=== PATIENT | female | born 1975 | race African-American/Black ===

== ENCOUNTER 2016-09-11 09:48 | Emergency (ER) | payer MEDICAID ==
[2016-09-11] MEDS ORDERED: ONDANSETRON 4 MG TAB.RAPDIS PO ONE (10:07)
--- NOTE | 2016-09-11 10:07 | ER Document Report ---
ED Medical Screen (RME) - General Stated Complaint: COLD SYMPTOMS Notes: 40 yo female c/o cold symptoms 6 days. coughing, shortness of breath, chest soreness, fever, vomiting. + hx/o HTN, DM, Anemia. Pt is blind, Dialysis patient. Went to Dialysis today, unable to finish. Has right AV fistula. TRAVEL OUTSIDE OF THE [place] IN LAST 30 DAYS: No - Related Data Allergies/Adverse Reactions: hydromorphone [Hydromorphone] Allergy (Intermediate, Verified 09/10/13 17:27) ABDOMINAL CRAMPS azithromycin [Azithromycin] Allergy (Unknown, Verified 09/10/13 17:27) Darbepoetin [place] in [place] * [From Aranesp] Allergy (Unknown, Verified 09/10 17:27) ITCHING Sulfa (Sulfonamide Antibiotics) Allergy (Verified 09/10/13 17:27) Unsure BBQ SAUCE Allergy (Mild, Uncoded 09/10/13 17:27) Hives Past Medical History - Past Medical History Cardiac Medical History: Reports: Hx Congestive Heart Failure, Hx Coronary Artery Disease, Hx Hypercholesterolemia, Hx Hypertension Denies: Hx Heart Attack Pulmonary Medical History: Denies: Hx Asthma, Hx Bronchitis, Hx COPD, Hx Pneumonia, Hx Tuberculosis Neurological Medical History: Reports: Hx Seizures. Denies: Hx Cerebrovascular Accident Endocrine Medical History: Reports: Hx Diabetes Mellitus Type 1, Hx Diabetes Mellitus Type 2 Renal/ Medical History: Reports: Hx End Stage Renal Disease, Hx Hemodialysis. Denies: Hx Kidney Stones GI Medical History: Reports: Hx Gastroesophageal Reflux Disease. Denies: Hx Cirrhosis, Hx Ulcer Musculoskeltal Medical History: Reports Hx Arthritis, Denies Hx Multiple Sclerosis Skin Medical History: Reports Hx Cellulitis Psychiatric Medical History: Reports: Hx Depression Denies: Hx Bipolar Disorder, Hx Schizophrenia Traumatic Medical History: Reports: Hx Fractures - Rt. Hip Infectious Medical History: Past Surgical History: Reports: Hx Abdominal Surgery - abd hernia repair, Hx Cholecystectomy, Hx Herniorrhaphy, Hx Orthopedic Surgery - rt hip, Hx Vascular Surgery - Right arm AV fistula. Denies: Hx Pacemaker - Immunizations Immunizations up to date: Yes Hx Diphtheria, Pertussis, Tetanus Vaccination: Yes
[2016-09-11] MEDS ORDERED: ACETAMINOPHEN 325 MG TABLET PO ONE ×2 (10:08→14:38)
[2016-09-11] MEDS ORDERED: NORMAL SALINE 1000 ML 250 ML IV ONE (10:35)
[2016-09-11 10:55] LABS: ABSOLUTE BASOPHILS # (AUTO) 0.1 10^3/uL (0.0-0.2); ABSOLUTE LYMPHOCYTES (AUTO) 0.5 10^3/uL (0.5-4.7); ABSOLUTE MONOCYTES (AUTO) 1.4 10^3/uL (0.1-1.4); ABSOLUTE NEUT (AUTO) 6.7 10^3/uL (1.7-8.2); BASOPHILS % (AUTO) 0.9 % (0-2); HEMATOCRIT 28.7 % (36.0-47.0); HEMOGLOBIN 9.5 g/dL (12.0-15.5); HGB HCT DIFFERENCE -0.2; LYMPHOCYTES % (AUTO) 5.9 % (13-45); MEAN CORPUSCULAR HEMOGLOBIN 32.2 pg (27.0-33.4); MEAN CORPUSCULAR HGB CONC 32.9 g/dL (32.0-36.0); MEAN CORPUSCULAR VOLUME 98 fl (80-97); MONOCYTES % (AUTO) 15.9 % (3-13); RED BLOOD COUNT 2.94 10^6/uL (3.72-5.28); RED CELL DISTRIBUTION WIDTH 14.6 % (11.5-14.0); SEGMENTED NEUTROPHILS % (AUTO) 77.3 % (42-78); WHITE BLOOD COUNT 8.7 10^3/uL (4.0-10.5)
[2016-09-11 10:57] LABS: VENOUS BLOOD HCO3 29.4 mmol/L (20-32); VENOUS BLOOD PCO2 53.4 mmHg (35-63); VENOUS BLOOD PH 7.36 (7.30-7.42)
[2016-09-11 11:15] LABS: ALANINE AMINOTRANSFERASE 33 U/L (9-52); ALBUMIN 4.5 g/dL (3.5-5.0); ALKALINE PHOSPHATASE 118 U/L (38-126); ANION GAP 19 (5-19); ASPARTATE AMINO TRANSFERASE 33 U/L (14-36); BILIRUBIN,TOTAL 0.7 mg/dL (0.2-1.3); BLOOD UREA NITROGEN 25 mg/dL (7-20); CARBON DIOXIDE 27 mmol/L (22-30); CHLORIDE 93 mmol/L (98-107); CREATININE RESULT 4.99 mg/dL (0.52-1.25); GLUCOSE 148 mg/dL (75-110); LIPASE 285.1 U/L (23-300); MAGNESIUM 1.5 mg/dL (1.6-2.3); POTASSIUM 4.9 mmol/L (3.6-5.0); SODIUM 138.7 mmol/L (137-145); TOTAL PROTEIN 9.3 g/dL (6.3-8.2)
[2016-09-11] MEDS ORDERED: PIPERACILLIN/TAZOBACTAM 3.375 GM VIAL IV ONE (11:42)
[2016-09-11] MEDS ORDERED: OSELTAMIVIR PHOSPHATE 6 MG/1 ML SUSP 60 ML PO ONE (13:49)
--- NOTE | 2016-09-11 14:12 | ER Document Report ---
ED General - General Chief Complaint: Nausea/Vomiting Stated Complaint: COLD SYMPTOMS TRAVEL OUTSIDE OF THE [place] IN LAST 30 DAYS: No - HPI Patient complains to provider of: nausea vomiting fever Notes: Patient's coming in from dialysis for fever. Temperature 103. Patient denies nausea vomiting prior to. Patient received approximately 75% for dialysis treatment prior to arrival. Patient states was exposed to family members to have a viral type illness. States she felt chills suggested to fevers day prior to arrival. Patient did not receive a flu shot this year. Patient also complains of shortness of breath nonproductive cough. - Related Data Allergies/Adverse Reactions: hydromorphone [Hydromorphone] Allergy (Intermediate, Verified 09/11/16 10:04) ABDOMINAL CRAMPS azithromycin [Azithromycin] Allergy (Unknown, Verified 09/11/16 10:04) Darbepoetin [place] in [place] * [From Aranesp] Allergy (Unknown, Verified 09/11 10:04) ITCHING Sulfa (Sulfonamide Antibiotics) Allergy (Verified 09/11/16 10:04) Unsure BBQ SAUCE Allergy (Mild, Uncoded 09/11/16 10:04) Hives Past Medical History - Social History Smoking Status: Never Smoker Chew tobacco use (# tins/day): No Frequency of alcohol use: None Drug Abuse: None Family History: Reviewed & Not Pertinent Patient has suicidal ideation: No Patient has homicidal ideation: No - Past Medical History Cardiac Medical History: Reports: Hx Congestive Heart Failure, Hx Coronary Artery Disease, Hx Hypercholesterolemia, Hx Hypertension Denies: Hx Heart Attack Pulmonary Medical History: Denies: Hx Asthma, Hx Bronchitis, Hx COPD, Hx Pneumonia, Hx Tuberculosis Neurological Medical History: Reports: Hx Seizures. Denies: Hx Cerebrovascular Accident Endocrine Medical History: Reports: Hx Diabetes Mellitus Type 1, Hx Diabetes Mellitus Type 2 Renal/ Medical History: Reports: Hx End Stage Renal Disease, Hx Hemodialysis. Denies: Hx Kidney Stones, Hx Peritoneal Dialysis GI Medical History: Reports: Hx Gastroesophageal Reflux Disease. Denies: Hx Cirrhosis, Hx Ulcer Musculoskeltal Medical History: Reports Hx Arthritis, Denies Hx Multiple Sclerosis Skin Medical History: Reports Hx Cellulitis Psychiatric Medical History: Reports: Hx Depression Denies: Hx Bipolar Disorder, Hx Schizophrenia Traumatic Medical History: Reports: Hx Fractures - Rt. Hip Infectious Medical History: Past Surgical History: Reports: Hx Abdominal Surgery - abd hernia repair, Hx Cholecystectomy, Hx Herniorrhaphy, Hx Orthopedic Surgery - rt hip, Hx Vascular Surgery - Right arm AV fistula. Denies: Hx Pacemaker - Immunizations Immunizations up to date: Yes Hx Diphtheria, Pertussis, Tetanus Vaccination: Yes Hx Pneumococcal Vaccination: 08/25/12 Review of Systems - Review of Systems Constitutional: Fever EENT: No symptoms reported Cardiovascular: No symptoms reported Respiratory: Cough, Short of breath Gastrointestinal: No symptoms reported Genitourinary: No symptoms reported Female Genitourinary: No symptoms reported Musculoskeletal: No symptoms reported Skin: No symptoms reported Hematologic/Lymphatic: No symptoms reported Neurological/Psychological: No symptoms reported -: Yes All other systems reviewed and negative Physical Exam - Vital signs Vitals: Temp Pulse Resp BP Pulse Ox 102.8 F H 115 H 28 H 149/78 H 97 09/11/16 09:59 09/11/16 09:59 09/11/16 09:59 09/11/16 09:59 09/11/16 09:59 Interpretation: Febrile - General General appearance: Appears well, Alert - HEENT Head: Normocephalic, Atraumatic Eyes: Normal Pupils: PERRL - Respiratory Respiratory status: No respiratory distress Chest status: Nontender Breath sounds: Normal Chest palpation: Normal - Cardiovascular Rhythm: Regular Heart sounds: Normal auscultation Murmur: No - Abdominal Inspection: Normal Distension: No distension Bowel sounds: Normal Tenderness: Nontender Organomegaly: No organomegaly - Back Back: Normal, Nontender - Extremities General upper extremity: Normal inspection - Patient with AV fistula right upper extremity with a palpable thrill., Nontender, Normal color, Normal ROM, Normal temperature General lower extremity: Normal inspection, Nontender, Normal color, Normal ROM , Normal temperature, Normal weight bearing. No: Jayy's sign - Neurological Neuro grossly intact: Yes Cognition: Normal Orientation: AAOx4 Rudolph Coma Scale Eye Opening: Spontaneous Rudolph Coma Scale Verbal: Oriented Rudolph Coma Scale Motor: Obeys Commands Rudolph Coma Scale Total: 15 Speech: Normal Motor strength normal: LUE, RUE, LLE, RLE Sensory: Normal - Psychological Associated symptoms: Normal affect, Normal mood - Skin Skin Temperature: Warm Skin Moisture: Dry Skin Color: Normal Course - Re-evaluation Re-evalutation: 09/11/16 15:11 Patient's lab work shows no leukocytosis noted bandemia. Patient's fever did reduce with Tylenol. Patient's chest x-ray negative blood culture was drawn patient did return positive for flu type VIII. More likely this possible etiology for patient's symptoms. Will start patient on Tamiflu. 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 Agrees with the current assessment and plan will have the patient take Tamiflu after her dialysis on each dialysis today. Patient agrees to plan will be discharged home. - Vital Signs Vital signs: Temp Pulse Resp BP Pulse Ox 97.9 F 62 16 147/81 H 94 09/11/16 13:04 09/11/16 13:04 09/11/16 13:04 09/11/16 13:04 09/11/16 13:04 - Laboratory Result Diagrams: 09/11/16 10:28 09/11/16 10:28 Laboratory results interpreted by me: 09/11/16 09/11/16 09/11/16 10:28 10:28 10:28 RBC 2.94 L Hgb 9.5 L Hct 28.7 L MCV 98 H RDW 14.6 H Lymphocytes % 5.9 L Monocytes % 15.9 H Chloride 93 L BUN 25 H Creatinine 4.99 H Est GFR ( Amer) 12 L Est GFR (Non-Af Amer) 10 L Glucose 148 H Lactic Acid 2.9 H Magnesium 1.5 L Total Protein 9.3 H Discharge - Discharge Clinical Impression: Influenza A Fever Qualifiers: Fever type: unspecified Qualified Code(s): R50.9 - Fever, unspecified Nausea & vomiting Qualifiers: Vomiting type: unspecified Vomiting Intractability: unspecified Qualified Code( s): R11.2 - Nausea with vomiting, unspecified Condition: Good Disposition: HOME, SELF-CARE Instructions: Influenza (COUNT INCLUDES THE [facility]) [phone], Fever (COUNT INCLUDES THE [facility]) Additional Instructions: Follow-up with your primary care physician. Please take medications as as directed Return to the ER symptoms worsen. Please take Tylenol for fever Prescriptions: Oseltamivir Phosphate [Tamiflu 6 mg/1 ml Susp 60 ml] 30 mg PO ASDIR PRN #1 bottle PRN Reason: Referrals: TRESA OH MD [Primary Care Provider] - Follow up as needed
[2016-09-11 15:23] VITALS: BP 145/98
== END 2016-09-11 15:45 | disposition home or self-care (01) ==
LOC: ER 09:48
DX: J11.1 Influenza due to unidentified influenza virus with other respiratory manifestations (principal); E11.22 Type 2 diabetes mellitus with diabetic chronic kidney disease; I12.0 Hypertensive chronic kidney disease with stage 5 chronic kidney disease or end stage renal disease; N18.6 End stage renal disease; Z99.2 Dependence on renal dialysis; I25.10 Atherosclerotic heart disease of native coronary artery without angina pectoris; R06.02 Shortness of breath; R05 Cough; R11.2 Nausea with vomiting, unspecified; R50.9 Fever, unspecified; Z88.5 Allergy status to narcotic agent; Z88.1 Allergy status to other antibiotic agents; Z88.2 Allergy status to sulfonamides; Z91.018 Allergy to other foods; Z88.8 Allergy status to other drugs, medicaments and biological substances
CPT/HCPCS: 99284; 96361; 96365; 36415; 87040; 83690; 83735; 85025; 80053; 82803; 83605; 87804; 71010; J3490; S0119; J7030; J2543

== ENCOUNTER 2017-02-07 07:45 | Emergency (ER) | payer MEDICAID ==
[2017-02-07] MEDS ORDERED: OXYCODONE-ACETAMINOPHEN 5-325 MG TABLET PO ONE (09:45)
[2017-02-07] MEDS ORDERED: ONDANSETRON 4 MG TAB.RAPDIS PO ONE (09:45)
--- NOTE | 2017-02-07 10:16 | ER Document Report ---
ED Headache - General Mode of Arrival: Ambulatory Information source: Patient TRAVEL OUTSIDE OF THE [place] IN LAST 30 DAYS: No - HPI Patient complains to provider of: Headache <ANTONIO TUCKER - Last Filed: 02/07/17 10:05> <LUCAS URENA - Last Filed: 02/07/17 11:42> - General Chief Complaint: Headache Stated Complaint: HEADACHE Time Seen by Provider: 02/07/17 09:35 Notes: Patient is a 41-year-old female presenting to the emergency department with chief complaint of headache which radiates from her left shoulder up behind her eyes into the top of her head. Patient states that it feels like when her blood vessels burst in the past. She describes it as a burning sensation. Patient came here from dialysis this morning, only finished 1 hour of dialysis and is supposed to return tomorrow. Patient has a history of blindness secondary to glaucoma. (ANTONIO TUCKER) - Related Data Allergies/Adverse Reactions: hydromorphone [Hydromorphone] Allergy (Intermediate, Verified 02/07/17 08:02) ABDOMINAL CRAMPS azithromycin [Azithromycin] Allergy (Unknown, Verified 02/07/17 08:02) Darbepoetin [place] * [From Aranesp] Allergy (Unknown, Verified 02/07 08:02) ITCHING Sulfa (Sulfonamide Antibiotics) Allergy (Verified 02/07/17 08:02) Unsure BBQ SAUCE Allergy (Mild, Uncoded 02/07/17 08:02) Hives Past Medical History - Social History Smoking Status: Current Some Day Smoker Chew tobacco use (# tins/day): No Frequency of alcohol use: None Drug Abuse: None Family History: Reviewed & Not Pertinent Patient has suicidal ideation: No Patient has homicidal ideation: No - Past Medical History Cardiac Medical History: Reports: Hx Congestive Heart Failure, Hx Coronary Artery Disease, Hx Hypercholesterolemia, Hx Hypertension Neurological Medical History: Reports: Hx Seizures Endocrine Medical History: Reports: Hx Diabetes Mellitus Type 1, Hx Diabetes Mellitus Type 2 Renal/ Medical History: Reports: Hx End Stage Renal Disease, Hx Hemodialysis GI Medical History: Reports: Hx Gastroesophageal Reflux Disease Musculoskeltal Medical History: Reports Hx Arthritis Skin Medical History: Reports Hx Cellulitis Psychiatric Medical History: Reports: Hx Depression Traumatic Medical History: Reports: Hx Fractures - Rt. Hip Infectious Medical History: Past Surgical History: Reports: Hx Abdominal Surgery - abd hernia repair, Hx Cholecystectomy, Hx Herniorrhaphy, Hx Orthopedic Surgery - rt hip, Hx Vascular Surgery - Right arm AV fistula - Immunizations Immunizations up to date: Yes Hx Diphtheria, Pertussis, Tetanus Vaccination: Yes Hx Pneumococcal Vaccination: 08/25/12 <ANTONIO TUCKER - Last Filed: 02/07/17 10:05> EENT Medical History: Reports: Eyes - Glaucoma, blind Endocrine Medical History: Reports: Hx Diabetes Mellitus Type 2. Denies: Hx Diabetes Mellitus Type 1 Renal/ Medical History: Reports: Hx End Stage Renal Disease, Hx Hemodialysis GI Medical History: Reports: Hx Gastroesophageal Reflux Disease Musculoskeltal Medical History: Reports Hx Arthritis <LUCAS URENA - Last Filed: 02/07/17 11:42> Review of Systems - Review of Systems Constitutional: No symptoms reported EENT: See HPI, Eye pain - Behind eyes, Other - Headache radiation from left shoulder up to top of head. Cardiovascular: No symptoms reported Respiratory: No symptoms reported Gastrointestinal: No symptoms reported Genitourinary: No symptoms reported Female Genitourinary: No symptoms reported Musculoskeletal: No symptoms reported Skin: No symptoms reported Hematologic/Lymphatic: No symptoms reported Neurological/Psychological: No symptoms reported -: Yes All other systems reviewed and negative <ANTONIO TUCKER - Last Filed: 02/07/17 10:05> Physical Exam - General General appearance: Alert - Blind - HEENT Head: Normocephalic, Atraumatic Eyes: Other - Bilateral blindness, no tenderness to the eyeball. Pupils: PERRL Neck: Supple - Left trapezius very tender to palpation - Respiratory Respiratory status: No respiratory distress Chest status: Nontender Breath sounds: Normal Chest palpation: Normal - Cardiovascular Rhythm: Regular Heart sounds: Normal auscultation Murmur: No - Abdominal Inspection: Obese Tenderness: Nontender - Back Back: Normal, Nontender - Extremities General lower extremity: Normal inspection, Nontender Forearm: Other - Fistula right forearm - Neurological Neuro grossly intact: Yes Cognition: Normal Orientation: AAOx4 Rudolph Coma Scale Eye Opening: Spontaneous [place] Coma Scale Verbal: Oriented Rudolph Coma Scale Motor: Obeys Commands [place] Coma Scale Total: 15 Speech: Normal - Psychological Associated symptoms: Normal affect, Normal mood - Skin Skin Temperature: Warm Skin Moisture: Dry Skin Color: Normal <RORY TUCKERICA - Last Filed: 02/07/17 10:05> Course <CAITLINANTONIO - Last Filed: 02/07/17 10:05> - EKG Interpretation by Me EKG shows normal: Sinus rhythm, [place], ST-T Waves. abnormal: Intervals - On prolonged QT interval, QRS Complexes - Borderline R-wave progression in the anterior leads Rate: Normal - 86 Rhythm: NSR Voltage: Decreased voltage When compared to previous EKG there are: No significant change <LUCAS URENA - Last Filed: 02/07/17 11:42> - Re-evaluation Re-evalutation: 02/07/17 11:38 Patient reports that her headache is somewhat better and palpation of the tender trapezius muscle is improved. There no tenderness to palpate the eyeball globes. (LUCAS URENA) - Vital Signs Vital signs: Temp Pulse Resp BP Pulse Ox 98.7 F 87 15 151/80 H 97 02/07/17 08:02 02/07/17 08:02 02/07/17 09:00 02/07/17 08:02 02/07/17 09:00 Discharge <CAITLINANTONIO - Last Filed: 02/07/17 10:05> <LUACS URENA - Last Filed: 02/07/17 11:42> - Discharge Clinical Impression: Chronic renal failure, stage 5 Trapezius muscle strain Qualifiers: Encounter type: initial encounter Laterality: left Qualified Code(s): S46.812A - Strain of other muscles, fascia and tendons at shoulder and upper arm level, left arm, initial encounter Headache Qualifiers: Headache type: unspecified Headache chronicity pattern: acute headache Intractability: not intractable Qualified Code(s): R51 - Headache Condition: Stable Disposition: HOME, SELF-CARE Additional Instructions: Headache: The physician does not feel that the headache you are experiencing has a serious underlying cause. Most headaches are due to emotional stress, with resultant muscle tension (tension headache). Occasionally, headaches are secondary to changes in the blood vessels of the scalp (vascular headache and migraine headache). Sometimes, a headache is the first symptom of another developing illness, such as a viral infection. You have no evidence of stroke, bleeding, meningitis, or other serious cause of your headache. The treatment of headaches varies with the severity and cause of the pain. Not all headaches need pain shots. In fact, there is evidence that using narcotics for headaches may make them worse in the long run. The physician will determine the therapy that's in your best interest. If you develop a fever, if the headache is different from any you've previously experienced, or if the headache progressively worsens, then call your physician at once or go to the emergency room. Take the medication as prescribed for headache if needed. Call dialysis to schedule a time for tomorrow. Follow-up with your doctor if not improving. RETURN TO THE EMERGENCY ROOM IF ANY NEW OR WORSENING SYMPTOMS. Prescriptions: Oxycodone HCl/Acetaminophen [Percocet 5-325 mg Tablet] 1 - 2 tab PO ASDIR PRN # 15 tablet PRN Reason: Referrals: TRESA OH MD [Primary Care Provider] - Follow up as needed Scribe Attestation: 02/07/17 11:41 I personally performed the services described in the documentation, reviewed and edited the documentation which was dictated to the scribe in my presence, and it accurately records my words and actions. (LUCAS URENA) Scribe Documentation - Scribe Written by Everett:: Everett Arnold, 02/07/2017 [id number] acting as scribe for :: Chilo <ANTONIO TUCKER - Last Filed: 02/07/17 10:05>
[2017-02-07 11:55] VITALS: BP 138/77
--- NOTE | 2017-02-07 17:54 | EKG REPORT ---
SEVERITY:- ABNORMAL ECG - SINUS RHYTHM LOW VOLTAGE THROUGHOUT BORDERLINE R WAVE PROGRESSION, ANTERIOR LEADS BORDERLINE PROLONGED QT INTERVAL : Confirmed by: Janell Mo 07-Feb-2017 17:53:13
== END 2017-02-07 11:55 | disposition home or self-care (01) ==
LOC: ER 07:45
DX: R51 Headache (principal); S46.812A Strain of other muscles, fascia and tendons at shoulder and upper arm level, left arm, initial encounter; X58.XXXA Exposure to other specified factors, initial encounter; I50.9 Heart failure, unspecified; E11.9 Type 2 diabetes mellitus without complications; I11.0 Hypertensive heart disease with heart failure; E11.22 Type 2 diabetes mellitus with diabetic chronic kidney disease; I13.2 Hypertensive heart and chronic kidney disease with heart failure and with stage 5 chronic kidney disease, or end stage renal disease; N18.6 End stage renal disease; I25.10 Atherosclerotic heart disease of native coronary artery without angina pectoris; Z88.2 Allergy status to sulfonamides; F17.200 Nicotine dependence, unspecified, uncomplicated; E78.00 Pure hypercholesterolemia, unspecified; Z88.6 Allergy status to analgesic agent; Z99.2 Dependence on renal dialysis; H40.9 Unspecified glaucoma; Z90.49 Acquired absence of other specified parts of digestive tract
CPT/HCPCS: 93005; 99284; 93010; S0119

== ENCOUNTER 2017-09-04 11:36 | Emergency (ER) | payer MEDICAID ==
[2017-09-04 11:43] VITALS: BP 144/62
--- NOTE | 2017-09-04 12:07 | ER Document Report ---
ED Medical Screen (RME) - General Chief Complaint: Abdominal Pain Stated Complaint: FALL/KNEE INJURY Time Seen by Provider: 09/04/17 12:00 Notes: This 41-year-old female dialysis patient brought to emergency room for diffuse global headache, right knee pain since falling on her knee 3 days ago, and did not go to dialysis yesterday because she did not feel well. No history of striking head. I have greeted and performed a rapid initial assessment of this patient. A comprehensive ED assessment and evaluation of the patient, analysis of test results and completion of the medical decision making process will be conducted by additional ED providers. TRAVEL OUTSIDE OF THE [place] IN LAST 30 DAYS: No - Related Data Allergies/Adverse Reactions: hydromorphone [Hydromorphone] Allergy (Intermediate, Verified 09/04/17 11:37) ABDOMINAL CRAMPS azithromycin [Azithromycin] Allergy (Unknown, Verified 09/04/17 11:37) Darbepoetin [place] * [From Aranesp] Allergy (Unknown, Verified 09/04 11:37) ITCHING Sulfa (Sulfonamide Antibiotics) Allergy (Verified 09/04/17 11:37) Unsure BBQ SAUCE Allergy (Mild, Uncoded 09/04/17 11:37) Hives Past Medical History - Social History Frequency of alcohol use: Social Drug Abuse: None - Past Medical History Cardiac Medical History: Reports: Hx Congestive Heart Failure, Hx Coronary Artery Disease, Hx Hypercholesterolemia, Hx Hypertension Denies: Hx Heart Attack Pulmonary Medical History: Denies: Hx Asthma, Hx Bronchitis, Hx COPD, Hx Pneumonia, Hx Tuberculosis Neurological Medical History: Reports: Hx Seizures. Denies: Hx Cerebrovascular Accident Endocrine Medical History: Reports: Hx Diabetes Mellitus Type 2. Denies: Hx Diabetes Mellitus Type 1 Renal/ Medical History: Reports: Hx End Stage Renal Disease, Hx Hemodialysis. Denies: Hx Kidney Stones, Hx Peritoneal Dialysis GI Medical History: Reports: Hx Gastroesophageal Reflux Disease. Denies: Hx Cirrhosis, Hx Ulcer Musculoskeltal Medical History: Reports Hx Arthritis, Denies Hx Multiple Sclerosis Skin Medical History: Reports Hx Cellulitis Psychiatric Medical History: Reports: Hx Depression Denies: Hx Bipolar Disorder, Hx Schizophrenia Traumatic Medical History: Reports: Hx Fractures - Rt. Hip Infectious Medical History: Past Surgical History: Reports: Hx Abdominal Surgery - abd hernia repair, Hx Cholecystectomy, Hx Herniorrhaphy, Hx Orthopedic Surgery - rt hip, Hx Vascular Surgery - Right arm AV fistula. Denies: Hx Pacemaker - Immunizations Immunizations up to date: Yes Hx Diphtheria, Pertussis, Tetanus Vaccination: Yes Physical Exam - Vital signs Vitals: Temp Pulse Resp BP Pulse Ox 99.0 F 87 22 H 144/62 H 94 09/04/17 11:41 09/04/17 11:41 09/04/17 11:41 09/04/17 11:41 09/04/17 11:41 Course - Vital Signs Vital signs: Temp Pulse Resp BP Pulse Ox 99.0 F 87 22 H 144/62 H 94 09/04/17 11:41 09/04/17 11:41 09/04/17 11:41 09/04/17 11:41 09/04/17 11:41
--- NOTE | 2017-09-04 12:57 | RADIOLOGY REPORT (SQ) ---
EXAM DESCRIPTION: CT HEAD WITHOUT COMPLETED DATE/TIME: 09/04/2017 12:38 pm REASON FOR STUDY: diffuse headache COMPARISON: 12/22/2010, 01/11/2008 TECHNIQUE: Axial images acquired through the brain without intravenous contrast. Images reviewed wi th bone, brain and subdural windows. Images stored on PACS. All CT scanners at this facility use dose modulation, iterative reconstruction, and/or weight based d osing when appropriate to reduce radiation dose to as low as reasonably achievable (ALARA). [facility]: Dose Right [facility]: CareDose [facility]: Dose Right [facility]: Teradose 4D [facility]: Smart [employer] RADIATION DOSE: CT Rad equipment meets quality standard of care and radiation dose reduction techniq ues were employed. CTDIvol: 64.6 mGy. DLP: 1163 mGy-cm. mGy. LIMITATIONS: None. FINDINGS: VENTRICLES: Normal size and contour. CEREBRUM: No masses. No hemorrhage. No midline shift. No evidence for acute infarction. Normal gra y/white matter differentiation. No areas of low density in the white matter. CEREBELLUM: No masses. No hemorrhage. No alteration of density. No evidence for acute infarction. EXTRAAXIAL SPACES: No fluid collections. No masses. ORBITS AND GLOBE: Globes are small and heavily calcified. CALVARIUM: No fracture. PARANASAL SINUSES: No fluid or mucosal thickening. SOFT TISSUES: No mass or hematoma. OTHER: No other significant finding. IMPRESSION: NORMAL BRAIN CT WITHOUT CONTRAST. EVIDENCE OF ACUTE STROKE: NO. COMMENT: Quality ID # [id number]: Final reports with documentation of one or more dose reduction techniques (e.g., Automated exposure control, adjustment of the mA and/or kV according to patient size, use of iterative reconstruction technique) TECHNICAL DOCUMENTATION: JOB ID: [id number] [employer]- All Rights Reserved
--- NOTE | 2017-09-04 13:31 | RADIOLOGY REPORT (SQ) ---
EXAM DESCRIPTION: KNEE RIGHT 3 VIEWS COMPLETED DATE/TIME: 09/04/2017 12:58 pm REASON FOR STUDY: fall, knee pain COMPARISON: None. NUMBER OF VIEWS: Four views. TECHNIQUE: AP, lateral, and both oblique radiographic images acquired of the right knee. LIMITATIONS: None. FINDINGS: MINERALIZATION: Normal. BONES: No acute fracture or dislocation. No worrisome bone lesions. JOINT: No effusion. SOFT TISSUES: No soft tissue swelling. No radio-opaque foreign body. OTHER: Vascular calcifications are identified. IMPRESSION: NO RADIOGRAPHIC EVIDENCE OF ACUTE INJURY. TECHNICAL DOCUMENTATION: JOB ID: [id number] [employer]- All Rights Reserved
[2017-09-04 13:38] LABS: ABSOLUTE BASOPHILS # (AUTO) 0.1 10^3/uL (0.0-0.2); ABSOLUTE LYMPHOCYTES (AUTO) 0.9 10^3/uL (0.5-4.7); ABSOLUTE MONOCYTES (AUTO) 0.7 10^3/uL (0.1-1.4); ABSOLUTE NEUT (AUTO) 7.6 10^3/uL (1.7-8.2); BASOPHILS % (AUTO) 1.1 % (0-2); HEMATOCRIT 31.2 % (36.0-47.0); HEMOGLOBIN 10.3 g/dL (12.0-15.5); LYMPHOCYTES % (AUTO) 9.3 % (13-45); MEAN CORPUSCULAR HEMOGLOBIN 31.9 pg (27.0-33.4); MEAN CORPUSCULAR HGB CONC 32.9 g/dL (32.0-36.0); MEAN CORPUSCULAR VOLUME 97 fl (80-97); MONOCYTES % (AUTO) 7.8 % (3-13); PLATELET COUNT 286 10^3/uL (150-450); RED BLOOD COUNT 3.22 10^6/uL (3.72-5.28); RED CELL DISTRIBUTION WIDTH 14.9 % (11.5-14.0); SEGMENTED NEUTROPHILS % (AUTO) 81.8 % (42-78); TOTAL CELLS COUNTED % (AUTO) 100 %; WHITE BLOOD COUNT 9.3 10^3/uL (4.0-10.5)
[2017-09-04 13:43] LABS: ALANINE AMINOTRANSFERASE 21 U/L (9-52); ALBUMIN 4.1 g/dL (3.5-5.0); ALKALINE PHOSPHATASE 90 U/L (38-126); ASPARTATE AMINO TRANSFERASE 14 U/L (14-36); BILIRUBIN,DIRECT 0.5 mg/dL (0.0-0.4); BILIRUBIN,TOTAL 0.5 mg/dL (0.2-1.3); BLOOD UREA NITROGEN 81 mg/dL (7-20); CALCIUM 9.8 mg/dL (8.4-10.2); CHLORIDE 92 mmol/L (98-107); CREATINE KINASE 77 U/L (30-135); GLUCOSE 81 mg/dL (75-110); POTASSIUM 5.6 mmol/L (3.6-5.0); TOTAL PROTEIN 8.4 g/dL (6.3-8.2)
[2017-09-04 13:51] LABS: CARBON DIOXIDE 27 mmol/L (22-30); SODIUM 139.1 mmol/L (137-145)
[2017-09-04 13:54] LABS: CREATINE KINASE MB 1.56 ng/mL (<4.55)
[2017-09-04 13:56] LABS: ANION GAP 20 (5-19)
[2017-09-04 13:58] LABS: TROPONIN I 0.156 ng/mL
--- NOTE | 2017-09-04 15:00 | ER Document Report ---
ED General - General Chief Complaint: Abdominal Pain Stated Complaint: FALL/KNEE INJURY Time Seen by Provider: 09/04/17 12:00 TRAVEL OUTSIDE OF THE [place]. IN LAST 30 DAYS: No - Related Data Allergies/Adverse Reactions: hydromorphone [Hydromorphone] Allergy (Intermediate, Verified 09/04/17 11:37) ABDOMINAL CRAMPS azithromycin [Azithromycin] Allergy (Unknown, Verified 09/04/17 11:37) Darbepoetin [place] in [place] * [From Aranesp] Allergy (Unknown, Verified 09/04 11:37) ITCHING Sulfa (Sulfonamide Antibiotics) Allergy (Verified 09/04/17 11:37) Unsure BBQ SAUCE Allergy (Mild, Uncoded 09/04/17 11:37) Hives Past Medical History - Social History Smoking Status: Current Every Day Smoker Frequency of alcohol use: Social Drug Abuse: None Family History: Reviewed & Not Pertinent Patient has suicidal ideation: No Patient has homicidal ideation: No - Past Medical History Cardiac Medical History: Reports: Hx Congestive Heart Failure, Hx Coronary Artery Disease, Hx Hypercholesterolemia, Hx Hypertension Denies: Hx Heart Attack Pulmonary Medical History: Denies: Hx Asthma, Hx Bronchitis, Hx COPD, Hx Pneumonia, Hx Tuberculosis Neurological Medical History: Reports: Hx Seizures. Denies: Hx Cerebrovascular Accident Endocrine Medical History: Reports: Hx Diabetes Mellitus Type 2. Denies: Hx Diabetes Mellitus Type 1 Renal/ Medical History: Reports: Hx End Stage Renal Disease, Hx Hemodialysis. Denies: Hx Kidney Stones, Hx Peritoneal Dialysis GI Medical History: Reports: Hx Gastroesophageal Reflux Disease. Denies: Hx Cirrhosis, Hx Ulcer Musculoskeltal Medical History: Reports Hx Arthritis, Denies Hx Multiple Sclerosis Skin Medical History: Reports Hx Cellulitis Psychiatric Medical History: Reports: Hx Depression Denies: Hx Bipolar Disorder, Hx Schizophrenia Traumatic Medical History: Reports: Hx Fractures - Rt. Hip Infectious Medical History: Past Surgical History: Reports: Hx Abdominal Surgery - abd hernia repair, Hx Cholecystectomy, Hx Herniorrhaphy, Hx Orthopedic Surgery - rt hip, Hx Vascular Surgery - Right arm AV fistula. Denies: Hx Pacemaker - Immunizations Immunizations up to date: Yes Hx Diphtheria, Pertussis, Tetanus Vaccination: Yes Hx Pneumococcal Vaccination: 08/25/12 Physical Exam - Vital signs Vitals: Temp Pulse Resp BP Pulse Ox 99.0 F 87 22 H 144/62 H 94 09/04/17 11:41 09/04/17 11:41 09/04/17 11:41 09/04/17 11:41 09/04/17 11:41 Course - Re-evaluation Re-evalutation: 09/04/17 14:59 MEDICAL DECISION MAKING: Concern for Will Patient understands and agrees to the plan of care EKG my interpretation rate nl rhythm reg No appreciable ST elevation or depression Normal MN QRS QT No sig change from prior EKG from February 07, 2017 - Vital Signs Vital signs: Temp Pulse Resp BP Pulse Ox 99.0 F 87 21 H 144/62 H 94 09/04/17 11:41 09/04/17 11:41 09/04/17 17:00 09/04/17 11:41 09/04/17 11:41 - Laboratory Result Diagrams: 09/04/17 13:12 09/04/17 13:12 Laboratory results interpreted by me: 09/04/17 09/04/17 09/04/17 13:12 13:12 15:30 RBC 3.22 L Hgb 10.3 L Hct 31.2 L RDW 14.9 H Seg Neutrophils % 81.8 H Lymphocytes % 9.3 L Potassium 5.6 H Chloride 92 L Anion Gap 20 H BUN 81 H Creatinine 11.94 H Est GFR ( Amer) 4 L Est GFR (Non-Af Amer) 4 L Direct Bilirubin 0.5 H Ammonia < 8.7 L Total Protein 8.4 H Discharge - Discharge Clinical Impression: Malaise and fatigue Condition: Good Disposition: HOME, SELF-CARE Additional Instructions: No flu test was negative. 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 Duff.
[2017-09-04 17:28] LABS: A TYPE INFLUENZA AG NEGATIVE (NEGATIVE); B INFLUENZA AG NEGATIVE (NEGATIVE)
[2017-09-04] MEDS ORDERED: SODIUM POLYSTYRENE SULFONATE 15 GM/60 ML PO ONE (17:50)
--- NOTE | 2017-09-04 18:49 | EKG REPORT ---
SEVERITY:- BORDERLINE ECG - SINUS RHYTHM LOW VOLTAGE IN FRONTAL LEADS BORDERLINE R WAVE PROGRESSION, ANTERIOR LEADS BORDERLINE PROLONGED QT INTERVAL : Confirmed by: Ananth Davis MD 04-Sep-2017 18:48:30
== END 2017-09-04 19:13 | disposition home or self-care (01) ==
LOC: ER 11:36
DX: R53.81 Other malaise (principal); R53.83 Other fatigue; F17.200 Nicotine dependence, unspecified, uncomplicated; I50.9 Heart failure, unspecified; I25.10 Atherosclerotic heart disease of native coronary artery without angina pectoris; E78.00 Pure hypercholesterolemia, unspecified; E11.22 Type 2 diabetes mellitus with diabetic chronic kidney disease; I13.2 Hypertensive heart and chronic kidney disease with heart failure and with stage 5 chronic kidney disease, or end stage renal disease; N18.6 End stage renal disease; Z99.2 Dependence on renal dialysis; Z90.49 Acquired absence of other specified parts of digestive tract; Z88.2 Allergy status to sulfonamides; Z88.6 Allergy status to analgesic agent
CPT/HCPCS: 93005; 99285; 36415; 87040; 82553; 82140; 82550; 83735; 85025; 80053; 84484; 87804; 73562; 70450; 93010; J3490

== ENCOUNTER 2017-09-06 18:37 | Emergency (ER) | payer MEDICAID ==
--- NOTE | 2017-09-06 20:06 | ER Document Report ---
ED Medical Screen (RME) - General Chief Complaint: Nausea Stated Complaint: HEAD PRESSURE Time Seen by Provider: 09/06/17 20:02 Mode of Arrival: Wheelchair Information source: Patient TRAVEL OUTSIDE OF THE [place] IN LAST 30 DAYS: No - HPI Patient complains to provider of: Head pressure, nausea, diarrhea Onset: Other - pt. is ESRD on HD with c/o head pressure, Nausea and diarrhea for the past 2 days - Related Data Allergies/Adverse Reactions: hydromorphone [Hydromorphone] Allergy (Intermediate, Verified 09/04/17 11:37) ABDOMINAL CRAMPS azithromycin [Azithromycin] Allergy (Unknown, Verified 09/04/17 11:37) Darbepoetin [place] in [place] * [From Aranesp] Allergy (Unknown, Verified 09/04 11:37) ITCHING Sulfa (Sulfonamide Antibiotics) Allergy (Verified 09/04/17 11:37) Unsure BBQ SAUCE Allergy (Mild, Uncoded 09/04/17 11:37) Hives Past Medical History - Social History Chew tobacco use (# tins/day): No Frequency of alcohol use: Occasional Drug Abuse: None - Past Medical History Cardiac Medical History: Reports: Hx Congestive Heart Failure, Hx Coronary Artery Disease, Hx Hypercholesterolemia, Hx Hypertension Denies: Hx Heart Attack Pulmonary Medical History: Denies: Hx Asthma, Hx Bronchitis, Hx COPD, Hx Pneumonia, Hx Tuberculosis Neurological Medical History: Reports: Hx Seizures. Denies: Hx Cerebrovascular Accident Endocrine Medical History: Reports: Hx Diabetes Mellitus Type 2. Denies: Hx Diabetes Mellitus Type 1 Renal/ Medical History: Reports: Hx End Stage Renal Disease, Hx Hemodialysis. Denies: Hx Kidney Stones, Hx Peritoneal Dialysis GI Medical History: Reports: Hx Gastroesophageal Reflux Disease. Denies: Hx Cirrhosis, Hx Ulcer Musculoskeltal Medical History: Reports Hx Arthritis, Denies Hx Multiple Sclerosis Skin Medical History: Reports Hx Cellulitis Psychiatric Medical History: Reports: Hx Depression Denies: Hx Bipolar Disorder, Hx Schizophrenia Traumatic Medical History: Reports: Hx Fractures - Rt. Hip Infectious Medical History: Past Surgical History: Reports: Hx Abdominal Surgery - abd hernia repair, Hx Cholecystectomy, Hx Herniorrhaphy, Hx Orthopedic Surgery - rt hip, Hx Vascular Surgery - Right arm AV fistula. Denies: Hx Pacemaker - Immunizations Immunizations up to date: Yes Hx Diphtheria, Pertussis, Tetanus Vaccination: Yes Physical Exam - Vital signs Vitals: Temp Pulse Resp BP Pulse Ox 98.1 F 81 18 131/58 H 94 09/06/17 19:22 09/06/17 19:22 09/06/17 19:22 09/06/17 19:22 09/06/17 19:22 Course - Vital Signs Vital signs: Temp Pulse Resp BP Pulse Ox 98.1 F 81 18 131/58 H 94 09/06/17 19:22 09/06/17 19:22 09/06/17 19:22 09/06/17 19:22 09/06/17 19:22
[2017-09-06 20:30] LABS: ABSOLUTE LYMPHOCYTES (AUTO) 0.8 10^3/uL (0.5-4.7); ABSOLUTE MONOCYTES (AUTO) 0.9 10^3/uL (0.1-1.4); ABSOLUTE NEUT (AUTO) 6.1 10^3/uL (1.7-8.2); BASOPHILS % (AUTO) 0.6 % (0-2); HEMATOCRIT 32.7 % (36.0-47.0); LYMPHOCYTES % (AUTO) 10.7 % (13-45); MEAN CORPUSCULAR HEMOGLOBIN 32.4 pg (27.0-33.4); MEAN CORPUSCULAR HGB CONC 33.6 g/dL (32.0-36.0); MEAN CORPUSCULAR VOLUME 97 fl (80-97); MONOCYTES % (AUTO) 11.2 % (3-13); PLATELET COUNT 253 10^3/uL (150-450); RED BLOOD COUNT 3.39 10^6/uL (3.72-5.28); RED CELL DISTRIBUTION WIDTH 15.1 % (11.5-14.0); SEGMENTED NEUTROPHILS % (AUTO) 77.5 % (42-78); TOTAL CELLS COUNTED % (AUTO) 100 %; WHITE BLOOD COUNT 7.8 10^3/uL (4.0-10.5)
[2017-09-06 20:59] LABS: ALANINE AMINOTRANSFERASE 24 U/L (9-52); ALBUMIN 4.2 g/dL (3.5-5.0); ALKALINE PHOSPHATASE 92 U/L (38-126); ANION GAP 19 (5-19); ASPARTATE AMINO TRANSFERASE 21 U/L (14-36); BILIRUBIN,DIRECT 0.5 mg/dL (0.0-0.4); BILIRUBIN,TOTAL 0.5 mg/dL (0.2-1.3); BLOOD UREA NITROGEN 43 mg/dL (7-20); CALCIUM 9.9 mg/dL (8.4-10.2); CARBON DIOXIDE 27 mmol/L (22-30); CHLORIDE 93 mmol/L (98-107); GLUCOSE 150 mg/dL (75-110); POTASSIUM 4.3 mmol/L (3.6-5.0); SODIUM 138.8 mmol/L (137-145); TOTAL PROTEIN 8.8 g/dL (6.3-8.2)
[2017-09-06] MEDS ORDERED: ONDANSETRON 4 MG TAB.RAPDIS PO ONE (21:50)
[2017-09-06] MEDS ORDERED: IBUPROFEN 600 MG TABLET PO ONE (21:50)
--- NOTE | 2017-09-06 22:08 | ER Document Report ---
ED General - General Chief Complaint: Nausea Stated Complaint: HEAD PRESSURE Time Seen by Provider: 09/06/17 20:02 Mode of Arrival: Wheelchair Notes: 41-year-old female presents with right-sided body pain after a fall onto her left side a few days back, fatigue, nausea and diarrhea. She denies headache or chest pain. She has intermittent abdominal pain but is not currently going on. She is a dialysis patient and get seen for dialysis Friday. She missed Friday but was seen in dialyzed Friday. Denies fevers and chills. Her constant symptoms are moderate. TRAVEL OUTSIDE OF THE [place] IN LAST 30 DAYS: No - Related Data Allergies/Adverse Reactions: hydromorphone [Hydromorphone] Allergy (Intermediate, Verified 09/04/17 11:37) ABDOMINAL CRAMPS azithromycin [Azithromycin] Allergy (Unknown, Verified 09/04/17 11:37) Darbepoetin [place] in [place] * [From Aranesp] Allergy (Unknown, Verified 09/04 11:37) ITCHING Sulfa (Sulfonamide Antibiotics) Allergy (Verified 09/04/17 11:37) Unsure BBQ SAUCE Allergy (Mild, Uncoded 09/04/17 11:37) Hives Past Medical History - General Information source: Patient - Social History Smoking Status: Current Every Day Smoker Chew tobacco use (# tins/day): No Frequency of alcohol use: Occasional Drug Abuse: None Family History: Reviewed & Not Pertinent Patient has suicidal ideation: No Patient has homicidal ideation: No - Past Medical History Cardiac Medical History: Reports: Hx Congestive Heart Failure, Hx Coronary Artery Disease, Hx Hypercholesterolemia, Hx Hypertension Denies: Hx Heart Attack Pulmonary Medical History: Denies: Hx Asthma, Hx Bronchitis, Hx COPD, Hx Pneumonia, Hx Tuberculosis Neurological Medical History: Reports: Hx Seizures. Denies: Hx Cerebrovascular Accident Endocrine Medical History: Reports: Hx Diabetes Mellitus Type 2. Denies: Hx Diabetes Mellitus Type 1 Renal/ Medical History: Reports: Hx End Stage Renal Disease, Hx Hemodialysis. Denies: Hx Kidney Stones, Hx Peritoneal Dialysis GI Medical History: Reports: Hx Gastroesophageal Reflux Disease. Denies: Hx Cirrhosis, Hx Ulcer Musculoskeltal Medical History: Reports Hx Arthritis, Denies Hx Multiple Sclerosis Skin Medical History: Reports Hx Cellulitis Psychiatric Medical History: Reports: Hx Depression Denies: Hx Bipolar Disorder, Hx Schizophrenia Traumatic Medical History: Reports: Hx Fractures - Rt. Hip Infectious Medical History: Past Surgical History: Reports: Hx Abdominal Surgery - abd hernia repair, Hx Cholecystectomy, Hx Herniorrhaphy, Hx Orthopedic Surgery - rt hip, Hx Vascular Surgery - Right arm AV fistula. Denies: Hx Pacemaker - Immunizations Immunizations up to date: Yes Hx Diphtheria, Pertussis, Tetanus Vaccination: Yes Hx Pneumococcal Vaccination: 08/25/12 Review of Systems - Review of Systems Notes: REVIEW OF SYSTEMS GEN: Weakness ENT: Denies sore throat, nasal discharge, ear pain EYES: Denies blurry vision, eye pain, discharge CV: Denies chest pain, palpitations, edema RESP: Denies cough, shortness of breath, wheezing GI: Diarrhea nausea MSK: Denies joint pain/swelling, edema, SKIN: Denies rash, skin lesions LYMPH: Denies swollen glands/lymph nodes NEURO: Denies headache, focal weakness or numbness, dizziness PSYCH: Denies depression, suicidal or homicidal ideation PHYSICAL EXAMINATION General: No acute distress, well-nourished Head: Atraumatic, normocephalic ENT: Mouth normal, oropharynx moist, no exudates or tonsillar enlargement Eyes: C baseline blindness sunglasses on. Neck: No JVD, supple, no guarding CVS: Normal rate, regular rhythm, no murmurs Resp: No resp distress, equal and normal breath sounds bilaterally GI: Nondistended, soft, no tenderness to palpation, no rebound or guarding Ext: No deformities, chronic leg edema bilaterally symmetric, normal range of motion in upper and lower ext Back: No CVA or midline TTP Skin: No rash, warm Lymphatic: No lymphadeopathy noted Neuro: Awake, alert. Face symmetric. GCS 15. Physical Exam - Vital signs Vitals: Temp Pulse Resp BP Pulse Ox 98.1 F 81 18 131/58 H 94 09/06/17 19:22 09/06/17 19:22 09/06/17 19:22 09/06/17 19:22 09/06/17 19:22 Course - Re-evaluation Re-evalutation: 09/06/17 22:07 41-year-old female on dialysis presents with generalized weakness nausea and diarrhea. Her vitals are normal. Her abdominal exam is benign. She has no focal neurologic signs on exam. She has a patent fistula on exam. Lab workup was ordered before my evaluation, aside from an elevated creatinine, she is welldialyzed and her labs are normal. I will treat her with Motrin and Zofran and reassess but I do not think she has UT or NT intra-abdominal emergency based on her exam. - Vital Signs Vital signs: Temp Pulse Resp BP Pulse Ox 98.1 F 81 18 131/58 H 94 09/06/17 19:22 09/06/17 19:22 09/06/17 19:22 09/06/17 19:22 09/06/17 19:22 - Laboratory Result Diagrams: 09/06/17 20:20 09/06/17 20:20 Laboratory results interpreted by me: 09/06/17 09/06/17 20:20 20:20 RBC 3.39 L Hgb 11.0 L Hct 32.7 L RDW 15.1 H Lymphocytes % 10.7 L Chloride 93 L BUN 43 H Creatinine 8.36 H Est GFR ( Amer) 6 L Est GFR (Non-Af Amer) 5 L Glucose 150 H Direct Bilirubin 0.5 H Total Protein 8.8 H Discharge - Discharge Clinical Impression: Nausea Condition: Good Disposition: HOME, SELF-CARE Instructions: Diarrhea, Nonspecific ([facility]) Additional Instructions: He did not find any significant injuries sustained after fall the other day. Your laboratory testing does not show the need for urgent dialysis or other emergencies. Please take [id number] diarrhea medication and I will prescribe use of nausea medicine as needed. Referrals: TRESA OH MD [Primary Care Provider] - Follow up as needed
[2017-09-06 23:17] VITALS: BP 141/64
--- NOTE | 2017-09-07 08:39 | EKG REPORT ---
SEVERITY:- BORDERLINE ECG - SINUS RHYTHM LOW VOLTAGE IN FRONTAL LEADS BORDERLINE R WAVE PROGRESSION, ANTERIOR LEADS BORDERLINE PROLONGED QT INTERVAL : Confirmed by: Ananth Davis MD 07-Sep-2017 08:38:40
== END 2017-09-06 23:17 | disposition home or self-care (01) ==
LOC: ER 18:37
DX: R11.0 Nausea (principal); R52 Pain, unspecified; W19.XXXA Unspecified fall, initial encounter; R53.83 Other fatigue; R53.1 Weakness; R19.7 Diarrhea, unspecified; E11.22 Type 2 diabetes mellitus with diabetic chronic kidney disease; I12.0 Hypertensive chronic kidney disease with stage 5 chronic kidney disease or end stage renal disease; N18.6 End stage renal disease; Z99.2 Dependence on renal dialysis; I25.10 Atherosclerotic heart disease of native coronary artery without angina pectoris; F17.200 Nicotine dependence, unspecified, uncomplicated; Z88.5 Allergy status to narcotic agent; Z88.1 Allergy status to other antibiotic agents; Z88.2 Allergy status to sulfonamides; Z91.018 Allergy to other foods; Z88.8 Allergy status to other drugs, medicaments and biological substances; Z90.49 Acquired absence of other specified parts of digestive tract
CPT/HCPCS: 93005; 99283; 36415; 85025; 80053; 93010; S0119; J3490

== ENCOUNTER → 2018-01-22 | Outpatient (CLI) | payer MEDICAID ==
--- NOTE | 2018-01-22 16:47 | WOMENS IMAGING REPORT ---
EXAM DESCRIPTION: 3D SCREENING MAMMO BILAT COMPLETED DATE/TIME: 01/22/2018 1:31 pm REASON FOR STUDY: ROUTINE SCREENING;Z12.31 Z12.31 ENCNTR SCREEN MAMMOGRAM FOR MALIGNANT NEOPLASM OF KIRSTEN COMPARISON: 2011 to 2015 TECHNIQUE: Standard craniocaudal and mediolateral oblique views of each breast recorded using digita l acquisition and breast tomosynthesis. LIMITATIONS: None. FINDINGS: No masses, calcifications or architectural distortion. No areas of suspicion. Read with the assistance of CAD. .[facility] - R2 Cenova Version 1.3 .[facility] - R2 Cenova Version 1.3 .[facility] - R2 Cenova Version 2.4 .[place] - R2 Cenova Version 2.4 .[facility] - R2 [employer] Version 9.2 IMPRESSION: NORMAL MAMMOGRAM. BIRADS 1. BREAST DENSITY: b. There are scattered areas of fibroglandular density. BIRAD: 1 NEGATIVE RECOMMENDATION: ROUTINE SCREENING COMMENT: The patient has been notified of the results by letter per SA requirements. Additional no tification policies are in place for contacting patient with suspicious or incomplete findings. Quality ID #[id number]: The [employer] recommends an annual screening mammogram for women aged 40 years or over. This facility utilizes a reminder system to ensure that all patients receive reminder letters, and/or direct phone calls for appointments. This includes reminders for routine scr eening mammograms, diagnostic mammograms, or other Breast Imaging Interventions when appropriate. Th is patient will be placed in the appropriate reminder system. The [employer] (ACR) has developed recommendations for screening MRI of the breast s in certain patient populations, to be used in conjunction with mammography. Breast MRI surveillanc e may be appropriate for women with more than 20% lifetime risk of developing breast cancer as deter mined by genetic testing, significant family history of the disease, or history of mantle radiation f or Hodgkins Disease. ACR Practice Guidelines 2008. DBT Technology DBT is a type of tomographic mammography. With conventional mammography, overlapping breast tissue ma y make lesions difficult to detect, even with good compression. DBT uses an x-ray tube that rotates a round the breast, taking images at different angles. These images are then combined to create thin sl ices of the breast that the radiologist can view as a 3D reconstruction. The Droidhen unit can perform full-field digital mammograms (2D imaging); or DBT (3D imaging); or both, in a combination mode that quickly performs both the mammogram and the tomosynthesis scan while the breast is still compressed. PQRS 6045F: Fluoroscopic imaging is not utilized for breast tomosynthesis. TECHNICAL DOCUMENTATION: FINDING NUMBER: (1) ASSESSMENT: (1) JOB ID: [id number] [employer]- All Rights Reserved Reading location - IP/workstation name: [email or web address]
== END ==
LOC: WI 13:04
PROVIDERS: ATTEND Obstetrics & Gynecology
DX: Z12.31 Encounter for screening mammogram for malignant neoplasm of breast (principal)
CPT/HCPCS: 77063; 77067

== ENCOUNTER → 2018-04-14 | Outpatient (CLI) | payer MEDICAID ==
--- NOTE | 2018-04-14 11:05 | RADIOLOGY REPORT (SQ) ---
EXAM DESCRIPTION: U/S ABDOMEN COMPLETE W/O DOP COMPLETED DATE/TIME: 04/14/2018 10:27 am REASON FOR STUDY: RIGHT SIDED ABD PAIN (R10.9) R10.9 UNSPECIFIED ABDOMINAL PAIN COMPARISON: CT abdomen pelvis 03/20/2010 Abdominal films 09/06/2010, 09/14/2015 TECHNIQUE: Dynamic and static grayscale images acquired of the abdomen and recorded on PACS. Additio nal selected color Doppler and spectral images recorded. LIMITATIONS: Body habitus, midline bowel gas FINDINGS: PANCREAS: Not visualized LIVER: No masses. Echotexture normal. LIVER VASCULATURE: Normal directional flow of the main portal vein and hepatic veins. GALLBLADDER: Surgically absent ULTRASOUND-DETECTED BRADY'S SIGN: Not applicable INTRAHEPATIC DUCTS AND COMMON DUCT: CBD and intrahepatic ducts normal caliber. No filling defects. D istal common duct not well seen due to midline bowel gas. INFERIOR VENA CAVA: Not well seen AORTA: Not well seen RIGHT KIDNEY: 10 cm in length with diffuse cortical thinning and increased echogenicity. 3 cm cyst right mid-pole kidney. No solid or suspicious masses. No hydronephrosis. No calcifications. LEFT KIDNEY: 9 cm in length with diffuse cortical thinning and increased echogenicity. No solid or suspicious masses. No hydronephrosis. No calcifications. SPLEEN: 10 cm in length. No gross masses PERITONEAL AND PLEURAL SPACES: No ascites or effusions. OTHER: No other significant finding. IMPRESSION: Post cholecystectomy Small kidneys with cortical thinning and increased echogenicity. No hydronephrosis. TECHNICAL DOCUMENTATION: JOB ID: [id number] [employer]- All Rights Reserved Reading location - IP/workstation name: [facility]
== END ==
LOC: RAD 08:41
PROVIDERS: ATTEND Family Medicine
DX: R10.9 Unspecified abdominal pain (principal)
CPT/HCPCS: 76700

== ENCOUNTER 2018-07-29 11:36 | Emergency (ER) | payer MEDICAID ==
[2018-07-29] MEDS ORDERED: HYDROCODONE/ACETAMINOPHEN 5-325 MG TABLET PO ONE (12:18)
--- NOTE | 2018-07-29 12:20 | ER Document Report ---
ED Fall - General Chief Complaint: Fall Injury Stated Complaint: FALL/LEG AND HEAD PAIN Time Seen by Provider: 07/29/18 12:16 Mode of Arrival: Ambulatory Information source: Patient Notes: Chief complaint: Fall History of complain:( obtained from----patient) 42 years old female coming out of dialysis slipped and fell on her back and hit her back of her head since then having pain over the back of her head therefore present to the ED. No loss of consciousness no focal weaknesses. Onset: Just prior to arrival sudden Duration: Just prior to arrival Severity: Mild to moderate Quality: Sharp Context: As above Exacerbating factor and relieving factors: REVIEW OF SYSTEMS: CONSTITUTIONAL : Denies fever, chills, or sweats. Denies recent illness. EENT: Denies eye, ear, throat, or mouth pain or symptoms. Denies nasal or sinus congestion or discharge. Denies throat, tongue, or mouth swelling or difficulty swallowing. CARDIOVASCULAR: Denies chest pain. Denies palpitations or racing or irregular heart beat. Denies ankle edema. RESPIRATORY: Denies cough, cold, or chest congestion. Denies shortness of breath, difficulty breathing, or wheezing. GASTROINTESTINAL: Denies distention. Denies nausea, vomiting, or diarrhea. Denies blood in vomitus, stools, or per rectum. Denies black, tarry stools. Denies constipation. GENITOURINARY: Denies difficulty urinating, painful urination, burning, frequency, blood in urine, or discharge. FEMALE GENITOURINARY: Denies vaginal bleeding, heavy or abnormal periods, irregular periods. Denies vaginal discharge or odor. MUSCULOSKELETAL: Denies back or neck pain or stiffness. Denies joint pain or swelling. SKIN: Denies rash, lesions or sores. HEMATOLOGIC : Denies easy bruising or bleeding. LYMPHATIC: Denies swollen, enlarged glands. NEUROLOGICAL: Denies confusion or altered mental status. Denies passing out or loss of consciousness. Denies dizziness or lightheadedness. Denies headache. Denies weakness or paralysis or loss of use of either side. Denies problems with gait or speech. Denies sensory loss, numbness, or tingling. Denies seizures. PSYCHIATRIC: Denies anxiety or stress. Denies depression, suicidal ideation, or homicidal ideation. ALL OTHER SYSTEMS REVIEWED AND NEGATIVE. PHYSICAL EXAMINATION: GENERAL: Well-appearing, well-nourished and in no acute distress. Obesity HEAD: Atraumatic, normocephalic. EYES: Pupils equal round and reactive to light, extraocular movements intact, conjunctiva are normal. ENT: Nares patent, oropharynx clear without exudates. Moist mucous membranes. NECK: Normal range of motion, supple without lymphadenopathy LUNGS: Breath sounds clear to auscultation bilaterally and equal. No wheezes rales or rhonchi. HEART: Regular rate and rhythm without murmurs ABDOMEN: Soft, nontender, nondistended abdomen. No guarding, no rebound. No masses appreciated. Examination of genitals-deferred Musculoskeletal: Normal range of motion, no pitting or edema. No cyanosis. NEUROLOGICAL: Cranial nerves grossly intact. Normal speech, normal gait. Normal sensory, motor exams PSYCH: Normal mood, normal affect. SKIN: Warm, Dry, normal turgor, no rashes or lesions noted. Dictation was performed using [employer] voice recognition software TRAVEL OUTSIDE OF THE [place] IN LAST 30 DAYS: No - HPI Notes: Dictated - Related data Allergies/Adverse Reactions: hydromorphone [Hydromorphone] Allergy (Intermediate, Verified 07/29/18 12:17) ABDOMINAL CRAMPS azithromycin [Azithromycin] Allergy (Unknown, Verified 07/29/18 12:17) Darbepoetin [place] in [place] * [From Aranesp] Allergy (Unknown, Verified 07/29 12:17) ITCHING epoetin [place]an [From Procrit] Allergy (Verified 07/29/18 12:17) Sulfa (Sulfonamide Antibiotics) Allergy (Verified 07/29/18 12:17) Unsure BBQ SAUCE Allergy (Mild, Uncoded 07/29/18 12:17) Hives Past Medical History - Social History Smoking Status: Current Every Day Smoker Frequency of alcohol use: None Drug Abuse: None Family History: Reviewed & Not Pertinent Patient has suicidal ideation: No Patient has homicidal ideation: No - Past Medical History Cardiac Medical History: Reports: Hx Congestive Heart Failure, Hx Coronary Artery Disease, Hx Hypercholesterolemia, Hx Hypertension Denies: Hx Heart Attack Pulmonary Medical History: Denies: Hx Asthma, Hx Bronchitis, Hx COPD, Hx Pneumonia, Hx Tuberculosis Neurological Medical History: Reports: Hx Seizures. Denies: Hx Cerebrovascular Accident Endocrine Medical History: Reports: Hx Diabetes Mellitus Type 2. Denies: Hx Diabetes Mellitus Type 1 Renal/ Medical History: Reports: Hx End Stage Renal Disease, Hx Hemodialysis. Denies: Hx Kidney Stones, Hx Peritoneal Dialysis GI Medical History: Reports: Hx Gastroesophageal Reflux Disease. Denies: Hx Cirrhosis, Hx Ulcer Musculoskeletal Medical History: Reports Hx Arthritis, Denies Hx Multiple Sclerosis Skin Medical History: Reports Hx Cellulitis Psychiatric Medical History: Reports: Hx Depression Denies: Hx Bipolar Disorder, Hx Schizophrenia Traumatic Medical History: Reports: Hx Fractures - Rt. Hip Infectious Medical History: Past Surgical History: Reports: Hx Abdominal Surgery - abd hernia repair, Hx Cholecystectomy, Hx Herniorrhaphy, Hx Orthopedic Surgery - rt hip, Hx Vascular Surgery - Right arm AV fistula. Denies: Hx Pacemaker - Immunizations Immunizations up to date: Yes Hx Diphtheria, Pertussis, Tetanus Vaccination: Yes Hx Pneumococcal Vaccination: 08/25/12 Review of Systems - Review of Systems Notes: Dictated Physical Exam - Vital signs Vitals: Temp Pulse Resp BP Pulse Ox 100.1 F 93 24 H 153/79 H 95 07/29/18 12:03 07/29/18 12:03 07/29/18 12:03 07/29/18 12:03 07/29/18 12:03 - Notes Notes: Dictated Course - Vital Signs Vital signs: Temp Pulse Resp BP Pulse Ox 100.1 F 93 24 H 153/79 H 95 07/29/18 12:03 07/29/18 12:03 07/29/18 12:03 07/29/18 12:03 07/29/18 12:03 - Diagnostic Test Radiology reviewed: Reports reviewed - CT was reported by radiologist as no acute bleeding chronic changes Discharge - Discharge Clinical Impression: Head injury Qualifiers: Encounter type: initial encounter Qualified Code(s): S09.90XA - Unspecified injury of head, initial encounter Condition: Fair Instructions: Head Injury Precautions ([facility]) Referrals: TRESA OH MD [Primary Care Provider] - Follow up as needed
--- NOTE | 2018-07-29 13:20 | RADIOLOGY REPORT (SQ) ---
EXAM DESCRIPTION: CT HEAD WITHOUT COMPLETED DATE/TIME: 07/29/2018 1:11 pm REASON FOR STUDY: Head injury COMPARISON: 09/04/2017 TECHNIQUE: Axial images acquired through the brain without intravenous contrast. Images reviewed wi th bone, brain and subdural windows. Additional sagittal and coronal reconstructions were generated. Images stored on PACS. All CT scanners at this facility use dose modulation, iterative reconstruction, and/or weight based d osing when appropriate to reduce radiation dose to as low as reasonably achievable (ALARA). [facility]: Dose Right [facility]: CareDose [facility]: Dose Right [facility]: Teradose 4D [facility]: [employer] RADIATION DOSE: CT Rad equipment meets quality standard of care and radiation dose reduction techniq ues were employed. CTDIvol: 53.2 mGy. DLP: 1044 mGy-cm. mGy. LIMITATIONS: None. FINDINGS: VENTRICLES: Normal size and contour. CEREBRUM: No masses. No hemorrhage. No midline shift. No evidence for acute infarction. Mild periv entricular white matter hypodensity and global volume loss advanced for patient age. CEREBELLUM: No masses. No hemorrhage. No alteration of density. No evidence for acute infarction. EXTRAAXIAL SPACES: No fluid collections. No masses. ORBITS AND GLOBE: Atrophy and calcification of the bilateral globes. CALVARIUM: No fracture. PARANASAL SINUSES: No fluid or mucosal thickening. SOFT TISSUES: Extensive vascular calcinosis. OTHER: No other significant finding. IMPRESSION: 1. No acute intracranial pathology. 2. Mild periventricular white matter hypodensity global volume loss advanced for patient age. 3. Atrophy and calcification of the bilateral globes. 4. Extensive vascular calcinosis advanced for patient age and likely related to diabetes. EVIDENCE OF ACUTE STROKE: NO. COMMENT: Quality ID # [id number]: Final reports with documentation of one or more dose reduction techniques (e.g., Automated exposure control, adjustment of the mA and/or kV according to patient size, use of iterative reconstruction technique) TECHNICAL DOCUMENTATION: JOB ID: [id number]- All Rights Reserved Reading location - IP/workstation name: [email or web address]
[2018-07-29 13:49] VITALS: BP 185/87
== END 2018-07-29 13:53 | disposition home or self-care (01) ==
LOC: ER 11:36
DX: S09.90XA Unspecified injury of head, initial encounter (principal); W01.0XXA Fall on same level from slipping, tripping and stumbling without subsequent striking against object, initial encounter; Y93.89 Activity, other specified; E66.9 Obesity, unspecified; I12.0 Hypertensive chronic kidney disease with stage 5 chronic kidney disease or end stage renal disease; E11.22 Type 2 diabetes mellitus with diabetic chronic kidney disease; N18.6 End stage renal disease; F17.200 Nicotine dependence, unspecified, uncomplicated; I25.10 Atherosclerotic heart disease of native coronary artery without angina pectoris; Z88.5 Allergy status to narcotic agent; Z88.1 Allergy status to other antibiotic agents; Z88.2 Allergy status to sulfonamides; Z91.018 Allergy to other foods; Z88.8 Allergy status to other drugs, medicaments and biological substances
CPT/HCPCS: 70450; 99284

== ENCOUNTER 2018-07-31 01:03 | Inpatient (IN) | payer MEDICAID ==
[2018-07-31] MEDS ORDERED: IPRATROPIUM/ALBUTEROL 0.5-2.5 MG/3 ML AMPUL NEB ONE (01:08)
[2018-07-31] MEDS ORDERED: PIPERACILLIN/TAZOBACTAM 2.25 GM VIAL IV ONE (01:09)
[2018-07-31] MEDS ORDERED: LINEZOLID 600 MG/300 ML RTUPB IV ONE ×2 (01:11→03:26)
--- NOTE | 2018-07-31 01:37 | ER Document Report ---
ED General - General Stated Complaint: SHORTNESS OF BREATH Time Seen by Provider: 07/31/18 01:07 Notes: Patient is a 42-year-old female presents with complaint of fever and difficulty breathing. Last few days she has had some congestion but tonight she did have difficulty breathing and fever feels very unwell. She is end-stage renal disease patient. she is followed by Dr. Duff. She gets dialysis Friday. She had dialysis on Friday and said everything went normal. She denies any vomiting. 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 No chest pain. No other complaints at this time. She has a fistula left arm which is no longer usable. She has a fistula in the right arm which has been operating appropriately. TRAVEL OUTSIDE OF THE [place] IN LAST 30 DAYS: No - Related Data Allergies/Adverse Reactions: hydromorphone [Hydromorphone] Allergy (Intermediate, Verified 07/29/18 12:17) ABDOMINAL CRAMPS azithromycin [Azithromycin] Allergy (Unknown, Verified 07/29/18 12:17) Darbepoetin Chandrika in [place] * [From Aranesp] Allergy (Unknown, Verified 07/29 12:17) ITCHING epoetin chandrika [From Procrit] Allergy (Verified 07/29/18 12:17) Sulfa (Sulfonamide Antibiotics) Allergy (Verified 07/29/18 12:17) Unsure BBQ SAUCE Allergy (Mild, Uncoded 07/29/18 12:17) Hives Past Medical History - Social History Smoking Status: Unknown if Ever Smoked Frequency of alcohol use: None Drug Abuse: None Family History: Reviewed & Not Pertinent - Past Medical History Cardiac Medical History: Reports: Hx Congestive Heart Failure, Hx Coronary Artery Disease, Hx Hypercholesterolemia, Hx Hypertension Denies: Hx Heart Attack Pulmonary Medical History: Denies: Hx Asthma, Hx Bronchitis, Hx COPD, Hx Pneumonia, Hx Tuberculosis Neurological Medical History: Reports: Hx Seizures. Denies: Hx Cerebrovascular Accident Endocrine Medical History: Reports: Hx Diabetes Mellitus Type 2. Denies: Hx Diabetes Mellitus Type 1 Renal/ Medical History: Reports: Hx End Stage Renal Disease, Hx Hemodialysis. Denies: Hx Kidney Stones, Hx Peritoneal Dialysis GI Medical History: Reports: Hx Gastroesophageal Reflux Disease. Denies: Hx Cirrhosis, Hx Ulcer Musculoskeletal Medical History: Reports Hx Arthritis, Denies Hx Multiple Sclerosis Skin Medical History: Reports Hx Cellulitis Psychiatric Medical History: Reports: Hx Depression Denies: Hx Bipolar Disorder, Hx Schizophrenia Traumatic Medical History: Reports: Hx Fractures - Rt. Hip Infectious Medical History: Past Surgical History: Reports: Hx Abdominal Surgery - abd hernia repair, Hx Cholecystectomy, Hx Herniorrhaphy, Hx Orthopedic Surgery - rt hip, Hx Vascular Surgery - Right arm AV fistula. Denies: Hx Pacemaker - Immunizations Immunizations up to date: Yes Hx Diphtheria, Pertussis, Tetanus Vaccination: Yes Hx Pneumococcal Vaccination: 08/25/12 Review of Systems - Review of Systems Notes: My Normal Review Basic REVIEW OF SYSTEMS: CONSTITUTIONAL : Fever EENT: Congestion. CARDIOVASCULAR: Denies chest pain. RESPIRATORY: Difficulty breathing GASTROINTESTINAL: Denies abdominal pain. Denies nausea, vomiting, or diarrhea. MUSCULOSKELETAL: Edema in bilateral lower extremities SKIN: Denies rash or skin lesions. NEUROLOGICAL: Denies altered mental status or loss of consciousness. Denies headache. Denies weakness or paralysis or loss of use of either side. Denies problems with gait or speech. Denies sensory or motor loss. ALL OTHER SYSTEMS REVIEWED AND NEGATIVE. Physical Exam - Vital signs Vitals: Resp Pulse Ox 27 H 97 07/31/18 01:08 07/31/18 01:08 - Notes Notes: General Appearance: Well nourished, alert, cooperative, moderate acute distress , no obvious discomfort. Vitals: reviewed, See vital signs table. Head: no swelling or tenderness to the head Eyes: PERRL, EOMI, Conjuctiva clear Mouth: No decreasd moisture Throat: No tonsillar inflammation, No airway obstruction, No lymphadenopathy Neck: Supple, no neck tenderness Lungs: Diminished on the right side. Patient has moderate accessory muscle use. She has moderate distress. Some tachypnea. Some scattered wheezing. Heart: Tachycardia rate, Regular rythm, No murmur, no rub Abdomen: Normal BS, soft, No rigidity, No abdominal tenderness, No guarding, no rebound, no abdominal masses, no organomegaly Extremities: strength 5/5 in all extremities, good pulses in all extremities, no swelling or tenderness in the extremities, plus bilateral lower extremity edema with skin breakdown from chronic edema. Skin: Good breakdown on lower extremities from chronic edema. Neuro: She has somewhat from what appears to be fatigue from history distress however she is able to open her eyes and talk and communicate appropriately. She is able move all 4 extremities on her own. Cranial nerves II through XII are intact. Course - Re-evaluation Re-evalutation: 07/31/18 05:48 Patient was immediately placed on BiPAP when she first arrived. This did help with her breathing quite a bit. Patient looks and feels significantly improved however she still has some difficulty breathing. I was going to try to wean her off the BiPAP but unfortunately she is actually required some increase oxygenation with the BiPAP. She was initially just on 40%. She is now at 55% FiO2. O2 saturations when she was on 40% were started to dip into the upper 80s. Patient's x-ray shows right-sided pneumonia but she also has a small amount of fluid overload associated with that which I suspect will get worse as we get closer to her normally scheduled dialysis for this morning. I did try to attempt to admit the patient and her [facility]. I called the nurse mine supervisor, bang, who says that typically can only handle 3 inpatient dialysis patients on the time because we only have one senior technical trainer and that only allows her 3 shift to dialysis during his scheduled day. She said that sometimes they can arrange for forth but this had to go through the load mixer and it depends on the patient's placement. I called and spoke with Dr. Cisse, load mixer. She says that we would be able to dialyze the patient if the patient was not on BiPAP; however if the patient remains on BiPAP then they cannot dialyze here because any time the patient is on BiPAP they has to be in the ICU get dialysis. If the patient is in ICU getting dialysis she will not be able to be simultaneously dialyzed next to another patient and therefore we do not have enough dialysis techs to be able dialyze an extra patient per Dr. Cisse. I therefore been told that up to transfer the patient. I therefore called and spoke with [facility]. I spoke with Dr. Stanton, hospitalist, who agrees to accept the patient in transfer. She has received albuterol treatments as well as insulin glucose to help with treatment of her hyperkalemia. Have ordered a repeat BMP to see where her potassium is trending. Patient will be maintained on a monitor. Dictation of this chart was performed using voice recognition software; therefore, there may be some unintended grammatical errors. 07/31/18 05:54 - Vital Signs Vital signs: Temp Pulse Resp BP Pulse Ox 99.7 F 21 H 153/92 H 100 07/31/18 05:00 07/31/18 05:01 07/31/18 05:01 07/31/18 05:01 - Laboratory Result Diagrams: 07/31/18 01:30 07/31/18 01:30 Laboratory results interpreted by me: 07/31/18 07/31/18 07/31/18 01:30 01:30 01:30 RBC 3.40 L Hgb 11.2 L Hct 34.0 L MCV 100 H RDW 15.8 H Lymphocytes % 12.3 L VBG pCO2 63.1 H VBG HCO3 32.4 H Potassium 6.4 H* Chloride 91 L Anion Gap 20 H BUN 45 H Creatinine 7.14 H Est GFR ( Amer) 8 L Est GFR (Non-Af Amer) 6 L Glucose 113 H Total Bilirubin 1.5 H Direct Bilirubin 1.5 H Total Protein 9.6 H - EKG Interpretation by Me Additional EKG results interpreted by me: 07/31/18 01:36 EKG is reviewed and interpreted by me. EKG shows sinus tachycardia with a rate of [address] segment elevation or depression. No ischemic T wave inversions. MD interval, QRS duration, QT intervals are within normal range. Old EKG for comparison is from september 06 2017. Critical Care Note - Critical Care Note Total time excluding time spent on procedures (mins): 45 Comments: Critical care time for this patient including time spent in procedures approximately 45 minutes due to management of BiPAP, management for respiratory distress and pneumonia, management of hyperkalemia due to end-stage renal disease. Dictation of this chart was performed using voice recognition software; therefore, there may be some unintended grammatical errors. Discharge - Discharge Clinical Impression: Chronic renal failure, stage 5, IDDM (insulin dependent diabetes mellitus), Hyperkalemia, Hypoxemia Pneumonia Qualifiers: Pneumonia type: due to unspecified organism Laterality: right Lung location: lower lobe of lung Qualified Code(s): J18.1 - Lobar pneumonia, unspecified organism Condition: Stable Disposition: [facility] Referrals: TRESA OH MD [Primary Care Provider] - Follow up as needed
--- NOTE | 2018-07-31 01:55 | RADIOLOGY REPORT (SQ) ---
CLINICAL HISTORY: fever, dyspnea COMPARISON: July 08, 2014. TECHNIQUE: XR CHEST 1 VIEW 07/31/2018 1:07 AM ARTS ADMINISTRATOR FINDINGS: Cardiac silhouette is enlarged. There is a right basilar consolidation. There is no pleural effusion. There is no pneumothorax. There are no acute osseous findings. IMPRESSION: Suspect right basilar pneumonia.
[2018-07-31 02:07] LABS: ABSOLUTE BASOPHILS # (AUTO) 0.1 10^3/uL (0.0-0.2); ABSOLUTE LYMPHOCYTES (AUTO) 1.2 10^3/uL (0.5-4.7); ABSOLUTE MONOCYTES (AUTO) 0.9 10^3/uL (0.1-1.4); ABSOLUTE NEUT (AUTO) 7.4 10^3/uL (1.7-8.2); BASOPHILS % (AUTO) 0.9 % (0-2); HEMOGLOBIN 11.2 g/dL (12.0-15.5); LYMPHOCYTES % (AUTO) 12.3 % (13-45); MEAN CORPUSCULAR HEMOGLOBIN 32.9 pg (27.0-33.4); MEAN CORPUSCULAR HGB CONC 32.9 g/dL (32.0-36.0); MEAN CORPUSCULAR VOLUME 100 fl (80-97); MONOCYTES % (AUTO) 9.3 % (3-13); PLATELET COUNT 222 10^3/uL (150-450); RED CELL DISTRIBUTION WIDTH 15.8 % (11.5-14.0); SEGMENTED NEUTROPHILS % (AUTO) 77.5 % (42-78); TOTAL CELLS COUNTED % (AUTO) 100 %; WHITE BLOOD COUNT 9.6 10^3/uL (4.0-10.5)
[2018-07-31 02:08] LABS: VENOUS BLOOD BASE EXCESS 4.3 mmol/L; VENOUS BLOOD HCO3 32.4 mmol/L (20-32); VENOUS BLOOD PCO2 63.1 mmHg (35-63); VENOUS BLOOD PH 7.33 (7.30-7.42)
[2018-07-31 02:23] LABS: ALANINE AMINOTRANSFERASE 22 U/L (9-52); ALBUMIN 4.3 g/dL (3.5-5.0); ALKALINE PHOSPHATASE 103 U/L (38-126); ASPARTATE AMINO TRANSFERASE 33 U/L (14-36); BILIRUBIN,DIRECT 1.5 mg/dL (0.0-0.4); BILIRUBIN,TOTAL 1.5 mg/dL (0.2-1.3); BLOOD UREA NITROGEN 45 mg/dL (7-20); CALCIUM 9.6 mg/dL (8.4-10.2); CARBON DIOXIDE 28 mmol/L (22-30); CHLORIDE 91 mmol/L (98-107); GLUCOSE 113 mg/dL (75-110); TOTAL PROTEIN 9.6 g/dL (6.3-8.2)
[2018-07-31 02:29] LABS: SODIUM 139.3 mmol/L (137-145)
[2018-07-31 02:33] LABS: ANION GAP 20 (5-19); POTASSIUM 6.4 mmol/L (3.6-5.0)
[2018-07-31] MEDS ORDERED: ALBUTEROL SULFATE 0.083% NEB 2.5 MG/3 ML AMPUL NEB ONE (03:58)
[2018-07-31] MEDS ORDERED: DEXTROSE 50%-WATER 25 GM/50 ML DISP.SYRIN IV ONE (03:59)
[2018-07-31] MEDS ORDERED: INSULIN REG, HUMAN 100 UNIT/ML 3 ML VIAL (PYX) IV ONE ×2 (03:59→06:45)
[2018-07-31 06:33] LABS: BLOOD UREA NITROGEN 46 mg/dL (7-20); CALCIUM 9.6 mg/dL (8.4-10.2); CHLORIDE 89 mmol/L (98-107); GLUCOSE 260 mg/dL (75-110)
[2018-07-31 06:37] LABS: POTASSIUM 6.3 mmol/L (3.6-5.0)
[2018-07-31 06:39] LABS: ANION GAP 22 (5-19); CARBON DIOXIDE 28 mmol/L (22-30)
[2018-07-31 06:47] LABS: A TYPE INFLUENZA AG NEGATIVE (NEGATIVE); B INFLUENZA AG POSITIVE (NEGATIVE)
[2018-07-31] MEDS ORDERED: SODIUM POLYSTYRENE SULFONATE 15 GM/60 ML PO ONE (08:16)
[2018-07-31] MEDS ORDERED: CALCIUM GLUCONATE 1000 MG/10 ML INJ IV ONE (08:27)
--- NOTE | 2018-07-31 08:38 | ER Document Report ---
Doctor's Note Notes: 07/31/18 08:36 Patient has remained stable since shift change 2.5 hours ago. I was recently informed that it would be over 24 hours before she might get a bed at [facility]. I did call Dr. Cisse and she agreed to get the patient dialyzed at this facility, sometime this afternoon. I did call the hospitalist and explained the situation and they are willing to admit the patient here since she will be dialyzed. I ordered calcium gluconate and Kayexalate for the patient due to the elevated potassium.
[2018-07-31] MEDS ORDERED: DEXTROSE 50%-WATER 25 GM/50 ML DISP.SYRIN IV PRN ×2 (09:19)
[2018-07-31] MEDS ORDERED: DEXTROSE 40% GEL 15 GM TUBE PO PRN ×2 (09:19)
[2018-07-31] MEDS ORDERED: GLUCAGON,HUMAN RECOMB 1 MG INJ IM PRN (09:19)
[2018-07-31] MEDS ORDERED: ACETAMINOPHEN 325 MG TABLET PO PRN (09:26)
[2018-07-31] MEDS ORDERED: POLYETHYLENE GLYCOL 3350 POWDER 17 GM/1 PACKET PO PRN (09:31)
[2018-07-31 09:36] LABS: ARTERIAL BLOOD BASE EXCESS 1.3 mmol/L; ARTERIAL BLOOD H2CO3 1.94 mmol/L (1.05-1.35); ARTERIAL BLOOD HCO3 29.3 mmol/L (20-24); ARTERIAL BLOOD PCO2 64.3 mmHg (35-45); ARTERIAL BLOOD PH 7.28 (7.35-7.45); ARTERIAL BLOOD PO2 104.7 mmHg (80-100); ARTERIAL BLOOD TOTAL CO2 31.2 mmol/L (21-25)
[2018-07-31 09:37] LABS: ARTERIAL BLOOD FIO2 60%
--- NOTE | 2018-07-31 09:39 | EKG REPORT ---
SEVERITY:- ABNORMAL ECG - SINUS TACHYCARDIA PROBABLE LEFT ATRIAL ABNORMALITY RIGHT AXIS DEVIATION BORDERLINE R WAVE PROGRESSION, ANTERIOR LEADS : Confirmed by: Janell Mo 31-Jul-2018 09:38:27
[2018-07-31] MEDS ORDERED: CLONIDINE HCL 0.2 MG TABLET PO SCH (10:00)
[2018-07-31] MEDS ORDERED: LOSARTAN POTASSIUM 50 MG TABLET PO SCH (11:00)
[2018-07-31] MEDS ORDERED: FUROSEMIDE INJ/PF 20 MG/2 ML SDV IV ONE (11:00)
[2018-07-31] MEDS ORDERED: FOLIC ACID/VITAMIN B COMP W-C CAPSULE PO SCH (11:00)
[2018-07-31] MEDS ORDERED: GUAIFENESIN 600 MG TABLET.SA PO SCH (11:00)
[2018-07-31] MEDS ORDERED: METOPROLOL SUCCINATE 50 MG TAB.SR.24H PO SCH (11:00)
[2018-07-31] MEDS: OSELTAMIVIR PHOSPHATE 75 MG CAPSULE PO SCH ×2 (11:37→17:11)
[2018-07-31] MEDS: FAMOTIDINE INJ/PF 20 MG/2 ML SDV IV SCH ×2 (12:03→21:44)
[2018-07-31] MEDS: ALBUTEROL SULFATE 0.083% NEB 2.5 MG/3 ML AMPUL NEB SCH ×2 (13:35→21:19)
[2018-07-31] MEDS: CALCIUM ACETATE 667 MG CAPSULE PO SCH ×2 (13:47→17:10)
--- NOTE | 2018-07-31 15:28 | PDOC H&P ---
History of Present Illness Admission Date/PCP: 07/31/18 09:35 TRESA OH MD Patient complains of: Fever, shortness of breath History of Present Illness: DIAN SLAUGHTER is a 42 year old female with a known past medical history of insulin-dependent diabetes mellitus, end-stage renal disease on dialysis Friday, hypertension, chronic pain, obesity, GERD who presented to the emergency department with a complaint of fever and shortness of breath. Evaluation in emergency department revealed a fever of 100.3, tachycardia (HR 111), tachypnea (RR 29), and hypoxia (89%) on room air. Laboratory evaluation revealed her baseline chronic anemia with a hemoglobin of 11.2, hyperkalemia ( 6.4) elevated creatinine and BUN (at baseline for patient with end-stage renal disease on dialysis), and a normal lactic acid. She was found to have influenza B. EKG demonstrated sinus tachycardia and chest x-ray read as right basilar pneumonia. Due to limitations for dialysis at our facility, the patient was originally scheduled to be transferred to [facility]. Unfortunately, high senses has prevented her from a timely transfer. The emergency department physician spoke with nephrology who have arranged for the patient to receive dialysis in house. Therefore, the hospitalist service was consulted for admission and management of acute respiratory failure with hypoxia secondary to influenza B and a right lower lobe pneumonia. Past Medical History Cardiac Medical History: Reports: Congestive Heart Failure, Coronary Artery Disease, Hyperlipidema, Hypertension Denies: Myocardial Infarction Pulmonary Medical History: Denies: Asthma, Bronchitis, Chronic Obstructive Pulmonary Disease (COPD), Pneumonia, Tuberculosis EENT Medical History: Reports: None Neurological Medical History: Reports: Seizures Endocrine Medical History: Reports: Diabetes Mellitus Type 2 Denies: Diabetes Mellitus Type 1 Renal/ Medical History: Reports: End Stage Renal Disease GI Medical History: Reports: Gastroesophageal Reflux Disease Denies: Cirrhosis Musculoskeltal Medical History: Reports: Arthritis Psychiatric Medical History: Reports: Depression Denies: Bipolar Disorder Hematology: Reports: Anemia Denies: Bleeding Tendencies Past Surgical History Past Surgical History: Reports: Cholecystectomy, Herniorrhaphy, Orthopedic Surgery - rt hip, Vascular Surgery - Right arm AV fistula Denies: Pacemaker Social History Information Source: [facility] Records Lives with: Family Smoking Status: Unknown if Ever Smoked Frequency of Alcohol Use: None Hx Recreational Drug Use: No Drugs: None Hx Prescription Drug Abuse: No - Advance Directive Resuscitation Status: Full Code Family History Family History: Not reviewed secondary to patient's altered mental status Parental Family History Reviewed: No Children Family History Reviewed: No Sibling(s) Family History Reviewed.: No Medication/Allergy Home Medications: Clonidine HCl [Catapres 0.2 mg Tablet] 0.2 mg PO Q12 02/05/13 Insulin Aspart [Novolog Insulin (Aspart) 100 unit/mL] 5 unit SUBCUT MEALS PRN Insulin Glargine,Hum.rec.anlog [Lantus Insulin 100 Unit/mL] 50 units SQ QHS PRN 02/05/13 Omeprazole [Prilosec 40 mg Capsule] 40 mg PO [id number] 02/05/13 Phenytoin Sodium Extended [Dilantin 100 mg Capsule.er] 100 mg PO Q8 02/05/13 Calcium Acetate [Phoslo] 2,001 mg PO MEALS 09/11/13 Metoprolol Succinate [Toprol Xl] 200 mg PO DAILY 01/06/15 B Complex W-C No.20/Folic Acid [Virt-Caps Softgel] 1 mg PO DAILY 07/31/18 Losartan Potassium [Cozaar 50 mg Tablet] 50 mg PO DAILY 07/31/18 Oxycodone HCl [Oxy-Ir 5 mg Tablet] 5 mg PO Q8HP PRN 07/31/18 Polyethylene Glycol 3350 [Clearlax] 17 gm PO TIDP PRN 07/31/18 Pregabalin [Lyrica 75 mg Capsule] 75 mg PO MOWEFR@07/31/18 Pregabalin [Lyrica 75 mg Capsule] 75 mg PO SUTUTHSA@10 07/31/18 Simvastatin [Zocor 10 mg Tablet] 5 mg PO QHS 07/31/18 Allergies/Adverse Reactions: hydromorphone [Hydromorphone] Allergy (Intermediate, Verified 07/29/18 12:17) ABDOMINAL CRAMPS azithromycin [Azithromycin] Allergy (Unknown, Verified 07/29/18 12:17) Darbepoetin Chandrika in [place] * [From Aranesp] Allergy (Unknown, Verified 07/29 12:17) ITCHING epoetin chandrika [From Procrit] Allergy (Verified 07/29/18 12:17) Sulfa (Sulfonamide Antibiotics) Allergy (Verified 07/29/18 12:17) Unsure BBQ SAUCE Allergy (Mild, Uncoded 07/29/18 12:17) Hives Review of Systems ROS unobtainable: Due to mental status Physical Exam Vital Signs: Temp Pulse Resp BP Pulse Ox 99.7 F 84 16 148/81 H 100 07/31/18 05:00 07/31/18 13:35 07/31/18 13:35 07/31/18 12:01 07/31/18 13:35 Intake & Output 07/30/18 07/31/18 08/01/18 06:59 06:59 06:59 Weight 118.3 kg General appearance: PRESENT: mild distress, morbidly obese, well-developed, well -nourished Head exam: PRESENT: atraumatic, normocephalic Eye exam: PRESENT: PERRLA, other - Chronic left eye cloudiness; Rt eye pupil sluggish with hyphema. ABSENT: scleral icterus Ear exam: PRESENT: normal external ear exam Mouth exam: PRESENT: moist, tongue midline Neck exam: ABSENT: carotid bruit, JVD, lymphadenopathy, thyromegaly Respiratory exam: PRESENT: decreased breath sounds, prolonged expiratory phas, rhonchi, tachypnea, other - Shallow BiPAP dependent. ABSENT: rales, wheezes Cardiovascular exam: PRESENT: RRR, +S1, +S2. ABSENT: diastolic murmur, rubs, systolic murmur Pulses: PRESENT: normal dorsalis pedis pul Vascular exam: PRESENT: normal capillary refill GI/Abdominal exam: PRESENT: normal bowel sounds, soft. ABSENT: distended, guarding, mass, organolmegaly, rebound, tenderness Rectal exam: PRESENT: deferred Extremities exam: PRESENT: +2 edema, other - Chronic venous stasis changes bilateral lower extremities. ABSENT: calf tenderness, clubbing, pedal edema Neurological exam: PRESENT: other - Responsive to painful stimuli; does not answer questions or follow directions. ABSENT: motor sensory deficit Skin exam: PRESENT: dry, intact, warm. ABSENT: cyanosis, rash Results Impressions: Chest X-Ray 07/31/18 01:07 IMPRESSION: Suspect right basilar pneumonia. Assessment & Plan - Diagnosis (1) Acute respiratory failure with hypoxia and hypercapnia Is this a current diagnosis for this admission?: Yes Plan: Secondary to influenza B and right lower lobe pneumonia. ABG after several hours on BiPAP at 12/6/60 percent revealed respiratory acidosis with pH 7.28, CO2 64.3, O2 104.7, HCO3 29.3. BiPAP settings were adjusted; multiple attempts at repeat ABG have been unsuccessful. VBG is pending. Chest x-ray revealed a right lower lobe consolidation. Blood cultures are pending. Echocardiogram is pending. Patient is provided supplemental oxygen to maintain oxygen saturations greater than 91%. BiPAP nightly and as needed. Scheduled and as needed nebulizer treatments. Mucinex twice daily. Patient appears volume overloaded on clinical exam; family member reports that patient make small amount of urine. She has been provided IV furosemide. Dialysis scheduled for today. (2) Altered mental status Is this a current diagnosis for this admission?: Yes Plan: Decreased mental status; likely secondary to hypercapnia in setting of influenza and right lower lobe pneumonia. Monitoring ABGs and adjusting BiPAP is appropriate. Supplemental oxygen to prevent hypoxia. Blood cultures pending. Holding on antibiotics at this time his pneumonia is secondary to influenza. If no improvement mental status following dialysis and correction of hypercapnia , will obtain head CT. Seizure precautions. Dilantin level pending. (3) Dialysis patient Is this a current diagnosis for this admission?: Yes Plan: End-stage renal disease on dialysis Friday, Friday, Friday; followed by Dr. Duff. Dr. Cisse was consulted by the emergency department provider; arranging for patient to receive dialysis today. (4) IDDM (insulin dependent diabetes mellitus) Is this a current diagnosis for this admission?: Yes Plan: Patient currently n.p.o. secondary to altered mental status. Accu-Cheks every 6 with Humalog for sliding scale coverage and hypoglycemia protocol in place. (5) Influenza B Is this a current diagnosis for this admission?: Yes Plan: Confirmed influenza B. Airborne precautions. Tamiflu 75 mg twice daily. Supplemental oxygen and BiPAP as needed. Scheduled and as needed nebulizer treatments. Mucinex twice daily. Tylenol as needed for fever. (6) Pneumonia Qualifiers: Pneumonia type: due to unspecified organism Laterality: right Lung location: lower lobe of lung Qualified Code(s): J18.1 - Lobar pneumonia, unspecified organism Is this a current diagnosis for this admission?: Yes Plan: Due to influenza B virus. Management as above. (7) Anemia Qualifiers: Anemia type: due to chronic kidney disease Chronic kidney disease stage: on chronic dialysis Qualified Code(s): N18.6 - End stage renal disease; D63.1 - Anemia in chronic kidney disease; D63.1 - Anemia in chronic kidney disease; Z99.2 - Dependence on renal dialysis; Z99.2 - Dependence on renal dialysis; Z99.2 - Dependence on renal dialysis; Z99.2 - Dependence on renal dialysis Is this a current diagnosis for this admission?: Yes Plan: Hemoglobin of 11.2; appears to be above baseline. We will continue to monitor. Registered dietitian has been consulted. Nephrology has been consulted.
[2018-07-31] MEDS: HEPARIN SOD (PORCINE) 5,000 UNIT/ML 1 ML SYRINGE SUBCUT SCH ×2 (15:42→21:44)
[2018-07-31 16:32] LABS: VENOUS BLOOD HCO3 35.2 mmol/L (20-32); VENOUS BLOOD PH 7.26 (7.30-7.42)
[2018-07-31 16:35] LABS: VENOUS BLOOD PCO2 80.5 mmHg (35-63)
[2018-07-31] MEDS ORDERED: PHARMACY COMMUNICATION ORDER MC NR ×2 (16:45→17:00)
[2018-07-31] MEDS ORDERED: VANCOMYCIN HCL 0 MG in DEXTROSE 5%-WATER 250 ML IV NR (17:00)
[2018-07-31] MEDS ORDERED: ACETAMINOPHEN SOLN 325 MG/10.15 ML UDCUP NG PRN (17:14)
[2018-07-31] MEDS ORDERED: POLYETHYLENE GLYCOL 3350 POWDER 17 GM/1 PACKET NG PRN (17:18)
[2018-07-31] MEDS ORDERED: PIPERACILLIN SODIUM/TAZOBACTAM 3.375 GM in NORMAL SALINE 100 ML IV SCH (18:00)
[2018-07-31] MEDS ORDERED: PROPOFOL 1,000 MG/100 ML INFUS..BTL IV PRN (18:00)
[2018-07-31] MEDS ORDERED: DEXTROSE 5%-WATER 250 ML with NOREPINEPHRINE BITARTRATE 4 MG IV PRN ×2 (19:06)
[2018-07-31 19:16] LABS: ABSOLUTE BASOPHILS # (AUTO) 0.1 10^3/uL (0.0-0.2); ABSOLUTE LYMPHOCYTES (AUTO) 0.9 10^3/uL (0.5-4.7); ABSOLUTE MONOCYTES (AUTO) 0.7 10^3/uL (0.1-1.4); ABSOLUTE NEUT (AUTO) 4.8 10^3/uL (1.7-8.2); BASOPHILS % (AUTO) 0.9 % (0-2); HEMATOCRIT 29.9 % (36.0-47.0); HEMOGLOBIN 9.8 g/dL (12.0-15.5); LYMPHOCYTES % (AUTO) 14.5 % (13-45); MEAN CORPUSCULAR HEMOGLOBIN 32.4 pg (27.0-33.4); MEAN CORPUSCULAR HGB CONC 32.8 g/dL (32.0-36.0); MEAN CORPUSCULAR VOLUME 99 fl (80-97); MONOCYTES % (AUTO) 10.3 % (3-13); PLATELET COUNT 181 10^3/uL (150-450); RED BLOOD COUNT 3.03 10^6/uL (3.72-5.28); RED CELL DISTRIBUTION WIDTH 15.9 % (11.5-14.0); SEGMENTED NEUTROPHILS % (AUTO) 74.3 % (42-78); TOTAL CELLS COUNTED % (AUTO) 100 %; WHITE BLOOD COUNT 6.5 10^3/uL (4.0-10.5)
[2018-07-31 19:28] LABS: ALANINE AMINOTRANSFERASE 36 U/L (9-52); ALBUMIN 3.4 g/dL (3.5-5.0); ALKALINE PHOSPHATASE 83 U/L (38-126); ANION GAP 17 (5-19); ASPARTATE AMINO TRANSFERASE 44 U/L (14-36); BILIRUBIN,DIRECT 0.9 mg/dL (0.0-0.4); BILIRUBIN,TOTAL 0.9 mg/dL (0.2-1.3); BLOOD UREA NITROGEN 38 mg/dL (7-20); CALCIUM 8.6 mg/dL (8.4-10.2); CARBON DIOXIDE 28 mmol/L (22-30); CHLORIDE 94 mmol/L (98-107); GLUCOSE 94 mg/dL (75-110); SODIUM 139.2 mmol/L (137-145); TOTAL PROTEIN 7.9 g/dL (6.3-8.2)
[2018-07-31 19:32] LABS: ARTERIAL BLOOD BASE EXCESS 5.4 mmol/L; ARTERIAL BLOOD H2CO3 1.86 mmol/L (1.05-1.35); ARTERIAL BLOOD HCO3 32.6 mmol/L (20-24); ARTERIAL BLOOD O2 SATURATION 96.9 % (94-98); ARTERIAL BLOOD PCO2 61.8 mmHg (35-45); ARTERIAL BLOOD PH 7.34 (7.35-7.45); ARTERIAL BLOOD PO2 97.9 mmHg (80-100); ARTERIAL BLOOD TOTAL CO2 34.5 mmol/L (21-25)
[2018-07-31 19:35] LABS: ARTERIAL BLOOD FIO2 40%
[2018-07-31 19:45] LABS: POTASSIUM 5.1 mmol/L (3.6-5.0)
[2018-07-31] MEDS ORDERED: VANCOMYCIN HCL 2,000 MG in DEXTROSE 5%-WATER 500 ML IV ONE (20:30)
--- NOTE | 2018-07-31 21:26 | PDOC CONSULTATION ---
Consultation Consult Date: 07/31/18 Attending physician:: KT IRELAND Consult reason:: I was asked to see this patient because of hyperkalemia in a patient with history of ESRD coming in with shortness of breath. History of Present Illness Admission Date/PCP: 07/31/18 09:35 TRESA [place] MD History of Present Illness: DIAN SLAUGHTER is a 42 year old female with history of end-stage renal disease on maintenance hemodialysis on Mondays, Wednesdays and Fridays secondary to hypertensive nephrosclerosis, history of hypertension, coronary artery disease, CHF, anemia with allergic reaction to recheck will return, obesity, chronic pain who presented to the emergency room today because of fever and shortness of breath. Currently the patient is pretty much obtunded and unable to give a history so this history is based on records from the emergency room. Apparently the patient presented with fever of 100.3, tachycardia, tachypnea and hypoxia with oxygen saturation of 89% at room air. Her chest x-ray reveals possible right basilar pneumonia. She also came out positive for influenza B. Due to hypoxia patient required BiPAP. She was also started on antibiotics. Patient also presented with hyperkalemia with initial potassium of 6.4. Today is her dialysis today. Due to the limitation of dialysis staffing in our hospital I advised the emergency room physician this morning to transfer the patient to another facility who can provide dialysis and further care of current condition. They try to transfer the patient had [facility] but there was no bed available. At around 11 AM I was called again by the emergency room physician telling me that it would not be any bed available until 24 hours. So despite limitation of staffing I went ahead and arrange the patient to be dialyzed. Due to the patient being on BiPAP patient needs to be dialyzed either in the emergency room or the ICU. Initial plan was for patient to be dialyzed in the emergency room but then due to bed constraints in the emergency room they had to wait for a bed in the ICU before we can actually dialyze the patient. Patient was then started on dialysis after 3 PM today. When I saw the patient she was still on BiPAP she was almost obtunded and did not respond to any verbal commands. She was also relatively hypotensive when she was on dialysis this afternoon. Her blood pressure went as low as 75/41 so we had to decrease ultrafiltration. After about 1 hour or more dialysis treatment the hospitalist service came in very concerned about the patient's hypercapnia and deteriorating mental status. They decided the patient needs immediate intubation. We had to wait the benefits and risk of discontinuation of dialysis for the hyperkalemia versus the risk for cardiac arrest for continuing hypercapnia and hypoxia not responsive to the current BiPAP. We had to terminate hemodialysis after [address] for intubation and mechanical ventilation. Past Medical History Cardiac Medical History: Reports: CHF-Diastolic, Coronary Artery Disease, Hyperlipidemia, Hypertension-primary, Peripheral Vascular Disease Neurological Medical History: Reports: Seizures Endocrine Medical History: Reports: Diabetes Mellitus Type 2 Complications of Diabetes: Reports: Retinopathy Renal/ Medical History: Reports: End Stage Renal Disease, Renal Osteodystropy Denies: Benign Prostatic Hyperplasia GI Medical History: Reports: Gastroesophageal Reflux Disease Musculoskeltal Medical History: Reports: Arthritis Psychiatric Medical History: Reports: Depression Hematology Medical History: Reports Anemia of Chronic Kidney Disease Past Surgical History Past Surgical History: Reports: Cholecystectomy, Dialysis Access Surgery AVF, Herniorrhaphy, Orthopedic Surgery - rt hip Social History Lives with: Family Smoking Status: Unknown if Ever Smoked Frequency of Alcohol Use: None Hx Recreational Drug Use: No Drugs: None Hx Prescription Drug Abuse: No - Advance Directive Resuscitation Status: Full Code Family History Family History: Other - Unobtainable due to patient mental status Parental Family History Reviewed: No Children Family History Reviewed: Unknown Sibling(s) Family History Reviewed.: Unknown Medication/Allergy Home Medications: Clonidine HCl [Catapres 0.2 mg Tablet] 0.2 mg PO Q12 02/05/13 Insulin Aspart [Novolog Insulin (Aspart) 100 unit/mL] 5 unit SUBCUT MEALS PRN Insulin Glargine,Hum.rec.anlog [Lantus Insulin 100 Unit/mL] 50 units SQ QHS PRN 02/05/13 Omeprazole [Prilosec 40 mg Capsule] 40 mg PO ACBRKFST 02/05/13 Phenytoin Sodium Extended [Dilantin 100 mg Capsule.er] 100 mg PO Q8 02/05/13 Calcium Acetate [Phoslo] 2,001 mg PO MEALS 09/11/13 Metoprolol Succinate [Toprol Xl] 200 mg PO DAILY 01/06/15 B Complex W-C No.20/Folic Acid [Virt-Caps Softgel] 1 mg PO DAILY 12/07/18 Losartan Potassium [Cozaar 50 mg Tablet] 50 mg PO DAILY 07/31/18 Oxycodone HCl [Oxy-Ir 5 mg Tablet] 5 mg PO Q8HP PRN 07/31/18 Polyethylene Glycol 3350 [Clearlax] 17 gm PO TIDP PRN 07/31/18 Pregabalin [Lyrica 75 mg Capsule] 75 mg PO MOWEFR@10,22 07/31/18 Pregabalin [Lyrica 75 mg Capsule] 75 mg PO SUTUTHSA@10 07/31/18 Simvastatin [Zocor 10 mg Tablet] 5 mg PO QHS 07/31/18 Allergies/Adverse Reactions: hydromorphone [Hydromorphone] Allergy (Intermediate, Verified 07/29/18 12:17) ABDOMINAL CRAMPS azithromycin [Azithromycin] Allergy (Unknown, Verified 07/29/18 12:17) Darbepoetin Chandrika in [place] * [From Aranesp] Allergy (Unknown, Verified 07/29 12:17) ITCHING epoetin chandrika [From Procrit] Allergy (Verified 07/29/18 12:17) Sulfa (Sulfonamide Antibiotics) Allergy (Verified 07/29/18 12:17) Unsure BBQ SAUCE Allergy (Mild, Uncoded 07/29/18 12:17) Hives Review of Systems ROS unobtainable: Due to mental status Physical Exam Vital Signs: Temp Pulse Resp BP Pulse Ox 99.7 F 84 14 119/57 L 100 07/31/18 05:00 07/31/18 13:35 07/31/18 19:40 07/31/18 19:40 07/31/18 19:40 Pulse Oximeter Continuous Start: 07/31/18 09: 33 Freq: RTQ4 Status: Active Document 07/31/18 16:37 ODILIA (Rec: 07/31/18 16:38 J [email or web address]) Pulse Oximetry Assessment Oxygen Saturation (92-100) 100 Oxygen Delivery Method Bi-pap Fraction of Inspired Oxygen (FIO2) 40 Equipment Usage Equipment Standby Continuous SpO2 Machine # 0 Intake & Output 07/30/18 07/31/18 08/01/18 06:59 06:59 06:59 Weight 118.3 kg Vitals during dialysis at around 4:45 PM: Blood pressure 99/56, pulse rate of 72 , respiratory rate of 13, oxygenation 100% on BiPAP, blood flow rate of 350 more per minute, dialysate flow rate of 600 mL/min. Exam: General appearance: Patient on BiPAP, obtunded, morbidly obese Head exam: PRESENT: atraumatic, normocephalic Eye exam: PRESENT: Eyes closed. ABSENT: conjunctival injection, scleral icterus Mouth exam: PRESENT: moist, neck supple, tongue midline Neck exam: PRESENT: full ROM. ABSENT: carotid bruit, JVD, lymphadenopathy, thyromegaly Respiratory exam: PRESENT: Diminished to auscultation bilaterally. ABSENT: rales, rhonchi, stridor, wheezes Cardiovascular exam: PRESENT: RRR, +S1, +S2. ABSENT: systolic murmur Pulses: PRESENT: normal radial pulses, normal dorsalis pedis pulses GI/Abdominal exam: PRESENT: normal bowel sounds, soft. ABSENT: guarding, mass, tenderness Rectal exam: Deferred Extremities exam: PRESENT: full ROM. ABSENT: calf tenderness, pedal edema Musculoskeletal: PRESENT: full ROM. ABSENT: deformity Neurological exam: PRESENT: alert, Awake, Oriented to person, Oriented to place , Oriented to time, reflexes normal, CN II-XII grossly intact. ABSENT: motor sensory deficit Psychiatric exam: PRESENT: appropriate affect, normal mood. ABSENT: homicidal ideation, suicidal ideation Skin exam: PRESENT: intact, dry, warm. ABSENT: rash Results Laboratory Results: 07/31/18 16:24 07/31/18 16:24 07/31/18 07/31/18 07/31/18 14:34 16:24 16:24 WBC 6.5 RBC 3.03 L Hgb 9.8 L Hct 29.9 L MCV 99 H MCH 32.4 MCHC 32.8 RDW 15.9 H Plt Count 181 Seg Neutrophils % 74.3 Lymphocytes % 14.5 Monocytes % 10.3 Eosinophils % 0.0 Basophils % 0.9 Absolute Neutrophils 4.8 Absolute Lymphocytes 0.9 Absolute Monocytes 0.7 Absolute Eosinophils 0.0 Absolute Basophils 0.1 Carbonic Acid HCO3/H2CO3 Ratio ABG pH ABG pCO2 ABG pO2 ABG HCO3 ABG O2 Saturation ABG Base Excess VBG pH 7.26 L VBG pCO2 80.5 H* VBG HCO3 35.2 H VBG Base Excess 6.0 FiO2 Sodium 139.2 Potassium 5.1 H D Chloride 94 L Carbon Dioxide 28 Anion Gap 17 BUN 38 H Creatinine 5.83 H Est GFR ( Amer) 10 L Est GFR (Non-Af Amer) 8 L Glucose 94 Lactic Acid Calcium 8.6 Total Bilirubin 0.9 AST 44 H ALT 36 Alkaline Phosphatase 83 Total Protein 7.9 Albumin 3.4 L 07/31/18 07/31/18 17:10 19:25 WBC RBC Hgb Hct MCV MCH MCHC RDW Plt Count Seg Neutrophils % Lymphocytes % Monocytes % Eosinophils % Basophils % Absolute Neutrophils Absolute Lymphocytes Absolute Monocytes Absolute Eosinophils Absolute Basophils Carbonic Acid 1.86 H HCO3/H2CO3 Ratio 17:1 ABG pH 7.34 L ABG pCO2 61.8 H ABG pO2 97.9 ABG HCO3 32.6 H ABG O2 Saturation 96.9 ABG Base Excess 5.4 VBG pH VBG pCO2 VBG HCO3 VBG Base Excess FiO2 40% Sodium Potassium Chloride Carbon Dioxide Anion Gap BUN Creatinine Est GFR ( Amer) Est GFR (Non-Af Amer) Glucose Lactic Acid 1.1 Calcium Total Bilirubin AST ALT Alkaline Phosphatase Total Protein Albumin 07/31/18 16:24 Troponin I 0.095 Impressions: Chest X-Ray 07/31/18 01:07 IMPRESSION: Suspect right basilar pneumonia. Assessment & Plan - Diagnosis (1) Acute respiratory failure with hypoxia and hypercapnia Is this a current diagnosis for this admission?: Yes Plan: Due to pneumonia and influenza B. Patient currently on BiPAP and possibly requiring mechanical ventilation. Defer to hospitalist. (2) Hyperkalemia Is this a current diagnosis for this admission?: Yes Plan: Patient was given preliminary anti-hyperkalemic cocktail in the emergency room. Ultimately we plan to dialyze the patient and was able to dialyze her for 1 hour 40 minutes before hospitalist decided the patient required mechanical ventilation and intubation. Typically will need a longer dialysis treatment to improve the potassium but repeat BMP after 1 hour 40 minutes of dialysis showed a potassium of 5.1. If the patient runs problem again with hyperkalemia in the weekend I advised the hospitalist service the patient needs to be transferred to another facility since hemodialysis service is unavailable in the hospital for the weekend. (3) End stage renal disease Is this a current diagnosis for this admission?: Yes Plan: We plan to do do dialysis today for 3 hours but patient only completed 1 hour and 40 minutes, using the patient's right upper arm AV fistula, with 1 potassium bath for 1-1/2 hours and 2 K bath for the rest of the treatment, blood flow rate of 350 mL per minute, dialysate flow rate of 600 mL per minute, ultrafiltration 1 at least 2 L but ended up only obtaining about 300 mL of ultrafiltration, no heparin and no Procrit. If the patient remains to be here in the hospital, next dialysis will be on Friday. Again if patient would require any dialysis treatment over the weekend then she would need to be transferred to another facility. (4) Anemia in chronic kidney disease Is this a current diagnosis for this admission?: Yes Plan: Give Procrit as needed during dialysis treatments. (5) Diabetes mellitus type 2 in obese Is this a current diagnosis for this admission?: Yes (6) Altered mental status Is this a current diagnosis for this admission?: Yes (7) Influenza B Is this a current diagnosis for this admission?: Yes Plan: Defer to hospitalist service. (8) Pneumonia Qualifiers: Pneumonia type: due to unspecified organism Laterality: right Lung location: lower lobe of lung Qualified Code(s): J18.1 - Lobar pneumonia, unspecified organism Is this a current diagnosis for this admission?: Yes Plan: Defer to hospitalist service. Currently on antibiotics. - Notes Notes: Thank you very much for this consultation. We will follow the patient while here in the hospital supervised dialysis. - Time Time Spent: Greater than 70 Minutes
[2018-07-31] MEDS: PIPERACILLIN SODIUM/TAZOBACTAM 2.25 GM in NORMAL SALINE 50 ML IV SCH (21:42)
[2018-07-31] MEDS: GUAIFENESIN SYRP 200 MG/10 ML UDC NG SCH (21:43)
[2018-07-31] MEDS ORDERED: SIMVASTATIN 10 MG TABLET PO SCH (22:00)
[2018-07-31] MEDS ORDERED: CLONIDINE HCL 0.2 MG TABLET NG SCH (22:00)
[2018-07-31] MEDS ORDERED: OSELTAMIVIR PHOSPHATE 75 MG CAPSULE NG SCH (22:00)
[2018-07-31] MEDS ORDERED: SIMVASTATIN 10 MG TABLET NG SCH (22:00)
--- NOTE | 2018-07-31 22:55 | RADIOLOGY REPORT (SQ) ---
EXAM DESCRIPTION: AP view of the chest CLINICAL HISTORY:42 years Female, s/p central line placement Comparison: July 31, 2018 1:39 AM FINDINGS: The lungs are clear. There are no pleural abnormalities. The cardiac silhouette is mildly enlarged but stable. Right subclavian vein vascular stents are noted. Left IJ central line terminates right of midline with the tip probably in the azygos vein. No pneumothorax. IMPRESSION: Interval placement of left IJ central line. The tip is probably within the azygos vein. No pneumothorax.
--- NOTE | 2018-08-01 01:42 | OPERATIVE REPORT E ---
Operative Report NAME: DIAN SLAUGHTER : 1975 AGE: 42Y DATE OF SURGERY: 07/31/2018 ROOM: 605 PREOPERATIVE DIAGNOSES: 1. POOR VEINS FOR INTRAVENOUS ACCESS. 2. THE PATIENT NEEDED A CENTRAL LINE. POSTOPERATIVE DIAGNOSES: 1. POOR VEINS FOR INTRAVENOUS ACCESS. 2. THE PATIENT NEEDED A CENTRAL LINE. PROCEDURE: Insertion of left internal jugular vein under ultrasound guidance. SURGEON: DIDIER DUBON M.D. ANESTHESIA: Local. INDICATION: This is a 42-year-old female with a history of hemodialysis and noted to have hypertension and respiratory failure. The patient on a CPAP machine and somehow regained sensorium. DESCRIPTION OF PROCEDURE: The patient was placed in a slight Trendelenburg position and the left neck was subsequently prepped and draped in the usual sterile fashion. With the use of the ultrasound the left internal jugular vein was then identified. Local anesthesia infiltrated on the skin towards the internal jugular vein. The needle was then inserted towards the area of the internal jugular vein with ultrasound guidance. The needle aspirated dark blood easily. There is nonpulsatile flow through the needle. A guidewire was then passed through the needle towards the area of the superior vena cava. The insertion site was then dilated and a triple-lumen catheter inserted towards the area of the superior vena cava up to a distance of about 19 cm. All the 3 ports aspirated blood easily and instilled saline easily. The catheter was then anchored to the skin with 3-0 silk. Biopatch placed in the insertion site and a transparent sterile dressing was placed over the Biopatch and catheter. The patient tolerated the procedure well. A chest x-ray will be obtained for placement. DICTATING PHYSICIAN: DIDIER DUBON M.D. [id number] PHY#: [id number] ID: [id number] JOB#: [id number] ACCT: [id number] cc:DIDIER DUBON M.D. >
[2018-08-01] MEDS: ALBUTEROL SULFATE 0.083% NEB 2.5 MG/3 ML AMPUL NEB SCH ×4 (02:05→23:52)
[2018-08-01] MEDS: GUAIFENESIN SYRP 200 MG/10 ML UDC NG SCH ×2 (02:18→04:12)
[2018-08-01] MEDS ORDERED: ACETAMINOPHEN SOLN 325 MG/10.15 ML UDCUP PO PRN (05:00)
[2018-08-01] MEDS: HEPARIN SOD (PORCINE) 5,000 UNIT/ML 1 ML SYRINGE SUBCUT SCH ×3 (05:32→22:32)
[2018-08-01] MEDS: PIPERACILLIN SODIUM/TAZOBACTAM 2.25 GM in NORMAL SALINE 50 ML IV SCH ×3 (05:32→22:31)
[2018-08-01 06:04] LABS: ABSOLUTE BASOPHILS # (AUTO) 0.1 10^3/uL (0.0-0.2); ABSOLUTE MONOCYTES (AUTO) 0.8 10^3/uL (0.1-1.4); ABSOLUTE NEUT (AUTO) 6.5 10^3/uL (1.7-8.2); BASOPHILS % (AUTO) 0.9 % (0-2); HEMATOCRIT 29.3 % (36.0-47.0); HEMOGLOBIN 9.8 g/dL (12.0-15.5); LYMPHOCYTES % (AUTO) 12.4 % (13-45); MEAN CORPUSCULAR HGB CONC 33.3 g/dL (32.0-36.0); MEAN CORPUSCULAR VOLUME 99 fl (80-97); PLATELET COUNT 171 10^3/uL (150-450); RED BLOOD COUNT 2.95 10^6/uL (3.72-5.28); SEGMENTED NEUTROPHILS % (AUTO) 77.7 % (42-78); TOTAL CELLS COUNTED % (AUTO) 100 %; WHITE BLOOD COUNT 8.4 10^3/uL (4.0-10.5)
[2018-08-01 06:17] LABS: ANION GAP 16 (5-19); BLOOD UREA NITROGEN 43 mg/dL (7-20); CALCIUM 8.7 mg/dL (8.4-10.2); CARBON DIOXIDE 30 mmol/L (22-30); CHLORIDE 93 mmol/L (98-107); GLUCOSE 77 mg/dL (75-110); POTASSIUM 5.4 mmol/L (3.6-5.0)
[2018-08-01] MEDS ORDERED: CALCIUM ACETATE 667 MG CAPSULE NG SCH (08:00)
--- NOTE | 2018-08-01 08:30 | RADIOLOGY REPORT (SQ) ---
EXAM DESCRIPTION: CHEST SINGLE VIEW COMPLETED DATE/TIME: 08/01/2018 7:47 am REASON FOR STUDY: dyspnea COMPARISON: 07/31/2018 EXAM PARAMETERS: NUMBER OF VIEWS: One view. TECHNIQUE: Single frontal radiographic view of the chest acquired. RADIATION DOSE: NA LIMITATIONS: None. FINDINGS: LUNGS AND PLEURA: No opacities, masses or pneumothorax. No pleural effusion. MEDIASTINUM AND HILAR STRUCTURES: No masses. Contour normal. HEART AND VASCULAR STRUCTURES: Heart normal in size. Normal vasculature. BONES: No acute findings. HARDWARE: Vascular access catheter unchanged in position. Vascular stent. OTHER: No other significant finding. IMPRESSION: NO ACUTE RADIOGRAPHIC FINDING IN THE CHEST. TECHNICAL DOCUMENTATION: JOB ID: [id number] [employer]- All Rights Reserved Reading location - IP/workstation name: [email or web address]
[2018-08-01] MEDS ORDERED: LOSARTAN POTASSIUM 50 MG TABLET NG SCH (10:00)
[2018-08-01] MEDS ORDERED: SODIUM POLYSTYRENE SULFONATE 15 GM/60 ML PO ONE (10:00)
[2018-08-01] MEDS: GUAIFENESIN SYRP 200 MG/10 ML UDC PO SCH ×4 (10:24→22:31)
[2018-08-01] MEDS: OSELTAMIVIR PHOSPHATE 75 MG CAPSULE PO SCH ×2 (10:24→22:33)
[2018-08-01] MEDS: FAMOTIDINE INJ/PF 20 MG/2 ML SDV IV SCH ×2 (10:24→22:30)
[2018-08-01] MEDS: FOLIC ACID/VITAMIN B COMP W-C CAPSULE PO SCH (10:24)
[2018-08-01] MEDS ORDERED: PREGABALIN 75 MG CAPSULE PO ONE (14:45)
[2018-08-01] MEDS: PHENYTOIN SODIUM EXTENDED 100 MG CAPSULE PO SCH ×2 (14:53→22:31)
--- NOTE | 2018-08-01 15:26 | PDOC PROGRESS REPORT ---
Subjective Progress Note for:: 08/01/18 Subjective:: The patient is a 42-year-old male with a past medical history of insulin- dependent diabetes mellitus, end-stage renal disease on dialysis, CHF, CAD, hypertension, hyperlipidemia, seizure disorder, chronic anemia, GERD, obesity, chronic pain, opiate dependence who was admitted 07/31/2018 for acute respiratory failure with hypoxia and hypercapnia secondary to influenza B and a right lower lobe pneumonia. She was seen on morning rounds. She is found resting in bed comfortably on BiPAP. Today she is A&Ox4; she reports continued fatigue, dyspnea, and a slightly productive cough. She denies fever, chills, body aches, chest pain, palpitations, abdominal pain, and nausea. She tells me she is hungry and is requesting to eat. Overall, she reports feeling much improved. No concerns per nursing. Reason For Visit: INFLUENZA,PNEUMONIA Physical Exam Vital Signs: Temp Pulse Resp BP Pulse Ox 98.3 F 79 18 125/71 99 08/01/18 12:00 08/01/18 14:10 08/01/18 14:10 08/01/18 12:43 08/01/18 14:10 Pulse Oximeter Continuous Start: 07/31/18 09: 33 Freq: RTQ4 Status: Hold Document 07/31/18 21:26 LRU (Rec: 07/31/18 21:29 LRU [id number]) Pulse Oximetry Assessment Oxygen Saturation (92-100) 100 Oxygen Delivery Method Bi-pap Fraction of Inspired Oxygen (FIO2) 35 Equipment Usage Equipment in Use Continuous Pulse Oximeter 24 Hour Charge Charge Now Continuous SpO2 Machine # 0 Intake & Output 07/31/18 08/01/18 08/02/18 06:59 06:59 06:59 Intake Total 50 50 Output Total 400 Balance -350 50 Weight 113 kg General appearance: PRESENT: no acute distress, morbidly obese, well-developed, well-nourished Head exam: PRESENT: atraumatic, normocephalic Eye exam: PRESENT: conjunctiva pink, EOMI, other - 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 ABSENT: PERRLA, scleral icterus Ear exam: PRESENT: normal external ear exam Mouth exam: PRESENT: moist, tongue midline Neck exam: ABSENT: carotid bruit, JVD, lymphadenopathy, thyromegaly Respiratory exam: PRESENT: decreased breath sounds, prolonged expiratory phas, rhonchi, symmetrical, other - BiPAP dependent. ABSENT: rales, wheezes Cardiovascular exam: PRESENT: RRR, +S1, +S2. ABSENT: diastolic murmur, rubs, systolic murmur Pulses: PRESENT: normal dorsalis pedis pul Vascular exam: PRESENT: normal capillary refill GI/Abdominal exam: PRESENT: normal bowel sounds, soft. ABSENT: distended, guarding, mass, organolmegaly, rebound, tenderness Rectal exam: PRESENT: deferred Extremities exam: PRESENT: full ROM, +2 edema - Chronic venous stasis changes daily. ABSENT: calf tenderness, clubbing, pedal edema Neurological exam: PRESENT: alert, awake, oriented to person, oriented to place , oriented to time, oriented to situation, CN II-XII grossly intact. ABSENT: motor sensory deficit Psychiatric exam: PRESENT: appropriate affect, normal mood. ABSENT: homicidal ideation, suicidal ideation Skin exam: PRESENT: dry, intact, warm. ABSENT: cyanosis, rash Results Laboratory Results: 08/01/18 05:50 08/01/18 05:50 07/31/18 07/31/18 07/31/18 14:34 16:24 16:24 WBC 6.5 RBC 3.03 L Hgb 9.8 L Hct 29.9 L MCV 99 H MCH 32.4 MCHC 32.8 RDW 15.9 H Plt Count 181 Seg Neutrophils % 74.3 Lymphocytes % 14.5 Monocytes % 10.3 Eosinophils % 0.0 Basophils % 0.9 Absolute Neutrophils 4.8 Absolute Lymphocytes 0.9 Absolute Monocytes 0.7 Absolute Eosinophils 0.0 Absolute Basophils 0.1 Carbonic Acid HCO3/H2CO3 Ratio ABG pH ABG pCO2 ABG pO2 ABG HCO3 ABG O2 Saturation ABG Base Excess VBG pH 7.26 L VBG pCO2 80.5 H* VBG HCO3 35.2 H VBG Base Excess 6.0 FiO2 Sodium 139.2 Potassium 5.1 H D Chloride 94 L Carbon Dioxide 28 Anion Gap 17 BUN 38 H Creatinine 5.83 H Est GFR ( Amer) 10 L Est GFR (Non-Af Amer) 8 L Glucose 94 Lactic Acid Calcium 8.6 Total Bilirubin 0.9 AST 44 H ALT 36 Alkaline Phosphatase 83 Total Protein 7.9 Albumin 3.4 L 07/31/18 07/31/18 08/01/18 17:10 19:25 05:50 WBC 8.4 RBC 2.95 L Hgb 9.8 L Hct 29.3 L MCV 99 H MCH 33.0 MCHC 33.3 RDW 16.0 H Plt Count 171 Seg Neutrophils % 77.7 Lymphocytes % 12.4 L Monocytes % 9.0 Eosinophils % 0.0 Basophils % 0.9 Absolute Neutrophils 6.5 Absolute Lymphocytes 1.0 Absolute Monocytes 0.8 Absolute Eosinophils 0.0 Absolute Basophils 0.1 Carbonic Acid 1.86 H HCO3/H2CO3 Ratio 17:1 ABG pH 7.34 L ABG pCO2 61.8 H ABG pO2 97.9 ABG HCO3 32.6 H ABG O2 Saturation 96.9 ABG Base Excess 5.4 VBG pH VBG pCO2 VBG HCO3 VBG Base Excess FiO2 40% Sodium Potassium Chloride Carbon Dioxide Anion Gap BUN Creatinine Est GFR ( Amer) Est GFR (Non-Af Amer) Glucose Lactic Acid 1.1 Calcium Total Bilirubin AST ALT Alkaline Phosphatase Total Protein Albumin 08/01/18 05:50 WBC RBC Hgb Hct MCV MCH MCHC RDW Plt Count Seg Neutrophils % Lymphocytes % Monocytes % Eosinophils % Basophils % Absolute Neutrophils Absolute Lymphocytes Absolute Monocytes Absolute Eosinophils Absolute Basophils Carbonic Acid HCO3/H2CO3 Ratio ABG pH ABG pCO2 ABG pO2 ABG HCO3 ABG O2 Saturation ABG Base Excess VBG pH VBG pCO2 VBG HCO3 VBG Base Excess FiO2 Sodium 139.0 Potassium 5.4 H Chloride 93 L Carbon Dioxide 30 Anion Gap 16 BUN 43 H Creatinine 6.81 H Est GFR ( Amer) 8 L Est GFR (Non-Af Amer) 7 L Glucose 77 Lactic Acid Calcium 8.7 Total Bilirubin AST ALT Alkaline Phosphatase Total Protein Albumin 07/31/18 08/01/18 08/01/18 16:24 00:35 05:50 Troponin I 0.095 0.085 0.092 Impressions: Chest X-Ray 08/01/18 06:00 IMPRESSION: NO ACUTE RADIOGRAPHIC FINDING IN THE CHEST. Assessment & Plan - Diagnosis (1) Acute respiratory failure with hypoxia and hypercapnia Is this a current diagnosis for this admission?: Yes Plan: Secondary to influenza B and right lower lobe pneumonia. ABG after several hours on BiPAP at 07/30/60 percent revealed respiratory acidosis with pH 7.28, CO2 64.3, O2 104.7, HCO3 29.3. Repeat ABG yesterday afternoon following BiPAP adjustment slightly improved; pH 7.34, PCO2 61.8, PO2 97.9, HC 03 32.6 Chest x-ray revealed a right lower lobe consolidation. Blood cultures with gram-positive cocci in 1 set Echocardiogram is pending. Had anticipated the patient may require intubation mechanical ventilation yesterday; fortunately, the patient's respiratory and mental status improved following dialysis. She did not require to be intubated and remained on BiPAP overnight. We will continue supplemental oxygen as needed to maintain saturations greater than 91%. BiPAP nightly and as needed. Scheduled and as needed nebulizer treatments. Mucinex twice daily. Pulmonology has been consulted; initiate their assistance. (2) Altered mental status Is this a current diagnosis for this admission?: Yes Plan: Resolved; patient is now returned to her baseline mental status. This morning she is alert and oriented x4. Likely secondary to hypercapnia in setting of influenza and right lower lobe pneumonia. Management of acute respiratory failure as above. Judicious use of sedating medications; will resume her Lyrica today but hold on oxycodone. Have resumed her home dose Dilantin. Seizure precautions. (3) Dialysis patient Is this a current diagnosis for this admission?: Yes Plan: End-stage renal disease on dialysis Friday, Friday, Friday; followed by Dr. Duff. Dr. Cisse was consulted and was able to arrange for the patient to receive partial dialysis treatment yesterday. Unfortunately, dialysis will not be available this weekend. If required, Dr. Cisse recommends arranging for transfer to tertiary center. (4) IDDM (insulin dependent diabetes mellitus) Is this a current diagnosis for this admission?: Yes Plan: The patient is advanced to a dialysis/cardiac diet. Accu-Cheks before meals and at bedtime with Humalog for sliding scale coverage and hypoglycemia protocol in place. (5) Influenza B Is this a current diagnosis for this admission?: Yes Plan: Confirmed influenza B. Airborne precautions. Tamiflu 75 mg twice daily. Supplemental oxygen and BiPAP as needed. Scheduled and as needed nebulizer treatments. Mucinex twice daily. Tylenol as needed for fever. (6) Pneumonia Qualifiers: Pneumonia type: due to unspecified organism Laterality: right Lung location: lower lobe of lung Qualified Code(s): J18.1 - Lobar pneumonia, unspecified organism Is this a current diagnosis for this admission?: Yes Plan: Due to influenza B virus. Lactic acid is negative, WBCs normal, T-max last 48 hours 100.3. Although the pneumonia is likely secondary to influenza; the severity of the patient's respiratory failure is warranted coverage with antibiotic therapy. She was empirically placed on IV Zosyn and vancomycin yesterday afternoon. We will continue as the blood cultures are now growing gram-positive cocci. Will obtain repeat blood cultures tomorrow after a full 24 hours of antibiotic therapy to confirm clearance and adjust antibiotics as cultures and sensitivities result. Otherwise, management as above. (7) Anemia Qualifiers: Anemia type: due to chronic kidney disease Chronic kidney disease stage: on chronic dialysis Qualified Code(s): N18.6 - End stage renal disease; D63.1 - Anemia in chronic kidney disease; D63.1 - Anemia in chronic kidney disease; Z99.2 - Dependence on renal dialysis; Z99.2 - Dependence on renal dialysis; Z99.2 - Dependence on renal dialysis; Z99.2 - Dependence on renal dialysis Is this a current diagnosis for this admission?: Yes Plan: Hemoglobin of 11.2; appears to be above baseline. Trended down slightly to 9.8. No evidence for active bleeding. Registered dietitian has been consulted. Nephrology has been consulted. (8) Bacteremia Is this a current diagnosis for this admission?: Yes Plan: Gram-positive cocci growing in 1 of 4 bottles. Other vitals are negative at 24 hours. Sputum culture is pending. The patient has empirically been placed on IV vancomycin and Zosyn; will adjust as cultures and sensitivities result. (9) Hyperkalemia Is this a current diagnosis for this admission?: Yes Plan: Secondary to ESRD on dialysis with shortened dialysis session yesterday. Kayexalate today x1. Daily chemistry. - Time Time Spent with patient: 35 or more minutes Medications reviewed and adjusted accordingly: Yes
--- NOTE | 2018-08-01 17:14 | XCELERA REPORT ---
[address] [address] Transthoracic Echocardiogram Report Name: DIAN SLAUGHTER Age: 42 yrs Gender: Female : 1975 Patient Status: Inpatient Patient Location: ICU^605^A Study Date: 08/01/2018 12:40 PM Height: 62 in Weight: 260 lb BSA: 2.1 m2 Reason For Study: fluid overload, resp failure Ordering Physician: HUI CUMMINGS Performed By: Romie Corrales Interpretation Summary Poor study quality likely due to patient's body habitus. Lack of contrast enhancement limits interpretation of chambers, wall motion analysis and for ruling out cardiac thrombus. LV not well visualized but appears to be normal at around 55-60%. RV not well visualized but Rv systolic function appears normal. Abnormal LV relaxation noted. Valvular assessment limited by poor acoustic images. RVSP could not be estimated. IVC not well visualized but likely normal sized. Pericardiaum not well visualized but no large pericardial effusion noted in available images. MMode/2D Measurements & Calculations RVDd: 2.4 cm LVIDd: 3.9 cm FS: 20.8 % LA dimension: 3.9 cm IVSd: 0.99 cm LVIDs: 3.1 cm EDV(Teich): 67.0 ml LVPWd: 1.1 cm ESV(Teich): 38.2 ml EF(Teich): 43.0 % Doppler Measurements & Calculations MV E max christian: MV P1/2t max christian: Ao V2 max: LV V1 max P.9 cm/sec 103.2 cm/sec 62.4 cm/sec 5.1 mmHg MV A max christian: MV P1/2t: 78.0 msec Ao max PG: LV V1 max: 118.5 cm/sec MVA(P1/2t): 2.8 cm2 1.6 mmHg 112.5 cm/sec MV E/A: 0.83 MV dec slope: 387.6 cm/sec2 MV dec time: 0.23 sec MR max christian: MV P1/2t-pr_phl: 316.0 cm/sec 78.0 msec MR max P.9 mmHg Left Ventricle The transmitral spectral Doppler flow pattern is abnormal for age. Right Ventricle The right ventricle is not well visualized secondary to technical limitations. The right ventricular systolic function is normal. Mitral Valve The mitral valve is not well visualized. Aortic Valve The aortic valve is not well visualized secondary to technical limitations. Tricuspid Valve The tricuspid valve is not well visualized secondary to technical limitations. Tricuspid regurgitation jet envelope not well defined to measure RV systolic pressure accurately. Pulmonic Valve The pulmonic valve is not well visualized. Great Vessels IVC not well visualized but likely normal sized. Effusions Pericardiaum not well visualized but no large pericardial effusion noted in available images. : HUI CUMMINGS > Riley Holley
[2018-08-01] MEDS ORDERED: OSELTAMIVIR PHOSPHATE 75 MG CAPSULE ONE (22:31)
[2018-08-01] MEDS: LORAZEPAM 1 MG TABLET PO PRN (22:31)
--- NOTE | 2018-08-02 04:32 | PROGRESS NOTE E ---
Progress Note NAME: DIAN SLAUGHTER : 1975 AGE: 42Y DATE: 08/01/2018 ROOM: 328 SUBJECTIVE: The patient is a 42-year-old -[place] female who came in with acute respiratory failure requiring noninvasive mechanical ventilation or BiPAP therapy. The patient apparently improved last night. The patient has been saturating 100% on BiPAP of 15/5, rate of 10, and FiO2 of 35%. Cut down the FiO2 to 30% today and the patient appeared to be tolerating it well. Her saturation has been stable, above 90%. The patient may be able to tolerate the nasal cannula later on, 2-3 L/min, and titrated to keep saturation 90-94%. The patient claimed that she is still coughing, but not as much. No fever overnight. No nausea, vomiting, diarrhea. Central line was placed in the left IJ with no adverse complications. The patient sitting down at bedside this morning and appeared to be doing well. OBJECTIVE: GENERAL: The patient appeared awake, alert, and coherent. Afebrile, not in apparent respiratory distress. VITAL SIGNS: Temperature of 97.9, with a t-max of 98.6, heart rate of 88, blood pressure is 134/66, respiratory rate of 26, and saturation is 97% to 100% on the BiPAP of 15/5, FiO2 of 30%, and a rate of 10. EYES: No jaundice or pallor. EARS, NOSE, AND THROAT: No ear drainage. CHEST AND LUNGS: No wheezing. No rhonchi. No coarse crackles. CARDIOVASCULAR: S1, S2 distinct. Normal rate. Regular rhythm. ABDOMEN: Flabby. Positive bowel sounds. Soft, nondistended. EXTREMITIES: No joint swelling. No cellulitis. LABORATORY: CBC done today showed a white count of 8.4. This has been normal over the last 2-3 days. Hemoglobin is 9.8, hematocrit is 39.3, and the platelet count is 171. ABG done yesterday at 7:25 p.m. showed pH of 7.34, PCO2 of 61.8, PO2 is 97.9, bicarb is 32.6, and ABG oxygen saturation is 96.9 at 40%. Chemistry done today showed the sodium is 139, potassium is 5.4, chloride is 93, CO2 is 30, BUN is 43, creatinine is 6.81, and glucose 77. Calcium is 8.7. Her hemoglobin A1c is 6.2. Blood cultures done yesterday showed gram-positive cocci in 1 blood culture bottle. The sputum culture is pending. ASSESSMENT: 1. ACUTE RESPIRATORY FAILURE REQUIRING NONINVASIVE MECHANICAL VENTILATION OR BIPAP THERAPY. Appeared to be improving. The patient may be downgraded to nasal cannula this morning. 2. PULMONARY EDEMA. 3. PNEUMONIA,-- CANNOT BE COMPLETELY EXCLUDED LEFT LOWER LOBE. 4. MORBID OBESITY. 5. CKD ON HEMODIALYSIS WITH HYPERKALEMIA, followed by Nephrology. PLAN/RECOMMENDATIONS: 1. Decrease the FiO2 to 30%. Continue the BiPAP of 15/5, rate of 10, most especially when patient is sleeping. 2. May need downgrade to nasal cannula today. 3. Continue the nebulizer treatment as needed. 4. May give her vancomycin IV after the cultures come back. We will follow patient. DICTATING PHYSICIAN: THOMAS MUÑOZ MD,TYRESE,MPH [id number] PHY#: [id number] ID: [id number] JOB#: [id number] ACCT: [id number] cc: > MTDD
[2018-08-02] MEDS: GUAIFENESIN SYRP 200 MG/10 ML UDC PO SCH ×6 (06:29→22:25)
[2018-08-02] MEDS: PHENYTOIN SODIUM EXTENDED 100 MG CAPSULE PO SCH ×3 (06:35→22:25)
[2018-08-02] MEDS: PIPERACILLIN SODIUM/TAZOBACTAM 2.25 GM in NORMAL SALINE 50 ML IV SCH ×3 (06:36→22:25)
[2018-08-02] MEDS: HEPARIN SOD (PORCINE) 5,000 UNIT/ML 1 ML SYRINGE SUBCUT SCH ×3 (06:36→22:25)
[2018-08-02] MEDS: LORAZEPAM 1 MG TABLET PO PRN ×2 (06:48→17:51)
[2018-08-02] MEDS: INSULIN LISPRO 100 UNIT/ML 3 ML VIAL SUBCUT PRN (08:10)
[2018-08-02] MEDS: ALBUTEROL SULFATE 0.083% NEB 2.5 MG/3 ML AMPUL NEB SCH ×2 (08:33→16:59)
[2018-08-02] MEDS: FOLIC ACID/VITAMIN B COMP W-C CAPSULE PO SCH (09:12)
[2018-08-02] MEDS: FAMOTIDINE INJ/PF 20 MG/2 ML SDV IV SCH ×2 (09:12→22:25)
[2018-08-02] MEDS: NICOTINE 14 MG/24 HR PATCH.TD24 TD SCH (09:13)
[2018-08-02] MEDS: PREGABALIN 75 MG CAPSULE PO SCH (09:20)
[2018-08-02 09:49] LABS: HEMATOCRIT 30.4 % (36.0-47.0); MEAN CORPUSCULAR HEMOGLOBIN 32.3 pg (27.0-33.4); MEAN CORPUSCULAR HGB CONC 32.9 g/dL (32.0-36.0); MEAN CORPUSCULAR VOLUME 98 fl (80-97); PLATELET COUNT 181 10^3/uL (150-450); RED BLOOD COUNT 3.09 10^6/uL (3.72-5.28); RED CELL DISTRIBUTION WIDTH 15.4 % (11.5-14.0); WHITE BLOOD COUNT 7.2 10^3/uL (4.0-10.5)
[2018-08-02 10:18] LABS: BLOOD UREA NITROGEN 53 mg/dL (7-20); CALCIUM 8.5 mg/dL (8.4-10.2); GLUCOSE 172 mg/dL (75-110); POTASSIUM 4.6 mmol/L (3.6-5.0)
[2018-08-02 10:23] LABS: ANION GAP 18 (5-19); CARBON DIOXIDE 29 mmol/L (22-30); CHLORIDE 95 mmol/L (98-107); SODIUM 141.9 mmol/L (137-145)
[2018-08-02] MEDS: OSELTAMIVIR PHOSPHATE 75 MG CAPSULE PO SCH ×2 (10:40→22:25)
--- NOTE | 2018-08-02 12:29 | PDOC PROGRESS REPORT ---
Subjective Progress Note for:: 08/02/18 Subjective:: The patient is a 42-year-old male with a past medical history of insulin- dependent diabetes mellitus, end-stage renal disease on dialysis, CHF, CAD, hypertension, hyperlipidemia, seizure disorder, chronic anemia, GERD, obesity, chronic pain, opiate dependence who was admitted 07/31/2018 for acute respiratory failure with hypoxia and hypercapnia secondary to influenza B and a right lower lobe pneumonia. She was seen on morning rounds. She is found resting in bed comfortably on BiPAP. Today she is A&Ox4; she reports continued fatigue and a slightly productive cough. Overall, she reports feeling much better today. She denies fever, chills, body aches, chest pain, palpitations, dyspnea, abdominal pain, and nausea. No concerns per nursing. Reason For Visit: INFLUENZA,PNEUMONIA Physical Exam Vital Signs: Temp Pulse Resp BP Pulse Ox 97.9 F 92 25 H 152/64 H 100 08/02/18 11:35 08/02/18 11:35 08/02/18 12:17 08/02/18 11:35 08/02/18 11:35 Pulse Oximeter Continuous Start: 07/31/18 09: 33 Freq: RTQ4 Status: Hold Document 07/31/18 21:26 LRU (Rec: 07/31/18 21:29 LRU [id number]) Pulse Oximetry Assessment Oxygen Saturation (92-100) 100 Oxygen Delivery Method Bi-pap Fraction of Inspired Oxygen (FIO2) 35 Equipment Usage Equipment in Use Continuous Pulse Oximeter 24 Hour Charge Charge Now Continuous SpO2 Machine # 0 Intake & Output 08/01/18 08/02/18 08/03/18 06:59 06:59 06:59 Intake Total 50 150 150 Output Total 400 0 Balance -350 150 150 Weight 113 kg 112.9 kg General appearance: PRESENT: no acute distress, morbidly obese, well-developed, well-nourished Head exam: PRESENT: atraumatic, normocephalic Eye exam: PRESENT: conjunctiva pink, other - blind both eyes. ABSENT: EOMI, PERRLA, scleral icterus Ear exam: PRESENT: normal external ear exam Mouth exam: PRESENT: moist, tongue midline Neck exam: ABSENT: carotid bruit, JVD, lymphadenopathy, thyromegaly Respiratory exam: PRESENT: decreased breath sounds - Bibasilar; secondary to body habitus and poor respiratory effort, rhonchi - Slight, symmetrical, tachypnea, other - BiPAP. ABSENT: rales, wheezes Cardiovascular exam: PRESENT: RRR, +S1, +S2. ABSENT: diastolic murmur, rubs, systolic murmur Pulses: PRESENT: normal dorsalis pedis pul Vascular exam: PRESENT: normal capillary refill GI/Abdominal exam: PRESENT: normal bowel sounds, soft. ABSENT: distended, guarding, mass, organolmegaly, rebound, tenderness Rectal exam: PRESENT: deferred Extremities exam: PRESENT: full ROM, +1 edema. ABSENT: calf tenderness, clubbing, pedal edema Neurological exam: PRESENT: alert, awake, oriented to person, oriented to place , oriented to time, oriented to situation, CN II-XII grossly intact. ABSENT: motor sensory deficit Psychiatric exam: PRESENT: appropriate affect, normal mood. ABSENT: homicidal ideation, suicidal ideation Skin exam: PRESENT: dry, intact, warm. ABSENT: cyanosis, rash Results Laboratory Results: 08/02/18 09:30 08/02/18 09:30 08/02/18 08/02/18 09:30 09:30 WBC 7.2 RBC 3.09 L Hgb 10.0 L Hct 30.4 L MCV 98 H MCH 32.3 MCHC 32.9 RDW 15.4 H Plt Count 181 Sodium 141.9 Potassium 4.6 Chloride 95 L Carbon Dioxide 29 Anion Gap 18 BUN 53 H Creatinine 9.01 H Est GFR ( Amer) 6 L Est GFR (Non-Af Amer) 5 L Glucose 172 H Calcium 8.5 07/31/18 22:15 Sputum Gram Stain - Final 07/31/18 22:15 Sputum Sputum Culture - Final NORMAL LIAM 07/31/18 08/01/18 08/01/18 16:24 00:35 05:50 Troponin I 0.095 0.085 0.092 Impressions: Chest X-Ray 08/01/18 06:00 IMPRESSION: NO ACUTE RADIOGRAPHIC FINDING IN THE CHEST. Assessment & Plan - Diagnosis (1) Acute respiratory failure with hypoxia and hypercapnia Is this a current diagnosis for this admission?: Yes Plan: Improved; now tolerating nasal cannula while awake, continues to use BiPAP nightly. Secondary to influenza B and right lower lobe pneumonia. ABG after several hours on BiPAP at 07/30/60 percent revealed respiratory acidosis with pH 7.28, CO2 64.3, O2 104.7, HCO3 29.3. Repeat ABG slightly improved; pH 7.34, PCO2 61.8, PO2 97.9, HC 03 32.6 Chest x-ray revealed a right lower lobe consolidation. Blood cultures with gram-positive cocci in 1 bottle Sputum culture showed normal liam Echocardiogram limited secondary to body habitus and positioning; overall reassuring.. We will continue supplemental oxygen as needed to maintain saturations greater than 91%. BiPAP nightly and as needed. Scheduled and as needed nebulizer treatments. Mucinex twice daily. Pulmonology has been consulted; appreciate their assistance. (2) Altered mental status Is this a current diagnosis for this admission?: Yes Plan: Resolved; patient is now returned to her baseline mental status. This morning she is alert and oriented x4. Likely secondary to hypercapnia in setting of influenza and right lower lobe pneumonia. Management of acute respiratory failure as above. Judicious use of sedating medications; continue Lyrica today but hold on oxycodone. Have resumed her home dose Dilantin. Seizure precautions. (3) Dialysis patient Is this a current diagnosis for this admission?: Yes Plan: End-stage renal disease on dialysis Friday, Friday, Friday; followed by Dr. Duff. Dr. Cisse was consulted and was able to arrange for the patient to receive partial dialysis treatment Friday. Unfortunately, dialysis will not be available this weekend. If required, Dr. Cisse recommends arranging for transfer to tertiary center. Potassium 4.6, creatinine 9.01, BUN 53; does not appear especially fluid overloaded today. Nephrology has been consulted; dialysis per their expertise. (4) IDDM (insulin dependent diabetes mellitus) Is this a current diagnosis for this admission?: Yes Plan: The patient is advanced to a dialysis/cardiac diet. Accu-Cheks before meals and at bedtime with Humalog for sliding scale coverage and hypoglycemia protocol in place. (5) Influenza B Is this a current diagnosis for this admission?: Yes Plan: Confirmed influenza B. Airborne precautions. Tamiflu 75 mg twice daily. Supplemental oxygen and BiPAP as needed. Scheduled and as needed nebulizer treatments. Mucinex twice daily. Tylenol as needed for fever. (6) Pneumonia Qualifiers: Pneumonia type: due to unspecified organism Laterality: right Lung location: lower lobe of lung Qualified Code(s): J18.1 - Lobar pneumonia, unspecified organism Is this a current diagnosis for this admission?: Yes Plan: Due to influenza B virus. Lactic acid is negative, WBCs normal, T-max last 48 hours 100.3. Although the pneumonia is likely secondary to influenza; the severity of the patient's respiratory failure is warranted coverage with antibiotic therapy. She was empirically placed on IV Zosyn and vancomycin yesterday afternoon. We will continue as the blood cultures are now growing gram-positive cocci in 1 bottle. Otherwise, management as above. (7) Anemia Qualifiers: Anemia type: due to chronic kidney disease Chronic kidney disease stage: on chronic dialysis Qualified Code(s): N18.6 - End stage renal disease; D63.1 - Anemia in chronic kidney disease; D63.1 - Anemia in chronic kidney disease; Z99.2 - Dependence on renal dialysis; Z99.2 - Dependence on renal dialysis; Z99.2 - Dependence on renal dialysis; Z99.2 - Dependence on renal dialysis Is this a current diagnosis for this admission?: Yes Plan: Hemoglobin of 11.2 on admission; appears to be above baseline. Trended down slightly to 10. No evidence for active bleeding. Registered dietitian has been consulted. Nephrology has been consulted. (8) Bacteremia Is this a current diagnosis for this admission?: Yes Plan: Gram-positive cocci growing in 1 of 4 bottles. Sputum culture showed normal respiratory liam. The patient has empirically been placed on IV vancomycin and Zosyn; will adjust as cultures and sensitivities result. (9) Hyperkalemia Is this a current diagnosis for this admission?: Yes Plan: Addendum as the same thing I through sound so Dr. connolly might know because he is through sound to secondary to ESRD on dialysis with shortened dialysis session yesterday. Kayexalate yesterday x1. Potassium improved; 5.4--> 4.6 Daily chemistry. - Time Time Spent with patient: 15-24 minutes Medications reviewed and adjusted accordingly: Yes Anticipated discharge: Home
[2018-08-02 16:55] LABS: ARTERIAL BLOOD H2CO3 1.57 mmol/L (1.05-1.35); ARTERIAL BLOOD HCO3 29.4 mmol/L (20-24); ARTERIAL BLOOD O2 SATURATION 90.7 % (94-98); ARTERIAL BLOOD PCO2 52.2 mmHg (35-45); ARTERIAL BLOOD PH 7.37 (7.35-7.45); ARTERIAL BLOOD PO2 61.9 mmHg (80-100)
[2018-08-02 16:57] LABS: ARTERIAL BLOOD FIO2 2L
[2018-08-03] MEDS: ALBUTEROL SULFATE 0.083% NEB 2.5 MG/3 ML AMPUL NEB SCH ×3 (00:54→20:13)
[2018-08-03] MEDS: GUAIFENESIN SYRP 200 MG/10 ML UDC PO SCH ×6 (02:37→21:35)
[2018-08-03] MEDS ORDERED: NORMAL SALINE 1000 ML 1,000 ML IV PRN (05:00)
[2018-08-03] MEDS: PHENYTOIN SODIUM EXTENDED 100 MG CAPSULE PO SCH ×3 (05:30→21:37)
[2018-08-03] MEDS: PIPERACILLIN SODIUM/TAZOBACTAM 2.25 GM in NORMAL SALINE 50 ML IV SCH (05:30)
[2018-08-03 05:36] LABS: HEMATOCRIT 28.5 % (36.0-47.0); HEMOGLOBIN 9.5 g/dL (12.0-15.5); MEAN CORPUSCULAR HEMOGLOBIN 32.8 pg (27.0-33.4); MEAN CORPUSCULAR HGB CONC 33.5 g/dL (32.0-36.0); MEAN CORPUSCULAR VOLUME 98 fl (80-97); PLATELET COUNT 184 10^3/uL (150-450); RED BLOOD COUNT 2.91 10^6/uL (3.72-5.28); RED CELL DISTRIBUTION WIDTH 15.3 % (11.5-14.0); WHITE BLOOD COUNT 7.4 10^3/uL (4.0-10.5)
[2018-08-03 05:45] LABS: ALANINE AMINOTRANSFERASE 23 U/L (9-52); ALBUMIN 3.5 g/dL (3.5-5.0); ALKALINE PHOSPHATASE 81 U/L (38-126); ASPARTATE AMINO TRANSFERASE 32 U/L (14-36); BILIRUBIN,DIRECT 1.4 mg/dL (0.0-0.4); BILIRUBIN,TOTAL 1.4 mg/dL (0.2-1.3); BLOOD UREA NITROGEN 59 mg/dL (7-20); CALCIUM 8.7 mg/dL (8.4-10.2); GLUCOSE 138 mg/dL (75-110); POTASSIUM 4.7 mmol/L (3.6-5.0); TOTAL PROTEIN 8.1 g/dL (6.3-8.2)
[2018-08-03 05:50] LABS: CARBON DIOXIDE 27 mmol/L (22-30); CHLORIDE 97 mmol/L (98-107)
[2018-08-03 05:51] LABS: ANION GAP 19 (5-19)
[2018-08-03] MEDS: HEPARIN SOD (PORCINE) 5,000 UNIT/ML 1 ML SYRINGE SUBCUT SCH ×3 (06:18→21:36)
[2018-08-03] MEDS ORDERED: ALBUTEROL SULFATE 0.042% NEB (1.25 MG/3 ML) AMPUL NEB ONE (08:00)
--- NOTE | 2018-08-03 08:14 | PROGRESS NOTE E ---
Progress Note NAME: DIAN SLAUGHTER : 1975 AGE: 42Y DATE: 08/02/2018 ROOM: 328 SUBJECTIVE: The patient is a 42-year-old -Samoan female who came in with acute respiratory failure requesting BiPAP therapy. The patient was improved by a liter and admitted in the ICU. Underlying hemodialysis on admission. Patient was transferred to [facility] yesterday. Currently the patient is feeling well. She is doing a BiPAP therapy. Denies any new fever, chills, cough, or sputum production. No vomiting or diarrhea. Scheduled for hemodialysis Friday, Friday, Friday. Patient's completing on her BiPAP therapy. OBJECTIVE: GENERAL: The patient appeared sleepy and resting comfortably. Afebrile, wakes up when aroused. VITAL SIGNS: Temperature of 97.9, with a t-max of 97.9, heart rate of 92, blood pressure is 132/64, respiratory rate 25, and saturation is 97% on the BiPAP, FiO2 of 30%. EYES: No jaundice or pallor. EARS, NOSE, AND THROAT: No ear drainage, no redness, no discharge. No neck tenderness. CHEST AND LUNGS: No wheezing. No rhonchi. No coarse crackles. CARDIOVASCULAR: S1, S2 distinct. Normal rate. Regular rhythm. ABDOMEN: Flabby. Positive bowel sounds. Soft, nondistended, nontender. EXTREMITIES: No joint swelling. No cellulitis. LABORATORY: CBC done today showed a white count of 7.2, hemoglobin is 10, hematocrit is 30.4, and the platelet count is 181. Chemistry done today showed the sodium is 131.9, potassium is 4.6, chloride 95, CO2 is 29, BUN is 53, creatinine is 9, and glucose 132, calcium is 8.5. ASSESSMENT: 1. ACUTE RESPIRATORY FAILURE REQUIRING BIPAP THERAPY. APPEARS RESOLVED. 2. OBSTRUCTIVE SLEEP APNEA. MOST LIKELY SEVERE. MAY REQUIRE BIPAP THERAPY DURING SLEEP. 3. OBESITY HYPOVENTILATION SYNDROME. MOST LIKELY WE WILL DRAW ABG AT ROOM AIR OR ON OXYGEN WHEN PATIENT IS AWAKE AND OFF OF THE BIPAP. 4. CONTINUE ALBUTEROL NEBULIZER TREATMENT NEEDED. 5. CONTINUE IV ZOSYN AND IV VANCOMYCIN FOR NOW. DICTATING PHYSICIAN: THOMAS MUÑOZ MD,TYRESE,MPH [id number] PHY#: [id number] ID: [id number] JOB#: [id number] ACCT: [id number] cc: > JUAN
--- NOTE | 2018-08-03 08:42 | PDOC PROGRESS REPORT ---
Subjective Progress Note for:: 08/03/18 Subjective:: I am seeing the patient on dialysis this morning. She is still on BiPAP but more awake and answering few questions. Her blood pressures are acceptable. He is tolerating dialysis so far. She does not have any new complaints. Reason For Visit: INFLUENZA,PNEUMONIA Physical Exam Vital Signs: Temp Pulse Resp BP Pulse Ox 98.6 F 99 20 157/84 H 96 08/03/18 04:04 08/03/18 04:04 08/03/18 04:24 08/03/18 04:04 08/03/18 04:24 Pulse Oximeter Continuous Start: 07/31/18 09: 33 Freq: RTQ4 Status: Hold Document 07/31/18 21:26 LRU (Rec: 07/31/18 21:29 LRU [id number]) Pulse Oximetry Assessment Oxygen Saturation (92-100) 100 Oxygen Delivery Method Bi-pap Fraction of Inspired Oxygen (FIO2) 35 Equipment Usage Equipment in Use Continuous Pulse Oximeter 24 Hour Charge Charge Now Continuous SpO2 Machine # 0 Intake & Output 08/02/18 08/03/18 08/04/18 06:59 06:59 06:59 Intake Total 150 427 50 Output Total 0 0 Balance 150 427 50 Weight 112.9 kg 113 kg Vitals during dialysis: Blood pressure 134/68, heart rate of 87, blood flow rate of 450 mL/min, dialysate flow rate of 800 mL/min. Exam: General appearance: PRESENT: Patient on BiPAP but more awake and responsive Head exam: PRESENT: atraumatic, normocephalic Eye exam: PRESENT: conjunctiva slightly pale, PERRLA. ABSENT: scleral icterus Neck exam: ABSENT: JVD Respiratory exam: PRESENT: Diminished breath sounds. ABSENT: crackles, rales, rhonchi, unlabored, wheezes Cardiovascular exam: PRESENT: Regular rate rhythm -+S1, +S2. ABSENT: diastolic murmur, systolic murmur GI/Abdominal exam: PRESENT: normal bowel sounds, soft. ABSENT: guarding, mass, tenderness Extremities exam: Trace bilateral lower extremity pitting edema Neurological exam: PRESENT: alert, awake, communicative. Skin exam: PRESENT: dry, warm, Results Laboratory Results: 08/03/18 05:10 08/03/18 05:10 08/02/18 08/02/18 08/02/18 09:30 09:30 16:40 WBC 7.2 RBC 3.09 L Hgb 10.0 L Hct 30.4 L MCV 98 H MCH 32.3 MCHC 32.9 RDW 15.4 H Plt Count 181 Carbonic Acid 1.57 H HCO3/H2CO3 Ratio 18:1 ABG pH 7.37 ABG pCO2 52.2 H ABG pO2 61.9 L ABG HCO3 29.4 H ABG O2 Saturation 90.7 L ABG Base Excess 3.0 FiO2 2L Sodium 141.9 Potassium 4.6 Chloride 95 L Carbon Dioxide 29 Anion Gap 18 BUN 53 H Creatinine 9.01 H Est GFR ( Amer) 6 L Est GFR (Non-Af Amer) 5 L Glucose 172 H Calcium 8.5 Total Bilirubin AST ALT Alkaline Phosphatase Total Protein Albumin 08/03/18 08/03/18 05:10 05:10 WBC 7.4 RBC 2.91 L Hgb 9.5 L Hct 28.5 L MCV 98 H MCH 32.8 MCHC 33.5 RDW 15.3 H Plt Count 184 Carbonic Acid HCO3/H2CO3 Ratio ABG pH ABG pCO2 ABG pO2 ABG HCO3 ABG O2 Saturation ABG Base Excess FiO2 Sodium 143.0 Potassium 4.7 Chloride 97 L Carbon Dioxide 27 Anion Gap 19 BUN 59 H Creatinine 9.81 H Est GFR ( Amer) 5 L Est GFR (Non-Af Amer) 4 L Glucose 138 H Calcium 8.7 Total Bilirubin 1.4 H AST 32 ALT 23 Alkaline Phosphatase 81 Total Protein 8.1 Albumin 3.5 07/31/18 22:15 Sputum Gram Stain - Final 07/31/18 22:15 Sputum Sputum Culture - Final NORMAL GRAHAM 07/31/18 08/01/18 08/01/18 16:24 00:35 05:50 Troponin I 0.095 0.085 0.092 Impressions: Chest X-Ray 08/01/18 06:00 IMPRESSION: NO ACUTE RADIOGRAPHIC FINDING IN THE CHEST. Assessment & Plan - Diagnosis (1) End stage renal disease Is this a current diagnosis for this admission?: Yes Plan: We will do dialysis today for 3 hours, using the patient's AV fistula, with 2 potassium bath, blood flow rate of 450 mL per minute, dialysate flow rate of 800 mL per minute, ultrafiltration 3 L as tolerated, no help and Procrit with 10 ,000 units during dialysis intravenously. Patient will be monitored throughout dialysis treatment and adjust treatment as needed. (2) Acute respiratory failure with hypoxia and hypercapnia Is this a current diagnosis for this admission?: Yes Plan: Still on BiPAP but seems improved. Defer to pulmonary. (3) Hyperkalemia Is this a current diagnosis for this admission?: Yes Plan: Resolved with dialysis. (4) Anemia in chronic kidney disease Is this a current diagnosis for this admission?: Yes Plan: Procrit during dialysis as needed. (5) Diabetes mellitus type 2 in obese Is this a current diagnosis for this admission?: Yes (6) Altered mental status Is this a current diagnosis for this admission?: Yes (7) Influenza B Is this a current diagnosis for this admission?: Yes Plan: Defer to primary and pulmonary. (8) Pneumonia Qualifiers: Pneumonia type: due to unspecified organism Laterality: right Lung location: lower lobe of lung Qualified Code(s): J18.1 - Lobar pneumonia, unspecified organism Is this a current diagnosis for this admission?: Yes (9) Obesity hypoventilation syndrome Is this a current diagnosis for this admission?: Yes - Time Time with patient: 15-25 minutes
--- NOTE | 2018-08-03 10:21 | CONSULTATION REPORT E ---
[facility] Report NAME: DIAN SLAUGHTER : 1975 AGE: 42Y DATE: 07/31/2018 328 A TO: THOMAS MUÑOZ M.D. FROM: LAWRENCE MORROW M.D. Requesting Physician HISTORY OF PRESENT ILLNESS: The patient is a 42-year-old -Turkish female who came in with acute respiratory failure requiring non-invasive mechanical ventilation or BIPAP therapy, and currently appears to have improved. Had fever on admission. Complains of increased cough with purulent sputum production. No hemoptysis noted. No chest pain. Went to the emergency room and was found to be tachycardic with heart rate 111, tachypneic 29, hypoxemic 89% on room air. The patient was positive for influenza virus. The patient was scheduled for dialysis and brought to ICU. PAST MEDICAL HISTORY: The patient has history of: 1. Congestive heart failure. 2. Coronary artery disease. 3. Hyperlipidemia. 4. Hypertension. 5. Denies any asthma or COPD. 6. Has history of seizures. 7. Diabetes mellitus type 2. 8. End-stage renal disease. 9. Gastroesophageal reflux. 10. Initially bipolar disorder. PAST SURGICAL HISTORY: Includes: 1. Cholecystectomy. 2. Herniorrhaphy. 3. Orthopedic surgery. 4. Vascular surgery. 5. Right arm AV fistula. SOCIAL HISTORY: Lives with family. Unknown if patient ever smoked. Denies any alcohol abuse. FAMILY HISTORY: Unremarkable. HOME MEDICATIONS: Include: 1. Clonidine. 2. Insulin. 3. Prilosec. 4. Phenytoin. 5. Calcium. 6. Metoprolol. 7. B complex. 8. Losartan. 9. Oxycodone. 10. . 11. Lyrica. 12. Simvastatin. ALLERGIES: Include: 1. HYDROMORPHONE. 2. ACETAMINOPHEN. 3. ARANESP. 4. PROCRIT. 5. SULFA. 6. . REVIEW OF SYSTEMS: Unobtainable due to altered mental status. PHYSICAL EXAMINATION: GENERAL: The patient appeared to be lethargic, afebrile, not in apparent respiratory distress on BiPAP therapy with saturation of 100% on FiO2 of 40%, BiPAP of 15.5, and a rate of 10. VITAL SIGNS: Temperature is 99.7, T-max 100.7, heart rate 76, blood pressure is 116/63, and saturation 100%. EYES: No jaundice or pallor. EARS, NOSE, AND THROAT: No ear drainage. No nasal discharge. CHEST AND LUNGS: No wheezing. No rhonchi. No coarse crackles. CARDIOVASCULAR: S1, S2 distinct. Normal rate. Regular rhythm. ABDOMEN: Flabby. Positive bowel sounds. Soft, nondistended, nontender. EXTREMITIES: No joint swelling. No cellulitis. LABORATORY: CBC done today showed white count of 6.5, hemoglobin of 9.8, hematocrit is 29.9, platelet count is 181. ABG done at 7:25 p.m. on BiPAP showed pH of 7.34, PCO2 of 51.8, PO2 is 97.9, and bicarb is 32.6, saturation 96.9 on 40% FiO2. Chemistry done at 4 p.m. showed sodium is 139, potassium 5.1, chloride is 94, bicarb is 58, BUN is 38, creatinine is 5.83, glucose 94, lipase is 1.1, calcium is 8.6, direct bilirubin is 0.9. SGOT was elevated and SGPT is 36. Chest x-ray done today pulmonary infiltrate involving the right lower lobe bibasilarly, more on the right than on the left side, most likely pulmonary edema rather than pneumonia. ASSESSMENT: 1. Acute respiratory failure requiring noninvasive mechanical ventilation, appears to be improving on BiPAP therapy. 2. Diurese the patient using Lasix. 3. Recommend hemodialysis. 4. Agree with Zosyn IV and vancomycin IV. PLAN AND RECOMMENDATIONS: 1. Optimize pulmonary edema/ CHF therapy. Optimize the BiPAP therapy. 2. Will continue the same BIPAP therapy, and titrate the patient's FiO2 to keep O2 sat 91-94%. DICTATING PHYSICIAN: THOMAS MUÑOZ MD,TYRESE,MPH [id number] PHY#: [id number] ID: [id number] JOB#: [id number] ACCT: [id number] cc:THOMAS MUÑOZ M.D. > MTDD
[2018-08-03] MEDS: FAMOTIDINE INJ/PF 20 MG/2 ML SDV IV SCH (12:52)
[2018-08-03] MEDS: OSELTAMIVIR PHOSPHATE 75 MG CAPSULE PO SCH (12:52)
[2018-08-03] MEDS: FOLIC ACID/VITAMIN B COMP W-C CAPSULE PO SCH (12:52)
[2018-08-03] MEDS: PREGABALIN 75 MG CAPSULE PO SCH ×2 (12:52→21:36)
[2018-08-03] MEDS: NICOTINE 14 MG/24 HR PATCH.TD24 TD SCH (12:53)
[2018-08-03] MEDS ORDERED: FLUCONAZOLE 100 MG TABLET PO ONE (13:30)
[2018-08-03] MEDS ORDERED: MICONAZOLE NITRATE 2% CREAM 15GM TP PRN (14:00)
--- NOTE | 2018-08-03 14:42 | PDOC PROGRESS REPORT ---
Subjective Progress Note for:: 08/03/18 Subjective:: The patient is a 42-year-old male with a past medical history of insulin- dependent diabetes mellitus, end-stage renal disease on dialysis, CHF, CAD, hypertension, hyperlipidemia, seizure disorder, chronic anemia, GERD, obesity, chronic pain, opiate dependence who was admitted 07/31/2018 for acute respiratory failure with hypoxia and hypercapnia secondary to influenza B and a right lower lobe pneumonia. She was seen on morning rounds while on dialysis. She is found resting in bed comfortably on BiPAP. Today she is A&Ox4; she reports continued fatigue. She states all other symptoms are significantly improved: cough has resolved, denies dypnea at rest. She denies fever, chills, body aches, chest pain, palpitations, dyspnea, abdominal pain, and nausea. No concerns per nursing. Reason For Visit: INFLUENZA,PNEUMONIA Physical Exam Vital Signs: Temp Pulse Resp BP Pulse Ox 98.8 F 97 16 157/72 H 100 08/03/18 12:48 08/03/18 12:48 08/03/18 12:48 08/03/18 12:48 08/03/18 12:48 Pulse Oximeter Continuous Start: 07/31/18 09: 33 Freq: RTQ4 Status: Hold Document 07/31/18 21:26 LRU (Rec: 07/31/18 21:29 LRU [id number]) Pulse Oximetry Assessment Oxygen Saturation (92-100) 100 Oxygen Delivery Method Bi-pap Fraction of Inspired Oxygen (FIO2) 35 Equipment Usage Equipment in Use Continuous Pulse Oximeter 24 Hour Charge Charge Now Continuous SpO2 Machine # 0 Intake & Output 08/02/18 08/03/18 08/04/18 06:59 06:59 06:59 Intake Total 150 427 50 Output Total 0 0 0 Balance 150 427 50 Weight 112.9 kg 113 kg General appearance: PRESENT: no acute distress, morbidly obese, well-developed, well-nourished Head exam: PRESENT: atraumatic, normocephalic Eye exam: PRESENT: conjunctiva pink, other - chronic eye changes; blind bilaterally. ABSENT: scleral icterus Ear exam: PRESENT: normal external ear exam Mouth exam: PRESENT: moist, tongue midline Neck exam: ABSENT: carotid bruit, JVD, lymphadenopathy, thyromegaly Respiratory exam: PRESENT: clear to auscultation alaina, decreased breath sounds - bibasilar, prolonged expiratory phas, symmetrical, unlabored, other - BiPAP. ABSENT: rales, rhonchi, wheezes Cardiovascular exam: PRESENT: RRR. ABSENT: diastolic murmur, rubs, systolic murmur Pulses: PRESENT: normal dorsalis pedis pul Vascular exam: PRESENT: normal capillary refill GI/Abdominal exam: PRESENT: normal bowel sounds, soft. ABSENT: distended, guarding, mass, organolmegaly, rebound, tenderness Rectal exam: PRESENT: deferred Extremities exam: PRESENT: full ROM, +1 edema - chronic venous stasis changes. ABSENT: calf tenderness, clubbing, pedal edema Neurological exam: PRESENT: alert, awake, oriented to person, oriented to place , oriented to time, oriented to situation, CN II-XII grossly intact. ABSENT: motor sensory deficit Psychiatric exam: PRESENT: appropriate affect, normal mood. ABSENT: homicidal ideation, suicidal ideation Skin exam: PRESENT: dry, intact, warm. ABSENT: cyanosis, rash Results Laboratory Results: 08/03/18 05:10 08/03/18 05:10 08/02/18 08/03/18 08/03/18 16:40 05:10 05:10 WBC 7.4 RBC 2.91 L Hgb 9.5 L Hct 28.5 L MCV 98 H MCH 32.8 MCHC 33.5 RDW 15.3 H Plt Count 184 Carbonic Acid 1.57 H HCO3/H2CO3 Ratio 18:1 ABG pH 7.37 ABG pCO2 52.2 H ABG pO2 61.9 L ABG HCO3 29.4 H ABG O2 Saturation 90.7 L ABG Base Excess 3.0 FiO2 2L Sodium 143.0 Potassium 4.7 Chloride 97 L Carbon Dioxide 27 Anion Gap 19 BUN 59 H Creatinine 9.81 H Est GFR ( Amer) 5 L Est GFR (Non-Af Amer) 4 L Glucose 138 H Calcium 8.7 Total Bilirubin 1.4 H AST 32 ALT 23 Alkaline Phosphatase 81 Total Protein 8.1 Albumin 3.5 07/31/18 22:15 Sputum Gram Stain - Final 07/31/18 22:15 Sputum Sputum Culture - Final NORMAL GRAHAM 07/31/18 08/01/18 08/01/18 16:24 00:35 05:50 Troponin I 0.095 0.085 0.092 Impressions: Chest X-Ray 08/01/18 06:00 IMPRESSION: NO ACUTE RADIOGRAPHIC FINDING IN THE CHEST. Assessment & Plan - Diagnosis (1) Acute respiratory failure with hypoxia and hypercapnia Is this a current diagnosis for this admission?: Yes Plan: Improved; now tolerating nasal cannula while awake, continues to use BiPAP nightly. Secondary to influenza B and right lower lobe pneumonia. ABG after several hours on BiPAP at 12/6/60% revealed respiratory acidosis with pH 7.28, CO2 64.3, O2 104.7, HCO3 29.3. Repeat ABG slightly improved; pH 7.34, PCO2 61.8, PO2 97.9, HC 03 32.6 Chest x-ray revealed a right lower lobe consolidation. Repeat chest x-ray is normal Blood cultures: 1 bottle with S. epidermis (contaminant), otherwise no growth at 72 hours Sputum culture showed normal graham Echocardiogram limited secondary to body habitus and positioning; overall reassuring. We will continue supplemental oxygen as needed to maintain saturations greater than 91%. BiPAP nightly and as needed. Nursing is asked to attempt weaning of oxygen to patient tolerance. Scheduled and as needed nebulizer treatments. Mucinex twice daily. Pulmonology has been consulted; appreciate their assistance. (2) Acute metabolic encephalopathy Is this a current diagnosis for this admission?: Yes Plan: Resolved; patient is now returned to her baseline mental status. This morning she is alert and oriented x4. Likely multifactorial secondary to electrolyte derangements (hypercapnia, elevated BUN, elevated creatinine, decreased GFR), and hypercapnia in setting of influenza and right lower lobe pneumonia. Management of acute respiratory failure as above. Nephrology is consulted; dialysis per their expertise. Judicious use of sedating medications; continue Lyrica today but hold on oxycodone. Have resumed her home dose Dilantin. Seizure precautions. (3) Dialysis patient Is this a current diagnosis for this admission?: Yes Plan: End-stage renal disease on dialysis Friday, Friday, Friday; followed by Dr. Duff. Nephrology has been consulted; dialysis per their expertise. (4) IDDM (insulin dependent diabetes mellitus) Is this a current diagnosis for this admission?: Yes Plan: The patient is advanced to a dialysis/cardiac diet. Accu-Cheks before meals and at bedtime with Humalog for sliding scale coverage and hypoglycemia protocol in place. (5) Influenza B Is this a current diagnosis for this admission?: Yes Plan: Confirmed influenza B. Airborne precautions. Tamiflu 75 mg twice daily. Supplemental oxygen and BiPAP as needed. Scheduled and as needed nebulizer treatments. Mucinex twice daily. Tylenol as needed for fever. (6) Pneumonia Qualifiers: Pneumonia type: due to unspecified organism Laterality: right Lung location: lower lobe of lung Qualified Code(s): J18.1 - Lobar pneumonia, unspecified organism Is this a current diagnosis for this admission?: Yes Plan: Due to influenza B virus. Although the pneumonia is likely secondary to influenza; the severity of the patient's respiratory failure warranted coverage with antibiotic therapy. She was empirically placed on IV Zosyn and vancomycin upon upgrade to the ICU. As the patient has a normal WBC, has been afebrile >48 hours, blood culture demonstrated contaminant (otherwise negative at 72 hours), respiratory status rapidly improved following dialysis and repeat chest x-ray is normal; will discontinue antibiotic therapy. Otherwise, management as above. (7) Anemia Qualifiers: Anemia type: due to chronic kidney disease Chronic kidney disease stage: on chronic dialysis Qualified Code(s): N18.6 - End stage renal disease; D63.1 - Anemia in chronic kidney disease; D63.1 - Anemia in chronic kidney disease; Z99.2 - Dependence on renal dialysis; Z99.2 - Dependence on renal dialysis; Z99.2 - Dependence on renal dialysis; Z99.2 - Dependence on renal dialysis Is this a current diagnosis for this admission?: Yes Plan: Hemoglobin of 11.2 on admission; appears to be above baseline. Trended down slightly to 9.5. No evidence for active bleeding. Registered dietitian has been consulted. Nephrology has been consulted. (8) Bacteremia Is this a current diagnosis for this admission?: Yes Plan: 1 of 4 bottles grew S. epidermis; determined to be a contaminant. All other blood cultures are negative at 72 hours. Sputum culture showed normal respiratory graham. The patient was empirically placed on IV vancomycin and Zosyn; subsequently discontinued upon culture identification and sensitivities. (9) Hyperkalemia Is this a current diagnosis for this admission?: Yes Plan: ESRD on dialysis with shortened dialysis session on Friday. Kayexalate yesterday x1. Potassium improved; 5.4--> 4.6 Patient currently in dialysis today; dialysis nurse reports she believes the patient will be able to tolerate a full session. Nephrology is consulted; appreciate their expert assistance. Daily chemistry. (10) Altered mental status Is this a current diagnosis for this admission?: Yes Plan: Secondary to #2; evaluation and plan as above. (11) Debility Is this a current diagnosis for this admission?: Yes Plan: Following acute illness. Will ask PT/OT to evaluate and make recommendations. Discharge planning is consulted; pt may benefit from short-term rehabilitation. - Time Time Spent with patient: 15-24 minutes Medications reviewed and adjusted accordingly: Yes Within: within 48 hours
[2018-08-03] MEDS: LORAZEPAM 1 MG TABLET PO PRN ×2 (15:22→23:35)
[2018-08-03] MEDS ORDERED: VANCOMYCIN HCL 750 MG in DEXTROSE 5%-WATER 250 ML IV SCH (18:00)
[2018-08-03] MEDS: INSULIN LISPRO 100 UNIT/ML 3 ML VIAL SUBCUT PRN ×2 (18:50→21:36)
[2018-08-03] MEDS: CLONIDINE HCL 0.2 MG TABLET PO SCH (21:36)
[2018-08-04] MEDS: GUAIFENESIN SYRP 200 MG/10 ML UDC PO SCH ×7 (00:41→23:01)
[2018-08-04] MEDS: PHENYTOIN SODIUM EXTENDED 100 MG CAPSULE PO SCH ×3 (05:51→21:39)
[2018-08-04] MEDS: HEPARIN SOD (PORCINE) 5,000 UNIT/ML 1 ML SYRINGE SUBCUT SCH ×3 (05:51→21:39)
[2018-08-04 06:16] LABS: ABSOLUTE BASOPHILS # (AUTO) 0.1 10^3/uL (0.0-0.2); ABSOLUTE MONOCYTES (AUTO) 0.6 10^3/uL (0.1-1.4); ABSOLUTE NEUT (AUTO) 4.6 10^3/uL (1.7-8.2); ABSOLUTE RETICS # 0.073 10^6/uL (0.028-0.122); BASOPHILS % (AUTO) 2.2 % (0-2); HEMATOCRIT 28.3 % (36.0-47.0); HEMOGLOBIN 9.3 g/dL (12.0-15.5); LYMPHOCYTES % (AUTO) 15.6 % (13-45); MEAN CORPUSCULAR HEMOGLOBIN 32.3 pg (27.0-33.4); MEAN CORPUSCULAR HGB CONC 32.9 g/dL (32.0-36.0); MEAN CORPUSCULAR VOLUME 98 fl (80-97); MONOCYTES % (AUTO) 9.9 % (3-13); PLATELET COUNT 186 10^3/uL (150-450); RED BLOOD COUNT 2.88 10^6/uL (3.72-5.28); RED CELL DISTRIBUTION WIDTH 15.4 % (11.5-14.0); RETICULOCYTE COUNT (AUTO) 2.54 % (0.66-2.85); SEGMENTED NEUTROPHILS % (AUTO) 72.3 % (42-78); TOTAL CELLS COUNTED % (AUTO) 100 %; WHITE BLOOD COUNT 6.4 10^3/uL (4.0-10.5)
[2018-08-04 06:34] LABS: ANION GAP 16 (5-19); BLOOD UREA NITROGEN 37 mg/dL (7-20); CALCIUM 9.1 mg/dL (8.4-10.2); CARBON DIOXIDE 31 mmol/L (22-30); CHLORIDE 96 mmol/L (98-107); GLUCOSE 143 mg/dL (75-110); IRON(TIBC) 54.7 ug/dL (37-170); POTASSIUM 4.4 mmol/L (3.6-5.0); SODIUM 143.4 mmol/L (137-145)
[2018-08-04 07:42] LABS: FOLATE > 20.00 ng/mL (>2.76)
[2018-08-04] MEDS: ALBUTEROL SULFATE 0.083% NEB 2.5 MG/3 ML AMPUL NEB SCH ×2 (08:39→20:52)
[2018-08-04] MEDS: FOLIC ACID/VITAMIN B COMP W-C CAPSULE PO SCH (10:51)
[2018-08-04] MEDS: OSELTAMIVIR PHOSPHATE 30 MG CAPSULE PO SCH (10:52)
[2018-08-04] MEDS: CLONIDINE HCL 0.2 MG TABLET PO SCH ×2 (10:52→21:39)
[2018-08-04] MEDS: FAMOTIDINE 20 MG TABLET PO SCH (10:52)
[2018-08-04] MEDS: METOPROLOL SUCCINATE 50 MG TAB.SR.24H PO SCH (10:52)
[2018-08-04] MEDS: PREGABALIN 75 MG CAPSULE PO SCH (10:52)
[2018-08-04] MEDS: NICOTINE 14 MG/24 HR PATCH.TD24 TD SCH (11:16)
[2018-08-04] MEDS: LORAZEPAM 1 MG TABLET PO PRN ×2 (11:24→23:00)
[2018-08-04] MEDS: INSULIN LISPRO 100 UNIT/ML 3 ML VIAL SUBCUT PRN ×3 (12:45→22:32)
--- NOTE | 2018-08-04 18:15 | PDOC PROGRESS REPORT ---
Subjective Progress Note for:: 08/04/18 Subjective:: Patient is doing much better tolerating nasal cannula during the day and using only by During sleep. She is just complaining that every time she eats she has diarrhea. She says she still feels tired. Reason For Visit: INFLUENZA,PNEUMONIA Physical Exam Vital Signs: Temp Pulse Resp BP Pulse Ox 98.3 F 84 20 170/75 H 96 08/04/18 11:52 08/04/18 14:00 08/04/18 11:52 08/04/18 11:52 08/04/18 11:52 Pulse Oximeter Continuous Start: 07/31/18 09: 33 Freq: RTQ4 Status: Hold Document 07/31/18 21:26 LRU (Rec: 07/31/18 21:29 LRU [id number]) Pulse Oximetry Assessment Oxygen Saturation (92-100) 100 Oxygen Delivery Method Bi-pap Fraction of Inspired Oxygen (FIO2) 35 Equipment Usage Equipment in Use Continuous Pulse Oximeter 24 Hour Charge Charge Now Continuous SpO2 Machine # 0 Intake & Output 08/03/18 08/04/18 08/05/18 06:59 06:59 06:59 Intake Total 427 100 Output Total 0 3100 Balance 427 -3000 Weight 113 kg 114.1 kg Exam: General appearance: PRESENT: no acute distress, cooperative, well-developed, well-nourished Head exam: PRESENT: atraumatic, normocephalic Eye exam: PRESENT: conjunctiva pink, PERRLA. ABSENT: scleral icterus Neck exam: ABSENT: JVD Respiratory exam: PRESENT: Diminished breath sounds. ABSENT: crackles, rales, rhonchi, unlabored, wheezes Cardiovascular exam: PRESENT: Regular rate rhythm -+S1, +S2. ABSENT: diastolic murmur, systolic murmur GI/Abdominal exam: PRESENT: normal bowel sounds, soft. ABSENT: guarding, mass, tenderness Extremities exam: Trace bilateral lower extremity pitting edema Neurological exam: PRESENT: alert, awake, oriented to person, place and time. Skin exam: PRESENT: dry, warm, Results Laboratory Results: 08/04/18 06:00 08/04/18 06:00 08/04/18 08/04/18 06:00 06:00 WBC 6.4 RBC 2.88 L Hgb 9.3 L Hct 28.3 L MCV 98 H MCH 32.3 MCHC 32.9 RDW 15.4 H Plt Count 186 Seg Neutrophils % 72.3 Lymphocytes % 15.6 Monocytes % 9.9 Eosinophils % 0.0 Basophils % 2.2 H Absolute Neutrophils 4.6 Absolute Lymphocytes 1.0 Absolute Monocytes 0.6 Absolute Eosinophils 0.0 Absolute Basophils 0.1 Retic Count (auto) 2.54 Absolute Retic 0.073 Sodium 143.4 Potassium 4.4 Chloride 96 L Carbon Dioxide 31 H Anion Gap 16 BUN 37 H Creatinine 7.47 H Est GFR ( Amer) 7 L Est GFR (Non-Af Amer) 6 L Glucose 143 H Calcium 9.1 Iron 54.7 TIBC 163 L % Saturation 34 Ferritin 711.00 H Vitamin B12 948.0 H Folate > 20.00 07/31/18 08/01/18 08/01/18 16:24 00:35 05:50 Troponin I 0.095 0.085 0.092 Impressions: Chest X-Ray 08/01/18 06:00 IMPRESSION: NO ACUTE RADIOGRAPHIC FINDING IN THE CHEST. Assessment & Plan - Diagnosis (1) End stage renal disease Is this a current diagnosis for this admission?: Yes Plan: Plan for dialysis tomorrow. (2) Acute respiratory failure with hypoxia and hypercapnia Is this a current diagnosis for this admission?: Yes Plan: Much improved tolerating nasal cannula during the day. Defer to pulmonary. (3) Anemia in chronic kidney disease Is this a current diagnosis for this admission?: Yes Plan: Patient is allergic to erythropoietin. (4) Diabetes mellitus type 2 in obese Is this a current diagnosis for this admission?: Yes (5) Altered mental status Is this a current diagnosis for this admission?: Yes Plan: Now almost at baseline. (6) Influenza B Is this a current diagnosis for this admission?: Yes (7) Pneumonia Qualifiers: Pneumonia type: due to unspecified organism Laterality: right Lung location: lower lobe of lung Qualified Code(s): J18.1 - Lobar pneumonia, unspecified organism Is this a current diagnosis for this admission?: Yes (8) Obesity hypoventilation syndrome Is this a current diagnosis for this admission?: Yes - Time Time with patient: 15-25 minutes
--- NOTE | 2018-08-04 20:05 | PDOC PROGRESS REPORT ---
Subjective Progress Note for:: 08/04/18 Subjective:: The patient is a 42-year-old male with a past medical history of insulin- dependent diabetes mellitus, end-stage renal disease on dialysis, CHF, CAD, hypertension, hyperlipidemia, seizure disorder, chronic anemia, GERD, obesity, chronic pain, opiate dependence who was admitted 07/31/2018 for acute respiratory failure with hypoxia and hypercapnia secondary to influenza B and a right lower lobe pneumonia. She was seen on morning rounds sitting up to the edge of her bed on supplemental oxygen by nasal cannula 2 L/min. She reports a headache this morning, but otherwise states she is feeling well. She denies fever, chills, body aches, chest pain, palpitations, dyspnea, abdominal pain, and nausea. She has no other questions or concerns and is hopeful to be discharged home in the near future. No concerns per nursing. Reason For Visit: INFLUENZA,PNEUMONIA Physical Exam Vital Signs: Temp Pulse Resp BP Pulse Ox 98.8 F 87 25 H 143/71 H 97 08/04/18 17:06 08/04/18 17:06 08/04/18 18:34 08/04/18 17:06 08/04/18 18:34 Pulse Oximeter Continuous Start: 07/31/18 09: 33 Freq: RTQ4 Status: Hold Document 07/31/18 21:26 LRU (Rec: 07/31/18 21:29 LRU [id number]) Pulse Oximetry Assessment Oxygen Saturation (92-100) 100 Oxygen Delivery Method Bi-pap Fraction of Inspired Oxygen (FIO2) 35 Equipment Usage Equipment in Use Continuous Pulse Oximeter 24 Hour Charge Charge Now Continuous SpO2 Machine # 0 Intake & Output 08/03/18 08/04/18 08/05/18 06:59 06:59 06:59 Intake Total 427 100 487 Output Total 0 3100 Balance 427 -3000 487 Weight 113 kg 114.1 kg General appearance: PRESENT: no acute distress, morbidly obese, well-developed, well-nourished Head exam: PRESENT: atraumatic, normocephalic Eye exam: PRESENT: conjunctiva pink, other - Blind both eyes. ABSENT: scleral icterus Ear exam: PRESENT: normal external ear exam Mouth exam: PRESENT: moist, tongue midline Neck exam: ABSENT: carotid bruit, JVD, lymphadenopathy, thyromegaly Respiratory exam: PRESENT: decreased breath sounds - Throughout; secondary to body habitus and poor inspiratory effort, prolonged expiratory phas, symmetrical , unlabored, other - Supplemental oxygen via nasal cannula. ABSENT: rales, rhonchi, wheezes Cardiovascular exam: PRESENT: RRR. ABSENT: diastolic murmur, rubs, systolic murmur Pulses: PRESENT: normal dorsalis pedis pul Vascular exam: PRESENT: normal capillary refill GI/Abdominal exam: PRESENT: normal bowel sounds, soft. ABSENT: distended, guarding, mass, organolmegaly, rebound, tenderness Rectal exam: PRESENT: deferred Extremities exam: PRESENT: full ROM, +1 edema - Chronic venous stasis changes. ABSENT: calf tenderness, clubbing, pedal edema Neurological exam: PRESENT: alert, awake, oriented to person, oriented to place , oriented to time, oriented to situation, CN II-XII grossly intact. ABSENT: motor sensory deficit Psychiatric exam: PRESENT: appropriate affect, normal mood. ABSENT: homicidal ideation, suicidal ideation Skin exam: PRESENT: dry, intact, warm. ABSENT: cyanosis, rash Results Laboratory Results: 08/04/18 06:00 08/04/18 06:00 08/04/18 08/04/18 06:00 06:00 WBC 6.4 RBC 2.88 L Hgb 9.3 L Hct 28.3 L MCV 98 H MCH 32.3 MCHC 32.9 RDW 15.4 H Plt Count 186 Seg Neutrophils % 72.3 Lymphocytes % 15.6 Monocytes % 9.9 Eosinophils % 0.0 Basophils % 2.2 H Absolute Neutrophils 4.6 Absolute Lymphocytes 1.0 Absolute Monocytes 0.6 Absolute Eosinophils 0.0 Absolute Basophils 0.1 Retic Count (auto) 2.54 Absolute Retic 0.073 Sodium 143.4 Potassium 4.4 Chloride 96 L Carbon Dioxide 31 H Anion Gap 16 BUN 37 H Creatinine 7.47 H Est GFR ( Amer) 7 L Est GFR (Non-Af Amer) 6 L Glucose 143 H Calcium 9.1 Iron 54.7 TIBC 163 L % Saturation 34 Ferritin 711.00 H Vitamin B12 948.0 H Folate > 20.00 07/31/18 08/01/18 08/01/18 16:24 00:35 05:50 Troponin I 0.095 0.085 0.092 Impressions: Chest X-Ray 08/01/18 06:00 IMPRESSION: NO ACUTE RADIOGRAPHIC FINDING IN THE CHEST. Assessment & Plan - Diagnosis (1) Acute respiratory failure with hypoxia and hypercapnia Is this a current diagnosis for this admission?: Yes Plan: Improved; now tolerating nasal cannula while awake, continues to use BiPAP nightly. Continues to desat sharply on room air while at rest. Secondary to influenza B and right lower lobe pneumonia. ABG after several hours on BiPAP at 12/6/60% revealed respiratory acidosis with pH 7.28, CO2 64.3, O2 104.7, HCO3 29.3. Repeat ABG slightly improved; pH 7.34, PCO2 61.8, PO2 97.9, HC 03 32.6 Chest x-ray revealed a right lower lobe consolidation. Repeat chest x-ray is normal Blood cultures: 1 bottle with S. epidermis (contaminant), otherwise no growth at 4 days Sputum culture showed normal liam Echocardiogram limited secondary to body habitus and positioning; overall reassuring. We will continue supplemental oxygen as needed to maintain saturations greater than 91%. BiPAP nightly and as needed. Nursing is asked to attempt weaning of oxygen to patient tolerance. Scheduled and as needed nebulizer treatments. Mucinex twice daily. Pulmonology has been consulted; appreciate their assistance. (2) Acute metabolic encephalopathy Is this a current diagnosis for this admission?: Yes Plan: Resolved; patient is now returned to her baseline mental status. This morning she is alert and oriented x4. Likely multifactorial secondary to electrolyte derangements (hypercapnia, elevated BUN, elevated creatinine, decreased GFR), and hypercapnia in setting of influenza and right lower lobe pneumonia. Management of acute respiratory failure as above. Nephrology is consulted; dialysis per their expertise. Judicious use of sedating medications; continue Lyrica today but hold on oxycodone. Have resumed her home dose Dilantin. Seizure precautions. (3) Dialysis patient Is this a current diagnosis for this admission?: Yes Plan: End-stage renal disease on dialysis Friday, Friday, Friday; followed by Dr. Duff as an outpatient. Nephrology has been consulted; dialysis per their expertise. (4) IDDM (insulin dependent diabetes mellitus) Is this a current diagnosis for this admission?: Yes Plan: A1c 6.2%; hyperglycemia likely secondary to steroid use. She is placed on a dialysis/cardiac diet. Accu-Cheks before meals and at bedtime with Humalog for sliding scale coverage and hypoglycemia protocol in place. (5) Influenza B Is this a current diagnosis for this admission?: Yes Plan: Confirmed influenza B. Airborne precautions. Tamiflu 75 mg twice daily. Supplemental oxygen and BiPAP as needed. Scheduled and as needed nebulizer treatments. Mucinex twice daily. Tylenol as needed for fever. (6) Pneumonia Qualifiers: Pneumonia type: due to unspecified organism Laterality: right Lung location: lower lobe of lung Qualified Code(s): J18.1 - Lobar pneumonia, unspecified organism Is this a current diagnosis for this admission?: Yes Plan: Due to influenza B virus. Although the pneumonia is likely secondary to influenza; the severity of the patient's respiratory failure warranted coverage with antibiotic therapy. She was empirically placed on IV Zosyn and vancomycin upon upgrade to the ICU. As the patient has a normal WBC, has been afebrile >48 hours, blood culture demonstrated contaminant (otherwise negative at 4 days), respiratory status rapidly improved following dialysis and repeat chest x-ray is normal; will discontinue antibiotic therapy. Received 1 day of IV Zosyn and vancomycin only. Otherwise, management as above. (7) Anemia Qualifiers: Anemia type: due to chronic kidney disease Chronic kidney disease stage: on chronic dialysis Qualified Code(s): N18.6 - End stage renal disease; D63.1 - Anemia in chronic kidney disease; D63.1 - Anemia in chronic kidney disease; Z99.2 - Dependence on renal dialysis; Z99.2 - Dependence on renal dialysis; Z99.2 - Dependence on renal dialysis; Z99.2 - Dependence on renal dialysis Is this a current diagnosis for this admission?: Yes Plan: Hemoglobin of 11.2 on admission; appears to be above baseline. Trended down slightly to 9.3, but overall stable. No evidence for active bleeding. Registered dietitian has been consulted. Nephrology has been consulted. (8) Bacteremia Is this a current diagnosis for this admission?: Yes Plan: Ruled out. 1 of 4 bottles grew S. epidermis; determined to be a contaminant. All other blood cultures are negative at 4 days. Sputum culture showed normal respiratory liam. The patient was empirically placed on IV vancomycin and Zosyn x1 day; subsequently discontinued upon culture identification and sensitivities. (9) Hyperkalemia Is this a current diagnosis for this admission?: Yes Plan: ESRD on dialysis with shortened dialysis session on Friday. Kayexalate yesterday x1. Potassium improved; 5.4--> 4.4 Nephrology is consulted; appreciate their expert assistance. Daily chemistry. (10) Altered mental status Is this a current diagnosis for this admission?: Yes Plan: Secondary to #2; evaluation and plan as above. (11) Debility Is this a current diagnosis for this admission?: Yes Plan: Following acute illness. PT/OT to evaluate and make recommendations; recommend home health physical therapy upon discharge. Discharge planning is consulted. - Time Time Spent with patient: Less than 15 minutes Anticipated discharge: Home with Homehealth Within: within 48 hours
[2018-08-05] MEDS ORDERED: NORMAL SALINE 1000 ML 1,000 ML IV PRN (05:00)
[2018-08-05] MEDS: GUAIFENESIN SYRP 200 MG/10 ML UDC PO SCH ×5 (05:10→23:01)
[2018-08-05] MEDS: HEPARIN SOD (PORCINE) 5,000 UNIT/ML 1 ML SYRINGE SUBCUT SCH ×3 (05:10→22:53)
[2018-08-05] MEDS: PHENYTOIN SODIUM EXTENDED 100 MG CAPSULE PO SCH ×3 (05:11→22:52)
[2018-08-05 05:30] LABS: ABSOLUTE BASOPHILS # (AUTO) 0.1 10^3/uL (0.0-0.2); ABSOLUTE LYMPHOCYTES (AUTO) 0.8 10^3/uL (0.5-4.7); ABSOLUTE MONOCYTES (AUTO) 0.6 10^3/uL (0.1-1.4); ABSOLUTE NEUT (AUTO) 5.1 10^3/uL (1.7-8.2); BASOPHILS % (AUTO) 0.9 % (0-2); HEMATOCRIT 27.9 % (36.0-47.0); HEMOGLOBIN 9.3 g/dL (12.0-15.5); LYMPHOCYTES % (AUTO) 12.6 % (13-45); MEAN CORPUSCULAR HEMOGLOBIN 32.6 pg (27.0-33.4); MEAN CORPUSCULAR HGB CONC 33.2 g/dL (32.0-36.0); MEAN CORPUSCULAR VOLUME 98 fl (80-97); MONOCYTES % (AUTO) 8.9 % (3-13); PLATELET COUNT 187 10^3/uL (150-450); RED BLOOD COUNT 2.84 10^6/uL (3.72-5.28); RED CELL DISTRIBUTION WIDTH 15.3 % (11.5-14.0); SEGMENTED NEUTROPHILS % (AUTO) 77.6 % (42-78); TOTAL CELLS COUNTED % (AUTO) 100 %; WHITE BLOOD COUNT 6.5 10^3/uL (4.0-10.5)
[2018-08-05 05:49] LABS: ANION GAP 17 (5-19); BLOOD UREA NITROGEN 51 mg/dL (7-20); CARBON DIOXIDE 29 mmol/L (22-30); CHLORIDE 97 mmol/L (98-107); GLUCOSE 212 mg/dL (75-110); POTASSIUM 4.7 mmol/L (3.6-5.0); SODIUM 142.6 mmol/L (137-145)
--- NOTE | 2018-08-05 08:37 | PROGRESS NOTE E ---
Progress Note NAME: DIAN SLAUGHTER : 1975 AGE: 42Y DATE: 08/04/2018 ROOM: 328 SUBJECTIVE: The patient is a 42-year-old female who came in with acute respiratory failure requiring noninvasive mechanical ventilation and BiPAP therapy. The patient improved. The patient underwent hemodialysis on Friday and Friday, improving, affording improvement of the respiratory symptoms. The patient denies any fever, chills. No vomiting, no chest pain. She is tolerating the BiPAP therapy of 15/5 when she is sleeping. Able to sit down at bedside tonight on nasal cannula and appeared to be doing well. PHYSICAL EXAMINATION: GENERAL: The patient is awake, alert, coherent, oriented x3, not in apparent respiratory distress. VITAL SIGNS: Temperature of 98.8 with a T-max of 99.1. Blood pressure is 148/75, pulse rate is 90, respiratory rate is 22, saturation is 94% on 2 L nasal cannula. EYES: No jaundice or pallor. EARS, NOSE, AND THROAT: No ear drainage, redness, or discharge. CHEST AND LUNGS: No wheezing. No rhonchi. No coarse crackles. CARDIOVASCULAR: S1, S2 distinct. Normal rate. Regular rhythm. ABDOMEN: Flabby. Positive bowel sounds. Soft, nondistended. EXTREMITIES: No joint swelling. No cellulitis. LABORATORY: CBC done today shows a white count of 6.4. The patient has no leukocytosis over the last 4 days. Hemoglobin is 9.3, hematocrit is 38.3, platelet count is 186. Chemistry is done today and shows sodium is 143, potassium is 4.4, chloride 96, CO2 is 31, BUN is 37, creatinine is 7.47, glucose 143, and calcium is 9.1. ASSESSMENT: 1. PULMONARY INFILTRATE, RIGHT LUNG BASE, SEEN ON AUGUST 01, 2018, MOST LIKELY DUE TO PULMONARY EDEMA RATHER THAN A PNEUMONIC PROCESS. The patient has no leukocytosis or fever for the last few days. No purulent sputum production. Sputum culture done on July 31 was normal liam. 2. ACUTE RESPIRATORY FAILURE REQUIRING NONINVASIVE MECHANICAL VENTILATION OF BIPAP THERAPY. Currently improving, and the patient may be downgraded to nasal cannula and FIO2 titrated to keep saturations 91% to 94%. 3. MORBID OBESITY. 4. PULMONARY EDEMA. 5. PNEUMONIA CANNOT BE COMPLETELY EXCLUDED. The patient may be able to go home with oxygen therapy. PLAN: 1. Recommend respiratory therapy evaluation for home oxygen therapy for the patient upon discharge. 2. Recommend pulmonary clinic followup in 3 to 4 weeks following hospital discharge. 3. The patient may be scheduled for a sleep study as an outpatient and determine optimal positive airway pressure therapy such as BiPAP, BiPAP ST, or BiPAP AVAPS therapy. DICTATING PHYSICIAN: THOMAS MUÑOZ MD,TYRESE,MPH [id number] PHY#: [id number] ID: [id number] JOB#: [id number] ACCT: [id number] cc: > MTDD
[2018-08-05] MEDS: LORAZEPAM 1 MG TABLET PO PRN ×2 (08:40→22:52)
[2018-08-05] MEDS: ALBUTEROL SULFATE 0.083% NEB 2.5 MG/3 ML AMPUL NEB SCH ×2 (08:52→20:29)
[2018-08-05] MEDS: NICOTINE 14 MG/24 HR PATCH.TD24 TD SCH (10:24)
[2018-08-05] MEDS: FAMOTIDINE 20 MG TABLET PO SCH (10:30)
[2018-08-05] MEDS: CLONIDINE HCL 0.2 MG TABLET PO SCH ×2 (10:30→22:52)
[2018-08-05] MEDS: METOPROLOL SUCCINATE 50 MG TAB.SR.24H PO SCH (10:30)
[2018-08-05] MEDS: FOLIC ACID/VITAMIN B COMP W-C CAPSULE PO SCH (10:30)
[2018-08-05] MEDS: OSELTAMIVIR PHOSPHATE 30 MG CAPSULE PO SCH (10:31)
[2018-08-05] MEDS: PREGABALIN 75 MG CAPSULE PO SCH ×2 (10:32→22:52)
--- NOTE | 2018-08-05 13:45 | PROGRESS NOTE E ---
Progress Note NAME: DIAN SLAUGHTER : 1975 AGE: 42Y DATE: 08/05/2018 ROOM: 328 SUBJECTIVE: The patient is currently sitting on the side of the bed. She states she feels okay today. She just feels run down. The patient denies any nausea, vomiting. No shortness of breath, dizziness, or chest pain. The patient states that she has developed diarrhea overnight. The patient is dialyzed today and the patient does not voice any other concerns at this time. REVIEW OF SYSTEMS: Rest of review of systems negative. MEDICATIONS: Medications have been reviewed. OBJECTIVE: GENERAL: The patient is a 42-year-old -[place] Citizen female who is awake, alert. She is oriented to person, place, time, and situation. She is verbal, conversational, does not appear to be distressed. VITAL SIGNS: Temperature is 98.7, pulse 86, respirations 24, blood pressure is 153/71, oxygen saturation is 91% on 2 L nasal cannula. SKIN: Warm, dry. No rash. Not diaphoretic. HEENT: There is no evidence of JVP. Mucous membranes appear moist. CARDIOVASCULAR SYSTEM: Heart is regular. No rub. CHEST: The patient does have rhonchorous lung sounds in upper lung macias. Quite diminished, symmetrical, unlabored. ABDOMEN: Obese, soft. EXTREMITIES: No clubbing, cyanosis, edema. PSYCHIATRIC: Appropriate affect. Pleasant mood. DIAGNOSTICS: Lab values are as follows: Hematology obtained on 08/05/2018: WBCs are 6.5, hemoglobin is 9.3, hematocrit is 27.9, platelet count is 187,000. Chemistry obtained on 08/05/2018: Sodium is 142, potassium 4.7, chloride is 97, carbon dioxide 29, BUN 51, creatinine is 1.0. Glucose 212, calcium is 9.0. IMPRESSION AND PLAN: 1. INFLUENZA B. Continue current treatment, including Mucinex and supportive measures. Patient is on Tamiflu still. 2. ACUTE ON CHRONIC HYPOXEMIC RESPIRATORY FAILURE WITH HYPERCAPNIA WELL. The patient continues to improve. She is now just on 2 L of O2. Will continue to attempt to wean and follow. 3. ACUTE METABOLIC ENCEPHALOPATHY SECONDARY TO ALL OF THE ABOVE. She is now at baseline. 4. END-STAGE RENAL DISEASE/CHRONIC KIDNEY DISEASE STAGE 6. The patient will dialyze today. 5. INSULIN-DEPENDENT DIABETES MELLITUS TYPE 2. The patient does have excellent glycemic control. 6. ANEMIA OF CHRONIC KIDNEY DISEASE. Hemoglobin is relatively stable. 7. POSITIVE BLOOD CULTURE, WHICH WAS A CONTAMINANT. 8. HYPERKALEMIA. This is resolved. 9. DEBILITY. Continue recommendations for Home Health Physical Therapy. DISPOSITION: The patient is a FULL CODE. Pending patient's symptomatology and diagnostic findings, will re-evaluate in the a.m. Time spent on this followup including assessment, plan, physical examination, patient education, review of records, and family meeting is 25 minutes. DICTATING PHYSICIAN: MARLENE VALDEZ NP [id number] PHY#: [id number] ID: [id number] JOB#: [id number] ACCT: [id number] cc: > MTDD
--- NOTE | 2018-08-05 20:20 | PDOC PROGRESS REPORT ---
Subjective Progress Note for:: 08/05/18 Subjective:: I saw the patient during dialysis this afternoon at around 2:45 PM. Patient is looking better and is now just using nasal cannula. She still uses BiPAP during sleep. She still complains of some diarrhea every time she eats something. She is otherwise tolerating dialysis when I saw her without any problems or complications. Reason For Visit: INFLUENZA,PNEUMONIA Physical Exam Vital Signs: Temp Pulse Resp BP Pulse Ox 98.8 F 87 26 H 147/66 H 94 08/05/18 12:29 08/05/18 14:00 08/05/18 12:29 08/05/18 12:29 08/05/18 12:29 Pulse Oximeter Continuous Start: 07/31/18 09: 33 Freq: RTQ4 Status: Hold Document 07/31/18 21:26 LRU (Rec: 07/31/18 21:29 LRU [id number]) Pulse Oximetry Assessment Oxygen Saturation (92-100) 100 Oxygen Delivery Method Bi-pap Fraction of Inspired Oxygen (FIO2) 35 Equipment Usage Equipment in Use Continuous Pulse Oximeter 24 Hour Charge Charge Now Continuous SpO2 Machine # 0 Intake & Output 08/04/18 08/05/18 08/06/18 06:59 06:59 06:59 Intake Total 100 787 Output Total 3100 3200 Balance -3000 787 -3200 Weight 114.1 kg 116.7 kg Vitals during dialysis this afternoon: Blood pressure 118/61, heart rate of 75, blood flow rate of 500 mL/min, dialysate flow rate of 800 mL/min. Exam: General appearance: PRESENT: no acute distress, cooperative, well-developed, well-nourished Head exam: PRESENT: atraumatic, normocephalic Eye exam: PRESENT: conjunctiva pale, PERRLA. ABSENT: scleral icterus Neck exam: ABSENT: JVD Respiratory exam: PRESENT: Diminished breath sounds. ABSENT: crackles, rales, rhonchi, unlabored, wheezes Cardiovascular exam: PRESENT: Regular rate rhythm -+S1, +S2. ABSENT: diastolic murmur, systolic murmur GI/Abdominal exam: PRESENT: normal bowel sounds, soft. ABSENT: guarding, mass, tenderness Extremities exam: Grade 1 bilateral lower extremity pitting edema Neurological exam: PRESENT: alert, awake, oriented to person, place and time. Skin exam: PRESENT: dry, warm, Results Laboratory Results: 08/05/18 05:15 08/05/18 05:15 08/05/18 08/05/18 05:15 05:15 WBC 6.5 RBC 2.84 L Hgb 9.3 L Hct 27.9 L MCV 98 H MCH 32.6 MCHC 33.2 RDW 15.3 H Plt Count 187 Seg Neutrophils % 77.6 Lymphocytes % 12.6 L Monocytes % 8.9 Eosinophils % 0.0 Basophils % 0.9 Absolute Neutrophils 5.1 Absolute Lymphocytes 0.8 Absolute Monocytes 0.6 Absolute Eosinophils 0.0 Absolute Basophils 0.1 Sodium 142.6 Potassium 4.7 Chloride 97 L Carbon Dioxide 29 Anion Gap 17 BUN 51 H Creatinine 9.48 H Est GFR ( Amer) 6 L Est GFR (Non-Af Amer) 5 L Glucose 212 H Calcium 9.0 07/31/18 08/01/18 08/01/18 16:24 00:35 05:50 Troponin I 0.095 0.085 0.092 Impressions: Chest X-Ray 08/01/18 06:00 IMPRESSION: NO ACUTE RADIOGRAPHIC FINDING IN THE CHEST. Assessment & Plan - Diagnosis (1) End stage renal disease Is this a current diagnosis for this admission?: Yes Plan: We did dialysis today for 3 hours, using the patient's AV fistula, with 2 potassium bath, blood flow rate of 500 mL per minute, dialysate flow rate of 800 mL per minute, ultrafiltration 2-3 L, no heparin and no Procrit. Patient was monitored and she tolerated dialysis without any problems. (2) Acute respiratory failure with hypoxia and hypercapnia Is this a current diagnosis for this admission?: Yes Plan: Improved currently tolerating nasal cannula when awake and using BiPAP during sleep. (3) Anemia in chronic kidney disease Is this a current diagnosis for this admission?: Yes Plan: Patient is allergic to erythropoietin. (4) Diabetes mellitus type 2 in obese Is this a current diagnosis for this admission?: Yes (5) Altered mental status Is this a current diagnosis for this admission?: Yes Plan: Now almost at baseline. This was due to a combination of hypoxia and uremia. (6) Influenza B Is this a current diagnosis for this admission?: Yes Plan: Defer to primary and pulmonary. (7) Pneumonia Qualifiers: Pneumonia type: due to unspecified organism Laterality: right Lung location: lower lobe of lung Qualified Code(s): J18.1 - Lobar pneumonia, unspecified organism Is this a current diagnosis for this admission?: Yes (8) Obesity hypoventilation syndrome Is this a current diagnosis for this admission?: Yes - Time Time with patient: 15-25 minutes
[2018-08-05] MEDS: INSULIN LISPRO 100 UNIT/ML 3 ML VIAL SUBCUT PRN (22:53)
[2018-08-06] MEDS: HEPARIN SOD (PORCINE) 5,000 UNIT/ML 1 ML SYRINGE SUBCUT SCH ×3 (05:12→21:28)
[2018-08-06] MEDS: PHENYTOIN SODIUM EXTENDED 100 MG CAPSULE PO SCH ×3 (05:12→21:29)
[2018-08-06] MEDS: GUAIFENESIN SYRP 200 MG/10 ML UDC PO SCH ×5 (05:12→21:28)
[2018-08-06] MEDS: ALBUTEROL SULFATE 0.083% NEB 2.5 MG/3 ML AMPUL NEB SCH ×2 (08:17→21:07)
[2018-08-06] MEDS: NICOTINE 14 MG/24 HR PATCH.TD24 TD SCH (09:26)
[2018-08-06] MEDS: FOLIC ACID/VITAMIN B COMP W-C CAPSULE PO SCH (09:41)
[2018-08-06] MEDS: METOPROLOL SUCCINATE 50 MG TAB.SR.24H PO SCH (09:41)
[2018-08-06] MEDS: CLONIDINE HCL 0.2 MG TABLET PO SCH ×2 (09:41→21:29)
[2018-08-06] MEDS: FAMOTIDINE 20 MG TABLET PO SCH (09:41)
[2018-08-06] MEDS: OSELTAMIVIR PHOSPHATE 30 MG CAPSULE PO SCH (09:42)
[2018-08-06] MEDS: PREGABALIN 75 MG CAPSULE PO SCH (10:10)
[2018-08-06] MEDS: INSULIN LISPRO 100 UNIT/ML 3 ML VIAL SUBCUT PRN ×2 (12:09→17:02)
[2018-08-06] MEDS: LORAZEPAM 1 MG TABLET PO PRN ×2 (13:13→21:32)
--- NOTE | 2018-08-06 18:02 | PROGRESS NOTE E ---
Progress Note NAME: DIAN SLAUGHTER : 1975 AGE: 42Y DATE: 08/06/2018 ROOM: 328 SUBJECTIVE: The patient is out of bed to the bedside chair. She states she feels a little better in comparison to yesterday, still has been unable to wean from oxygen. The patient denies any nausea, vomiting, diarrhea today, diarrhea yesterday. No shortness of breath, dizziness, chest pain. No fevers, chills. The patient has been afebrile. Her blood pressures have been in the good range. The patient does not voice any other concerns at this time. REVIEW OF SYSTEMS: The rest of her review of systems is negative. MEDICATIONS: Have been reviewed. OBJECTIVE: GENERAL: The patient is a 42-year-old -[place] female who is awake, alert, and oriented to person, time, place, situation. She is verbal, conversational. She does not appear to be distressed. VITAL SIGNS: Temperature is 98.7, pulse 98, respirations 16, blood pressure is 132/66, oxygen saturation is 100% on 2 liters nasal cannula. SKIN: No obvious rash. She is not diaphoretic. HEENT: Mucous membranes appear moist. No evidence of JVP. CARDIOVASCULAR: Heart is regular. No rub. CHEST: Diminished, symmetrical, unlabored. Poor inspiratory effort. ABDOMEN: Obese, no area of focal tenderness. EXTREMITIES: Does have evidence of some chronic lymphedema. DIAGNOSTICS: Lab values are as follows - Hematology obtained on 08/05/2018; WBC is 6.5, hemoglobin is 9.3, hematocrit is 27.9, platelet count is 187,000. Chemistry obtained on 08/05/2018; sodium is 142, potassium 4.7, chloride 97, carbon dioxide 29, BUN 51, creatinine is 9.48, glucose 200, calcium is 9.0. IMPRESSION AND PLAN: 1. INFLUENZA B. Will continue Mucinex as well as supportive measures. The patient is on Tamiflu as well. 2. ACUTE ON CHRONIC HYPOXEMIC RESPIRATORY FAILURE WITH HYPERCAPNIA WELL. The patient continues to improve. She is just now on 2 liters nasal cannula. Will continue to wean and follow. 3. ACUTE METABOLIC ENCEPHALOPATHY SECONDARY TO ALL THE ABOVE. The patient is at baseline. 4. END-STAGE RENAL DISEASE OF CHRONIC KIDNEY DISEASE STAGE 6. The patient will dialyze today. 5. DIABETES MELLITUS TYPE 2 WITH INSULIN DEPENDENCY. The patient has descent glycemic control. Will follow. 6. ANEMIA OF CHRONIC KIDNEY DISEASE. Hemoglobin is overall stable. 7. POSITIVE BLOOD CULTURE WHICH APPEARS TO BE A CONTAMINANT. 8. HYPERKALEMIA. This is resolved. 9. GENERAL DEBILITY. Continue recommendations by home health physical therapy. CODE STATUS: The patient is a full code. DISPOSITION: Depending on the patient's symptomatology and diagnostic findings will reevaluate in the a.m. Hopefully the patient can discharge as soon as we wean her from oxygen. The patient can be downgraded to a medical bed. TIME SPENT: On this follow up, including assessment and plan, physical examination, patient education, review of records, as well as family meeting is 25 minutes. DICTATING PHYSICIAN: MARLENE VALDEZ NP [id number] PHY#: [id number] ID: [id number] JOB#: [id number] ACCT: [id number] cc: >
[2018-08-06 20:52] LABS: A TYPE INFLUENZA AG NEGATIVE (NEGATIVE); B INFLUENZA AG NEGATIVE (NEGATIVE)
[2018-08-07] MEDS: GUAIFENESIN SYRP 200 MG/10 ML UDC PO SCH ×5 (00:25→20:58)
[2018-08-07] MEDS ORDERED: NORMAL SALINE 1000 ML 1,000 ML IV PRN (05:00)
[2018-08-07] MEDS: PHENYTOIN SODIUM EXTENDED 100 MG CAPSULE PO SCH ×3 (05:11→21:39)
[2018-08-07] MEDS: HEPARIN SOD (PORCINE) 5,000 UNIT/ML 1 ML SYRINGE SUBCUT SCH ×3 (05:12→21:42)
[2018-08-07 05:52] LABS: HEMATOCRIT 27.4 % (36.0-47.0); HEMOGLOBIN 9.1 g/dL (12.0-15.5); MEAN CORPUSCULAR HEMOGLOBIN 32.5 pg (27.0-33.4); MEAN CORPUSCULAR HGB CONC 33.2 g/dL (32.0-36.0); MEAN CORPUSCULAR VOLUME 98 fl (80-97); PLATELET COUNT 220 10^3/uL (150-450); RED CELL DISTRIBUTION WIDTH 15.3 % (11.5-14.0); WHITE BLOOD COUNT 6.3 10^3/uL (4.0-10.5)
[2018-08-07 06:10] LABS: ANION GAP 12 (5-19); BLOOD UREA NITROGEN 49 mg/dL (7-20); CALCIUM 9.2 mg/dL (8.4-10.2); CARBON DIOXIDE 33 mmol/L (22-30); CHLORIDE 94 mmol/L (98-107); GLUCOSE 163 mg/dL (75-110); POTASSIUM 4.9 mmol/L (3.6-5.0); SODIUM 138.8 mmol/L (137-145)
[2018-08-07] MEDS: ALBUTEROL SULFATE 0.083% NEB 2.5 MG/3 ML AMPUL NEB SCH ×2 (08:53→20:48)
[2018-08-07] MEDS: NICOTINE 14 MG/24 HR PATCH.TD24 TD SCH (09:24)
[2018-08-07] MEDS: FOLIC ACID/VITAMIN B COMP W-C CAPSULE PO SCH (09:32)
[2018-08-07] MEDS: METOPROLOL SUCCINATE 50 MG TAB.SR.24H PO SCH (09:32)
[2018-08-07] MEDS: CLONIDINE HCL 0.2 MG TABLET PO SCH ×2 (09:33→21:39)
[2018-08-07] MEDS: PREGABALIN 75 MG CAPSULE PO SCH ×2 (09:33→21:44)
[2018-08-07] MEDS: FAMOTIDINE 20 MG TABLET PO SCH (09:33)
[2018-08-07] MEDS: OSELTAMIVIR PHOSPHATE 30 MG CAPSULE PO SCH (09:39)
--- NOTE | 2018-08-07 14:32 | PROGRESS NOTE E ---
Progress Note NAME: DIAN SLAUGHTER : 1975 AGE: 42Y DATE: 08/07/2018 ROOM: 328 SUBJECTIVE: The patient is currently sitting on the side of the bed. She states she feels okay today. The patient wore BiPAP overnight. The patient denies any nausea, vomiting, diarrhea. The patient does not appear to be tachypneic, not overly short of breath. The patient has been afebrile, her blood pressure has been in a good range, and the patient does not voice any other concerns at this time. REVIEW OF SYSTEMS: The rest of the review of systems is negative. MEDICATIONS: Medications have been reviewed. OBJECTIVE: GENERAL: The patient is a 42-year-old -[place] female who is awake, alert, and oriented to person, place, time, and situation. She is verbal, conversational, does not appear to be in any acute distress. VITAL SIGNS: As follows: Temperature is 98.8, pulse 86, respirations 22, blood pressure is 124/54, oxygen saturation is 95% on 40% FIO2. SKIN: Warm and dry. HEENT: No evidence of JVP. CARDIOVASCULAR: Heart is regular. No murmur or rub. CHEST: Diminished, symmetrical, unlabored. ABDOMEN: Obese, soft. EXTREMITIES: No pitting edema. The patient does have some chronic lymphedema. DIAGNOSTICS: Lab values are as follows. Hematology obtained on 08/07/2018: WBCs are 3.3, hemoglobin is 9.1, hematocrit is 27.4, platelet count is 220,000. Chemistry obtained on 08/07/2018: Sodium is 138, potassium 4.9, chloride 94, carbon dioxide 33, BUN 49, creatinine 7.72, glucose 163, calcium is 9.2, magnesium is 2.0. IMPRESSION AND PLAN: 1. INFLUENZA B. The patient has completed her course with Tamiflu and is now negative. 2. ACUTE ON CHRONIC HYPOXEMIC RESPIRATORY FAILURE. The patient continues to improve. She is now on 2 L nasal cannula. Will continue to wean and follow. 3. ACUTE METABOLIC ENCEPHALOPATHY SECONDARY TO ALL THE ABOVE. The patient is at baseline. 4. END-STAGE RENAL DISEASE/CHRONIC KIDNEY DISEASE STAGE 6. The patient will dialyze today. 5. DIABETES MELLITUS TYPE 2 WITH INSULIN DEPENDENCY. The patient has decent glycemic control. 6. ANEMIA OF CHRONIC DISEASE. Hemoglobin is overall stable. 7. POSITIVE BLOOD CULTURE WHICH APPEARS TO BE A CONTAMINANT. 8. HYPERKALEMIA. This has resolved. 9. GENERAL DEBILITY. Will continue recommendations by Home Health Physical Therapy. 10. INFLUENZA-ASSOCIATED PNEUMONIA. Will continue current antibiotic coverage. DISPOSITION: THE PATIENT IS A FULL CODE. Pending the patient's symptomatology and diagnostic findings, will re-evaluate in the a.m. Time spent on this followup, including assessment/plan, physical examination, patient education, review of records, is 25 minutes. DICTATING PHYSICIAN: MARLENE VALDEZ NP [id number] PHY#: [id number] ID: [id number] JOB#: [id number] ACCT: [id number] cc: >
--- NOTE | 2018-08-07 15:25 | PDOC PROGRESS REPORT ---
Subjective Progress Note for:: 08/07/18 Subjective:: I am seeing the patient on dialysis this afternoon. She is looking much better. She is breathing much better. She admits she feels better. She still having a little bit of cough with some mucus. Her breathing is good. Repeat influenza testing are negative. She said her diarrhea is getting better as well. She does not have any new complaints. Reason For Visit: INFLUENZA,PNEUMONIA Physical Exam Vital Signs: Temp Pulse Resp BP Pulse Ox 99.2 F 89 17 149/70 H 93 08/07/18 11:59 08/07/18 14:00 08/07/18 11:59 08/07/18 11:59 08/07/18 11:59 Pulse Oximeter Continuous Start: 07/31/18 09: 33 Freq: RTQ4 Status: Complete Document 07/31/18 21:26 LRU (Rec: 07/31/18 21:29 LRU [id number]) Pulse Oximetry Assessment Oxygen Saturation (92-100) 100 Oxygen Delivery Method Bi-pap Fraction of Inspired Oxygen (FIO2) 35 Equipment Usage Equipment in Use Continuous Pulse Oximeter 24 Hour Charge Charge Now Continuous SpO2 Machine # 0 Intake & Output 08/06/18 08/07/18 08/08/18 06:59 06:59 06:59 Intake Total 500 1009 400 Output Total 3200 0 Balance -2700 1009 400 Weight 112.2 kg 114.6 kg Vitals during initiation of dialysis: Blood pressure 144/68, heart rate of 89, temperature of 98.6, blood flow rate of 500 mL/min, dialysate flow rate of 800 mL/min. Exam: General appearance: PRESENT: no acute distress, cooperative, well-developed, well-nourished, only on nasal cannula Head exam: PRESENT: atraumatic, normocephalic Eye exam: PRESENT: conjunctiva pale, PERRLA. ABSENT: scleral icterus Neck exam: ABSENT: JVD Respiratory exam: PRESENT: Diminished breath sounds. ABSENT: crackles, rales, rhonchi, unlabored, wheezes Cardiovascular exam: PRESENT: Regular rate rhythm -+S1, +S2. ABSENT: diastolic murmur, systolic murmur GI/Abdominal exam: PRESENT: normal bowel sounds, soft. ABSENT: guarding, mass, tenderness Extremities exam: Grade 1 bilateral lower extremity pitting no edema Neurological exam: PRESENT: alert, awake, oriented to person, place and time. Skin exam: PRESENT: dry, warm, Results Laboratory Results: 08/07/18 05:35 08/07/18 05:35 08/07/18 08/07/18 05:35 05:35 WBC 6.3 RBC 2.80 L Hgb 9.1 L Hct 27.4 L MCV 98 H MCH 32.5 MCHC 33.2 RDW 15.3 H Plt Count 220 Sodium 138.8 Potassium 4.9 Chloride 94 L Carbon Dioxide 33 H Anion Gap 12 BUN 49 H Creatinine 7.72 H Est GFR ( Amer) 7 L Est GFR (Non-Af Amer) 6 L Glucose 163 H Calcium 9.2 Magnesium 2.0 07/31/18 08/01/18 08/01/18 16:24 00:35 05:50 Troponin I 0.095 0.085 0.092 Impressions: Chest X-Ray 08/01/18 06:00 IMPRESSION: NO ACUTE RADIOGRAPHIC FINDING IN THE CHEST. Assessment & Plan - Diagnosis (1) End stage renal disease Is this a current diagnosis for this admission?: Yes Plan: We will do dialysis today for 3 hours, using the patient's right arm AV fistula , with 2 potassium bath, blood flow rate of 500 mL per minute, dialysate flow rate of 800 mL per minute, ultrafiltration 2-3 L as tolerated, no heparin and no Procrit as she is allergic to it. Patient will be monitored throughout dialysis treatment. Next dialysis will be on Friday if the patient still here in the hospital at that time. (2) Acute respiratory failure with hypoxia and hypercapnia Is this a current diagnosis for this admission?: Yes Plan: Improved currently tolerating nasal cannula when awake and using BiPAP during sleep. (3) Anemia in chronic kidney disease Is this a current diagnosis for this admission?: Yes Plan: Patient is allergic to erythropoietin. (4) Diabetes mellitus type 2 in obese Is this a current diagnosis for this admission?: Yes (5) Altered mental status Is this a current diagnosis for this admission?: Yes Plan: Resolved. This was due to a combination of hypoxia and uremia. (6) Influenza B Is this a current diagnosis for this admission?: Yes Plan: Repeat influenza rapid test things are negative for both a and B. (7) Pneumonia Qualifiers: Pneumonia type: due to unspecified organism Laterality: right Lung location: lower lobe of lung Qualified Code(s): J18.1 - Lobar pneumonia, unspecified organism Is this a current diagnosis for this admission?: Yes (8) Obesity hypoventilation syndrome Is this a current diagnosis for this admission?: Yes - Notes Notes: From nephrology standpoint I think patient can be discharged home safely. - Time Time with patient: 15-25 minutes
[2018-08-07] MEDS: LORAZEPAM 1 MG TABLET PO PRN (21:39)
[2018-08-07] MEDS: INSULIN LISPRO 100 UNIT/ML 3 ML VIAL SUBCUT PRN (21:40)
[2018-08-08] MEDS: GUAIFENESIN SYRP 200 MG/10 ML UDC PO SCH ×8 (01:23→20:02)
[2018-08-08] MEDS: HEPARIN SOD (PORCINE) 5,000 UNIT/ML 1 ML SYRINGE SUBCUT SCH ×3 (06:33→21:38)
[2018-08-08] MEDS: PHENYTOIN SODIUM EXTENDED 100 MG CAPSULE PO SCH ×3 (06:33→21:37)
[2018-08-08] MEDS: ALBUTEROL SULFATE 0.083% NEB 2.5 MG/3 ML AMPUL NEB SCH ×2 (08:39→20:26)
[2018-08-08] MEDS: CLONIDINE HCL 0.2 MG TABLET PO SCH ×2 (10:10→21:36)
[2018-08-08] MEDS: METOPROLOL SUCCINATE 50 MG TAB.SR.24H PO SCH (10:10)
[2018-08-08] MEDS: FOLIC ACID/VITAMIN B COMP W-C CAPSULE PO SCH (10:10)
[2018-08-08] MEDS: FAMOTIDINE 20 MG TABLET PO SCH (10:11)
[2018-08-08] MEDS: INSULIN LISPRO 100 UNIT/ML 3 ML VIAL SUBCUT PRN ×3 (10:11→21:40)
[2018-08-08] MEDS: OSELTAMIVIR PHOSPHATE 30 MG CAPSULE PO SCH (10:13)
[2018-08-08] MEDS: PREGABALIN 75 MG CAPSULE PO SCH (10:13)
[2018-08-08] MEDS: NICOTINE 14 MG/24 HR PATCH.TD24 TD SCH (10:25)
[2018-08-08] MEDS: LORAZEPAM 1 MG TABLET PO PRN (14:19)
--- NOTE | 2018-08-08 22:12 | PROGRESS NOTE E ---
Progress Note NAME: DIAN SLAUGHTER : 1975 AGE: 42Y DATE: 08/08/2018 ROOM: 328 SUBJECTIVE: The patient is currently sitting on the side of the bed. The patient has just been removed from nasal cannula and is getting a trial of O2 sats without it. The patient is absolutely adamant that she does not want home O2. She has made significant improvement in being weaned. There has been reports of vomiting nor diarrhea. The patient has been atrial fibrillation, blood pressure has been in a good range. The patient did not voice any other concerns at this time. REVIEW OF SYSTEMS: The rest of review of systems negative. MEDICATIONS: Have been reviewed. OBJECTIVE: GENERAL: The patient is a 42-year-old -[place] female who is awake, alert, and oriented to person, time, place, situation. She is verbal, conversational. She does not appear to be distressed. VITAL SIGNS: Temperature is 99.0, pulse 83, respirations 18, blood pressure is 142/58, oxygen saturation is 94% on 2 liters nasal cannula. SKIN: Warm and dry. No rash. She is not diaphoretic. HEENT: The patient has no evidence of JVP. Mucous membranes appear moist. She is blind. CARDIOVASCULAR: Heart is regular, no rub. CHEST: Very diminished, symmetrical, unlabored. ABDOMEN: Nondistended. EXTREMITIES: The patient does have chronic findings of lower extremity. PSYCHIATRIC: Appropriate affect, pleasant mood. DIAGNOSTICS: Lab values are as follows - Hematology obtained on 08/07/2018; WBC is 6.3, hemoglobin is 9.1, hematocrit is 27.4, platelet count is 220,000. Chemistry obtained on 08/07/2018; sodium is 138, potassium is 4.9, chloride is 94, carbon dioxide is 33, BUN 49, creatinine is 2.27, glucose 163, calcium is 9.2, magnesium is 2.0. IMPRESSION AND PLAN: 1. INFLUENZA B. The patient completed her course of Tamiflu. She is now negative. 2. ACUTE ON CHRONIC HYPOXEMIC RESPIRATORY FAILURE, FELT TO BE SECONDARY TO THE ABOVE. The patient is making extremely slow improvement. She has now been able to tolerate a couple of hours without nasal cannula. The patient has not been walked yet on room air. Hopefully the patient can get out of this without having home O2. However, the patient is agreeable if she is not able to ambulate without a drop in oxygen to proceed with home O2 tomorrow. 3. ACUTE METABOLIC ENCEPHALOPATHY SECONDARY TO ALL THE ABOVE. It appears to be improved. 4. END-STAGE RENAL DISEASE, CHRONIC KIDNEY DISEASE STAGE 6. The patient dialyzes on Friday, Friday, Friday. 5. DIABETES MELLITUS TYPE 2 WITH INSULIN DEPENDENCE. Continue current regimen. 6. ANEMIA OF CHRONIC DISEASE. Overall stable. 7. POSITIVE BLOOD CULTURE WHICH APPEARS TO BE A CONTAMINANT. 8. HYPERKALEMIA. This resolved. 9. GENERAL DEBILITY. The patient will need home health physical therapy. 10. INFLUENZA A ASSOCIATED PNEUMONIA. Continue current coverage. CODE STATUS: The patient is a full code. DISPOSITION: Depending on the patient's symptomatology and diagnostic findings will reevaluate in the a.m. for discharge. TIME SPENT: On this follow up, including assessment and plan, physical examination, patient education, review of records is 25 minutes. DICTATING PHYSICIAN: MARLENE VALDEZ NP [id number] PHY#: [id number] ID: [id number] JOB#: [id number] ACCT: [id number] cc: >
[2018-08-09] MEDS: GUAIFENESIN SYRP 200 MG/10 ML UDC PO SCH ×7 (03:24→22:31)
[2018-08-09] MEDS: HEPARIN SOD (PORCINE) 5,000 UNIT/ML 1 ML SYRINGE SUBCUT SCH ×3 (05:51→22:32)
[2018-08-09] MEDS: PHENYTOIN SODIUM EXTENDED 100 MG CAPSULE PO SCH ×3 (05:51→22:31)
[2018-08-09 07:08] LABS: HEMATOCRIT 27.1 % (36.0-47.0); MEAN CORPUSCULAR HEMOGLOBIN 32.6 pg (27.0-33.4); MEAN CORPUSCULAR HGB CONC 33.1 g/dL (32.0-36.0); MEAN CORPUSCULAR VOLUME 98 fl (80-97); PLATELET COUNT 222 10^3/uL (150-450); RED BLOOD COUNT 2.76 10^6/uL (3.72-5.28); RED CELL DISTRIBUTION WIDTH 14.4 % (11.5-14.0); WHITE BLOOD COUNT 7.5 10^3/uL (4.0-10.5)
[2018-08-09 07:10] LABS: ANION GAP 11 (5-19); BLOOD UREA NITROGEN 56 mg/dL (7-20); CALCIUM 9.3 mg/dL (8.4-10.2); CARBON DIOXIDE 31 mmol/L (22-30); CHLORIDE 96 mmol/L (98-107); GLUCOSE 191 mg/dL (75-110); POTASSIUM 4.9 mmol/L (3.6-5.0); SODIUM 138.1 mmol/L (137-145)
[2018-08-09] MEDS: ALBUTEROL SULFATE 0.083% NEB 2.5 MG/3 ML AMPUL NEB SCH ×2 (09:05→20:18)
[2018-08-09] MEDS: METOPROLOL SUCCINATE 50 MG TAB.SR.24H PO SCH (09:23)
[2018-08-09] MEDS: FAMOTIDINE 20 MG TABLET PO SCH (09:24)
[2018-08-09] MEDS: CLONIDINE HCL 0.2 MG TABLET PO SCH ×2 (09:24→22:31)
[2018-08-09] MEDS: NICOTINE 14 MG/24 HR PATCH.TD24 TD SCH (09:24)
[2018-08-09] MEDS: FOLIC ACID/VITAMIN B COMP W-C CAPSULE PO SCH (09:24)
[2018-08-09] MEDS: INSULIN LISPRO 100 UNIT/ML 3 ML VIAL SUBCUT PRN ×4 (09:25→22:41)
[2018-08-09] MEDS: PREGABALIN 75 MG CAPSULE PO SCH (09:25)
--- NOTE | 2018-08-09 17:32 | PDOC PROGRESS REPORT ---
Subjective Progress Note for:: 08/09/18 Subjective:: No adverse events overnight. She still spending a lot of time on oxygen and BiPAP. She is not wanting to go home on oxygen. She did not really want to wake up and talk to me but when I harassed her a little bit she did answer my questions. Reason For Visit: INFLUENZA,PNEUMONIA Physical Exam Vital Signs: Temp Pulse Resp BP Pulse Ox 98.7 F 85 16 120/60 95 08/09/18 16:27 08/09/18 16:27 08/09/18 16:27 08/09/18 16:27 08/09/18 16:27 Pulse Oximeter Continuous Start: 07/31/18 09: 33 Freq: RTQ4 Status: Complete Document 07/31/18 21:26 LRU (Rec: 07/31/18 21:29 LRU [id number]) Pulse Oximetry Assessment Oxygen Saturation (92-100) 100 Oxygen Delivery Method Bi-pap Fraction of Inspired Oxygen (FIO2) 35 Equipment Usage Equipment in Use Continuous Pulse Oximeter 24 Hour Charge Charge Now Continuous SpO2 Machine # 0 Intake & Output 08/08/18 08/09/18 08/10/18 06:59 06:59 06:59 Intake Total 1387 1134 Output Total 3000 Balance -1613 1134 Weight 110 kg 110 kg General appearance: PRESENT: no acute distress, disheveled, morbidly obese. ABSENT: cooperative - It took a little gentle prodding on my part for her to answer my questions Respiratory exam: PRESENT: clear to auscultation alaina, symmetrical, unlabored. ABSENT: accessory muscle use, prolonged expiratory phas, rales, rhonchi, tachypnea, wheezes Cardiovascular exam: PRESENT: RRR, +S1, +S2 Vascular exam: PRESENT: normal capillary refill GI/Abdominal exam: PRESENT: normal bowel sounds, soft. ABSENT: distended, guarding, rebound, tenderness Extremities exam: PRESENT: pedal edema. ABSENT: clubbing Musculoskeletal exam: PRESENT: normal inspection. ABSENT: deformity Neurological exam: PRESENT: awake - Drowsy but arousable, oriented to person, oriented to place, oriented to time, oriented to situation Psychiatric exam: PRESENT: flat affect Skin exam: PRESENT: dry, warm Results Laboratory Results: 08/09/18 06:57 08/09/18 06:00 08/09/18 08/09/18 06:00 06:57 WBC 7.5 RBC 2.76 L Hgb 9.0 L Hct 27.1 L MCV 98 H MCH 32.6 MCHC 33.1 RDW 14.4 H Plt Count 222 Sodium 138.1 Potassium 4.9 Chloride 96 L Carbon Dioxide 31 H Anion Gap 11 BUN 56 H Creatinine 7.87 H Est GFR ( Amer) 7 L Est GFR (Non-Af Amer) 6 L Glucose 191 H Calcium 9.3 Magnesium 2.0 07/31/18 08/01/18 08/01/18 16:24 00:35 05:50 Troponin I 0.095 0.085 0.092 Impressions: Chest X-Ray 08/01/18 06:00 IMPRESSION: NO ACUTE RADIOGRAPHIC FINDING IN THE CHEST. Assessment & Plan - Diagnosis (1) Acute respiratory failure with hypoxia and hypercapnia Is this a current diagnosis for this admission?: Yes Plan: Using supplemental O2 and BiPAP to maintain SPO2 greater than 90%. (2) End stage renal disease Is this a current diagnosis for this admission?: Yes Plan: She is now getting dialysis Friday. Nephrology is following her. (3) Acute metabolic encephalopathy Is this a current diagnosis for this admission?: Yes Plan: Resolved - Time Time Spent with patient: 15-24 minutes
[2018-08-09] MEDS ORDERED: DIPHENHYDRAMINE HCL 25 MG CAPSULE ONE (23:47)
[2018-08-10] MEDS: GUAIFENESIN SYRP 200 MG/10 ML UDC PO SCH ×6 (00:22→21:24)
[2018-08-10] MEDS ORDERED: DIPHENHYDRAMINE HCL 50 MG CAPSULE PO PRN (04:25)
[2018-08-10] MEDS: PHENYTOIN SODIUM EXTENDED 100 MG CAPSULE PO SCH ×3 (05:16→21:27)
[2018-08-10] MEDS: HEPARIN SOD (PORCINE) 5,000 UNIT/ML 1 ML SYRINGE SUBCUT SCH ×4 (05:16→21:33)
[2018-08-10] MEDS: INSULIN LISPRO 100 UNIT/ML 3 ML VIAL SUBCUT PRN ×3 (06:32→23:06)
[2018-08-10] MEDS: ALBUTEROL SULFATE 0.083% NEB 2.5 MG/3 ML AMPUL NEB SCH ×2 (09:08→20:53)
--- NOTE | 2018-08-10 11:36 | PDOC PROGRESS REPORT ---
Subjective Progress Note for:: 08/10/18 Reason For Visit: Patient seen today undergoing dialysis. Patient admitted with shortness of breath from influenza B pneumonia.Had a course of Tamiflu and is done well. She is undergoing dialysis without any issues. She still on a nasal cannula with oxygen but feels that she is getting a whole lot better. She denies any history of coughing spells fever or chills.Dialysis orders were reviewed with the treating dialysis nurse. Plan to remove between 4-5 L of fluid as tolerated. Physical Exam Vital Signs: Temp Pulse Resp BP Pulse Ox 98.6 F 88 16 146/75 H 95 08/10/18 07:35 08/10/18 09:08 08/10/18 09:08 08/10/18 07:35 08/10/18 09:08 Pulse Oximeter Continuous Start: 07/31/18 09: 33 Freq: RTQ4 Status: Complete Document 07/31/18 21:26 LRU (Rec: 07/31/18 21:29 LRU [id number]) Pulse Oximetry Assessment Oxygen Saturation (92-100) 100 Oxygen Delivery Method Bi-pap Fraction of Inspired Oxygen (FIO2) 35 Equipment Usage Equipment in Use Continuous Pulse Oximeter 24 Hour Charge Charge Now Continuous SpO2 Machine # 0 Intake & Output 08/09/18 08/10/18 08/11/18 06:59 06:59 06:59 Intake Total 1134 1800 Balance 1134 1800 Weight 110 kg 110.7 kg General appearance: PRESENT: no acute distress Respiratory exam: PRESENT: clear to auscultation alaina, decreased breath sounds. ABSENT: crackles Cardiovascular exam: PRESENT: +S1, +S2, systolic murmur GI/Abdominal exam: PRESENT: normal bowel sounds, soft. ABSENT: organomegaly, tenderness Extremities exam: PRESENT: pedal edema Neurological exam: PRESENT: alert, awake, oriented to person, oriented to place , oriented to time Psychiatric exam: PRESENT: anxious Skin exam: ABSENT: erythema, rash Results Laboratory Results: 08/09/18 06:57 08/09/18 06:00 07/31/18 08/01/18 08/01/18 16:24 00:35 05:50 Troponin I 0.095 0.085 0.092 Impressions: Chest X-Ray 08/01/18 06:00 IMPRESSION: NO ACUTE RADIOGRAPHIC FINDING IN THE CHEST. Assessment & Plan - Diagnosis (1) Influenza B Is this a current diagnosis for this admission?: Yes Plan: Admitted with respiratory failure stemming from influenza B pneumonia. Got a course of Tamiflu and has done well. Slowly being weaned off oxygen prior to discharging her home. (2) Acute respiratory failure with hypoxia and hypercapnia Is this a current diagnosis for this admission?: Yes Plan: Improving as influenza is being treated properly along with pneumonia from that. (3) End stage renal disease Is this a current diagnosis for this admission?: Yes Plan: Patient undergoing dialysis currently without any issues. Is being supervised to ensure safe and smooth procedure. Vital signs are stable. Plan to remove between 4 and 5 L as tolerated. Dialysis orders were reviewed with the treating dialysis nurse. (4) Diabetes mellitus type 2 in obese Is this a current diagnosis for this admission?: Yes Plan: Advised on tight diabetic control. (5) Pneumonia Qualifiers: Pneumonia type: due to unspecified organism Laterality: right Lung location: lower lobe of lung Qualified Code(s): J18.1 - Lobar pneumonia, unspecified organism Is this a current diagnosis for this admission?: Yes Plan: From influenza B. Improving with the treatment of her influenza. (6) Acute metabolic encephalopathy Is this a current diagnosis for this admission?: Yes Plan: Secondary from the above including respiratory failure which seems to be improving. (7) Anemia in chronic kidney disease Is this a current diagnosis for this admission?: Yes Plan: Adjust erythropoietin accordingly. Monitor.
[2018-08-10] MEDS: FOLIC ACID/VITAMIN B COMP W-C CAPSULE PO SCH (13:48)
[2018-08-10] MEDS: NICOTINE 14 MG/24 HR PATCH.TD24 TD SCH (13:48)
[2018-08-10] MEDS: PREGABALIN 75 MG CAPSULE PO SCH ×2 (13:48→21:24)
[2018-08-10] MEDS: CLONIDINE HCL 0.2 MG TABLET PO SCH ×2 (13:48→21:27)
[2018-08-10] MEDS: METOPROLOL SUCCINATE 50 MG TAB.SR.24H PO SCH (13:49)
[2018-08-10] MEDS: FAMOTIDINE 20 MG TABLET PO SCH (13:49)
[2018-08-10] MEDS: ACETAMINOPHEN SOLN 325 MG/10.15 ML UDCUP PO PRN (15:08)
--- NOTE | 2018-08-10 18:07 | PDOC PROGRESS REPORT ---
Subjective Progress Note for:: 08/10/18 Subjective:: I saw her after dialysis today. She was very tired and was going to take a nap and had the BiPAP on. She said that she had 3 L on the nasal cannula on earlier while she was on dialysis. Apparently they took off 4-5 L today, or at least that was the plan. Reason For Visit: INFLUENZA,PNEUMONIA Physical Exam Vital Signs: Temp Pulse Resp BP Pulse Ox 100.3 F 96 28 H 135/61 H 100 08/10/18 14:23 08/10/18 14:23 08/10/18 14:23 08/10/18 14:23 08/10/18 14:23 Pulse Oximeter Continuous Start: 07/31/18 09: 33 Freq: RTQ4 Status: Complete Document 07/31/18 21:26 LRU (Rec: 07/31/18 21:29 LRU [id number]) Pulse Oximetry Assessment Oxygen Saturation (92-100) 100 Oxygen Delivery Method Bi-pap Fraction of Inspired Oxygen (FIO2) 35 Equipment Usage Equipment in Use Continuous Pulse Oximeter 24 Hour Charge Charge Now Continuous SpO2 Machine # 0 Intake & Output 08/09/18 08/10/18 08/11/18 06:59 06:59 06:59 Intake Total 1134 1800 118 Output Total 4000 Balance 1134 1800 -3882 Weight 110 kg 110.7 kg General appearance: PRESENT: no acute distress, disheveled, morbidly obese. Respiratory exam: PRESENT: clear to auscultation alaina, a bit diminished bilaterally, symmetrical, unlabored. ABSENT: accessory muscle use, prolonged expiratory phas, rales, rhonchi, tachypnea, wheezes Cardiovascular exam: PRESENT: RRR, +S1, +S2 Vascular exam: PRESENT: normal capillary refill GI/Abdominal exam: PRESENT: normal bowel sounds, soft. ABSENT: distended, guarding, rebound, tenderness Extremities exam: PRESENT: pedal edema. ABSENT: clubbing Musculoskeletal exam: PRESENT: normal inspection. ABSENT: deformity Neurological exam: PRESENT: awake - Drowsy but arousable, oriented to person, oriented to place, oriented to time, oriented to situation Psychiatric exam: PRESENT: flat affect Skin exam: PRESENT: dry, warm Results Laboratory Results: 08/09/18 06:57 08/09/18 06:00 07/31/18 08/01/18 08/01/18 16:24 00:35 05:50 Troponin I 0.095 0.085 0.092 Impressions: Chest X-Ray 08/01/18 06:00 IMPRESSION: NO ACUTE RADIOGRAPHIC FINDING IN THE CHEST. Assessment & Plan - Diagnosis (1) Acute respiratory failure with hypoxia and hypercapnia Is this a current diagnosis for this admission?: Yes Plan: Using supplemental O2 and BiPAP to maintain SPO2 greater than 90%. I do not know if this point if she is needing BiPAP or just sort of psychologically dependent upon it, but she is apparently been requiring oxygen during the day. She had a little bit of a elevated temperature earlier today, and if this continues we will have to reculture her and restart antibiotics. (2) End stage renal disease Is this a current diagnosis for this admission?: Yes Plan: She is now getting dialysis Friday. Nephrology is following her. (3) Acute metabolic encephalopathy Is this a current diagnosis for this admission?: Yes Plan: Resolved - Time Time Spent with patient: 15-24 minutes
[2018-08-11] MEDS: GUAIFENESIN SYRP 200 MG/10 ML UDC PO SCH ×5 (00:33→16:25)
[2018-08-11] MEDS: HEPARIN SOD (PORCINE) 5,000 UNIT/ML 1 ML SYRINGE SUBCUT SCH ×2 (05:30→13:13)
[2018-08-11] MEDS: ACETAMINOPHEN SOLN 325 MG/10.15 ML UDCUP PO PRN (05:30)
[2018-08-11] MEDS: PHENYTOIN SODIUM EXTENDED 100 MG CAPSULE PO SCH ×2 (05:30→13:12)
[2018-08-11] MEDS: METOPROLOL SUCCINATE 50 MG TAB.SR.24H PO SCH (09:36)
[2018-08-11] MEDS: PREGABALIN 75 MG CAPSULE PO SCH (09:37)
[2018-08-11] MEDS: FAMOTIDINE 20 MG TABLET PO SCH (09:38)
[2018-08-11] MEDS: CLONIDINE HCL 0.2 MG TABLET PO SCH (09:38)
[2018-08-11] MEDS: NICOTINE 14 MG/24 HR PATCH.TD24 TD SCH (09:38)
[2018-08-11] MEDS: FOLIC ACID/VITAMIN B COMP W-C CAPSULE PO SCH (09:38)
[2018-08-11] MEDS: ALBUTEROL SULFATE 0.083% NEB 2.5 MG/3 ML AMPUL NEB SCH (10:06)
[2018-08-11] MEDS: INSULIN LISPRO 100 UNIT/ML 3 ML VIAL SUBCUT PRN ×2 (13:14→16:25)
[2018-08-11 18:21] VITALS: BP 135/61
--- NOTE | 2018-08-11 18:55 | PDOC DISCHARGE SUMMARY ---
General - Admit/Disc Date/PCP Admission Date/Primary Care Provider: 07/31/18 09:35 TRESA OH MD Discharge Date: 08/11/18 - Discharge Diagnosis (1) Acute respiratory failure with hypoxia and hypercapnia Is this a current diagnosis for this admission?: Yes Summary: She remained persistently hypoxemic after her bout of influenza pneumonia. She was able to spend time off BiPAP during the day but she was more comfortable with it on at night. She persistently required around 3L nasal cannula. We have arranged for her to get this at home. (2) End stage renal disease Is this a current diagnosis for this admission?: Yes Summary: She received her usual dialysis treatments and was getting anywhere from 3-5 L off with dialysis each time. (3) Acute metabolic encephalopathy Is this a current diagnosis for this admission?: Yes Summary: Resolved as her medical condition improved. - Additional Information Resuscitation Status: Full Code Discharge Diet: Other (Comments) - renal diet Discharge Activity: Activity As Tolerated Home Medications: Clonidine HCl [Catapres 0.2 mg Tablet] 0.2 mg PO Q12 02/05/13 Insulin Aspart [Novolog Insulin (Aspart) 100 unit/mL] 5 unit SUBCUT MEALS PRN Insulin Glargine,Hum.rec.anlog [Lantus Insulin 100 Unit/mL] 50 units SQ QHS PRN 02/05/13 Omeprazole [Prilosec 40 mg Capsule] 40 mg PO ACBRKFST 02/05/13 Phenytoin Sodium Extended [Dilantin 100 mg Capsule.er] 100 mg PO Q8 02/05/13 Calcium Acetate [Phoslo] 2,001 mg PO MEALS 09/11/13 Metoprolol Succinate [Toprol Xl] 200 mg PO DAILY 01/06/15 B Complex W-C No.20/Folic Acid [Virt-Caps Softgel] 1 mg PO DAILY 07/31/18 Losartan Potassium [Cozaar 50 mg Tablet] 50 mg PO DAILY 07/31/18 Oxycodone HCl [Oxy-Ir 5 mg Tablet] 5 mg PO Q8HP PRN 07/31/18 Polyethylene Glycol 3350 [Clearlax] 17 gm PO TIDP PRN 07/31/18 Pregabalin [Lyrica 75 mg Capsule] 75 mg PO MOWEFR@07/31/18 Pregabalin [Lyrica 75 mg Capsule] 75 mg PO SUTUTHSA@10 07/31/18 Simvastatin [Zocor 10 mg Tablet] 5 mg PO QHS 07/31/18 History of Present Illness History of Present Illness: DIAN SLAUGHTER is a 42 year old female with a known past medical history of insulin-dependent diabetes mellitus, end-stage renal disease on dialysis Friday, hypertension, chronic pain, obesity, GERD who presented to the emergency department with a complaint of fever and shortness of breath. Evaluation in emergency department revealed a fever of 100.3, tachycardia (HR 111), tachypnea (RR 29), and hypoxia (89%) on room air. Laboratory evaluation revealed her baseline chronic anemia with a hemoglobin of 11.2, hyperkalemia ( 6.4) elevated creatinine and BUN (at baseline for patient with end-stage renal disease on dialysis), and a normal lactic acid. She was found to have influenza B. EKG demonstrated sinus tachycardia and chest x-ray read as right basilar pneumonia. Due to limitations for dialysis at our facility, the patient was originally scheduled to be transferred to [facility]. Unfortunately, high census has prevented her from a timely transfer. The emergency department physician spoke with nephrology who have arranged for the patient to receive dialysis in house. Therefore, the hospitalist service was consulted for admission and management of acute respiratory failure with hypoxia secondary to influenza B and a right lower lobe pneumonia. Patient's case was reviewed with Dr. Torres. Stat echocardiogram and troponins were ordered. Nursing reports multiple attempts at ABG that were unsuccessful. VBG was ordered. VBG resulted while the patient was down in the ICU for dialysis. Demonstrated worsening acidosis and hypercapnia. Danielle Davila, Betito, and Gema conferred. Patient was having difficulty tolerating dialysis due to hypotension; required a shortened dialysis session. Upon completion of dialysis; patient will be intubated. The patient's daughter, Ermelinda Slaughter, was called and updated. She does confirm that her mother is a FULL CODE and is agreeable with moving forward with the above plan. The patient is upgraded to ICU status; she is placed on IV vancomycin and Unasyn for coverage of healthcare associated pneumonia. Repeat lactic acid 1.1. Troponin is mildly elevated to 0.09; potentially related to her chronic kidney disease versus demand ischemia in the setting of acute respiratory failure. No acute changes noted on telemetry. We will ask surgery to assist with central line placement as the patient will require numerous IV medications (multiple antibiotics, sedation, potentially pressor support) as well as arterial line placement for further ABG monitoring. Hospital Course Hospital Course: She was extubated fairly quickly. She did, however, have an oxygen requirement and was on BiPAP for some time. We were able to get her to spend more time on the nasal cannula less time on BiPAP, but she liked being able to sleep on the BiPAP as she felt like it helped her sleep better. She finished a course of Tamiflu for influenza pneumonia. She received her usual dialysis schedule, having 3-5 L pulled off at each session. Of the time she was discharged we could not get her below 3 L per nasal cannula. We did set up home oxygen for her. We also set up with a follow-up visit with pulmonology so that she could be assessed for CPAP or BiPAP therapy at home. Her labs and examination were reassuring and she was discharged in good condition. Physical Exam Vital Signs: Temp Pulse Resp BP Pulse Ox 98.8 F 89 18 101/52 L 94 08/11/18 07:51 08/11/18 14:00 08/11/18 10:06 08/11/18 07:51 08/11/18 10:06 Pulse Oximeter Continuous Start: 07/31/18 09: 33 Freq: RTQ4 Status: Complete Document 07/31/18 21:26 LRU (Rec: 07/31/18 21:29 LRU [id number]) Pulse Oximetry Assessment Oxygen Saturation (92-100) 100 Oxygen Delivery Method Bi-pap Fraction of Inspired Oxygen (FIO2) 35 Equipment Usage Equipment in Use Continuous Pulse Oximeter 24 Hour Charge Charge Now Continuous SpO2 Machine # 0 Intake & Output 08/10/18 08/11/18 08/12/18 06:59 06:59 06:59 Intake Total 1800 533 Output Total 4000 Balance 1800 -6902 Weight 110.7 kg 114.9 kg General appearance: PRESENT: no acute distress, disheveled, morbidly obese. Respiratory exam: PRESENT: clear to auscultation alaina, a bit diminished bilaterally, symmetrical, unlabored. ABSENT: accessory muscle use, prolonged expiratory phas, rales, rhonchi, tachypnea, wheezes Cardiovascular exam: PRESENT: RRR, +S1, +S2 Vascular exam: PRESENT: normal capillary refill GI/Abdominal exam: PRESENT: normal bowel sounds, soft. ABSENT: distended, guarding, rebound, tenderness Extremities exam: PRESENT: pedal edema. ABSENT: clubbing Musculoskeletal exam: PRESENT: normal inspection. ABSENT: deformity Neurological exam: PRESENT: awake - Drowsy but arousable, oriented to person, oriented to place, oriented to time, oriented to situation Psychiatric exam: PRESENT: flat affect Skin exam: PRESENT: dry, warm Results Laboratory Results: 08/09/18 06:57 08/09/18 06:00 07/31/18 08/01/18 08/01/18 16:24 00:35 05:50 Troponin I 0.095 0.085 0.092 Impressions: Chest X-Ray 08/01/18 06:00 IMPRESSION: NO ACUTE RADIOGRAPHIC FINDING IN THE CHEST. Qualifiers - * PATIENT BEING DISCHARGED WITH ANY OF THE FOLLOWING DIAGNOSIS: No
== END 2018-08-11 18:50 | disposition home or self-care (01) | DRG 189 ==
LOC: ER 01:03 → EH 09:35 → 3S 13:15 → ICU 17:00 → 3S 08-01 18:25
PROVIDERS: ADMIT Internal Medicine; ATTEND Internal Medicine
PROC: 5A1D70Z Performance of Urinary Filtration, Intermittent, Less than 6 Hours Per Day (ICD-10-PCS; principal; 2018-07-31)
PROC: 02HV33Z Insertion of Infusion Device into Superior Vena Cava, Percutaneous Approach (ICD-10-PCS; 2018-07-31)
PROC: B548ZZA Ultrasonography of Superior Vena Cava, Guidance (ICD-10-PCS; 2018-07-31)
DX: J96.01 Acute respiratory failure with hypoxia (principal); J10.08 Influenza due to other identified influenza virus with other specified pneumonia; J18.1 Lobar pneumonia, unspecified organism; N18.6 End stage renal disease; G93.41 Metabolic encephalopathy; I13.2 Hypertensive heart and chronic kidney disease with heart failure and with stage 5 chronic kidney disease, or end stage renal disease; E66.2 Morbid (severe) obesity with alveolar hypoventilation; Z68.42 Body mass index [BMI] 45.0-49.9, adult; E87.5 Hyperkalemia; J96.02 Acute respiratory failure with hypercapnia; E11.22 Type 2 diabetes mellitus with diabetic chronic kidney disease; I50.9 Heart failure, unspecified; K21.9 Gastro-esophageal reflux disease without esophagitis; D63.1 Anemia in chronic kidney disease; Z99.2 Dependence on renal dialysis; Z79.4 Long term (current) use of insulin; Z79.899 Other long term (current) drug therapy
CPT/HCPCS: 36415; 71045; 80048; 80053; 80185; 82607; 82728; 82746; 82803; 82962; 83036; 83540; 83550; 83605; 83735; 83880; 84484; 85025; 85027; 85045; 87040; 87070; 87077; 87186; 87205; 87804; 93005; 93010; 93306; 94640; 94660; 94762; 96365; 96367; 96375; 99285; C1751; J1642; J1644; J1815; J1940; J2020; J2543; J3370; J3490; J7060; J7620; S0028

== ENCOUNTER 2018-12-28 12:13 | Inpatient (IN) | payer MEDICAID ==
--- NOTE | 2018-12-28 12:40 | ER Document Report ---
ED Medical Screen (RME) - General Chief Complaint: Altered Mental Status Stated Complaint: ALTERED MENTAL STATUS Time Seen by Provider: 12/28/18 12:35 Primary Care Provider: TRESA OH MD [Primary Care Provider] - Follow up as needed Mode of Arrival: Wheelchair Information source: Relative Notes: 43-year-old female presented to ED for altered mental status since yesterday. Daughter has brought her in today. She states she was working yesterday as well she did not bring her in yesterday. Daughter states that yesterday she was just altered today she is not able to put words together into sentences and does not make sense. She states this started about 3:00 this morning when she was getting ready to go to dialysis. Daughter states she has a history of a stroke in about 2003 she is on dialysis for renal failure she also has a history of high blood pressure cholesterol and diabetes and seizures. She has had a right hip surgery and a gallbladder surgery. Daughter states she normally smokes Black and mild but is not right now and she drinks about once a month. Daughter states she does urinate sometimes. Patient is blind in both eyes. Patient does have little less strength on the right but does not have any drift. Pupils do not react at all as she is blind in both eyes. Patient did not talk to me at all even when I asked questions. I have greeted and performed a rapid initial assessment of this patient. A comprehensive ED assessment and evaluation of the patient, analysis of test results and completion of medical decision making process will be conducted by an additional ED providers. TRAVEL OUTSIDE OF THE [place] IN LAST 30 DAYS: No - Related Data Allergies/Adverse Reactions: hydromorphone [Hydromorphone] Allergy (Intermediate, Verified 12/28/18 12:14) ABDOMINAL CRAMPS azithromycin [Azithromycin] Allergy (Unknown, Verified 12/28/18 12:14) Darbepoetin [place] in [place] * [From Aranesp] Allergy (Unknown, Verified 12/28/18 12:14) ITCHING epoetin milan [From Procrit] Allergy (Verified 12/28/18 12:14) Sulfa (Sulfonamide Antibiotics) Allergy (Verified 12/28/18 12:14) Unsure BBQ SAUCE Allergy (Mild, Uncoded 12/28/18 12:14) Hives Past Medical History - Past Medical History Cardiac Medical History: Reports: Hx Congestive Heart Failure, Hx Coronary Artery Disease, Hx Hypercholesterolemia, Hx Hypertension, Hx Peripheral Vascular Disease Denies: Hx Heart Attack Pulmonary Medical History: Denies: Hx Asthma, Hx Bronchitis, Hx COPD, Hx Pneumonia, Hx Tuberculosis Neurological Medical History: Reports: Hx Seizures. Denies: Hx Cerebrovascular Accident Endocrine Medical History: Reports: Hx Diabetes Mellitus Type 2. Denies: Hx Diabetes Mellitus Type 1 Renal/ Medical History: Reports: Hx End Stage Renal Disease, Hx Hemodialysis. Denies: Hx Kidney Stones, Hx Peritoneal Dialysis GI Medical History: Reports: Hx Gastroesophageal Reflux Disease. Denies: Hx Cirrhosis, Hx Ulcer Musculoskeltal Medical History: Reports Hx Arthritis, Denies Hx Multiple Sclerosis Skin Medical History: Reports Hx Cellulitis Psychiatric Medical History: Reports: Hx Depression Denies: Hx Bipolar Disorder, Hx Schizophrenia Traumatic Medical History: Reports: Hx Fractures - Rt. Hip Infectious Medical History: Past Surgical History: Reports: Hx Abdominal Surgery - abd hernia repair, Hx Cholecystectomy, Hx Herniorrhaphy, Hx Orthopedic Surgery - rt hip, Hx Vascular Surgery - Right arm AV fistula. Denies: Hx Pacemaker - Immunizations Immunizations up to date: Yes Hx Diphtheria, Pertussis, Tetanus Vaccination: Yes Physical Exam - Vital signs Vitals: Temp Pulse Resp BP Pulse Ox 98.5 F 82 16 124/47 L 86 L 12/28/18 12:21 12/28/18 12:21 12/28/18 12:21 12/28/18 12:21 12/28/18 12:21 Course - Vital Signs Vital signs: Temp Pulse Resp BP Pulse Ox 98.5 F 82 16 124/47 L 86 L 12/28/18 12:21 12/28/18 12:21 12/28/18 12:21 12/28/18 12:21 12/28/18 12:21 Doctor's Discharge - Discharge Referrals: TRESA OH MD [Primary Care Provider] - Follow up as needed
--- NOTE | 2018-12-28 13:44 | RADIOLOGY REPORT (SQ) ---
EXAM DESCRIPTION: CT HEAD WITHOUT COMPLETED DATE/TIME: 12/28/2018 1:32 pm REASON FOR STUDY: altered mental status since yesterday COMPARISON: None. TECHNIQUE: Axial images acquired through the brain without intravenous contrast. Images reviewed wi th bone, brain and subdural windows. Additional sagittal and coronal reconstructions were generated. Images stored on PACS. All CT scanners at this facility use dose modulation, iterative reconstruction, and/or weight based d osing when appropriate to reduce radiation dose to as low as reasonably achievable (ALARA). [facility]: Dose Right [facility]: CareDose [facility]: Dose Right [facility]: Teradose 4D [facility]: StoryBlender RADIATION DOSE: CT Rad equipment meets quality standard of care and radiation dose reduction techniq ues were employed. CTDIvol: 53.2 mGy. DLP: 1017 mGy-cm. mGy. LIMITATIONS: None. FINDINGS: VENTRICLES: Prominent. CEREBRUM: No masses. No hemorrhage. No midline shift. Areas of low density in the white matter mos t likely due to chronic micro-vascular ischemic change. No evidence for acute infarction. CEREBELLUM: No masses. No hemorrhage. No alteration of density. No evidence for acute infarction. EXTRAAXIAL SPACES: Mild age-related involutional change. No fluid collections. No masses. ORBITS AND GLOBE: Chronic global atrophy. CALVARIUM: No fracture. PARANASAL SINUSES: No fluid or mucosal thickening. SOFT TISSUES: No mass or hematoma. OTHER: No other significant finding. IMPRESSION: MILD CHRONIC CHANGES OF ATROPHY AND MICROVASCULAR ISCHEMIA. NO ACUTE PROCESS. EVIDENCE OF ACUTE STROKE: NO. TECHNICAL DOCUMENTATION: JOB ID: [id number] Quality ID # [id number]: Final reports with documentation of one or more dose reduction techniques (e.g., Au tomated exposure control, adjustment of the mA and/or kV according to patient size, use of iterative reconstruction technique) 2010 [employer]- All Rights Reserved Reading location - IP/workstation name: [email or web address]
[2018-12-28 14:59] LABS: ABSOLUTE BASOPHILS # (AUTO) 0.1 10^3/uL (0.0-0.2); ABSOLUTE MONOCYTES (AUTO) 0.6 10^3/uL (0.1-1.4); ABSOLUTE NEUT (AUTO) 6.2 10^3/uL (1.7-8.2); BASOPHILS % (AUTO) 1.5 % (0-2); HEMATOCRIT 32.7 % (36.0-47.0); HEMOGLOBIN 10.8 g/dL (12.0-15.5); LYMPHOCYTES % (AUTO) 12.8 % (13-45); MEAN CORPUSCULAR HEMOGLOBIN 31.7 pg (27.0-33.4); MEAN CORPUSCULAR HGB CONC 33.2 g/dL (32.0-36.0); MEAN CORPUSCULAR VOLUME 96 fl (80-97); MONOCYTES % (AUTO) 7.3 % (3-13); PLATELET COUNT 257 10^3/uL (150-450); RED BLOOD COUNT 3.42 10^6/uL (3.72-5.28); RED CELL DISTRIBUTION WIDTH 15.5 % (11.5-14.0); SEGMENTED NEUTROPHILS % (AUTO) 78.4 % (42-78); TOTAL CELLS COUNTED % (AUTO) 100 %
[2018-12-28 15:01] LABS: VENOUS BLOOD BASE EXCESS 6.8 mmol/L; VENOUS BLOOD HCO3 33.6 mmol/L (20-32); VENOUS BLOOD PCO2 59.4 mmHg (35-63); VENOUS BLOOD PH 7.37 (7.30-7.42)
[2018-12-28 15:16] LABS: INTERNATIONAL RATION (INR) 1.15; PROTHROMBIN TIME 15.3 SEC (11.4-15.4)
[2018-12-28 15:17] LABS: PARTIAL THROMBOPLASTIN TIME 39.5 SEC (23.5-35.8)
[2018-12-28 15:23] LABS: ALANINE AMINOTRANSFERASE 18 U/L (9-52); ALBUMIN 4.1 g/dL (3.5-5.0); ALKALINE PHOSPHATASE 162 U/L (38-126); ANION GAP 16 (5-19); ASPARTATE AMINO TRANSFERASE 16 U/L (14-36); BILIRUBIN,DIRECT 0.5 mg/dL (0.0-0.4); BILIRUBIN,TOTAL 0.5 mg/dL (0.2-1.3); BLOOD UREA NITROGEN 28 mg/dL (7-20); CALCIUM 8.9 mg/dL (8.4-10.2); CARBON DIOXIDE 30 mmol/L (22-30); CHLORIDE 93 mmol/L (98-107); GLUCOSE 114 mg/dL (75-110); POTASSIUM 4.1 mmol/L (3.6-5.0); SODIUM 138.8 mmol/L (137-145)
--- NOTE | 2018-12-28 17:42 | ER Document Report ---
Entered by DEIRDRE GOLD SCRIBE 12/28/18 1393 Acting as scribe for:MIAH SINGH DO ED General - General Chief Complaint: Altered Mental Status Stated Complaint: ALTERED MENTAL STATUS Time Seen by Provider: 12/28/18 12:35 Primary Care Provider: TRESA OH MD [Primary Care Provider] - Follow up as needed Mode of Arrival: Wheelchair Information source: Patient, Relative Notes: Patient is a blind, 43 year old female with ESRD (MWF dialysis) and a history of CVA presents to the emergency department complaining of difficultly speaking onset around 1500 yesterday. Daughter at bedside states a family friend noticed the patient was having difficulty word finding yesterday afternoon. Daughter states she noticed some left sided facial droop and felt the patient's speech appeared slurred. Denies any focal weakness. She states the patient was able to complete dialysis this morning. 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 Duff. TRAVEL OUTSIDE OF THE [place] IN LAST 30 DAYS: No - Related Data Allergies/Adverse Reactions: hydromorphone [Hydromorphone] Allergy (Intermediate, Verified 12/28/18 12:14) ABDOMINAL CRAMPS azithromycin [Azithromycin] Allergy (Unknown, Verified 12/28/18 12:14) Darbepoetin [place] in [place] * [From Aranesp] Allergy (Unknown, Verified 12/28/18 12:14) ITCHING epoetin chandrika [From Procrit] Allergy (Verified 12/28/18 12:14) Sulfa (Sulfonamide Antibiotics) Allergy (Verified 12/28/18 12:14) Unsure BBQ SAUCE Allergy (Mild, Uncoded 12/28/18 12:14) Hives Past Medical History - General Information source: Patient, Relative - Social History Smoking Status: Current Every Day Smoker Chew tobacco use (# tins/day): No Frequency of alcohol use: Occasional Drug Abuse: None Family History: Reviewed & Not Pertinent Patient has suicidal ideation: No Patient has homicidal ideation: No - Past Medical History Cardiac Medical History: Reports: Hx Congestive Heart Failure, Hx Coronary Artery Disease, Hx Hypercholesterolemia, Hx Hypertension, Hx Peripheral Vascular Disease EENT Medical History: Reports: Eyes - Total blindness Neurological Medical History: Reports: Hx Cerebrovascular Accident - 2004, Hx S eizures Endocrine Medical History: Reports: Hx Diabetes Mellitus Type 2 Renal/ Medical History: Reports: Hx End Stage Renal Disease, Hx Hemodialysis GI Medical History: Reports: Hx Gastroesophageal Reflux Disease Musculoskeletal Medical History: Reports Hx Arthritis Skin Medical History: Reports Hx Cellulitis Psychiatric Medical History: Reports: Hx Depression Traumatic Medical History: Reports: Hx Fractures - Rt. Hip Infectious Medical History: Past Surgical History: Reports: Hx Abdominal Surgery - abd hernia repair, Hx Cholecystectomy, Hx Herniorrhaphy, Hx Orthopedic Surgery - rt hip, Hx Vascular Surgery - Right arm AV fistula - Immunizations Immunizations up to date: Yes Hx Diphtheria, Pertussis, Tetanus Vaccination: Yes Hx Pneumococcal Vaccination: 08/25/12 Review of Systems - Review of Systems Constitutional: No symptoms reported EENT: See HPI - Chronic blindness Cardiovascular: No symptoms reported Respiratory: No symptoms reported Gastrointestinal: No symptoms reported Genitourinary: No symptoms reported Female Genitourinary: No symptoms reported Musculoskeletal: No symptoms reported Skin: No symptoms reported Hematologic/Lymphatic: No symptoms reported Neurological/Psychological: See HPI, Speech impairment -: Yes All other systems reviewed and negative Physical Exam - Vital signs Vitals: Temp Pulse Resp BP Pulse Ox 98.5 F 82 16 124/47 L 86 L 12/28/18 12:21 12/28/18 12:21 12/28/18 12:21 12/28/18 12:21 12/28/18 12:21 - Notes Notes: GENERAL: Alert, interacts well. No acute distress. HEAD: Normocephalic, atraumatic. EYES:corneas are opacified, extraocular movements are intact however the right eye does deviate slightly upward at rest, denies any vision including light. ENT: Oral mucosa moist, tongue midline. NECK: Full range of motion. Supple. Trachea midline. LUNGS: Clear to auscultation bilaterally, no wheezes, rales, or rhonchi. No respiratory distress. HEART: Regular rate and rhythm. No murmurs, gallops, or rubs. ABDOMEN: Soft, non-tender. Non-distended. Bowel sounds present in all 4 quad rants. No guarding, rigidity, or rebound. EXTREMITIES: Moves all 4 extremities spontaneously. Fistula in RUE, old fistula in the left upper extremity without thrill. 1+ pitting edema in RLE. Radial and dorsalis pedis pulses 2/4 bilaterally. No cyanosis. NEUROLOGICAL: Alert. Hesitant to speak. Difficulty word finding, no slurred speech. No facial weakness or droop. 5/5 motor strength bilaterally. PSYCH: Normal affect, normal mood. SKIN: Warm, dry. Keloids on the bilateral earlobes. Course - Re-evaluation Re-evalutation: 12/28/18 17:39 CBC shows anemia with hemoglobin 10.8, this is stable, INR slightly prolonged at 1.15, renal function shows chronic kidney disease on dialysis, total protein is somewhat elevated at 10 otherwise unremarkable, test is negative, CT scan of the head reveals chronic microvascular ischemia, no intracranial hemorrhage. Patient is not a candidate for TPA as her symptoms started at 3:00 yesterday afternoon, she is also on dialysis which is a contraindication to TPA. Patient does not have signs of a large vessel occlusion given the fact that only her speech is affected. Patient has had no improvement or worsening in her symptoms. I am concerned for a stroke affecting the speech center. Discussed the patient with Dr. Salmeron who agrees to accept the patient to his service. Requested that I call Dr. Duff who is the patient's barber shop manager. 12/28/18 17:[address] Duff. Aware that the patient is in the hospital. Will consult as an inpatient. - Vital Signs Vital signs: Temp Pulse Resp BP Pulse Ox 98.5 F 82 22 H 132/78 H 100 12/28/18 12:21 12/28/18 12:21 12/28/18 15:00 12/28/18 14:00 12/28/18 14:00 - Laboratory Result Diagrams: 12/28/18 14:40 12/28/18 14:40 Laboratory results interpreted by me: 12/28/18 12/28/18 12/28/18 14:40 14:40 14:40 RBC 3.42 L Hgb 10.8 L Hct 32.7 L RDW 15.5 H Seg Neutrophils % 78.4 H Lymphocytes % 12.8 L APTT 39.5 H VBG HCO3 Chloride 93 L BUN 28 H Creatinine 5.11 H Est GFR ( Amer) 11 L Est GFR (Non-Af Amer) 9 L Glucose 114 H Direct Bilirubin 0.5 H Alkaline Phosphatase 162 H Ammonia Total Protein 10.0 H 12/28/18 12/28/18 14:40 14:40 RBC Hgb Hct RDW Seg Neutrophils % Lymphocytes % APTT VBG HCO3 33.6 H Chloride BUN Creatinine Est GFR ( Amer) Est GFR (Non-Af Amer) Glucose Direct Bilirubin Alkaline Phosphatase Ammonia < 8.7 L Total Protein Discharge - Discharge Clinical Impression: Dialysis patient, End stage renal disease, Obesity hypoventilation syndrome, Aphasia, Blind Stroke Qualifiers: CVA mechanism: unspecified Qualified Code(s): I63.9 - Cerebral infarction, unspecified Condition: Fair Disposition: ADMITTED INPATIENT Admitting Provider: Faviola (Hospitalist) Unit Admitted: IMCU Referrals: TRESA OH MD [Primary Care Provider] - Follow up as needed I personally performed the services described in the documentation, reviewed and edited the documentation which was dictated to the scribe in my presence, and it accurately records my words and actions.
[2018-12-28] MEDS ORDERED: ONDANSETRON HCL INJ/PF 4 MG/2 ML SDV IV PRN (17:57)
--- NOTE | 2018-12-28 17:57 | PDOC H&P ---
History of Present Illness Admission Date/PCP: TRESA OH MD History of Present Illness: DIAN SLAUGHTER is a 43 year old black female patient with multiple comorbidities including legally blind, diabetes mellitus, end-stage renal disease on hemodialysis, history of stroke, coronary 30s,, hypertension, hyperlipidemia, peripheral arterial disease and CHF brought by her daughter for altered mental status and difficulty speaking. Since patient has aphasia patient could not give any meaningful history. History is obtained from her daughter who is in the room during my encounter. But her daughter, patient started to have confusion yesterday but she could not brought her. And this afternoon at about 3 PM patient is not able to speak. Her daughter states "she is not able to put words together into sentences and does not make sense". No trauma to her head. No fever, chills palpitation or diaphoresis. Further detailed history and review of systems unobtainable. Past Medical History Cardiac Medical History: Reports: Congestive Heart Failure, Coronary Artery Disease, Hyperlipidema, Hypertension, Peripheral Vascular Disease Denies: Myocardial Infarction Pulmonary Medical History: Denies: Asthma, Bronchitis, Chronic Obstructive Pulmonary Disease (COPD), Pneumonia, Tuberculosis EENT Medical History: Reports: Eyes - Total blindness Neurological Medical History: Reports: Seizures Endocrine Medical History: Reports: Diabetes Mellitus Type 2 Denies: Diabetes Mellitus Type 1 Renal/ Medical History: Reports: End Stage Renal Disease GI Medical History: Reports: Gastroesophageal Reflux Disease Denies: Cirrhosis Musculoskeltal Medical History: Reports: Arthritis Psychiatric Medical History: Reports: Depression Denies: Bipolar Disorder Hematology: Reports: Anemia Denies: Bleeding Tendencies Past Surgical History Past Surgical History: Reports: Cholecystectomy, Herniorrhaphy, Orthopedic Surgery - rt hip, Vascular Surgery - Right arm AV fistula Denies: Pacemaker Social History Smoking Status: Current Every Day Smoker Frequency of Alcohol Use: None Hx Recreational Drug Use: No Drugs: None Hx Prescription Drug Abuse: No - Advance Directive Resuscitation Status: Full Code Family History Family History: Reviewed & Not Pertinent Parental Family History Reviewed: Yes Children Family History Reviewed: Yes Sibling(s) Family History Reviewed.: Yes Medication/Allergy Home Medications: Clonidine HCl [Catapres 0.2 mg Tablet] 0.2 mg PO Q12 02/05/13 Insulin Aspart [Novolog Insulin (Aspart) 100 unit/mL] 5 unit SUBCUT MEALS PRN 02/05/13 Insulin Glargine,Hum.rec.anlog [Lantus Insulin 100 Unit/mL] 50 units SQ QHS PRN 02/05/13 Omeprazole [Prilosec 40 mg Capsule] 40 mg PO ACBRKFST 02/05/13 Phenytoin Sodium Extended [Dilantin 100 mg Capsule.er] 100 mg PO Q8 02/05/13 Calcium Acetate [Phoslo] 2,001 mg PO MEALS 09/11/13 Metoprolol Succinate [Toprol Xl] 200 mg PO DAILY 01/06/15 B Complex W-C No.20/Folic Acid [Virt-Caps Softgel] 1 mg PO DAILY 07/31/18 Losartan Potassium [Cozaar 50 mg Tablet] 50 mg PO DAILY 07/31/18 Oxycodone HCl [Oxy-Ir 5 mg Tablet] 5 mg PO Q8HP PRN 07/31/18 Polyethylene Glycol 3350 [Clearlax] 17 gm PO TIDP PRN 07/31/18 Pregabalin [Lyrica 75 mg Capsule] 75 mg PO MOWEFR@07/31/18 Pregabalin [Lyrica 75 mg Capsule] 75 mg PO SUTUTHSA@10 07/31/18 Simvastatin [Zocor 10 mg Tablet] 5 mg PO QHS 07/31/18 Allergies/Adverse Reactions: hydromorphone [Hydromorphone] Allergy (Intermediate, Verified 12/28/18 12:14) ABDOMINAL CRAMPS azithromycin [Azithromycin] Allergy (Unknown, Verified 12/28/18 12:14) Darbepoetin Chandrika in [place] * [From Aranesp] Allergy (Unknown, Verified 12/28/18 12:14) ITCHING epoetin chandrika [From Procrit] Allergy (Verified 12/28/18 12:14) Sulfa (Sulfonamide Antibiotics) Allergy (Verified 12/28/18 12:14) Unsure BBQ SAUCE Allergy (Mild, Uncoded 12/28/18 12:14) Hives Review of Systems ROS unobtainable: Due to mental status Physical Exam Vital Signs: Temp Pulse Resp BP Pulse Ox 98.5 F 82 22 H 132/78 H 100 12/28/18 12:21 12/28/18 12:21 12/28/18 15:00 12/28/18 14:00 12/28/18 14:00 Intake & Output 12/27/18 12/28/18 12/29/18 06:59 06:59 06:59 Weight 115.212 kg General appearance: PRESENT: no acute distress Head exam: PRESENT: atraumatic, normocephalic Eye exam: PRESENT: conjunctiva pink Neck exam: ABSENT: carotid bruit, JVD, lymphadenopathy, thyromegaly Respiratory exam: PRESENT: clear to auscultation alaina. ABSENT: rales, rhonchi, wheezes Cardiovascular exam: PRESENT: RRR. ABSENT: diastolic murmur, rubs, systolic murmur GI/Abdominal exam: PRESENT: normal bowel sounds, soft. ABSENT: distended, guarding, mass, organolmegaly, rebound, tenderness Extremities exam: PRESENT: +1 edema Neurological exam: PRESENT: alert, awake Results Laboratory Results: 12/28/18 14:40 12/28/18 14:40 12/28/18 12/28/18 12/28/18 14:40 14:40 14:40 WBC 8.0 RBC 3.42 L Hgb 10.8 L Hct 32.7 L MCV 96 MCH 31.7 MCHC 33.2 RDW 15.5 H Plt Count 257 Seg Neutrophils % 78.4 H Lymphocytes % 12.8 L Monocytes % 7.3 Eosinophils % 0.0 Basophils % 1.5 Absolute Neutrophils 6.2 Absolute Lymphocytes 1.0 Absolute Monocytes 0.6 Absolute Eosinophils 0.0 Absolute Basophils 0.1 VBG pH VBG pCO2 VBG HCO3 VBG Base Excess Sodium 138.8 Potassium 4.1 Chloride 93 L Carbon Dioxide 30 Anion Gap 16 BUN 28 H Creatinine 5.11 H Est GFR ( Amer) 11 L Est GFR (Non-Af Amer) 9 L Glucose 114 H Lactic Acid 1.3 Calcium 8.9 Total Bilirubin 0.5 AST 16 ALT 18 Alkaline Phosphatase 162 H Ammonia Total Protein 10.0 H Albumin 4.1 12/28/18 12/28/18 14:40 14:40 WBC RBC Hgb Hct MCV MCH MCHC RDW Plt Count Seg Neutrophils % Lymphocytes % Monocytes % Eosinophils % Basophils % Absolute Neutrophils Absolute Lymphocytes Absolute Monocytes Absolute Eosinophils Absolute Basophils VBG pH 7.37 VBG pCO2 59.4 VBG HCO3 33.6 H VBG Base Excess 6.8 Sodium Potassium Chloride Carbon Dioxide Anion Gap BUN Creatinine Est GFR ( Amer) Est GFR (Non-Af Amer) Glucose Lactic Acid Calcium Total Bilirubin AST ALT Alkaline Phosphatase Ammonia < 8.7 L Total Protein Albumin 12/28/18 14:40 CK-MB (CK-2) 0.80 Impressions: Head CT 12/28/18 12:35 IMPRESSION: MILD CHRONIC CHANGES OF ATROPHY AND MICROVASCULAR ISCHEMIA. NO ACUTE PROCESS. EVIDENCE OF ACUTE STROKE: NO. Assessment and Plan - Diagnosis (1) Suspected acute ischemic stroke Is this a current diagnosis for this admission?: Yes Plan: Patient has expressive aphasia. She does not have weakness in her extremity. CT head is negative and patient scheduled to have MRI. (2) Acute encephalopathy Is this a current diagnosis for this admission?: Yes Plan: Due to #1. (3) History of CHF (congestive heart failure) Is this a current diagnosis for this admission?: Yes Plan: No shortness of breath. The type of CHF is not identified. (4) End-stage renal disease on hemodialysis Is this a current diagnosis for this admission?: Yes Plan: Patient got her dialysis today. Her primary gynecologist is Dr. Duff and is consulted by ER attending. (5) Type 2 diabetes mellitus Is this a current diagnosis for this admission?: Yes Plan: Reported on sliding scale and will hold her p.o. hypoglycemic agents. (6) Legally blind Is this a current diagnosis for this admission?: Yes Plan: Patient has underlying glaucoma. (7) Morbid obesity with BMI of 45.0-49.9, adult Is this a current diagnosis for this admission?: Yes Plan: We will advised the patient to do lifestyle modification. (8) Coronary artery disease Is this a current diagnosis for this admission?: Yes Plan: No anginal symptoms. Continue her home medication. (9) Hypertension Qualifiers: Hypertension type: essential hypertension Qualified Code(s): I10 - Essential (primary) hypertension Is this a current diagnosis for this admission?: Yes Plan: We will hold her antihypertensive medications temporarily. (10) Current everyday smoker Is this a current diagnosis for this admission?: Yes Plan: Patient will be counseled and encouraged to quit smoking. (11) Hyperlipidemia Qualifiers: Hyperlipidemia type: unspecified Qualified Code(s): E78.5 - Hyperlipidemia, unspecified Is this a current diagnosis for this admission?: Yes Plan: Continue home medications. (12) History of CVA (cerebrovascular accident) without residual deficits Is this a current diagnosis for this admission?: Yes Plan: We will continue to treat her to prevent secondary stroke. (13) Peripheral arterial disease Is this a current diagnosis for this admission?: Yes Plan: Stable.
[2018-12-28] MEDS ORDERED: CLOPIDOGREL BISULFATE 75 MG TABLET PO ONE (18:02)
[2018-12-28] MEDS ORDERED: NICOTINE 14 MG/24 HR PATCH.TD24 TD ONE (18:03)
[2018-12-28] MEDS: HEPARIN SOD (PORCINE) 5,000 UNIT/ML 1 ML SYRINGE SUBCUT SCH ×2 (20:06→22:21)
[2018-12-28] MEDS: DOCUSATE SODIUM 100 MG CAPSULE PO SCH (20:06)
--- NOTE | 2018-12-28 20:42 | EKG REPORT ---
SEVERITY:- BORDERLINE ECG - SINUS RHYTHM BORDERLINE R WAVE PROGRESSION, ANTERIOR LEADS : Confirmed by: Cheryle Morris MD 28-Dec-2018 20:42:11
--- NOTE | 2018-12-28 21:32 | RADIOLOGY REPORT (SQ) ---
EXAM DESCRIPTION: [facility]: MR BRAIN WITHOUT IV CONTRAST CLINICAL HISTORY: 43 years Female; Aphasia TECHNIQUE: Routine noncontrast MRI brain protocol COMPARISON: CT 12/28/2018. FINDINGS: There are numerous scattered small foci of diffusion restriction throughout the left cerebral hemisphere. Most of these are less than 5 mm in diameter. The largest is in the left insular cortex, 9 mm diameter. These are mostly in the cortex, although several are scattered in the deep left frontal white matter. There is also a 3 mm lesion in the left caudate head. All of the lesions are in the left MCA territory. There is no gradient echo hypointensity to suggest acute hemorrhage. No mass effect. Scattered foci of increased T2 signal in the cerebral white matter bilaterally are typical for mild chronic small vessel disease. There is an old focal lacunar infarct at the right anterior margin of the abisai. Old right thalamic lacunar infarct is less than 3 mm diameter. Ventricles and cisterns are preserved. No midline shift. Both globes are small and irregular abnormal hypointense T2 signal in both globes suggest previous intraocular hemorrhage. Please correlate with ophthalmological history. Calvarial marrow is normal. Paranasal sinuses are clear. Normal flow-voids are seen in the major intracranial arteries. IMPRESSION: 1. Numerous scattered focal acute infarcts in the left MCA territory. No hemorrhage or mass effect. 2. Consider CTA head/neck to evaluate for carotid or MCA lesion. 3. Chronic ischemic changes with old lacunar infarcts as described.
[2018-12-28] MEDS ORDERED: ATORVASTATIN CALCIUM 20 MG TABLET PO SCH (22:00)
[2018-12-28] MEDS: FAMOTIDINE 20 MG TABLET PO SCH (22:26)
[2018-12-28] MEDS ORDERED: HYDROXYZINE HCL 10 MG TABLET PO PRN (23:44)
[2018-12-28] MEDS ORDERED: DEXTROSE 50%-WATER 25 GM/50 ML DISP.SYRIN IV PRN ×2 (23:48)
[2018-12-28] MEDS ORDERED: DEXTROSE 40% GEL 15 GM TUBE PO PRN ×2 (23:48)
[2018-12-28] MEDS ORDERED: GLUCAGON,HUMAN RECOMB 1 MG INJ IM PRN (23:48)
[2018-12-29] MEDS ORDERED: METOPROLOL SUCCINATE 50 MG TAB.SR.24H PO ONE (00:30)
[2018-12-29] MEDS ORDERED: FOLIC ACID/VITAMIN B COMP W-C CAPSULE PO ONE (00:30)
[2018-12-29] MEDS ORDERED: CLONIDINE HCL 0.2 MG TABLET PO ONE (00:30)
[2018-12-29] MEDS ORDERED: FUROSEMIDE 20 MG TABLET PO ONE (00:30)
[2018-12-29] MEDS ORDERED: LOSARTAN POTASSIUM 50 MG TABLET PO ONE (00:30)
[2018-12-29] MEDS ORDERED: PHENYTOIN SODIUM EXTENDED 100 MG CAPSULE PO ONE (00:30)
[2018-12-29] MEDS ORDERED: INSULIN LISPRO 100 UNIT/ML 3 ML VIAL SUBCUT ONE (00:30)
[2018-12-29] MEDS: HEPARIN SOD (PORCINE) 5,000 UNIT/ML 1 ML SYRINGE SUBCUT SCH ×3 (05:35→21:36)
[2018-12-29] MEDS: PHENYTOIN SODIUM EXTENDED 100 MG CAPSULE PO SCH ×3 (05:35→21:36)
[2018-12-29 06:56] LABS: ABSOLUTE BASOPHILS # (AUTO) 0.1 10^3/uL (0.0-0.2); ABSOLUTE MONOCYTES (AUTO) 0.7 10^3/uL (0.1-1.4); ABSOLUTE NEUT (AUTO) 5.9 10^3/uL (1.7-8.2); BASOPHILS % (AUTO) 1.9 % (0-2); HEMATOCRIT 32.3 % (36.0-47.0); HEMOGLOBIN 10.6 g/dL (12.0-15.5); MEAN CORPUSCULAR HEMOGLOBIN 31.6 pg (27.0-33.4); MEAN CORPUSCULAR HGB CONC 32.7 g/dL (32.0-36.0); MEAN CORPUSCULAR VOLUME 97 fl (80-97); MONOCYTES % (AUTO) 9.5 % (3-13); PLATELET COUNT 263 10^3/uL (150-450); RED BLOOD COUNT 3.35 10^6/uL (3.72-5.28); RED CELL DISTRIBUTION WIDTH 15.6 % (11.5-14.0); SEGMENTED NEUTROPHILS % (AUTO) 75.6 % (42-78); TOTAL CELLS COUNTED % (AUTO) 100 %; WHITE BLOOD COUNT 7.8 10^3/uL (4.0-10.5)
[2018-12-29 07:18] LABS: ALANINE AMINOTRANSFERASE 20 U/L (9-52); ALBUMIN 3.6 g/dL (3.5-5.0); ALKALINE PHOSPHATASE 151 U/L (38-126); ANION GAP 14 (5-19); ASPARTATE AMINO TRANSFERASE 16 U/L (14-36); BILIRUBIN,DIRECT 0.4 mg/dL (0.0-0.4); BILIRUBIN,TOTAL 0.4 mg/dL (0.2-1.3); BLOOD UREA NITROGEN 38 mg/dL (7-20); CARBON DIOXIDE 28 mmol/L (22-30); CHLORIDE 95 mmol/L (98-107); CHOLESTEROL 112.35 mg/dL (0-200); GLUCOSE 212 mg/dL (75-110); POTASSIUM 4.7 mmol/L (3.6-5.0); SODIUM 137.4 mmol/L (137-145); TOTAL PROTEIN 8.4 g/dL (6.3-8.2); TRIGLYCERIDES 231 mg/dL (<150)
[2018-12-29 07:30] LABS: DIRECT LDL 50 mg/dL (<100)
[2018-12-29] MEDS: CALCIUM ACETATE 667 MG CAPSULE PO SCH ×3 (07:45→17:32)
[2018-12-29] MEDS: FUROSEMIDE 20 MG TABLET PO SCH (07:45)
[2018-12-29 07:56] LABS: VLDL CHOLESTEROL 46.2 mg/dL (10-31)
[2018-12-29] MEDS ORDERED: (PENDING PHARMACY ID) (Insulin Aspart [Novolog Flexpen] 5 UNIT) SUBCUT SCH (08:00)
[2018-12-29] MEDS ORDERED: INSULIN REG, HUMAN 100 UNIT/ML 3 ML VIAL (PYX) SUBCUT SCH (08:00)
[2018-12-29] MEDS: INSULIN LISPRO 100 UNIT/ML 3 ML VIAL SUBCUT SCH ×4 (08:52→21:36)
[2018-12-29] MEDS: METOPROLOL SUCCINATE 50 MG TAB.SR.24H PO SCH (09:25)
[2018-12-29] MEDS: LOSARTAN POTASSIUM 50 MG TABLET PO SCH (09:26)
[2018-12-29] MEDS: FOLIC ACID/VITAMIN B COMP W-C CAPSULE PO SCH (09:26)
[2018-12-29] MEDS: ASPIRIN 81 MG TABLET, CHEWABLE PO SCH (09:26)
[2018-12-29] MEDS: PREGABALIN 75 MG CAPSULE PO SCH (09:26)
[2018-12-29] MEDS: CLONIDINE HCL 0.2 MG TABLET PO SCH ×2 (09:26→21:36)
[2018-12-29] MEDS: DOCUSATE SODIUM 100 MG CAPSULE PO SCH ×2 (09:26→17:32)
[2018-12-29] MEDS: FAMOTIDINE 20 MG TABLET PO SCH ×2 (09:26→21:36)
[2018-12-29] MEDS ORDERED: INSULIN GLARGINE,HUM.REC.ANLOG 1,000 UNIT/10 ML VIAL SUBCUT SCH (10:00)
--- NOTE | 2018-12-29 12:16 | RADIOLOGY REPORT (SQ) ---
EXAM DESCRIPTION: CAROTID DOPPLER COMPLETED DATE/TIME: 12/29/2018 11:57 am REASON FOR STUDY: CVA COMPARISON: None. TECHNIQUE: Grayscale ultrasound, Doppler velocity and spectra, and color Doppler images acquired of the extra-cranial carotid and vertebral arteries. Images stored on PACS. LIMITATIONS: None. FINDINGS: RIGHT CAROTID CCA Velocities: Within normal limits. ICA Velocities Peak systolic 70 cm/s. End diastolic 23 cm/s. Proximal ICA/CCA peak systolic ratio 0.9. Mild calcified plaque in the proximal ICA. Spectra normal. LEFT CAROTID CCA Velocities: Within normal limits. ICA Velocities Peak systolic 104 cm/s. End diastolic 38 cm/s. Proximal ICA/CCA peak systolic ratio 1.1. Spectra normal. No significant plaque. VERTEBRAL ARTERIES: Antegrade flow. Normal waveforms. SUBCLAVIAN ARTERIES: No finding. OTHER: No other significant finding. IMPRESSION: 1. The examination is somewhat limited due to patient's body habitus. 2. Mild calcified plaque in the right proximal ICA. 3. NO HEMODYNAMICALLY SIGNIFICANT STENOSIS. COMMENT: Quality ID #[id number]: Velocity criteria are extrapolated from the diameter data as defined by t he Society of Radiologists in Ultrasound Consensus Conference. Radiology 2003: 229; 340-346. TECHNICAL DOCUMENTATION: JOB ID: [id number] [employer]- All Rights Reserved Reading location - IP/workstation name: DEL
--- NOTE | 2018-12-29 14:02 | PDOC PROGRESS REPORT ---
Subjective Progress Note for:: 12/29/18 Subjective:: DIAN SLAUGHTER is a 43 year old black female patient with multiple comorbidities including legally blind, diabetes mellitus, end-stage renal disease on hemodialysis, history of stroke, coronary 30s,, hypertension, hyperlipidemia, peripheral arterial disease and CHF brought by her daughter for altered mental status and difficulty speaking. Patient has also history of prior stroke without residual deficit. Her CT scan is negative for acute intracranial process. MRI numerous scattered focal acute infarcts in the left MCA territory. No hemorrhage or mass-effect. Radiologist recommended CTA head/neck to evaluate for carotid or MCA lesion but this could not be done because patient could not have IV access because of her AV fistula in both hands. Carotid Doppler done and the report is no hemodynamically significant stenosis. Patient has been started on high intensity Lipitor, aspirin and Plavix. Echo requested and results pending. This morning I seen patient propped up in bed. She is awake alert her speech is a little bit better than yesterday. Reason For Visit: CLINICAL ISCHEMIC STROKE Physical Exam Vital Signs: Temp Pulse Resp BP Pulse Ox 97.2 F 72 18 112/54 L 100 12/29/18 12:31 12/29/18 12:31 12/29/18 12:31 12/29/18 12:31 12/29/18 12:31 Intake & Output 12/28/18 12/29/18 12/30/18 06:59 06:59 06:59 Output Total 0 Balance 0 Weight 112.8 kg General appearance: PRESENT: no acute distress Head exam: PRESENT: atraumatic Eye exam: PRESENT: other - Legally blind Neck exam: ABSENT: carotid bruit, JVD, lymphadenopathy, thyromegaly Respiratory exam: PRESENT: clear to auscultation alaina. ABSENT: rales, rhonchi, wheezes GI/Abdominal exam: PRESENT: normal bowel sounds, soft. ABSENT: distended, guarding, mass, organolmegaly, rebound, tenderness Neurological exam: PRESENT: alert, awake Results Laboratory Results: 12/29/18 05:20 12/29/18 05:20 12/28/18 12/28/18 12/28/18 14:40 14:40 14:40 WBC 8.0 RBC 3.42 L Hgb 10.8 L Hct 32.7 L MCV 96 MCH 31.7 MCHC 33.2 RDW 15.5 H Plt Count 257 Seg Neutrophils % 78.4 H Lymphocytes % 12.8 L Monocytes % 7.3 Eosinophils % 0.0 Basophils % 1.5 Absolute Neutrophils 6.2 Absolute Lymphocytes 1.0 Absolute Monocytes 0.6 Absolute Eosinophils 0.0 Absolute Basophils 0.1 VBG pH VBG pCO2 VBG HCO3 VBG Base Excess Sodium 138.8 Potassium 4.1 Chloride 93 L Carbon Dioxide 30 Anion Gap 16 BUN 28 H Creatinine 5.11 H Est GFR ( Amer) 11 L Est GFR (Non-Af Amer) 9 L Glucose 114 H Lactic Acid 1.3 Calcium 8.9 Total Bilirubin 0.5 AST 16 ALT 18 Alkaline Phosphatase 162 H Ammonia Total Protein 10.0 H Albumin 4.1 Triglycerides Cholesterol LDL Cholesterol Direct VLDL Cholesterol HDL Cholesterol 12/28/18 12/28/18 12/29/18 14:40 14:40 05:20 WBC 7.8 RBC 3.35 L Hgb 10.6 L Hct 32.3 L MCV 97 MCH 31.6 MCHC 32.7 RDW 15.6 H Plt Count 263 Seg Neutrophils % 75.6 Lymphocytes % 13.0 Monocytes % 9.5 Eosinophils % 0.0 Basophils % 1.9 Absolute Neutrophils 5.9 Absolute Lymphocytes 1.0 Absolute Monocytes 0.7 Absolute Eosinophils 0.0 Absolute Basophils 0.1 VBG pH 7.37 VBG pCO2 59.4 VBG HCO3 33.6 H VBG Base Excess 6.8 Sodium Potassium Chloride Carbon Dioxide Anion Gap BUN Creatinine Est GFR ( Amer) Est GFR (Non-Af Amer) Glucose Lactic Acid Calcium Total Bilirubin AST ALT Alkaline Phosphatase Ammonia < 8.7 L Total Protein Albumin Triglycerides Cholesterol LDL Cholesterol Direct VLDL Cholesterol HDL Cholesterol 12/29/18 05:20 WBC RBC Hgb Hct MCV MCH MCHC RDW Plt Count Seg Neutrophils % Lymphocytes % Monocytes % Eosinophils % Basophils % Absolute Neutrophils Absolute Lymphocytes Absolute Monocytes Absolute Eosinophils Absolute Basophils VBG pH VBG pCO2 VBG HCO3 VBG Base Excess Sodium 137.4 Potassium 4.7 Chloride 95 L Carbon Dioxide 28 Anion Gap 14 BUN 38 H Creatinine 6.32 H Est GFR ( Amer) 9 L Est GFR (Non-Af Amer) 7 L Glucose 212 H Lactic Acid Calcium 9.0 Total Bilirubin 0.4 AST 16 ALT 20 Alkaline Phosphatase 151 H Ammonia Total Protein 8.4 H Albumin 3.6 Triglycerides 231 H Cholesterol 112.35 LDL Cholesterol Direct 50 VLDL Cholesterol 46.2 H HDL Cholesterol 26 L 12/28/18 14:40 CK-MB (CK-2) 0.80 Impressions: Head MRI 12/28/18 00:00 IMPRESSION: 1. Numerous scattered focal acute infarcts in the left MCA territory. No hemorrhage or mass effect. 2. Consider CTA head/neck to evaluate for carotid or MCA lesion. 3. Chronic ischemic changes with old lacunar infarcts as described. Head CT 12/28/18 12:35 IMPRESSION: MILD CHRONIC CHANGES OF ATROPHY AND MICROVASCULAR ISCHEMIA. NO ACUTE PROCESS. EVIDENCE OF ACUTE STROKE: NO. Carotid Doppler Study 12/29/18 00:00 IMPRESSION: 1. The examination is somewhat limited due to patient's body habitus. 2. Mild calcified plaque in the right proximal ICA. 3. NO HEMODYNAMICALLY SIGNIFICANT STENOSIS. Assessment and Plan - Diagnosis (1) Acute ischemic infarcts the left MCA Is this a current diagnosis for this admission?: Yes Plan: Patient has been started on, Plavix, aspirin. CTA of the neck and head could not be done. Carotid Doppler reported as no hemodynamically significant stenosis. Echocardiogram is pending. Physical therapy consulted. (2) Acute encephalopathy Is this a current diagnosis for this admission?: Yes Plan: Improving. (3) History of CHF (congestive heart failure) Is this a current diagnosis for this admission?: Yes Plan: No shortness of breath. The type of CHF is not identified. (4) End-stage renal disease on hemodialysis Is this a current diagnosis for this admission?: Yes Plan: Patient got her dialysis today. Her primary surveying teacher is Dr. Duff and is consulted by ER attending. (5) Type 2 diabetes mellitus Is this a current diagnosis for this admission?: Yes Plan: Reported on sliding scale and will hold her p.o. hypoglycemic agents. (6) Legally blind Is this a current diagnosis for this admission?: Yes Plan: Patient has underlying glaucoma. (7) Morbid obesity with BMI of 45.0-49.9, adult Is this a current diagnosis for this admission?: Yes Plan: We will advised the patient to do lifestyle modification. (8) Coronary artery disease Is this a current diagnosis for this admission?: Yes Plan: No anginal symptoms. Continue her home medication. (9) Hypertension Qualifiers: Hypertension type: essential hypertension Qualified Code(s): I10 - Essential (primary) hypertension Is this a current diagnosis for this admission?: Yes Plan: We will hold her antihypertensive medications temporarily. (10) Current everyday smoker Is this a current diagnosis for this admission?: Yes Plan: Patient will be counseled and encouraged to quit smoking. (11) Hyperlipidemia Qualifiers: Hyperlipidemia type: unspecified Qualified Code(s): E78.5 - Hyperlipidemia, unspecified Is this a current diagnosis for this admission?: Yes Plan: Continue home medications. (12) History of CVA (cerebrovascular accident) without residual deficits Is this a current diagnosis for this admission?: Yes Plan: We will continue to treat her to prevent secondary stroke. (13) Peripheral arterial disease Is this a current diagnosis for this admission?: Yes Plan: Stable.
--- NOTE | 2018-12-29 21:51 | XCELERA REPORT ---
[address] [address] Transthoracic Echocardiogram Report Name: DIAN SLAUGHTER Age: 43 yrs Gender: Female : 1975 Patient Status: Inpatient Patient Location: [address] [place] [address] Study Date: 12/29/2018 10:23 AM Height: 62 in Weight: 248 lb BSA: 2.1 m2 Procedure: A two-dimensional transthoracic echocardiogram with color flow and Doppler was performed. Study Quality: Technically suboptimal. The study was technically difficult with many images being suboptimal in quality. Images were not obtained from all of the standard acoustic windows due to the limited scope of the study. Reason For Study: cva History: CVA. Ordering Physician: MEREDITH AZUL Performed By: Constance Ray Interpretation Summary There is no obvious cardiac source of embolus noted on this transthoracic echocardiogram. Follow-up with a DON is suggested if cardiac source is still suspected. The left ventricle is normal in size. There is normal left ventricular wall thickness. No True apical 2 chamber views obtained.Hence cannot comment on the apical anterior , the basal anterior, the basal inferior and apical inferior salgado.The mid anterior , the mid inferior and the rest of the LV salgado contract normally. . LVEF is normal and is greater than 60% in the limited views. Doppler measurements suggest impaired left ventricular relaxation, which is associated with grade I/IV or mild diastolic dysfunction There is no thrombus. Cannot ASD ,VSD or PFO. The right ventricle is not well visualized secondary to technical limitations Right atrium not well visualized secondary to technical limitations The left atrial size is normal. There is no evidence of mitral valve prolapse. There is no mitral valve stenosis. There is no mitral regurgitation noted. There is no aortic valve stenosis No aortic regurgitation is present. There is no tricuspid stenosis. There is a mild amount of tricuspid regurgitation There is mild to moderate pulmonary hypertension by echo RVSP is 46 to 51 mm of Hg , with RA mean of 5 to 10. The pulmonic valve is not well visualized. The aortic root is normal size. The inferior vena cava appeared normal and decreased > 50% with respiration (RAP 5-10 mmHg) Cannot exclude minimal right sided effusion behind RA. There is no obvious cardiac source of embolus noted on this transthoracic echocardiogram. Follow-up with a DON is suggested if cardiac source is still suspected MMode/2D Measurements & Calculations RVDd: 3.9 cm LVIDd: 3.9 cm FS: 30.3 % Ao root diam: 2.6 cm IVSd: 0.98 cm LVIDs: 2.7 cm EDV(Teich): 67.5 ml Ao root area: 5.2 cm2 LVPWd: 1.0 cm ESV(Teich): 28.1 ml LA dimension: 3.4 cm EF(Teich): 58.3 % Doppler Measurements & Calculations MV E max christian: MV P1/2t max christian: Ao V2 max: LV V1 max P.7 cm/sec 99.2 cm/sec 156.7 cm/sec 6.3 mmHg MV A max christian: MV P1/2t: 83.8 msec Ao max P.8 mmHgLV V1 max: 109.6 cm/sec MVA(P1/2t): 2.6 cm2 125.9 cm/sec MV E/A: 0.88 MV dec slope: 347.0 cm/sec2 MV dec time: 0.28 sec PA V2 max: TR max christian: MV P1/2t-pr_phl: 86.4 cm/sec 320.3 cm/sec 83.8 msec PA max P.0 mmHgTR max P.0 mmHg Left Ventricle The left ventricle is normal in size. There is normal left ventricular wall thickness. No True apical 2 chamber views obtained.Hence cannot comment on the apical anterior , the basal anterior, the basal inferior and apical inferior salgado.The mid anterior , the mid inferior and the rest of the LV salgado contract normally. . LVEF is normal and is greater than 60% in the limited views. Doppler measurements suggest impaired left ventricular relaxation, which is associated with grade I/IV or mild diastolic dysfunction. There is no thrombus. Cannot ASD ,VSD or PFO. Right Ventricle The right ventricle is not well visualized secondary to technical limitations. Atria Right atrium not well visualized secondary to technical limitations. The left atrial size is normal. Mitral Valve There is mild mitral annular calcification. There is mild to moderate mitral leaflet calcification. There is no evidence of mitral valve prolapse. There is no vegetation seen on the mitral valve. There is no mitral valve stenosis. There is no mitral regurgitation noted. Aortic Valve There is no aortic valve stenosis. No aortic regurgitation is present. Tricuspid Valve There is no tricuspid stenosis. There is a mild amount of tricuspid regurgitation. There is mild to moderate pulmonary hypertension by echo. RVSP is 46 to 51 mm of Hg , with RA mean of 5 to 10. Pulmonic Valve The pulmonic valve is not well visualized. Great Vessels The aortic root is normal size. The inferior vena cava appeared normal and decreased > 50% with respiration (RAP 5-10 mmHg). Effusions Cannot exclude minimal right sided effusion behind RA. : MEREDITH AZUL > Arturo, Cheryle
[2018-12-30] MEDS: HEPARIN SOD (PORCINE) 5,000 UNIT/ML 1 ML SYRINGE SUBCUT SCH ×3 (05:53→21:43)
[2018-12-30] MEDS: PHENYTOIN SODIUM EXTENDED 100 MG CAPSULE PO SCH ×3 (05:53→21:42)
[2018-12-30 06:14] LABS: HEMATOCRIT 30.9 % (36.0-47.0); HEMOGLOBIN 10.2 g/dL (12.0-15.5); MEAN CORPUSCULAR HEMOGLOBIN 31.4 pg (27.0-33.4); MEAN CORPUSCULAR HGB CONC 32.9 g/dL (32.0-36.0); MEAN CORPUSCULAR VOLUME 95 fl (80-97); PLATELET COUNT 235 10^3/uL (150-450); RED BLOOD COUNT 3.24 10^6/uL (3.72-5.28); RED CELL DISTRIBUTION WIDTH 15.6 % (11.5-14.0); WHITE BLOOD COUNT 6.9 10^3/uL (4.0-10.5)
[2018-12-30 06:41] LABS: ANION GAP 16 (5-19); BLOOD UREA NITROGEN 53 mg/dL (7-20); CALCIUM 9.1 mg/dL (8.4-10.2); CARBON DIOXIDE 26 mmol/L (22-30); CHLORIDE 95 mmol/L (98-107); GLUCOSE 157 mg/dL (75-110); POTASSIUM 5.1 mmol/L (3.6-5.0)
[2018-12-30] MEDS: INSULIN LISPRO 100 UNIT/ML 3 ML VIAL SUBCUT SCH ×4 (07:53→21:43)
[2018-12-30] MEDS: CALCIUM ACETATE 667 MG CAPSULE PO SCH ×3 (07:58→18:39)
[2018-12-30] MEDS: FUROSEMIDE 20 MG TABLET PO SCH (07:58)
[2018-12-30] MEDS: DOCUSATE SODIUM 100 MG CAPSULE PO SCH ×2 (13:23→18:39)
[2018-12-30] MEDS: FAMOTIDINE 20 MG TABLET PO SCH ×2 (13:23→21:42)
[2018-12-30] MEDS: PREGABALIN 75 MG CAPSULE PO SCH ×2 (13:24→21:42)
[2018-12-30] MEDS: ASPIRIN 81 MG TABLET, CHEWABLE PO SCH (13:24)
[2018-12-30] MEDS: METOPROLOL SUCCINATE 50 MG TAB.SR.24H PO SCH (13:24)
[2018-12-30] MEDS: FOLIC ACID/VITAMIN B COMP W-C CAPSULE PO SCH (13:24)
[2018-12-30] MEDS: LOSARTAN POTASSIUM 50 MG TABLET PO SCH (13:25)
[2018-12-30] MEDS: CLONIDINE HCL 0.2 MG TABLET PO SCH ×2 (13:25→21:43)
--- NOTE | 2018-12-30 14:34 | PDOC PROGRESS REPORT ---
Subjective Progress Note for:: 12/30/18 Subjective:: Patient is seen while sitting by the bedside. She is awake alert. Her expressive aphasia is improving. Echocardiogram reported as there is no obvious cardiac source of embolus noted on the transthoracic echo. I discussed with the patient the need for lifestyle modification and also advised and encouraged her to quit smoking. Reason For Visit: CLINICAL ISCHEMIC STROKE Physical Exam Vital Signs: Temp Pulse Resp BP Pulse Ox 99.0 F 84 16 132/61 H 96 12/30/18 07:47 12/30/18 07:47 12/30/18 07:47 12/30/18 07:47 12/30/18 07:47 Intake & Output 12/29/18 12/30/18 12/31/18 06:59 06:59 06:59 Intake Total 1679 Output Total 1 2800 Balance 1678 -2800 Weight 112.8 kg 112.8 kg General appearance: PRESENT: no acute distress Eye exam: PRESENT: conjunctiva pink Neck exam: ABSENT: carotid bruit, JVD, lymphadenopathy, thyromegaly Respiratory exam: PRESENT: clear to auscultation alaina. ABSENT: rales, rhonchi, wheezes Cardiovascular exam: PRESENT: RRR. ABSENT: diastolic murmur, rubs, systolic murmur Pulses: PRESENT: normal dorsalis pedis pul Neurological exam: PRESENT: alert, altered Results Laboratory Results: 12/30/18 05:50 12/30/18 05:50 12/30/18 12/30/18 05:50 05:50 WBC 6.9 RBC 3.24 L Hgb 10.2 L Hct 30.9 L MCV 95 MCH 31.4 MCHC 32.9 RDW 15.6 H Plt Count 235 Sodium 137.0 Potassium 5.1 H Chloride 95 L Carbon Dioxide 26 Anion Gap 16 BUN 53 H Creatinine 7.82 H Est GFR ( Amer) 7 L Est GFR (Non-Af Amer) 6 L Glucose 157 H Calcium 9.1 12/28/18 14:40 CK-MB (CK-2) 0.80 Impressions: Head MRI 12/28/18 00:00 IMPRESSION: 1. Numerous scattered focal acute infarcts in the left MCA territory. No hemorrhage or mass effect. 2. Consider CTA head/neck to evaluate for carotid or MCA lesion. 3. Chronic ischemic changes with old lacunar infarcts as described. Head CT 12/28/18 12:35 IMPRESSION: MILD CHRONIC CHANGES OF ATROPHY AND MICROVASCULAR ISCHEMIA. NO ACUTE PROCESS. EVIDENCE OF ACUTE STROKE: NO. Carotid Doppler Study 12/29/18 00:00 IMPRESSION: 1. The examination is somewhat limited due to patient's body habitus. 2. Mild calcified plaque in the right proximal ICA. 3. NO HEMODYNAMICALLY SIGNIFICANT STENOSIS. Assessment and Plan - Diagnosis (1) Acute ischemic infarcts the left MCA Is this a current diagnosis for this admission?: Yes Plan: Patient has been started on, Plavix, aspirin. CTA of the neck and head could not be done. Carotid Doppler reported as no hemodynamically significant stenosis. Echocardiogram is pending. Physical therapy consulted. (2) Acute encephalopathy Is this a current diagnosis for this admission?: Yes Plan: Improving. (3) History of CHF (congestive heart failure) Is this a current diagnosis for this admission?: Yes Plan: No shortness of breath. The type of CHF is not identified. (4) End-stage renal disease on hemodialysis Is this a current diagnosis for this admission?: Yes Plan: Patient got her dialysis today. Her primary draw frame operator is Dr. Duff and is consulted by ER attending. (5) Type 2 diabetes mellitus Is this a current diagnosis for this admission?: Yes Plan: Reported on sliding scale and will hold her p.o. hypoglycemic agents. (6) Legally blind Is this a current diagnosis for this admission?: Yes Plan: Patient has underlying glaucoma. (7) Morbid obesity with BMI of 45.0-49.9, adult Is this a current diagnosis for this admission?: Yes Plan: We will advised the patient to do lifestyle modification. (8) Coronary artery disease Is this a current diagnosis for this admission?: Yes Plan: No anginal symptoms. Continue her home medication. (9) Hypertension Qualifiers: Hypertension type: essential hypertension Qualified Code(s): I10 - Essential (primary) hypertension Is this a current diagnosis for this admission?: Yes Plan: We will hold her antihypertensive medications temporarily. (10) Current everyday smoker Is this a current diagnosis for this admission?: Yes Plan: Patient will be counseled and encouraged to quit smoking. (11) Hyperlipidemia Qualifiers: Hyperlipidemia type: unspecified Qualified Code(s): E78.5 - Hyperlipidemia, unspecified Is this a current diagnosis for this admission?: Yes Plan: Continue home medications. (12) History of CVA (cerebrovascular accident) without residual deficits Is this a current diagnosis for this admission?: Yes Plan: We will continue to treat her to prevent secondary stroke. (13) Peripheral arterial disease Is this a current diagnosis for this admission?: Yes Plan: Stable.
--- NOTE | 2018-12-30 14:38 | PDOC CONSULTATION ---
Consultation Consult Date: 12/30/18 Consult reason:: ESRD for dialysis. History of Present Illness Admission Date/PCP: 12/28/18 17:55 TRESA OH MD History of Present Illness: DIAN SLAUGHTER is a 43 year old female with multiple comorbidities of diabetes mellitus, end-stage renal disease on hemodialysis, history of stroke, coronar artey disease, hypertension, hyperlipidemia, peripheral arterial disease and CHF brought by her daughter for altered mental status and difficulty speaking. Patient is a poor historian. Therefore chart review was done. Evaluations in the ER revealed that the patient had multiple acute infarcts in the left MCA territory along with old lacunar infarcts.Patient seems to be recovering some. She seems to have residual deficits. Patient currently seen on on dialysis which she is undergoing without any issues. Past Medical History Cardiac Medical History: Reports: CHF-Diastolic, Coronary Artery Disease, Hyperlipidemia, Hypertension-primary, Peripheral Vascular Disease Denies: Myocardial Infarction Pulmonary Medical History: Denies: Asthma, Bronchitis, Chronic Obstructive Pulmonary Disease (COPD), Pneumonia, Tuberculosis EENT Medical History: Reports: Eyes - Total blindness Neurological Medical History: Reports: Seizures Endocrine Medical History: Reports: Diabetes Mellitus Type 2 Denies: Diabetes Mellitus Type 1 Complications of Diabetes: Reports: Retinopathy Renal/ Medical History: Reports: End Stage Renal Disease, Secondary Hyperparathyroidism Denies: Benign Prostatic Hyperplasia GI Medical History: Reports: Gastroesophageal Reflux Disease Denies: Cirrhosis Musculoskeltal Medical History: Reports: Arthritis Psychiatric Medical History: Reports: Depression Denies: Bipolar Disorder Hematology Medical History: Reports Anemia of Chronic Kidney Disease Past Surgical History Past Surgical History: Reports: Cholecystectomy, Dialysis Access Surgery AVF, Herniorrhaphy, Orthopedic Surgery - rt hip, Vascular Surgery - Right arm AV fistula Denies: Pacemaker Social History Smoking Status: Current Every Day Smoker Frequency of Alcohol Use: None Hx Recreational Drug Use: No Drugs: None Hx Prescription Drug Abuse: No - Advance Directive Resuscitation Status: Full Code Family History Parental Family History Reviewed: Yes - negative for ESRD Children Family History Reviewed: No Sibling(s) Family History Reviewed.: No Medication/Allergy Home Medications: B Complex W-C No.20/Folic Acid [Virt-Caps Softgel] 1 cap PO DAILY 12/28/18 Calcium Acetate [Phoslo 667 mg Capsule] 2,001 mg PO MEALS 12/28/18 Clonidine HCl [Catapres 0.2 mg Tablet] 0.2 mg PO Q12 12/28/18 Furosemide [Lasix 20 mg Tablet] 20 mg PO QAM 12/28/18 Hydroxyzine HCl [Atarax 10 mg Tablet] 10 mg PO Q8HP PRN 12/28/18 Insulin Aspart [Novolog Flexpen] 5 unit SUBCUT AC 12/28/18 Insulin Glargine,Hum.rec.anlog [Lantus Insulin 100 Unit/1 ml 10 ml] 50 unit SUBCUT DAILY 12/28/18 Losartan Potassium [Cozaar 50 mg Tablet] 50 mg PO DAILY 12/28/18 Metoprolol Succinate [Toprol XL 100 mg Tablet] 200 mg PO DAILY 12/28/18 Omeprazole 40 mg PO QAM 12/28/18 Ondansetron HCl [Zofran 4 mg Tablet] 1 tab PO Q8HP PRN 12/28/18 Oxycodone HCl [Oxy-Ir 5 mg Tablet] 5 mg PO Q8HP PRN 12/28/18 Phenytoin Sodium Extended 100 mg PO Q8 12/28/18 Pregabalin [Lyrica 75 mg Capsule] 75 mg PO MOWEFR@1000,2200 12/28/18 Pregabalin [Lyrica 75 mg Capsule] 75 mg PO SUTUTHSA@1000 12/28/18 Aspirin [Aspirin 81 mg Chewable Tablet] 81 mg PO DAILY #30 tab.chew 12/31/18 Atorvastatin Calcium [Lipitor 80 mg Tablet] 80 mg PO QHS #30 tablet 12/31/18 Clopidogrel Bisulfate [Plavix 75 mg Tablet] 75 mg PO DAILY #30 tablet 12/31/18 Allergies/Adverse Reactions: hydromorphone [Hydromorphone] Allergy (Intermediate, Verified 12/28/18 12:14) ABDOMINAL CRAMPS azithromycin [Azithromycin] Allergy (Unknown, Verified 12/28/18 12:14) Darbepoetin Chandrika in [place] * [From Aranesp] Allergy (Unknown, Verified 12/28/18 12:14) ITCHING epoetin chandrika [From Procrit] Allergy (Verified 12/28/18 12:14) Sulfa (Sulfonamide Antibiotics) Allergy (Verified 12/28/18 12:14) Unsure BBQ SAUCE Allergy (Mild, Uncoded 12/28/18 12:14) Hives Review of Systems Constitutional: PRESENT: fatigue, weakness. ABSENT: fever(s), headache(s), night sweats Eyes: PRESENT: visual disturbances - chronic and not new. Nose, Mouth, and Throat: ABSENT: mouth pain, sore throat Cardiovascular: PRESENT: dyspnea on exertion, edema. ABSENT: chest pain, orthropnea Respiratory: ABSENT: cough, hemoptysis Gastrointestinal: ABSENT: abdominal pain, coffee ground emesis, constipation, diarrhea, dysphagia, heartburn, hematemesis, hematochezia Neurological: PRESENT: abnormal speech, focal weakness. ABSENT: confusion, convulsions, numbness Hematologic/Lymphatic: ABSENT: easy bruising, lymphadenopathy Physical Exam Vital Signs: Temp Pulse Resp BP Pulse Ox 99.1 F 84 18 133/45 H 96 12/30/18 13:22 12/30/18 07:47 12/30/18 13:22 12/30/18 13:22 12/30/18 07:47 Intake & Output 12/29/18 12/30/18 12/31/18 06:59 06:59 06:59 Intake Total 1679 Output Total 1 2800 Balance 1678 -2800 Weight 112.8 kg 112.8 kg General appearance: PRESENT: no acute distress Eye exam: PRESENT: EOMI, PERRLA Ear exam: PRESENT: normal external ear exam Mouth exam: PRESENT: moist Neck exam: ABSENT: meningismus, tenderness, thyromegaly, tracheal deviation Respiratory exam: PRESENT: clear to auscultation alaina. ABSENT: crackles Cardiovascular exam: PRESENT: +S1, +S2, systolic murmur GI/Abdominal exam: PRESENT: normal bowel sounds, soft. ABSENT: organomegaly, tenderness Extremities exam: PRESENT: pedal edema Neurological exam: PRESENT: awake, oriented to person, oriented to place. ABSENT: oriented to time Skin exam: ABSENT: erythema, mottled, rash Results Laboratory Results: 12/30/18 05:50 12/30/18 05:50 12/30/18 12/30/18 05:50 05:50 WBC 6.9 RBC 3.24 L Hgb 10.2 L Hct 30.9 L MCV 95 MCH 31.4 MCHC 32.9 RDW 15.6 H Plt Count 235 Sodium 137.0 Potassium 5.1 H Chloride 95 L Carbon Dioxide 26 Anion Gap 16 BUN 53 H Creatinine 7.82 H Est GFR ( Amer) 7 L Est GFR (Non-Af Amer) 6 L Glucose 157 H Calcium 9.1 12/28/18 14:40 CK-MB (CK-2) 0.80 Impressions: Head MRI 12/28/18 00:00 IMPRESSION: 1. Numerous scattered focal acute infarcts in the left MCA territory. No hemorrhage or mass effect. 2. Consider CTA head/neck to evaluate for carotid or MCA lesion. 3. Chronic ischemic changes with old lacunar infarcts as described. Head CT 12/28/18 12:35 IMPRESSION: MILD CHRONIC CHANGES OF ATROPHY AND MICROVASCULAR ISCHEMIA. NO ACUTE PROCESS. EVIDENCE OF ACUTE STROKE: NO. Carotid Doppler Study 12/29/18 00:00 IMPRESSION: 1. The examination is somewhat limited due to patient's body habitus. 2. Mild calcified plaque in the right proximal ICA. 3. NO HEMODYNAMICALLY SIGNIFICANT STENOSIS. Assessment & Plan - Diagnosis (1) Acute encephalopathy Is this a current diagnosis for this admission?: Yes Plan: From apparent ischemic infarcts of the left MCA territory. (2) Acute ischemic infarcts the left MCA Is this a current diagnosis for this admission?: Yes Plan: Being evaluated by the hospitalist. (3) End-stage renal disease on hemodialysis Is this a current diagnosis for this admission?: Yes Plan: Undergoing dialysis without any issues. Vital signs are stable. Dialysis is being supervised to ensure safe and smooth procedure. Dialysis orders were reviewed and discussed with the treating dialysis nurse. (4) Morbid obesity with BMI of 45.0-49.9, adult Is this a current diagnosis for this admission?: Yes Plan: Status quo. (5) Peripheral arterial disease Is this a current diagnosis for this admission?: Yes Plan: Has been evaluated and worked on by vascular surgeon. Currently not an issue. (6) Type 2 diabetes mellitus Is this a current diagnosis for this admission?: Yes Plan: Unfortunately not well controlled. Discussed the need for tight control for obvious reasons. (7) Anemia in chronic kidney disease Plan: He has got a mild allergy to erythropoietin and has a skin rash. Therefore we try to avoid it as much as possible.Currently hemoglobin 10.2 with no indication for erythropoietin.
[2018-12-31] MEDS: PHENYTOIN SODIUM EXTENDED 100 MG CAPSULE PO SCH (05:16)
[2018-12-31] MEDS: HEPARIN SOD (PORCINE) 5,000 UNIT/ML 1 ML SYRINGE SUBCUT SCH (05:16)
[2018-12-31] MEDS: FUROSEMIDE 20 MG TABLET PO SCH (08:37)
[2018-12-31] MEDS: CALCIUM ACETATE 667 MG CAPSULE PO SCH ×2 (08:38→11:50)
[2018-12-31] MEDS: INSULIN LISPRO 100 UNIT/ML 3 ML VIAL SUBCUT SCH ×2 (08:38→11:51)
--- NOTE | 2018-12-31 09:42 | PDOC DISCHARGE SUMMARY ---
General - Admit/Disc Date/PCP Admission Date/Primary Care Provider: 12/28/18 17:55 TRESA OH MD Discharge Date: 12/31/18 - Discharge Diagnosis (1) Acute ischemic infarcts the left MCA Is this a current diagnosis for this admission?: Yes (2) Acute encephalopathy Is this a current diagnosis for this admission?: Yes (3) History of CHF (congestive heart failure) Is this a current diagnosis for this admission?: Yes (4) End-stage renal disease on hemodialysis Is this a current diagnosis for this admission?: Yes (5) Type 2 diabetes mellitus Is this a current diagnosis for this admission?: Yes (6) Legally blind Is this a current diagnosis for this admission?: Yes (7) Morbid obesity with BMI of 45.0-49.9, adult Is this a current diagnosis for this admission?: Yes (8) Coronary artery disease Is this a current diagnosis for this admission?: Yes (9) Hypertension Is this a current diagnosis for this admission?: Yes (10) Current everyday smoker Is this a current diagnosis for this admission?: Yes (11) Hyperlipidemia Is this a current diagnosis for this admission?: Yes (12) History of CVA (cerebrovascular accident) without residual deficits Is this a current diagnosis for this admission?: Yes (13) Peripheral arterial disease Is this a current diagnosis for this admission?: Yes - Additional Information Resuscitation Status: Full Code Home Medications: B Complex W-C No.20/Folic Acid [Virt-Caps Softgel] 1 cap PO DAILY 12/28/18 Calcium Acetate [Phoslo 667 Mg Capsule] 2,001 mg PO MEALS 12/28/18 Clonidine HCl [Catapres 0.2 mg Tablet] 0.2 mg PO Q12 12/28/18 Furosemide [Lasix 20 mg Tablet] 20 mg PO QAM 12/28/18 Hydroxyzine HCl [Atarax 10 mg Tablet] 10 mg PO Q8HP PRN 12/28/18 Insulin Aspart [Novolog Flexpen] 5 unit SUBCUT AC 12/28/18 Insulin Glargine,Hum.rec.anlog [Lantus Insulin 100 Unit/1 ml 10 ml] 50 unit SUBCUT DAILY 12/28/18 Losartan Potassium [Cozaar 50 mg Tablet] 50 mg PO DAILY 12/28/18 Metoprolol Succinate [Toprol XL 100 mg Tablet] 200 mg PO DAILY 12/28/18 Omeprazole 40 mg PO QAM 12/28/18 Ondansetron HCl [Zofran 4 mg Tablet] 1 tab PO Q8HP PRN 12/28/18 Oxycodone HCl [Oxy-Ir 5 mg Tablet] 5 mg PO Q8HP PRN 12/28/18 Phenytoin Sodium Extended 100 mg PO Q8 12/28/18 Pregabalin [Lyrica 75 mg Capsule] 75 mg PO MOWEFR@1000,2200 12/28/18 Pregabalin [Lyrica 75 mg Capsule] 75 mg PO SUTUTHSA@1000 12/28/18 Simvastatin [Zocor 10 mg Tablet] 10 mg PO QHS 12/28/18 History of Present Illness History of Present Illness: DIAN SLAUGHTER is a 43 year old black female patient with multiple comorbidities including legally blind, diabetes mellitus, end-stage renal di sease on hemodialysis, history of stroke, coronary 30s,, hypertension, hyperlipidemia, peripheral arterial disease and CHF brought by her daughter for altered mental status and difficulty speaking. Since patient has aphasia patient could not give any meaningful history. History is obtained from her daughter who is in the room during my encounter. But her daughter, patient started to have confusion yesterday but she could not brought her. And this afternoon at about 3 PM patient is not able to speak. Her daughter states "she is not able to put words together into sentences and does not make sense". No trauma to her head. No fever, chills palpitation or diaphoresis. Further detailed history and review of systems unobtainable. Hospital Course Hospital Course: DIAN SLAUGHTER is a 43 year old black female patient with multiple comorbidities including legally blind, diabetes mellitus, end-stage renal disease on hemodialysis, history of stroke, coronary 30s,, hypertension, hyperlipidemia, peripheral arterial disease and CHF brought by her daughter for altered mental status and difficulty speaking. Patient has also history of prior stroke without residual deficit. Her CT scan is negative for acute intracranial process. MRI numerous scattered focal acute infarcts in the left MCA territory. No hemorrhage or mass-effect. Radiologist recommended CTA head/neck to evaluate for carotid or MCA lesion but this could not be done because patient could not have IV access because of her AV fistula in both hands. Carotid Doppler done and the report is no hemodynamically significant stenosis. Patient has been started on high intensity Lipitor, aspirin and Plavix. Her echo reported as no obvious cardiac source of embolus. I have noel thy discussion with the patient regarding the need for lifestyle modifications a form of healthy diet and weight loss. I counseled and encouraged her to quit smoking and she was in agreement. Her vitals and blood works are unremarkable. Patient is stable enough to go home. I will send her home with aspirin, Plavix, Lipitor and home health. Physical Exam Vital Signs: Temp Pulse Resp BP Pulse Ox 99.0 F 83 15 115/61 93 12/31/18 08:51 12/31/18 08:51 12/31/18 08:51 12/31/18 08:51 12/31/18 09:18 Intake & Output 12/30/18 12/31/18 01/01/19 06:59 06:59 06:59 Intake Total 1679 300 Output Total 1 2800 Balance 1678 -2500 Weight 112.8 kg 111.4 kg General appearance: PRESENT: no acute distress Head exam: PRESENT: atraumatic Mouth exam: PRESENT: moist Neck exam: ABSENT: carotid bruit, JVD, lymphadenopathy, thyromegaly Respiratory exam: PRESENT: clear to auscultation alaina. ABSENT: rales, rhonchi, wheezes Cardiovascular exam: PRESENT: RRR. ABSENT: diastolic murmur, rubs, systolic murmur GI/Abdominal exam: PRESENT: normal bowel sounds, soft. ABSENT: distended, guarding, mass, organolmegaly, rebound, tenderness Neurological exam: PRESENT: alert, awake Results Laboratory Results: 12/30/18 05:50 12/30/18 05:50 12/28/18 14:40 CK-MB (CK-2) 0.80 Impressions: Head MRI 12/28/18 00:00 IMPRESSION: 1. Numerous scattered focal acute infarcts in the left MCA territory. No hemorrhage or mass effect. 2. Consider CTA head/neck to evaluate for carotid or MCA lesion. 3. Chronic ischemic changes with old lacunar infarcts as described. Head CT 12/28/18 12:35 IMPRESSION: MILD CHRONIC CHANGES OF ATROPHY AND MICROVASCULAR ISCHEMIA. NO ACUTE PROCESS. EVIDENCE OF ACUTE STROKE: NO. Carotid Doppler Study 12/29/18 00:00 IMPRESSION: 1. The examination is somewhat limited due to patient's body habitus. 2. Mild calcified plaque in the right proximal ICA. 3. NO HEMODYNAMICALLY SIGNIFICANT STENOSIS. Qualifiers - * PATIENT BEING DISCHARGED WITH ANY OF THE FOLLOWING DIAGNOSIS: No Acute Heart Failure Is this a Heart Failure Patient?: No
[2018-12-31] MEDS: METOPROLOL SUCCINATE 50 MG TAB.SR.24H PO SCH (10:06)
[2018-12-31] MEDS: FOLIC ACID/VITAMIN B COMP W-C CAPSULE PO SCH (10:06)
[2018-12-31] MEDS: DOCUSATE SODIUM 100 MG CAPSULE PO SCH (10:07)
[2018-12-31] MEDS: CLONIDINE HCL 0.2 MG TABLET PO SCH (10:07)
[2018-12-31] MEDS: FAMOTIDINE 20 MG TABLET PO SCH (10:07)
[2018-12-31] MEDS: LOSARTAN POTASSIUM 50 MG TABLET PO SCH (10:07)
[2018-12-31] MEDS: ASPIRIN 81 MG TABLET, CHEWABLE PO SCH (10:07)
[2018-12-31] MEDS: PREGABALIN 75 MG CAPSULE PO SCH (10:12)
[2018-12-31 11:57] VITALS: BP 120/57
== END 2018-12-31 13:01 | disposition home or self-care (01) | DRG 64 ==
LOC: ER 12:13 → EH 17:55 → 3W 21:20
PROVIDERS: ADMIT Internal Medicine; ATTEND Internal Medicine
DX: I63.442 Cerebral infarction due to embolism of left cerebellar artery (principal); N18.6 End stage renal disease; Z68.42 Body mass index [BMI] 45.0-49.9, adult; I13.2 Hypertensive heart and chronic kidney disease with heart failure and with stage 5 chronic kidney disease, or end stage renal disease; I50.32 Chronic diastolic (congestive) heart failure; N25.81 Secondary hyperparathyroidism of renal origin; E11.22 Type 2 diabetes mellitus with diabetic chronic kidney disease; I25.10 Atherosclerotic heart disease of native coronary artery without angina pectoris; H54.8 Legal blindness, as defined in USA; F17.210 Nicotine dependence, cigarettes, uncomplicated; E78.5 Hyperlipidemia, unspecified; E11.51 Type 2 diabetes mellitus with diabetic peripheral angiopathy without gangrene; D63.1 Anemia in chronic kidney disease; E11.319 Type 2 diabetes mellitus with unspecified diabetic retinopathy without macular edema; E66.01 Morbid (severe) obesity due to excess calories; E11.65 Type 2 diabetes mellitus with hyperglycemia; K21.9 Gastro-esophageal reflux disease without esophagitis; F32.9 Major depressive disorder, single episode, unspecified; Z79.4 Long term (current) use of insulin; Z79.899 Other long term (current) drug therapy; Z79.891 Long term (current) use of opiate analgesic; Z99.2 Dependence on renal dialysis; Z88.6 Allergy status to analgesic agent; Z88.1 Allergy status to other antibiotic agents; Z88.2 Allergy status to sulfonamides; Z88.8 Allergy status to other drugs, medicaments and biological substances
CPT/HCPCS: 36415; 70450; 70551; 80048; 80053; 80061; 82140; 82553; 82803; 82962; 83036; 83605; 84702; 85025; 85027; 85610; 85730; 93005; 93010; 93306; 93880; 99285; J1644; J1815

== ENCOUNTER 2019-06-11 11:47 | Inpatient (IN) | payer MEDICAID ==
--- NOTE | 2019-06-11 13:57 | ER Document Report ---
ED General - General Chief Complaint: Leg Injury Stated Complaint: POSSIBLE WOUND INFECTION Time Seen by Provider: 06/11/19 12:08 Notes: Patient is here to be seen for malodorous, draining lesions of her lower extremities, primarily the right one. Patient is a dialysis patient, dialyzed Friday, Friday, and Friday. She was dialyzed today and says that she spoke with her plant assigner, Dr. Duff, who advised her to come to the emergency department for care of her skin lesions. Patient says that she has had these lesions on her lower extremities for well over a year. She sees a local provider who was going to supposedly make her an appointment to be seen at the wound care clinic, but she does not have that appointment yet. Her concern today is that earlier this week, she noticed a foul odor to the left lower leg bandages when they were removed and, she noticed that they are having some white drainage from the lesions this week. The bandages are changed by family members a couple of times a day. Patient has not had any fevers. Patient, as mentioned, is a dialysis patient and she is also blind. TRAVEL OUTSIDE OF THE [place] IN LAST 30 DAYS: No - Related Data Allergies/Adverse Reactions: hydromorphone [Hydromorphone] Allergy (Intermediate, Verified 12/28/18 12:14) ABDOMINAL CRAMPS azithromycin [Azithromycin] Allergy (Unknown, Verified 12/28/18 12:14) Darbepoetin [place] in [place] * [From Aranesp] Allergy (Unknown, Verified 12/28/18 12:14) ITCHING epoetin milan [From Procrit] Allergy (Verified 12/28/18 12:14) Sulfa (Sulfonamide Antibiotics) Allergy (Verified 12/28/18 12:14) Unsure BBQ SAUCE Allergy (Mild, Uncoded 12/28/18 12:14) Hives Past Medical History - Social History Smoking Status: Former Smoker Chew tobacco use (# tins/day): No Frequency of alcohol use: None Drug Abuse: None Family History: Reviewed & Not Pertinent Patient has suicidal ideation: No Patient has homicidal ideation: No - Past Medical History Cardiac Medical History: Reports: Hx Congestive Heart Failure, Hx Coronary Artery Disease, Hx Hypercholesterolemia, Hx Hypertension, Hx Peripheral Vascular Disease Denies: Hx Heart Attack Neurological Medical History: Reports: Hx Cerebrovascular Accident - 2004, Hx Seizures. Denies: Hx Parkinson's Disease Endocrine Medical History: Reports: Hx Diabetes Mellitus Type 2. Denies: Hx Diabetes Mellitus Type 1 Renal/ Medical History: Reports: Hx End Stage Renal Disease, Hx Hemodialysis - Friday, Friday, and Friday GI Medical History: Reports: Hx Gastroesophageal Reflux Disease. Denies: Hx Cirrhosis, Hx Ulcer Musculoskeletal Medical History: Reports Hx Arthritis, Denies Hx Multiple Sclerosis Skin Medical History: Reports Hx Cellulitis Psychiatric Medical History: Reports: Hx Depression Denies: Hx Bipolar Disorder, Hx Schizophrenia Traumatic Medical History: Reports: Hx Fractures - Rt. Hip Infectious Medical History: Past Surgical History: Reports: Hx Abdominal Surgery - abd hernia repair, Hx Cholecystectomy, Hx Herniorrhaphy, Hx Orthopedic Surgery - rt hip, Hx Vascular Surgery - Right arm AV fistula. Denies: Hx Pacemaker - Immunizations Immunizations up to date: Yes Hx Diphtheria, Pertussis, Tetanus Vaccination: Yes Hx Pneumococcal Vaccination: 08/25/12 Review of Systems - Review of Systems Notes: REVIEW OF SYSTEMS: CONSTITUTIONAL : Denies fever. EENT: Denies eye, ear, nose or mouth or throat pain or other symptoms. CARDIOVASCULAR: Denies chest pain. RESPIRATORY: Denies cough, chest congestion, or shortness of breath. GASTROINTESTINAL: Denies abdominal pain or nausea, vomiting, or diarrhea. GENITOURINARY: Denies difficulty or painful urinating, urinary frequency, blood in urine. MUSCULOSKELETAL: Denies back or neck pain. Denies joint pain or swelling. SKIN: See HPI. NEUROLOGICAL: Denies LOC or altered mental status. Denies headache. Denies sensory loss or motor deficits. ALL OTHER SYSTEMS REVIEWED AND NEGATIVE. Physical Exam - Vital signs Vitals: Temp Pulse Resp BP Pulse Ox 98.3 F 79 18 140/60 H 100 06/11/19 12:10 06/11/19 12:10 06/11/19 12:10 06/11/19 12:10 06/11/19 12:10 Interpretation: Normal Notes: PHYSICAL EXAMINATION: GENERAL: Well-appearing, in no acute distress. Patient is blind. HEAD: Atraumatic, normocephalic. EYES: Pupils equal round and reactive to light, extraocular movements intact. ENT: oropharynx clear without exudates. Moist mucous membranes. NECK: Normal range of motion, supple. LUNGS: Breath sounds clear and equal bilaterally. HEART: Regular rate and rhythm without murmurs. ABDOMEN: Soft, nontender. No guarding or rebound. No masses. BACK: No tenderness throughout entire back. EXTREMITIES: Normal range of motion without pain. NEUROLOGICAL: Normal speech. Normal sensory, motor, and reflex exams. Awake, alert, and oriented x3. Cranial nerves normal. PSYCH: seems depressed Skin: Patient has numerous raised lesions of both lower extremities from the knees down. The right lower leg appears to be swollen compared to the left. I do not palpate any fluctuance such as an abscess. Patient has a very large skin ulcer on the posterior aspect of the right lower leg, midportion posteriorly. I debrided off some of the necrotic appearing tissue there. She has many pustules of the right lower leg which appear to be draining a purulent material. A culture was obtained. I do not think the patient has any indication of a positive Homans. Elsewhere, patient has some isolated skin lesions near the right elbow and right wrist, worrisome for disseminated infection. Course - Re-evaluation Re-evalutation: 06/11/19 15:03 Labs obtained. Spoke with Dr. Duff who feels the patient can be taken care of at this hospital as an inpatient. Spoke with Dr. Brantley, surgeon hadoop consultant, and he will consult on the patient. Spoke with hospitalist and patient will be admitted to their service, floor bed. - Vital Signs Vital signs: Temp Pulse Resp BP Pulse Ox 98.3 F 79 18 140/60 H 100 06/11/19 12:10 06/11/19 12:10 06/11/19 12:10 06/11/19 12:10 06/11/19 12:10 - Laboratory Result Diagrams: 06/11/19 14:21 06/11/19 14:21 Laboratory results interpreted by me: 06/11/19 06/11/19 14:21 14:21 RBC 3.27 L Hgb 10.2 L Hct 31.4 L RDW 14.9 H Lymph % (Auto) 7.8 L Seg Neutrophils % 85.0 H Chloride 94 L Carbon Dioxide 32 H Creatinine 4.14 H Est GFR ( Amer) 14 L Est GFR (MDRD) Non-Af 12 L Alkaline Phosphatase 184 H Total Protein 10.3 H Discharge - Discharge Clinical Impression: Cellulitis, Pustule, Pressure ulcer Condition: Stable Disposition: ADMITTED INPATIENT Admitting Provider: Simone Cho Unit Admitted: Medical Floor
[2019-06-11 14:39] LABS: ABSOLUTE BASOPHILS # (AUTO) 0.1 10^3/uL (0.0-0.2); ABSOLUTE LYMPHOCYTES (AUTO) 0.7 10^3/uL (0.5-4.7); ABSOLUTE MONOCYTES (AUTO) 0.6 10^3/uL (0.1-1.4); ABSOLUTE NEUT (AUTO) 7.8 10^3/uL (1.7-8.2); BASOPHILS % (AUTO) 0.7 % (0-2); HEMATOCRIT 31.4 % (36.0-47.0); HEMOGLOBIN 10.2 g/dL (12.0-15.5); LYMPHOCYTES % (AUTO) 7.8 % (13-45); MEAN CORPUSCULAR HEMOGLOBIN 31.2 pg (27.0-33.4); MEAN CORPUSCULAR HGB CONC 32.4 g/dL (32.0-36.0); MEAN CORPUSCULAR VOLUME 96 fl (80-97); MONOCYTES % (AUTO) 6.5 % (3-13); PLATELET COUNT 296 10^3/uL (150-450); RED BLOOD COUNT 3.27 10^6/uL (3.72-5.28); RED CELL DISTRIBUTION WIDTH 14.9 % (11.5-14.0); TOTAL CELLS COUNTED % (AUTO) 100 %; WHITE BLOOD COUNT 9.2 10^3/uL (4.0-10.5)
[2019-06-11 14:57] LABS: ALBUMIN 4.3 g/dL (3.5-5.0); ALKALINE PHOSPHATASE 184 U/L (38-126); ANION GAP 12 (5-19); ASPARTATE AMINO TRANSFERASE 22 U/L (14-36); BILIRUBIN,DIRECT 0.4 mg/dL (0.0-0.4); BILIRUBIN,TOTAL 0.5 mg/dL (0.2-1.3); BLOOD UREA NITROGEN 20 mg/dL (7-20); CALCIUM 9.2 mg/dL (8.4-10.2); CARBON DIOXIDE 32 mmol/L (22-30); CHLORIDE 94 mmol/L (98-107); GLUCOSE 94 mg/dL (75-110); POTASSIUM 3.7 mmol/L (3.6-5.0); TOTAL PROTEIN 10.3 g/dL (6.3-8.2)
[2019-06-11] MEDS ORDERED: MAG HYDROX/AL HYDROX/SIMETH SUSP 30 ML UDCUP PO PRN (15:01)
[2019-06-11] MEDS ORDERED: ONDANSETRON HCL INJ/PF 4 MG/2 ML SDV IV PRN (15:01)
[2019-06-11] MEDS ORDERED: ZOLPIDEM TARTRATE 5 MG TABLET PO PRN (15:01)
[2019-06-11] MEDS ORDERED: ACETAMINOPHEN 325 MG TABLET PO PRN (15:01)
[2019-06-11] MEDS ORDERED: VANCOMYCIN HCL 0 MG in DEXTROSE 5%-WATER 250 ML IV NR (15:15)
[2019-06-11] MEDS ORDERED: DEXTROSE 40% GEL 15 GM TUBE PO PRN ×2 (15:17)
[2019-06-11] MEDS ORDERED: DEXTROSE 50%-WATER 25 GM/50 ML DISP.SYRIN IV PRN ×2 (15:17)
[2019-06-11] MEDS ORDERED: GLUCAGON,HUMAN RECOMB 1 MG INJ IM PRN (15:17)
--- NOTE | 2019-06-11 15:26 | PDOC H&P ---
History of Present Illness Admission Date/PCP: 06/11/2019 WESLEY ALBERTS MD Patient complains of: Wound infection right lower extremity History of Present Illness: DIAN SLAUGHTER is a 43 year old female Past Medical History Cardiac Medical History: Reports: Congestive Heart Failure, Coronary Artery Disease, Hyperlipidema, Hypertension, Peripheral Vascular Disease Denies: Myocardial Infarction Pulmonary Medical History: Denies: Asthma, Bronchitis, Chronic Obstructive Pulmonary Disease (COPD), Pneumonia, Tuberculosis Neurological Medical History: Reports: Seizures Endocrine Medical History: Reports: Diabetes Mellitus Type 2 Denies: Diabetes Mellitus Type 1 Renal/ Medical History: Reports: End Stage Renal Disease GI Medical History: Reports: Gastroesophageal Reflux Disease Denies: Cirrhosis Musculoskeltal Medical History: Reports: Arthritis Psychiatric Medical History: Reports: Depression Denies: Bipolar Disorder Hematology: Reports: Anemia Denies: Bleeding Tendencies Past Surgical History Past Surgical History: Reports: Cholecystectomy, Herniorrhaphy, Orthopedic Surgery - rt hip, Vascular Surgery - Right arm AV fistula Denies: Pacemaker Social History Information Source: Patient Lives with: Family Smoking Status: Former Smoker Electronic Cigarette use?: No Frequency of Alcohol Use: None Hx Recreational Drug Use: No Drugs: None Hx Prescription Drug Abuse: No - Advance Directive Resuscitation Status: Full Code Family History Family History: DM, Hypertension Parental Family History Reviewed: Yes Children Family History Reviewed: Yes Sibling(s) Family History Reviewed.: Yes Medication/Allergy Home Medications: B Complex W-C No.20/Folic Acid [Virt-Caps Softgel] 1 cap PO DAILY 12/28/18 Calcium Acetate [Phoslo 667 mg Capsule] 2,001 mg PO MEALS 12/28/18 Clonidine HCl [Catapres 0.2 mg Tablet] 0.2 mg PO Q12 12/28/18 Furosemide [Lasix 20 mg Tablet] 20 mg PO QAM 12/28/18 Hydroxyzine HCl [Atarax 10 mg Tablet] 10 mg PO Q8HP PRN 12/28/18 Insulin Aspart [Novolog Flexpen] 5 unit SUBCUT AC 12/28/18 Insulin Glargine,Hum.rec.anlog [Lantus Insulin 100 Unit/1 ml 10 ml] 50 unit SUBCUT DAILY 12/28/18 Losartan Potassium [Cozaar 50 mg Tablet] 50 mg PO DAILY 12/28/18 Metoprolol Succinate [Toprol XL 100 mg Tablet] 200 mg PO DAILY 12/28/18 Omeprazole 40 mg PO QAM 12/28/18 Ondansetron HCl [Zofran 4 mg Tablet] 1 tab PO Q8HP PRN 12/28/18 Oxycodone HCl [Oxy-Ir 5 mg Tablet] 5 mg PO Q8HP PRN 12/28/18 Phenytoin Sodium Extended 100 mg PO Q8 12/28/18 Pregabalin [Lyrica 75 mg Capsule] 75 mg PO MOWEFR@1000,2200 12/28/18 Pregabalin [Lyrica 75 mg Capsule] 75 mg PO SUTUTHSA@1000 12/28/18 Aspirin [Aspirin 81 mg Chewable Tablet] 81 mg PO DAILY #30 tab.chew 12/31/18 Atorvastatin Calcium [Lipitor 80 mg Tablet] 80 mg PO QHS #30 tablet 12/31/18 Clopidogrel Bisulfate [Plavix 75 mg Tablet] 75 mg PO DAILY #30 tablet 12/31/18 Allergies/Adverse Reactions: hydromorphone [Hydromorphone] Allergy (Intermediate, Verified 12/28/18 12:14) ABDOMINAL CRAMPS azithromycin [Azithromycin] Allergy (Unknown, Verified 12/28/18 12:14) Darbepoetin [place] in [place] * [From Aranesp] Allergy (Unknown, Verified 12/28/18 12:14) ITCHING epoetin [place]andrika [From Procrit] Allergy (Verified 12/28/18 12:14) Sulfa (Sulfonamide Antibiotics) Allergy (Verified 12/28/18 12:14) Unsure BBQ SAUCE Allergy (Mild, Uncoded 12/28/18 12:14) Hives Review of Systems Constitutional: ABSENT: chills, fever(s), headache(s), weight gain, weight loss Eyes: ABSENT: visual disturbances Ears: ABSENT: hearing changes Cardiovascular: ABSENT: chest pain, dyspnea on exertion, edema, orthropnea, palpitations Respiratory: ABSENT: cough, hemoptysis Gastrointestinal: ABSENT: abdominal pain, constipation, diarrhea, hematemesis, hematochezia, nausea, vomiting Genitourinary: ABSENT: dysuria, hematuria Musculoskeletal: ABSENT: joint swelling Integumentary: PRESENT: wounds, other - Diabetic ulcer right calf. ABSENT: rash Neurological: ABSENT: abnormal gait, abnormal speech, confusion, dizziness, focal weakness, syncope Psychiatric: ABSENT: anxiety, depression, homidical ideation, suicidal ideation Endocrine: ABSENT: cold intolerance, heat intolerance, polydipsia, polyuria Hematologic/Lymphatic: ABSENT: easy bleeding, easy bruising Physical Exam Vital Signs: Temp Pulse Resp BP Pulse Ox 98.3 F 79 18 140/60 H 100 06/11/19 12:10 06/11/19 12:10 06/11/19 12:10 06/11/19 12:10 06/11/19 12:10 Intake & Output 06/10/19 06/11/19 06/12/19 06:59 06:59 06:59 Weight 106.594 kg General appearance: PRESENT: no acute distress, well-developed, well-nourished Head exam: PRESENT: atraumatic, normocephalic Eye exam: PRESENT: conjunctiva pink, EOMI, PERRLA, other - Patient is blind. ABSENT: scleral icterus Ear exam: PRESENT: normal external ear exam Mouth exam: PRESENT: moist, tongue midline Neck exam: ABSENT: carotid bruit, JVD, lymphadenopathy, thyromegaly Respiratory exam: PRESENT: clear to auscultation alaina. ABSENT: rales, rhonchi, wheezes Cardiovascular exam: PRESENT: RRR. ABSENT: diastolic murmur, rubs, systolic murmur Pulses: PRESENT: +1 pedal pulses bilateral Vascular exam: PRESENT: normal capillary refill GI/Abdominal exam: PRESENT: normal bowel sounds, soft. ABSENT: distended, guarding, mass, organolmegaly, rebound, tenderness Rectal exam: PRESENT: deferred Extremities exam: PRESENT: full ROM, other - Right brachial AV fistula good thrill and bruit. ABSENT: calf tenderness, clubbing, pedal edema Neurological exam: PRESENT: alert, awake, oriented to person, oriented to place, oriented to time, oriented to situation, CN II-XII grossly intact. ABSENT: motor sensory deficit Psychiatric exam: PRESENT: appropriate affect, normal mood. ABSENT: homicidal ideation, suicidal ideation Skin exam: PRESENT: dry, intact, warm. ABSENT: cyanosis, rash Results Laboratory Results: 06/11/19 14:21 06/11/19 14:21 06/11/19 06/11/19 14:21 14:21 WBC 9.2 RBC 3.27 L Hgb 10.2 L Hct 31.4 L MCV 96 MCH 31.2 MCHC 32.4 RDW 14.9 H Plt Count 296 Seg Neutrophils % 85.0 H Sodium 137.5 Potassium 3.7 Chloride 94 L Carbon Dioxide 32 H Anion Gap 12 BUN 20 Creatinine 4.14 H Est GFR ( Amer) 14 L Glucose 94 Calcium 9.2 Total Bilirubin 0.5 AST 22 Alkaline Phosphatase 184 H Total Protein 10.3 H Albumin 4.3 Assessment and Plan - Diagnosis (1) Diabetic ulcer of right calf Is this a current diagnosis for this admission?: Yes Plan: 06/11/2019-admit to medical surgical. IV vancomycin and Zosyn per pharmacy dosing. Wound cultures blood cultures. Surgery has been consulted for evaluation for possible surgical I/D. (2) End stage renal disease Is this a current diagnosis for this admission?: Yes Plan: 06/11/2019-Friday we will consult nephrology for dialysis on Friday morning (3) Anemia Qualifiers: Anemia type: due to chronic kidney disease Chronic kidney disease stage: on chronic dialysis Qualified Code(s): N18.6 - End stage renal disease; D63.1 - Anemia in chronic kidney disease; D63.1 - Anemia in chronic kidney disease; Z99.2 - Dependence on renal dialysis; Z99.2 - Dependence on renal dialysis; Z99.2 - Dependence on renal dialysis; Z99.2 - Dependence on renal dialysis Is this a current diagnosis for this admission?: Yes Plan: 06/11/2019-chronic stable continue to follow (4) Diabetes mellitus type 2 in obese Is this a current diagnosis for this admission?: Yes Plan: -continue Lantus from home. Will place patient on sliding scale insulin before meals and at bedtime and a carbohydrate controlled diet. (5) Hypertension Qualifiers: Hypertension type: essential hypertension Qualified Code(s): I10 - Essential (primary) hypertension Is this a current diagnosis for this admission?: Yes Plan: -once medications been reconciled I will continue all home medications (6) Seizure disorder Is this a current diagnosis for this admission?: Yes Plan: 06/11/2019-once medication reconciliation complete we will continue all home antiepileptics - Time Time Spent with patient: 35 or more minutes - Inpatient Certification Based on my medical assessment, after consideration of the patient's comorbidities, presenting symptoms, or acuity I expect that the services needed warrant INPATIENT care.: Yes I certify that my determination is in accordance with my understanding of Medicare's requirements for reasonable and necessary INPATIENT services [42 CFR 412.3e].: Yes Medical Necessity: Other - IV antibiotics, pain control, surgical consultation
--- NOTE | 2019-06-11 15:45 | RADIOLOGY REPORT (SQ) ---
EXAM DESCRIPTION: TIBIA FIBULA RIGHT COMPLETED DATE/TIME: 06/11/2019 3:29 pm REASON FOR STUDY: Osteomyelitis COMPARISON: None. NUMBER OF VIEWS: Two views. TECHNIQUE: Two radiographic images acquired of the right tibia and fibula to include the knee and an kle in at least one projection. LIMITATIONS: None. FINDINGS: MINERALIZATION: Normal. BONES: No acute fracture or dislocation. No worrisome bone lesions. No significant osteophytes. SOFT TISSUES: Vague low-density area in the posterior-lateral soft tissues. No radiopaque foreign poonam dy. OTHER: No other significant finding. IMPRESSION: VAGUE LOW-DENSITY AREA IN THE SOFT TISSUES, POSSIBLY ULCERATION. NO RADIOPAQUE FOREIGN BODY. NO BONY FINDINGS. TECHNICAL DOCUMENTATION: JOB ID: [id number] [employer]- All Rights Reserved Reading location - IP/workstation name: [email or web address]
[2019-06-11] MEDS ORDERED: VANCOMYCIN HCL 2,000 MG in DEXTROSE 5%-WATER 500 ML IV ONE (17:00)
[2019-06-11] MEDS: INSULIN LISPRO 100 UNIT/ML 3 ML VIAL SUBCUT SCH ×2 (17:15→21:33)
[2019-06-11] MEDS ORDERED: PIPERACILLIN SODIUM/TAZOBACTAM 3.375 GM in NORMAL SALINE 100 ML IV SCH (18:00)
[2019-06-11] MEDS: OXYCODONE-ACETAMINOPHEN 5-325 MG TABLET PO PRN (19:43)
[2019-06-11] MEDS: PIPERACILLIN SODIUM/TAZOBACTAM 2.25 GM in NORMAL SALINE 50 ML IV SCH (19:44)
[2019-06-11] MEDS: HEPARIN SOD (PORCINE) 5,000 UNIT/ML 1 ML VIAL SUBCUT SCH (21:25)
[2019-06-12] MEDS ORDERED: ATORVASTATIN CALCIUM 80 MG TABLET PO ONE (00:30)
[2019-06-12] MEDS ORDERED: INSULIN GLARGINE,HUM.REC.ANLOG 1,000 UNIT/10 ML VIAL SUBCUT ONE (00:30)
[2019-06-12] MEDS ORDERED: INSULIN GLARGINE,HUM.REC.ANLOG 1,000 UNIT/10 ML VIAL (PYX) SUBCUT ONE ×2 (00:32→21:26)
[2019-06-12] MEDS ORDERED: PREGABALIN 75 MG CAPSULE PO ONE (00:59)
[2019-06-12] MEDS ORDERED: CLONIDINE HCL 0.2 MG TABLET PO ONE (00:59)
[2019-06-12] MEDS ORDERED: PHENYTOIN SODIUM EXTENDED 100 MG CAPSULE PO ONE ×2 (01:00→01:11)
[2019-06-12 04:31] LABS: HEMATOCRIT 30.8 % (36.0-47.0); HEMOGLOBIN 10.1 g/dL (12.0-15.5); MEAN CORPUSCULAR HEMOGLOBIN 31.4 pg (27.0-33.4); MEAN CORPUSCULAR HGB CONC 32.7 g/dL (32.0-36.0); MEAN CORPUSCULAR VOLUME 96 fl (80-97); PLATELET COUNT 268 10^3/uL (150-450); RED CELL DISTRIBUTION WIDTH 14.9 % (11.5-14.0); WHITE BLOOD COUNT 8.3 10^3/uL (4.0-10.5)
[2019-06-12 04:50] LABS: PHOSPHORUS 3.5 mg/dL (2.5-4.5)
[2019-06-12] MEDS: PANTOPRAZOLE SODIUM 40 MG TABLET.DR PO SCH (06:08)
[2019-06-12] MEDS: HEPARIN SOD (PORCINE) 5,000 UNIT/ML 1 ML VIAL SUBCUT SCH ×3 (06:23→21:33)
[2019-06-12] MEDS ORDERED: PIPERACILLIN/TAZOBACTAM 2.25 GM VIAL IV ONE (06:33)
[2019-06-12] MEDS: PIPERACILLIN SODIUM/TAZOBACTAM 2.25 GM in NORMAL SALINE 50 ML IV SCH ×2 (07:44→18:15)
--- NOTE | 2019-06-12 09:02 | PDOC PROGRESS REPORT ---
Subjective Progress Note for:: 06/12/19 Subjective:: 06/12/2019-pain at location of diabetic ulcer Reason For Visit: DIABETIC ULCER RIGHT LOWER EXTREMITY Physical Exam Vital Signs: Temp Pulse Resp BP Pulse Ox 98.5 F 89 20 113/59 L 83 L 06/12/19 07:17 06/12/19 07:17 06/12/19 07:17 06/12/19 07:17 06/12/19 07:17 Intake & Output 06/11/19 06/12/19 06/13/19 06:59 06:59 06:59 Intake Total 1110 Output Total 1 Balance 1109 Weight 106.594 kg General appearance: PRESENT: no acute distress Neck exam: ABSENT: carotid bruit, JVD, lymphadenopathy, thyromegaly Cardiovascular exam: ABSENT: diastolic murmur, rubs, systolic murmur Pulses: PRESENT: +1 pedal pulses bilateral Vascular exam: PRESENT: normal capillary refill GI/Abdominal exam: PRESENT: normal bowel sounds, soft. ABSENT: distended, guarding, mass, organolmegaly, rebound, tenderness Extremities exam: PRESENT: other - Large diabetic ulcer on right calf Neurological exam: PRESENT: alert, awake, oriented to person, oriented to place, oriented to time, oriented to situation, CN II-XII grossly intact. ABSENT: motor sensory deficit Psychiatric exam: PRESENT: appropriate affect, normal mood. ABSENT: homicidal ideation, suicidal ideation Skin exam: PRESENT: dry, intact, warm. ABSENT: cyanosis, rash Results Laboratory Results: 06/12/19 04:04 06/11/19 14:21 06/11/19 06/11/19 06/12/19 14:21 14:21 04:04 WBC 9.2 8.3 RBC 3.27 L 3.20 L Hgb 10.2 L 10.1 L Hct 31.4 L 30.8 L MCV 96 96 MCH 31.2 31.4 MCHC 32.4 32.7 RDW 14.9 H 14.9 H Plt Count 296 268 Seg Neutrophils % 85.0 H Sodium 137.5 Potassium 3.7 Chloride 94 L Carbon Dioxide 32 H Anion Gap 12 BUN 20 Creatinine 4.14 H Est GFR ( Amer) 14 L Glucose 94 Calcium 9.2 Phosphorus Magnesium Total Bilirubin 0.5 AST 22 Alkaline Phosphatase 184 H Total Protein 10.3 H Albumin 4.3 06/12/19 04:04 WBC RBC Hgb Hct MCV MCH MCHC RDW Plt Count Seg Neutrophils % Sodium Potassium Chloride Carbon Dioxide Anion Gap BUN Creatinine Est GFR ( Amer) Glucose Calcium Phosphorus 3.5 Magnesium 1.7 Total Bilirubin AST Alkaline Phosphatase Total Protein Albumin Impressions: Tibia/Fibula X-Ray 06/11/19 00:00 IMPRESSION: VAGUE LOW-DENSITY AREA IN THE SOFT TISSUES, POSSIBLY ULCERATION. NO RADIOPAQUE FOREIGN BODY. NO BONY FINDINGS. Assessment and Plan - Diagnosis (1) Diabetic ulcer of right calf Is this a current diagnosis for this admission?: Yes Plan: 06/11/2019-admit to medical surgical. IV vancomycin and Zosyn per pharmacy dosing. Wound cultures blood cultures. Surgery has been consulted for evaluation for possible surgical I/D. 06/12/2019-continue IV vancomycin and Zosyn. Await wound cultures. Patient is to go to surgery today for IND. (2) End stage renal disease Is this a current diagnosis for this admission?: Yes Plan: 06/11/2019-Friday we will consult nephrology for dialysis on Friday morning 06/12/2019-consult nephrology tomorrow a.m. for dialysis on Friday (3) Anemia Qualifiers: Anemia type: due to chronic kidney disease Chronic kidney disease stage: on chronic dialysis Qualified Code(s): N18.6 - End stage renal disease; D63.1 - Anemia in chronic kidney disease; D63.1 - Anemia in chronic kidney disease; Z99.2 - Dependence on renal dialysis; Z99.2 - Dependence on renal dialysis; Z99.2 - Dependence on renal dialysis; Z99.2 - Dependence on renal dialysis Is this a current diagnosis for this admission?: Yes Plan: 06/11/2019-chronic stable continue to follow 06/12/2019-chronic stable (4) Diabetes mellitus type 2 in obese Is this a current diagnosis for this admission?: Yes Plan: -continue Lantus from home. Will place patient on sliding scale insulin before meals and at bedtime and a carbohydrate controlled diet. 06/12/2019-stable continue current therapy (5) Hypertension Qualifiers: Hypertension type: essential hypertension Qualified Code(s): I10 - Essential (primary) hypertension Is this a current diagnosis for this admission?: Yes Plan: -once medications been reconciled I will continue all home medications 06/12/2019-stable (6) Seizure disorder Is this a current diagnosis for this admission?: Yes Plan: 06/11/2019-once medication reconciliation complete we will continue all home antiepileptics -continue home meds - Time Time Spent with patient: 15-24 minutes - Inpatient Certification Based on my medical assessment, after consideration of the patient's comorbidities, presenting symptoms, or acuity I expect that the services needed warrant INPATIENT care.: Yes I certify that my determination is in accordance with my understanding of Medicare's requirements for reasonable and necessary INPATIENT services [42 CFR 412.3e].: Yes Medical Necessity: Need for Pain Control, Need for IV Antibiotics, Need for Surgery
[2019-06-12] MEDS ORDERED: CALCIUM ACETATE 667 MG CAPSULE PO SCH (09:15)
[2019-06-12] MEDS: OXYCODONE-ACETAMINOPHEN 5-325 MG TABLET PO PRN ×2 (09:42→18:16)
[2019-06-12] MEDS ORDERED: (PENDING PHARMACY ID) (Metoprolol Succinate [Toprol Xl 100 Mg Tablet] 200 MG) PO SCH (10:00)
[2019-06-12] MEDS ORDERED: FENTANYL CITRATE INJ/PF 100 MCG/2 ML AMPUL IV PRN ×3 (10:13)
[2019-06-12] MEDS ORDERED: DIPHENHYDRAMINE HCL 50 MG/ML VIAL IV PRN (10:13)
[2019-06-12] MEDS ORDERED: PROMETHAZINE HCL INJ 25 MG/1 ML VIAL IV PRN (10:13)
[2019-06-12] MEDS ORDERED: MEPERIDINE HCL/PF INJ 25 MG/1 ML DISP.SYRIN IV PRN (10:13)
[2019-06-12] MEDS ORDERED: GLYCOPYRROLATE 1 MG/5 ML VIAL ONE (10:28)
[2019-06-12] MEDS ORDERED: PHENYLEPHRINE HCL INJ/PF 10 MG/1 ML SDV ONE (10:28)
[2019-06-12] MEDS ORDERED: METOPROLOL SUCCINATE 50 MG TAB.SR.24H PO SCH (10:30)
[2019-06-12] MEDS ORDERED: FENTANYL CITRATE INJ/PF 100 MCG/2 ML AMPUL ONE (11:14)
[2019-06-12] MEDS ORDERED: ONDANSETRON HCL INJ/PF 4 MG/2 ML SDV ONE (11:14)
[2019-06-12] MEDS ORDERED: PROPOFOL INJ 200 MG/20 ML VIAL IV ONE (11:14)
[2019-06-12] MEDS ORDERED: MIDAZOLAM 2 MG/2 ML INJ ONE (11:14)
[2019-06-12] MEDS ORDERED: LIDOCAINE 1% INJ-PF (10 MG/ML) 30 ML SDV ONE (11:34)
[2019-06-12] MEDS ORDERED: FLUMAZENIL INJ 0.5 MG/5 ML VIAL ONE (13:08)
[2019-06-12] MEDS ORDERED: NALOXONE HCL INJ/PF 0.4 MG/1 ML SDV ONE (13:08)
[2019-06-12] MEDS: INSULIN LISPRO 100 UNIT/ML 3 ML VIAL SUBCUT SCH ×5 (13:16→21:21)
[2019-06-12] MEDS: CLONIDINE HCL 0.2 MG TABLET PO SCH ×2 (13:17→21:34)
[2019-06-12] MEDS: PREGABALIN 75 MG CAPSULE PO SCH (13:17)
--- NOTE | 2019-06-12 13:23 | Operative Report ---
Operative Report DATE OF SURGERY: 06/12/19 PREOPERATIVE DIAGNOSIS: Ulcer on the right lower leg lateral aspect about 4 x 4 cm POSTOPERATIVE DIAGNOSIS: Same OPERATION: Sharp debridement of 4 x 4 centimeter ulcer on the right lateral calf down to the fascia level. SURGEON: DIDIER DUBON ANESTHESIA: LMAC TISSUE REMOVED OR ALTERED: Necrotic tissue from the right lower leg ulcer COMPLICATIONS: Main problem was from anesthesia standpoint. Patient noted to be hypotensive with the slow heart rate. Patient transferred to ICU ESTIMATED BLOOD LOSS: 5 cc QUANTITATIVE BLOOD LOSS: 5 INTRAOPERATIVE FINDINGS: There is a 4 x 4 cm ulcer along the right calf on the lateral aspect. There is necrotic tissue surrounding it down to the fascia layer. PROCEDURE: Patient was placed in supine position in the right leg propped over a pillow was then prepped and draped with us in a sterile fashion. Appropriate timeout was called. The 4 x 4 centimeter by about 0.5 cm deep ulcer along the right lateral lower leg was then sharply debrided using a 15 blade. The debridement carried down to the fascia. Practically all of the necrotic tissue was removed and there was some bleeding noted that was controlled with the use of cautery. Patient was not given any local anesthesia options at this time prior and immediately prior to start of surgery patient noted to be hemodynamically unstable and. A layer of Xeroform gauze was placed over the wound and rapid 4 x 4 and Kerlix. Patient and noted to be hypotensive and bradycardic and will be transferred to the intensive care unit. She is a dialysis patient.
[2019-06-12 14:10] LABS: HEMATOCRIT 31.5 % (36.0-47.0); MEAN CORPUSCULAR HEMOGLOBIN 30.9 pg (27.0-33.4); MEAN CORPUSCULAR HGB CONC 31.7 g/dL (32.0-36.0); MEAN CORPUSCULAR VOLUME 97 fl (80-97); PLATELET COUNT 239 10^3/uL (150-450); RED BLOOD COUNT 3.23 10^6/uL (3.72-5.28); RED CELL DISTRIBUTION WIDTH 15.2 % (11.5-14.0); WHITE BLOOD COUNT 5.7 10^3/uL (4.0-10.5)
[2019-06-12 14:31] LABS: CREATINE KINASE MB 0.65 ng/mL (<4.55); TROPONIN I 0.04 ng/mL
--- NOTE | 2019-06-12 14:34 | CRITICAL CARE ADMISSION REPORT ---
HPI Date:: 06/12/19 Time:: 13:30 Reason for ICU Reason:: Expectant monitoring of BP and HR HPI: This patient is a 43 yo woman with DM-II and multiple complications. Such as blindness, CAD, HTN, ESRD on dialysis with the developement of a Non-healing ulcer on the lateral aspect mof her R leg. She had this debrided under MAC with minimal sedation. During the procedure she had 2 episodes of bradycardia to the 30s and dropped her BP to the 50s it was said. She was given robinul and then epinephrine and has been stble since. EKG is at baseline and troponins pending. The etiology is not clear. History obtained from:: Surgeon, inside sales lead, anesthesiologist. - Diagnosis/Plan (1) Diabetic ulcer of right calf Is this a current diagnosis for this admission?: Yes Plan: Surgically debrided with cultures taken today. (2) End stage renal disease Is this a current diagnosis for this admission?: Yes Plan: HD on //. Had dialysis yesterday. Not hyperkalemic. (3) Seizure disorder Is this a current diagnosis for this admission?: Yes Plan: Not active (4) Chronic renal failure, stage 5 Is this a current diagnosis for this admission?: Yes Plan: HD Friday (5) Coronary artery disease Qualifiers: Coronary Disease-Associated Artery/Lesion type: [place] artery [place] vs. transplanted heart: [place] heart Associated angina: without angina Qualified Code(s): I25.10 - Atherosclerotic heart disease of [place] coronary artery without angina pectoris Is this a current diagnosis for this admission?: Yes Plan: This seems to be stable and inactive but a tropinin is pending and we will cycle enzymes to monitor. (6) Diabetes mellitus type 2 in obese Is this a current diagnosis for this admission?: Yes Plan: Keep on usual medications. (7) History of CVA (cerebrovascular accident) without residual deficits Is this a current diagnosis for this admission?: Yes Plan: Old but multiple small L MCA infarcts-old. (8) Hyperlipidemia Qualifiers: Hyperlipidemia type: unspecified Qualified Code(s): E78.5 - Hyperlipidemia, unspecified Is this a current diagnosis for this admission?: Yes Plan: Keep regular meds (9) Hypertension Qualifiers: Hypertension type: essential hypertension Qualified Code(s): I10 - Essential (primary) hypertension Is this a current diagnosis for this admission?: Yes Plan: Avoid rate limiting medications for today. (10) Legally blind Is this a current diagnosis for this admission?: Yes Plan: This may be a problem for communication. Nursing staff aware. (11) Morbid obesity with BMI of 45.0-49.9, adult Is this a current diagnosis for this admission?: Yes Plan: Chronic Past Medical History Cardiac Medical History: Reports: Congestive Heart Failure, Coronary Artery Disease, Hyperlipidema, Hypertension, Peripheral Vascular Disease Denies: Myocardial Infarction Pulmonary Medical History: Denies: Asthma, Bronchitis, Chronic Obstructive Pulmonary Disease (COPD), Pneumonia, Tuberculosis Neurological Medical History: Reports: Seizures Endocrine Medical History: Reports: Diabetes Mellitus Type 2 Denies: Diabetes Mellitus Type 1 Renal/ Medical History: Reports: End Stage Renal Disease GI Medical History: Reports: Gastroesophageal Reflux Disease Denies: Cirrhosis Musculoskeltal Medical History: Reports: Arthritis Psychiatric Medical History: Reports: Depression Denies: Bipolar Disorder Hematology: Reports: Anemia Denies: Bleeding Tendencies Past Surgical History Past Surgical History: Reports: Cholecystectomy, Herniorrhaphy, Orthopedic Surgery - rt hip, Vascular Surgery - Right arm AV fistula Denies: Pacemaker Social/Family History - Social History Lives with: Family Smoking Status: Former Smoker Frequency of Alcohol Use: None Hx Recreational Drug Use: No Drugs: None Hx Prescription Drug Abuse: No - Medication/Allergies Home Medications: Atorvastatin Calcium [Lipitor 80 mg Tablet] 80 mg PO QHS 06/11/19 B Complex W-C No.20/Folic Acid [Virt-Caps Softgel] 1 mg PO DAILY 06/11/19 Calcium Acetate [Phoslo 667 mg Capsule] 1,334 mg PO .WITH SNACKS 06/11/19 Calcium Acetate [Phoslo 667 mg Capsule] 2,001 mg PO MEALS 06/11/19 Clonidine HCl [Catapres 0.2 mg Tablet] 0.2 mg PO Q12 06/11/19 Clopidogrel Bisulfate [Plavix 75 mg Tablet] 75 mg PO DAILY 06/11/19 Hydroxyzine HCl [Atarax 10 mg Tablet] 10 mg PO Q8HP PRN 06/11/19 Insulin Aspart [Novolog Flexpen] 0 unit SQ .SLIDING SCALE 06/11/19 Insulin Aspart [Novolog Flexpen] 5 units SQ MEALS 06/11/19 Insulin Glargine,Hum.rec.anlog [Lantus Insulin 100 Unit/1 ml 10 ml] 50 units SQ QHS 06/11/19 Metoprolol Succinate [Toprol XL 100 mg Tablet] 200 mg PO DAILY 06/11/19 Omeprazole 40 mg PO QHS 06/11/19 Oxycodone HCl [Oxy-Ir 5 mg Tablet] 5 mg PO Q8HP PRN 06/11/19 Phenytoin Sodium Extended [Dilantin 100 mg Capsule.er] 300 mg PO QHS 06/11/19 Pregabalin [Lyrica 75 mg Capsule] 75 mg PO SUTUTHSA@1000 06/11/19 Pregabalin [Lyrica 75 mg Capsule] 150 mg PO MOWEFR@1000 06/11/19 Allergies/Adverse Reactions: hydromorphone [Hydromorphone] Allergy (Intermediate, Verified 12/28/18 12:14) ABDOMINAL CRAMPS azithromycin [Azithromycin] Allergy (Unknown, Verified 12/28/18 12:14) Darbepoetin [place] in [place] * [From Aranesp] Allergy (Unknown, Verified 12/28/18 12:14) ITCHING epoetin [place] [From Procrit] Allergy (Verified 12/28/18 12:14) Sulfa (Sulfonamide Antibiotics) Allergy (Verified 12/28/18 12:14) Unsure BBQ SAUCE Allergy (Mild, Uncoded 12/28/18 12:14) Hives Review of Systems ROS unobtainable: Due to mental status Physical Exam Vital Signs: Temp Pulse Resp BP Pulse Ox 98.5 F 89 20 113/59 L 83 L 06/12/19 07:17 06/12/19 07:17 06/12/19 07:17 06/12/19 07:17 06/12/19 07:17 Intake & Output 06/11/19 06/12/19 06/13/19 06:59 06:59 06:59 Intake Total 1110 Output Total 1 Balance 1109 Weight 106.594 kg Weight/Height Weight 106.594 kg Height 5 ft 2 in General appearance: PRESENT: no acute distress Exam: Still sedated Head exam: PRESENT: atraumatic Eye exam: PRESENT: conjunctiva pink, EOMI, PERRLA. ABSENT: scleral icterus Ear exam: PRESENT: normal external ear exam Mouth exam: PRESENT: moist, tongue midline Neck exam: ABSENT: carotid bruit, JVD, lymphadenopathy, thyromegaly Respiratory exam: PRESENT: clear to auscultation alaina, decreased breath sounds, unlabored Cardiovascular exam: PRESENT: RRR Vascular exam: PRESENT: normal capillary refill GI/Abdominal exam: PRESENT: soft Rectal exam: PRESENT: deferred Extremities exam: PRESENT: calf tenderness, pedal edema, other - Recently dressed debridement site on lower R leg Neurological exam: PRESENT: altered Psychiatric exam: PRESENT: appropriate affect, normal mood. ABSENT: homicidal ideation, suicidal ideation Laboratory/Radiographs Laboratory Results: 06/11/19 14:21 06/11/19 06/11/19 06/12/19 14:21 14:21 04:04 WBC 9.2 8.3 RBC 3.27 L 3.20 L Hgb 10.2 L 10.1 L Hct 31.4 L 30.8 L MCV 96 96 MCH 31.2 31.4 MCHC 32.4 32.7 RDW 14.9 H 14.9 H Plt Count 296 268 Seg Neutrophils % 85.0 H Sodium 137.5 Potassium 3.7 Chloride 94 L Carbon Dioxide 32 H Anion Gap 12 BUN 20 Creatinine 4.14 H Est GFR ( Amer) 14 L Glucose 94 Calcium 9.2 Phosphorus Magnesium Total Bilirubin 0.5 AST 22 Alkaline Phosphatase 184 H Total Protein 10.3 H Albumin 4.3 Serum HCG, Qual 06/12/19 06/12/19 04:04 04:04 WBC RBC Hgb Hct MCV MCH MCHC RDW Plt Count Seg Neutrophils % Sodium Potassium Chloride Carbon Dioxide Anion Gap BUN Creatinine Est GFR ( Amer) Glucose Calcium Phosphorus 3.5 Magnesium 1.7 Total Bilirubin AST Alkaline Phosphatase Total Protein Albumin Serum HCG, Qual NEGATIVE Impressions: Tibia/Fibula X-Ray 06/11/19 00:00 IMPRESSION: VAGUE LOW-DENSITY AREA IN THE SOFT TISSUES, POSSIBLY ULCERATION. NO RADIOPAQUE FOREIGN BODY. NO BONY FINDINGS. EKG: SR looks similar to baseline Critical Time Critical Time (minutes): 35 -: The care of a critically ill patient is dynamic. This note represents a static moment in the admission process. orders and treatments may be given sim ulataneously and urgentl, and time is not textile machinery sales representative of the treatment process. This patient requires Critical Care secondary to life threating organ or limb dysfunction. Without the need for Critical Care services, the patient is at risk for increasid mortality and morbidity.
[2019-06-12 14:35] LABS: ABSOLUTE LYMPHOCYTES# (MANUAL) 1.5 10^3/uL (0.5-4.7); ABSOLUTE MONOCYTES # (MANUAL) 0.5 10^3/uL (0.1-1.4); ANISOCYTOSIS SLIGHT; BASOPHILS % (MANUAL) 1 % (0-2); EOSINOPHILS % (MANUAL) 0 % (0-6); LYMPHOCYTES % (MANUAL) 27 % (13-45); METAMYELOCYTES % (MANUAL) 1 % (0); MONOCYTES % (MANUAL) 8 % (3-13); PLATELET COMMENT ADEQUATE; PLATELET GIANT PRESENT; PLATELET LARGE PRESENT; SEGMENTED NEUTROPHILS % (MAN) 63 % (42-78); TOTAL CELLS COUNTED 100
[2019-06-12] MEDS ORDERED: HYDROXYZINE HCL 10 MG TABLET PO PRN (14:35)
[2019-06-12] MEDS ORDERED: OXYCODONE HCL IR 5 MG TABLET PO PRN (14:35)
[2019-06-12] MEDS ORDERED: ONDANSETRON HCL INJ/PF 4 MG/2 ML SDV IV PRN (14:37)
[2019-06-12 15:23] LABS: ANION GAP 17 (5-19); BLOOD UREA NITROGEN 32 mg/dL (7-20); CALCIUM 8.7 mg/dL (8.4-10.2); CHLORIDE 99 mmol/L (98-107); GLUCOSE 151 mg/dL (75-110)
[2019-06-12 15:34] LABS: CARBON DIOXIDE 22 mmol/L (22-30)
[2019-06-12] MEDS ORDERED: (PENDING PHARMACY ID) (Insulin Aspart [Novolog Flexpen] 5 UNITS) SQ SCH (17:00)
[2019-06-12] MEDS: CALCIUM ACETATE 667 MG CAPSULE PO SCH ×2 (17:14→18:17)
[2019-06-12] MEDS: INSULIN GLARGINE,HUM.REC.ANLOG 1,000 UNIT/10 ML VIAL SUBCUT SCH (21:30)
[2019-06-12] MEDS: PHENYTOIN SODIUM EXTENDED 100 MG CAPSULE PO SCH (21:35)
[2019-06-12] MEDS: ATORVASTATIN CALCIUM 80 MG TABLET PO SCH (21:36)
--- NOTE | 2019-06-13 00:24 | EKG REPORT ---
SEVERITY:- ABNORMAL ECG - SINUS TACHYCARDIA BORDERLINE RIGHT AXIS DEVIATION LOW VOLTAGE THROUGHOUT BORDERLINE R WAVE PROGRESSION, ANTERIOR LEADS PROLONGED QT INTERVAL CONSIDER INF IA OLD : Confirmed by: Janell Mo 13-Jun-2019 00:23:15
[2019-06-13 04:53] LABS: HEMATOCRIT 30.9 % (36.0-47.0); HEMOGLOBIN 10.1 g/dL (12.0-15.5); MEAN CORPUSCULAR HEMOGLOBIN 31.4 pg (27.0-33.4); MEAN CORPUSCULAR HGB CONC 32.5 g/dL (32.0-36.0); MEAN CORPUSCULAR VOLUME 96 fl (80-97); PLATELET COUNT 239 10^3/uL (150-450); RED BLOOD COUNT 3.21 10^6/uL (3.72-5.28); RED CELL DISTRIBUTION WIDTH 15.1 % (11.5-14.0); WHITE BLOOD COUNT 10.4 10^3/uL (4.0-10.5)
[2019-06-13] MEDS: HEPARIN SOD (PORCINE) 5,000 UNIT/ML 1 ML VIAL SUBCUT SCH ×3 (05:50→21:40)
[2019-06-13] MEDS: PANTOPRAZOLE SODIUM 40 MG TABLET.DR PO SCH (05:50)
[2019-06-13] MEDS: PIPERACILLIN SODIUM/TAZOBACTAM 2.25 GM in NORMAL SALINE 50 ML IV SCH ×2 (05:51→18:17)
[2019-06-13] MEDS: INSULIN LISPRO 100 UNIT/ML 3 ML VIAL SUBCUT SCH ×7 (08:38→21:43)
--- NOTE | 2019-06-13 08:52 | PDOC PROGRESS REPORT ---
Subjective Progress Note for:: 06/13/19 Subjective:: No complaint, no bradycardia or hypotension since admision. Reason For Visit: DIABETIC ULCER RIGHT LOWER EXTREMITY Intraoperative hypotension and bradycardia Physical Exam Vital Signs: Temp Pulse Resp BP Pulse Ox 98.2 F 88 30 H 128/43 H 100 06/13/19 04:00 06/12/19 18:00 06/12/19 18:00 06/12/19 18:00 06/12/19 18:00 Intake & Output 06/12/19 06/13/19 06/14/19 06:59 06:59 06:59 Intake Total 1110 275 Output Total 1 100 Balance 1109 175 Weight 106.594 kg 111.7 kg General appearance: PRESENT: no acute distress, morbidly obese Head exam: PRESENT: atraumatic Ear exam: PRESENT: normal external ear exam Mouth exam: PRESENT: moist Respiratory exam: PRESENT: clear to auscultation alaina, decreased breath sounds Cardiovascular exam: PRESENT: RRR GI/Abdominal exam: PRESENT: hypoactive bowel sounds, soft Rectal exam: PRESENT: deferred Extremities exam: PRESENT: full ROM Additional comments: R lateral lower leg wound dressed. No sign of swelling or erythema. Musculoskeletal exam: PRESENT: full ROM Neurological exam: PRESENT: alert Psychiatric exam: PRESENT: appropriate affect, normal mood. ABSENT: homicidal ideation, suicidal ideation Skin exam: PRESENT: normal color Results Laboratory Results: 06/13/19 04:26 06/12/19 13:58 06/12/19 06/12/19 06/12/19 04:04 13:58 13:58 WBC 5.7 RBC 3.23 L Hgb 10.0 L Hct 31.5 L MCV 97 MCH 30.9 MCHC 31.7 L RDW 15.2 H Plt Count 239 Seg Neutrophils % Not Reportable Sodium 138.3 Potassium 4.0 Chloride 99 Carbon Dioxide 22 D Anion Gap 17 BUN 32 H Creatinine 5.81 H Est GFR ( Amer) 10 L Glucose 151 H Calcium 8.7 Serum HCG, Qual NEGATIVE 06/13/19 04:26 WBC 10.4 RBC 3.21 L Hgb 10.1 L Hct 30.9 L MCV 96 MCH 31.4 MCHC 32.5 RDW 15.1 H Plt Count 239 Seg Neutrophils % Sodium Potassium Chloride Carbon Dioxide Anion Gap BUN Creatinine Est GFR ( Amer) Glucose Calcium Serum HCG, Qual 06/12/19 13:58 CK-MB (CK-2) 0.65 Troponin I 0.040 Impressions: Tibia/Fibula X-Ray 06/11/19 00:00 IMPRESSION: VAGUE LOW-DENSITY AREA IN THE SOFT TISSUES, POSSIBLY ULCERATION. NO RADIOPAQUE FOREIGN BODY. NO BONY FINDINGS. Assessment & Plan - Diagnosis (1) Diabetic ulcer of right calf Is this a current diagnosis for this admission?: Yes Plan: Debrided yesterday. Cultures growing 4+ E. coli Zosyn ordered, vancomycin stopped. Wound to be redressed by surgery. Final C%S pending. (2) End stage renal disease Is this a current diagnosis for this admission?: Yes Plan: Dialysis M/W/F. (3) Seizure disorder Is this a current diagnosis for this admission?: Yes Plan: Stable. (4) Chronic renal failure, stage 5 Is this a current diagnosis for this admission?: Yes Plan: HD as above (5) Coronary artery disease Qualifiers: Coronary Disease-Associated Artery/Lesion type: [place] artery [place] vs. transplanted heart: [place] heart Associated angina: without angina Qualified Code(s): I25.10 - Atherosclerotic heart disease of [place] coronary artery without angina pectoris Is this a current diagnosis for this admission?: Yes Plan: Troponin at 0.04 is essentially negative. No ACS causing events of bradycardia and hyptension. (6) Diabetes mellitus type 2 in obese Is this a current diagnosis for this admission?: Yes Plan: Controlled (7) History of CVA (cerebrovascular accident) without residual deficits Is this a current diagnosis for this admission?: Yes Plan: No new symptoms. (8) Hyperlipidemia Qualifiers: Hyperlipidemia type: unspecified Qualified Code(s): E78.5 - Hyperlipidemia, unspecified Is this a current diagnosis for this admission?: Yes Plan: Continue madications (9) Hypertension Qualifiers: Hypertension type: essential hypertension Qualified Code(s): I10 - Essential (primary) hypertension Is this a current diagnosis for this admission?: Yes Plan: Chronic. Metoprolol stopped but with no further recurrance of bradycardia and hypotension it can be restarted. However BP 113/60 and HR stable there is right now no need (10) Legally blind Is this a current diagnosis for this admission?: Yes Plan: Chronic (11) Morbid obesity with BMI of 45.0-49.9, adult Is this a current diagnosis for this admission?: Yes Plan: Chronic (12) Bradycardia Is this a current diagnosis for this admission?: Yes Plan: With no further recurrence she can be sent to a tele unit for one more day than suggest discontinuinf telemetry. - Time Time Spent with patient: 35 or more minutes Total Critical Time (Minutes): 35 Medications reviewed and adjusted accordingly: Yes Anticipated discharge: Home Within: within 72 hours - Inpatient Certification Based on my medical assessment, after consideration of the patient's comorbidities, presenting symptoms, or acuity I expect that the services needed warrant INPATIENT care.: Yes I certify that my determination is in accordance with my understanding of Medicare's requirements for reasonable and necessary INPATIENT services [42 CFR 412.3e].: Yes Medical Necessity: Failure to Improve With Outpatient Therapy, Significant Comorbidiites Make Outpatient Treatment Too Risky, Need For Continuous Telemetry Monitoring
[2019-06-13] MEDS ORDERED: [UNRECOGNIZED DRUG - REMARK] PO SCH (10:00)
[2019-06-13] MEDS: PREGABALIN 75 MG CAPSULE PO SCH (10:02)
[2019-06-13] MEDS: CLOPIDOGREL BISULFATE 75 MG TABLET PO SCH (10:03)
[2019-06-13] MEDS: CLONIDINE HCL 0.2 MG TABLET PO SCH ×2 (10:03→21:38)
[2019-06-13] MEDS: OXYCODONE-ACETAMINOPHEN 5-325 MG TABLET PO PRN ×2 (10:04→18:15)
[2019-06-13] MEDS: VITAMIN B COMPLEX TABLET PO SCH (10:04)
[2019-06-13] MEDS: CALCIUM ACETATE 667 MG CAPSULE PO SCH ×3 (10:05→18:15)
[2019-06-13 15:29] LABS: ANION GAP 11 (5-19); BLOOD UREA NITROGEN 36 mg/dL (7-20); CALCIUM 8.6 mg/dL (8.4-10.2); CARBON DIOXIDE 31 mmol/L (22-30); CHLORIDE 94 mmol/L (98-107); GLUCOSE 106 mg/dL (75-110)
[2019-06-13 15:34] LABS: POTASSIUM 5.1 mmol/L (3.6-5.0)
[2019-06-13 21:35] LABS: ANION GAP 15 (5-19); BLOOD UREA NITROGEN 47 mg/dL (7-20); CALCIUM 8.7 mg/dL (8.4-10.2); CARBON DIOXIDE 28 mmol/L (22-30); CHLORIDE 95 mmol/L (98-107); GLUCOSE 229 mg/dL (75-110); POTASSIUM 5.1 mmol/L (3.6-5.0)
[2019-06-13] MEDS: PHENYTOIN SODIUM EXTENDED 100 MG CAPSULE PO SCH (21:37)
[2019-06-13] MEDS: ATORVASTATIN CALCIUM 80 MG TABLET PO SCH (21:38)
[2019-06-13] MEDS: INSULIN GLARGINE,HUM.REC.ANLOG 1,000 UNIT/10 ML VIAL SUBCUT SCH (21:43)
[2019-06-13] MEDS: MELATONIN 5 MG TABLET PO PRN (22:55)
[2019-06-14] MEDS: OXYCODONE-ACETAMINOPHEN 5-325 MG TABLET PO PRN ×4 (02:17→23:04)
[2019-06-14 05:07] LABS: HEMATOCRIT 28.5 % (36.0-47.0); HEMOGLOBIN 9.2 g/dL (12.0-15.5); MEAN CORPUSCULAR HEMOGLOBIN 31.2 pg (27.0-33.4); MEAN CORPUSCULAR HGB CONC 32.3 g/dL (32.0-36.0); MEAN CORPUSCULAR VOLUME 96 fl (80-97); PLATELET COUNT 240 10^3/uL (150-450); RED BLOOD COUNT 2.95 10^6/uL (3.72-5.28); RED CELL DISTRIBUTION WIDTH 14.9 % (11.5-14.0); WHITE BLOOD COUNT 8.8 10^3/uL (4.0-10.5)
[2019-06-14] MEDS: HEPARIN SOD (PORCINE) 5,000 UNIT/ML 1 ML VIAL SUBCUT SCH ×3 (06:47→22:48)
[2019-06-14] MEDS: PIPERACILLIN SODIUM/TAZOBACTAM 2.25 GM in NORMAL SALINE 50 ML IV SCH ×3 (06:48→22:41)
[2019-06-14] MEDS: INSULIN LISPRO 100 UNIT/ML 3 ML VIAL SUBCUT SCH ×6 (10:59→22:18)
[2019-06-14] MEDS: PANTOPRAZOLE SODIUM 40 MG TABLET.DR PO SCH (11:00)
[2019-06-14] MEDS: CALCIUM ACETATE 667 MG CAPSULE PO SCH ×3 (11:00→16:48)
[2019-06-14] MEDS: CLONIDINE HCL 0.2 MG TABLET PO SCH ×2 (11:00→22:48)
[2019-06-14] MEDS: PREGABALIN 75 MG CAPSULE PO SCH (11:00)
[2019-06-14] MEDS: CLOPIDOGREL BISULFATE 75 MG TABLET PO SCH (11:00)
[2019-06-14] MEDS: VITAMIN B COMPLEX TABLET PO SCH (11:01)
--- NOTE | 2019-06-14 13:01 | PDOC CONSULTATION ---
Consultation Consult Date: 06/14/19 Provider Consulted: lEvie HOLDEN Consult reason:: ESRD for HD. History of Present Illness Admission Date/PCP: 06/11/19 15:15 WESLEY ALBERTS MD History of Present Illness: DIAN SLAUGHTER is a 43 year old female with history of ESRD in the background of diabetes, hypertension and other comorbidities that includes anemia, morbid obesity was admitted with history of pain and swelling of the right calf indicative of an abscess. She has had surgical debridement and is now growing E. coli. She had intraoperative hypotension with bradycardia. Her beta- blockers were stopped and she has done well. Currently she is being seen while undergoing dialysis. She is quite comfortable and has no specific complaints. Pain is tolerable. No complaints of any fever or chills. Labs and medications were reviewed. Dialysis orders were reviewed with the treating dialysis nurse. Past Medical History Cardiac Medical History: Reports: CHF-Diastolic, Coronary Artery Disease, Hyperlipidemia, Hypertension-primary, Peripheral Vascular Disease Denies: Myocardial Infarction Pulmonary Medical History: Denies: Asthma, Bronchitis, Chronic Obstructive Pulmonary Disease (COPD), Pneumonia, Tuberculosis Neurological Medical History: Reports: Seizures Endocrine Medical History: Reports: Diabetes Mellitus Type 2 Denies: Diabetes Mellitus Type 1 Complications of Diabetes: Reports: Retinopathy Renal/ Medical History: Reports: End Stage Renal Disease, Secondary Hyperparathyroidism Denies: Benign Prostatic Hyperplasia GI Medical History: Reports: Gastroesophageal Reflux Disease Denies: Cirrhosis Musculoskeltal Medical History: Reports: Arthritis Psychiatric Medical History: Reports: Depression Denies: Bipolar Disorder Hematology Medical History: Reports Anemia of Chronic Kidney Disease Hematology History Note: Chronic disease but unable to tolerate erythropoietin because she has allergic skin reaction. Past Surgical History Past Surgical History: Reports: Cholecystectomy, Dialysis Access Surgery AVF, Herniorrhaphy, Orthopedic Surgery - rt hip, Vascular Surgery - Right arm AV fistula Denies: Pacemaker Social History Lives with: Family Smoking Status: Former Smoker Electronic Cigarette use?: No Frequency of Alcohol Use: None Hx Recreational Drug Use: No Drugs: None Hx Prescription Drug Abuse: No - Advance Directive Resuscitation Status: Full Code Family History Parental Family History Reviewed: Yes - Negative for ESRD Children Family History Reviewed: No Sibling(s) Family History Reviewed.: No Medication/Allergy Home Medications: Atorvastatin Calcium [Lipitor 80 mg Tablet] 80 mg PO QHS 06/11/19 B Complex W-C No.20/Folic Acid [Virt-Caps Softgel] 1 mg PO DAILY 06/11/19 Calcium Acetate [Phoslo 667 mg Capsule] 1,334 mg PO .WITH SNACKS 06/11/19 Calcium Acetate [Phoslo 667 mg Capsule] 2,001 mg PO MEALS 06/11/19 Clonidine HCl [Catapres 0.2 mg Tablet] 0.2 mg PO Q12 06/11/19 Clopidogrel Bisulfate [Plavix 75 mg Tablet] 75 mg PO DAILY 06/11/19 Hydroxyzine HCl [Atarax 10 mg Tablet] 10 mg PO Q8HP PRN 06/11/19 Insulin Aspart [Novolog Flexpen] 0 unit SQ .SLIDING SCALE 06/11/19 Insulin Aspart [Novolog Flexpen] 5 units SQ MEALS 06/11/19 Insulin Glargine,Hum.rec.anlog [Lantus Insulin 100 Unit/1 ml 10 ml] 50 units SQ QHS 06/11/19 Metoprolol Succinate [Toprol XL 100 mg Tablet] 200 mg PO DAILY 06/11/19 Omeprazole 40 mg PO QHS 06/11/19 Oxycodone HCl [Oxy-Ir 5 mg Tablet] 5 mg PO Q8HP PRN 06/11/19 Phenytoin Sodium Extended [Dilantin 100 mg Capsule.er] 300 mg PO QHS 06/11/19 Pregabalin [Lyrica 75 mg Capsule] 75 mg PO SUTUTHSA@1000 06/11/19 Pregabalin [Lyrica 75 mg Capsule] 150 mg PO MOWEFR@1000 06/11/19 Allergies/Adverse Reactions: hydromorphone [Hydromorphone] Allergy (Intermediate, Verified 12/28/18 12:14) ABDOMINAL CRAMPS azithromycin [Azithromycin] Allergy (Unknown, Verified 12/28/18 12:14) Darbepoetin [place] in [place] * [From Aranesp] Allergy (Unknown, Verified 12/28/18 12:14) ITCHING epoetin [place] [From Procrit] Allergy (Verified 12/28/18 12:14) Sulfa (Sulfonamide Antibiotics) Allergy (Verified 12/28/18 12:14) Unsure BBQ SAUCE Allergy (Mild, Uncoded 12/28/18 12:14) Hives Review of Systems Constitutional: PRESENT: fatigue. ABSENT: chills, fever(s), headache(s), night sweats, weakness Nose, Mouth, and Throat: ABSENT: mouth pain, sore throat Cardiovascular: ABSENT: dyspnea on exertion, edema, orthropnea, palpitations Respiratory: ABSENT: dyspnea, hemoptysis Gastrointestinal: ABSENT: abdominal pain, bloating, diarrhea, dysphagia, heartburn, hematemesis Genitourinary: ABSENT: dysuria, hematuria Musculoskeletal: ABSENT: deformity, joint swelling Integumentary: PRESENT: erythema - Of right lower cough.. ABSENT: lesions Neurological: ABSENT: abnormal movements, abnormal speech, confusion, focal weakness, lack of coordination Hematologic/Lymphatic: ABSENT: easy bleeding, lymphadenopathy Physical Exam Vital Signs: Temp Pulse Resp BP Pulse Ox 99.7 F 95 21 H 141/81 H 98 06/14/19 07:33 06/14/19 10:00 06/14/19 07:33 06/14/19 07:33 06/14/19 00:35 Intake & Output 06/13/19 06/14/19 06/15/19 06:59 06:59 06:59 Intake Total 325 50 Output Total 100 0 Balance 225 50 Weight 111.7 kg 120.2 kg General appearance: PRESENT: no acute distress Ear exam: PRESENT: normal external ear exam Mouth exam: PRESENT: moist, neck supple Neck exam: ABSENT: lymphadenopathy, meningismus, tenderness, thyromegaly, tracheal deviation Respiratory exam: PRESENT: clear to auscultation alaina. ABSENT: crackles Cardiovascular exam: PRESENT: +S1, +S2 GI/Abdominal exam: PRESENT: normal bowel sounds, soft. ABSENT: organomegaly, tenderness Extremities exam: PRESENT: pedal edema Neurological exam: PRESENT: alert, awake, oriented to person, oriented to place Psychiatric exam: PRESENT: appropriate affect Skin exam: PRESENT: rash - Venous stasis of both lower extremities.. ABSENT: erythema, mottled Results Laboratory Results: 06/14/19 04:34 06/13/19 21:00 06/13/19 06/13/19 06/14/19 04:26 21:00 04:34 WBC 8.8 RBC 2.95 L Hgb 9.2 L Hct 28.5 L MCV 96 MCH 31.2 MCHC 32.3 RDW 14.9 H Plt Count 240 Sodium 135.9 L 137.8 Potassium 5.1 H D 5.1 H Chloride 94 L 95 L Carbon Dioxide 31 H 28 Anion Gap 11 15 BUN 36 H 47 H Creatinine 6.68 H 8.48 H Est GFR ( Amer) 8 L 6 L Glucose 106 229 H Calcium 8.6 8.7 06/12/19 12:57 Leg - Diabetic Ulcer Gram Stain - Final 06/11/19 13:20 Leg - Sore Gram Stain - Final 06/11/19 13:20 Leg - Sore Wound Culture - Final Morganella Morganii Escherichia Coli Enterococcus Faecalis(Group D) 06/12/19 13:58 CK-MB (CK-2) 0.65 Troponin I 0.040 Impressions: Tibia/Fibula X-Ray 06/11/19 00:00 IMPRESSION: VAGUE LOW-DENSITY AREA IN THE SOFT TISSUES, POSSIBLY ULCERATION. NO RADIOPAQUE FOREIGN BODY. NO BONY FINDINGS. Assessment & Plan - Diagnosis (1) End-stage renal disease on hemodialysis Plan: Currently undergoing dialysis. Vital signs are stable. Dialysis is being supervised to ensure safe and smooth procedure. Plan to remove between 2 and 3 L as tolerated. Dialysis orders were reviewed with the treating dialysis nurse. (2) Diabetic ulcer of right calf Is this a current diagnosis for this admission?: Yes Plan: Polymicrobial abscess being managed by surgeons and hospitalist. Please dose antibiotics appropriately for ESRD patients (3) Seizure disorder Is this a current diagnosis for this admission?: Yes Plan: Stable (4) Anemia in chronic kidney disease Plan: Unable to take erythropoietin because of allergic reaction. Monitor. (5) Diabetes mellitus type 2 in obese Is this a current diagnosis for this admission?: Yes Plan: Advised tight control (6) Legally blind Is this a current diagnosis for this admission?: Yes Plan: Status quo. (7) Morbid obesity with BMI of 45.0-49.9, adult Is this a current diagnosis for this admission?: Yes Plan: Status quo.
[2019-06-14] MEDS ORDERED: PIPERACILLIN SODIUM/TAZOBACTAM 2.25 GM in NORMAL SALINE 50 ML IV SCH (14:00)
[2019-06-14] MEDS ORDERED: VANCOMYCIN HCL 750 MG in DEXTROSE 5%-WATER 250 ML IV SCH (18:00)
[2019-06-14] MEDS ORDERED: PHENYTOIN SODIUM INJ/PF 100 MG/2 ML SDV IV ONE (18:32)
--- NOTE | 2019-06-14 18:53 | PDOC PROGRESS REPORT ---
Subjective Progress Note for:: 06/14/19 Subjective:: Patient has been hemodynamically stable and transition to medical downgrade. She remains in the ICU secondary to lack of floor staff to accommodate her transfer. Underwent dialysis today without difficulty. Does not have any chest pain no shortness of breath. She did not need oxygen during dialysis. He is on home oxygen therapy. Reason For Visit: DIABETIC ULCER RIGHT LOWER EXTREMITY Physical Exam Vital Signs: Temp Pulse Resp BP Pulse Ox 99.7 F 95 21 H 141/81 H 98 06/14/19 07:33 06/14/19 10:00 06/14/19 07:33 06/14/19 07:33 06/14/19 00:35 Intake & Output 06/13/19 06/14/19 06/15/19 06:59 06:59 06:59 Intake Total 325 50 Output Total 100 0 Balance 225 50 Weight 111.7 kg 120.2 kg Physical Exam: 43-year-old black female obese appearing no acute distress sleeping postdialysis but arousable answering questions appropriately General appearance: PRESENT: no acute distress, cooperative, morbidly obese. ABSENT: mild distress, severe distress Head exam: PRESENT: atraumatic, normocephalic Eye exam: PRESENT: conjunctiva pink, EOMI, PERRLA. ABSENT: conjunctival injection, nystagmus, scleral icterus Mouth exam: PRESENT: dry mucosa, neck supple Additional comments: Rotund neck. Neck exam: ABSENT: carotid bruit, JVD, lymphadenopathy, meningismus, tenderness, thyromegaly, tracheal deviation Respiratory exam: PRESENT: clear to auscultation alaina, unlabored. ABSENT: accessory muscle use, crackles, rales, retraction, rhonchi, tachypnea Cardiovascular exam: PRESENT: RRR, +S1, +S2 Additional comments: Distant heart sounds Pulses: ABSENT: normal dorsalis pedis pul Additional comments: No palpable DP pulses. Vascular exam: PRESENT: other - Difficult to determine Capillary refill in feet. Warm to touch. GI/Abdominal exam: PRESENT: normal bowel sounds, soft. ABSENT: ascites, distended, firm, guarding, mass, Phipps's sign, organolmegaly, rebound, rigid, tenderness Rectal exam: PRESENT: deferred Extremities exam: PRESENT: pedal edema. ABSENT: calf tenderness, joint swelling Musculoskeletal exam: PRESENT: deformity - Loss of right foot digits 5-3.. ABSENT: tenderness Neurological exam: PRESENT: alert, oriented to person, oriented to place, oriented to time, oriented to situation, CN II-XII grossly intact. ABSENT: motor sensory deficit Psychiatric exam: PRESENT: appropriate affect Skin exam: PRESENT: dry, other - Ulceration right lateral lower leg. Dressing intact. No foul odor. Mild erythema. ABSENT: cyanosis, mottled Results Laboratory Results: 06/14/19 04:34 06/13/19 21:00 06/13/19 06/13/19 06/14/19 04:26 21:00 04:34 WBC 8.8 RBC 2.95 L Hgb 9.2 L Hct 28.5 L MCV 96 MCH 31.2 MCHC 32.3 RDW 14.9 H Plt Count 240 Sodium 135.9 L 137.8 Potassium 5.1 H D 5.1 H Chloride 94 L 95 L Carbon Dioxide 31 H 28 Anion Gap 11 15 BUN 36 H 47 H Creatinine 6.68 H 8.48 H Est GFR ( Amer) 8 L 6 L Glucose 106 229 H Calcium 8.6 8.7 06/12/19 12:57 Leg - Diabetic Ulcer Gram Stain - Final 06/11/19 13:20 Leg - Sore Gram Stain - Final 06/11/19 13:20 Leg - Sore Wound Culture - Final Morganella Morganii Escherichia Coli Enterococcus Faecalis(Group D) 06/12/19 13:58 CK-MB (CK-2) 0.65 Troponin I 0.040 Impressions: Tibia/Fibula X-Ray 06/11/19 00:00 IMPRESSION: VAGUE LOW-DENSITY AREA IN THE SOFT TISSUES, POSSIBLY ULCERATION. NO RADIOPAQUE FOREIGN BODY. NO BONY FINDINGS. Assessment & Plan - Diagnosis (1) Bradycardia Is this a current diagnosis for this admission?: Yes Plan: Resolved. Supportive care (2) Cellulitis Qualifiers: Site of cellulitis: extremity Site of cellulitis of extremity: lower extremity Laterality: right Qualified Code(s): L03.115 - Cellulitis of right lower limb Is this a current diagnosis for this admission?: Yes Plan: Further debridement. Suggest local or regional anesthesia (3) Diabetic ulcer of right calf Is this a current diagnosis for this admission?: Yes (4) End stage renal disease Is this a current diagnosis for this admission?: Yes (5) Seizure disorder Is this a current diagnosis for this admission?: Yes Plan: Phenytoin level low. Gave additional bolus dosing. Will need follow up (6) Acute encephalopathy Is this a current diagnosis for this admission?: Yes Plan: Resolved. Supportive care (8) Chronic renal failure, stage 5 Is this a current diagnosis for this admission?: Yes (9) IDDM (insulin dependent diabetes mellitus) Is this a current diagnosis for this admission?: Yes (10) Morbid obesity with BMI of 45.0-49.9, adult Is this a current diagnosis for this admission?: Yes - Time Time Spent with patient: 25-34 minutes Total Critical Time (Minutes): 30 - [id number] Medications reviewed and adjusted accordingly: Yes Anticipated discharge: Home with Homehealth Within: within 36 hours - Inpatient Certification Medical Necessity: Significant Comorbidiites Make Outpatient Treatment Too Risky, Need For IV Fluids, Need for IV Antibiotics, Need for Surgery, Risk of Complication if Not Cared For in Hospital Post Hospital Care: D/C 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 He tolerated dialysis without difficulty including no hypoxia. She typically has dialysis with her oxygen but did not require this today. Her wound will still need close surgical follow-up. Would suggest regional anesthesia. Patient has been downgraded and will continue to follow until transition out of ICU. As noted above phenytoin level is low and have given additional 200 mg IV dose. Follow-up to determine whether she needs a larger oral dose. Continue Zosyn Patient seen in multidisciplinary rounds. Care of in ICU patient is ongoing and dynamic. This note represents a static representation of ongoing care in the last 24 hours. Orders given, completed and entered via computer are not always reflective of a ctual time done. Medical power of rn lactation is: family Patient no longer requires ICU care and has been downgraded to Telemetry. Awaiting bed placement
[2019-06-14] MEDS ORDERED: PHENYTOIN SODIUM IV ONE (19:15)
[2019-06-14] MEDS ORDERED: NORMAL SALINE IV ONE (19:15)
[2019-06-14] MEDS ORDERED: PHENYTOIN SODIUM INJ/PF 250 MG/5 ML SDV IV ONE (22:00)
[2019-06-14] MEDS ORDERED: INSULIN GLARGINE,HUM.REC.ANLOG 1,000 UNIT/10 ML VIAL (PYX) SUBCUT ONE (22:33)
[2019-06-14] MEDS: INSULIN GLARGINE,HUM.REC.ANLOG 1,000 UNIT/10 ML VIAL SUBCUT SCH (22:48)
[2019-06-14] MEDS: PHENYTOIN SODIUM EXTENDED 100 MG CAPSULE PO SCH (22:49)
[2019-06-14] MEDS: ATORVASTATIN CALCIUM 80 MG TABLET PO SCH (22:51)
--- NOTE | 2019-06-14 23:25 | PDOC PROGRESS REPORT ---
Subjective Progress Note for:: 06/14/19 Reason For Visit: DIABETIC ULCER RIGHT LOWER EXTREMITY Physical Exam Vital Signs: Temp Pulse Resp BP Pulse Ox 98.2 F 92 20 138/72 H 100 06/14/19 20:24 06/14/19 20:24 06/14/19 20:24 06/14/19 20:24 06/14/19 20:24 Intake & Output 06/13/19 06/14/19 06/15/19 06:59 06:59 06:59 Intake Total 325 50 Output Total 100 0 3100 Balance 225 50 -3100 Weight 111.7 kg 120.2 kg Exam: debrided ulcer on right calf appears clean but no granulation tissue. Some edema right leg Results Laboratory Results: 06/14/19 04:34 06/13/19 21:00 06/14/19 04:34 WBC 8.8 RBC 2.95 L Hgb 9.2 L Hct 28.5 L MCV 96 MCH 31.2 MCHC 32.3 RDW 14.9 H Plt Count 240 06/12/19 12:57 Leg - Diabetic Ulcer Gram Stain - Final 06/11/19 13:20 Leg - Sore Gram Stain - Final 06/11/19 13:20 Leg - Sore Wound Culture - Final Morganella Morganii Escherichia Coli Enterococcus Faecalis(Group D) 06/12/19 13:58 CK-MB (CK-2) 0.65 Troponin I 0.040 Impressions: Tibia/Fibula X-Ray 06/11/19 00:00 IMPRESSION: VAGUE LOW-DENSITY AREA IN THE SOFT TISSUES, POSSIBLY ULCERATION. NO RADIOPAQUE FOREIGN BODY. NO BONY FINDINGS. Assessment & Plan - Diagnosis (1) Diabetic ulcer of right calf Is this a current diagnosis for this admission?: Yes (2) End stage renal disease Is this a current diagnosis for this admission?: Yes (3) Seizure disorder Is this a current diagnosis for this admission?: Yes - Time Time Spent with patient: 15-24 minutes - Inpatient Certification Medical Necessity: Need for IV Antibiotics - Plan Summary Plan Summary: Nurses ready to place wound vac. Continue wound vac until heals hopefully in about 4 weeks. Continue IV antibiotics for next few days Consult discharge planning nurse for wound vac at home.
[2019-06-15] MEDS: MELATONIN 5 MG TABLET PO PRN (01:14)
[2019-06-15] MEDS: OXYCODONE-ACETAMINOPHEN 5-325 MG TABLET PO PRN ×4 (05:26→23:52)
[2019-06-15] MEDS: HEPARIN SOD (PORCINE) 5,000 UNIT/ML 1 ML VIAL SUBCUT SCH ×3 (05:26→21:50)
[2019-06-15] MEDS: PANTOPRAZOLE SODIUM 40 MG TABLET.DR PO SCH (05:26)
[2019-06-15] MEDS: PIPERACILLIN SODIUM/TAZOBACTAM 2.25 GM in NORMAL SALINE 50 ML IV SCH ×3 (05:27→21:50)
[2019-06-15] MEDS: INSULIN LISPRO 100 UNIT/ML 3 ML VIAL SUBCUT SCH ×4 (07:53→21:40)
[2019-06-15] MEDS: CALCIUM ACETATE 667 MG CAPSULE PO SCH ×3 (08:26→17:09)
[2019-06-15] MEDS ORDERED: VANCOMYCIN HCL 0 MG in DEXTROSE 5%-WATER 250 ML IV NR (08:30)
[2019-06-15] MEDS: CLOPIDOGREL BISULFATE 75 MG TABLET PO SCH (09:35)
[2019-06-15] MEDS: CLONIDINE HCL 0.2 MG TABLET PO SCH ×2 (09:35→21:50)
[2019-06-15] MEDS: VITAMIN B COMPLEX TABLET PO SCH (09:36)
[2019-06-15] MEDS: PREGABALIN 75 MG CAPSULE PO SCH (10:00)
[2019-06-15] MEDS ORDERED: VANCOMYCIN HCL 2,000 MG in DEXTROSE 5%-WATER 500 ML IV ONE (11:00)
--- NOTE | 2019-06-15 14:45 | Progress Note ---
Provider Note Provider Note: ID Consult Note Asked to review patient's chart. Pt not seen or examined. Reviewed vital signs, recent labs and microbiology results, relevant provider notes. Pt is 43 year old woman with PMH including ESRD on HD MWF, diabetes, HTN, morbid obesity, blindness, and seizure disorder who presented on 06/11/19 to [facility] with history of pain and swelling of the right calf associated with malodorous draining ulcers to her left lower leg. She underwent debridement down to the fascial level on 06/12/19 of the ulcer on her right lower lateral leg with removal of necrotic tissue. She did not have a fever. Her blood cultures are negative. The culture obtained on 06/12 showed growth of 2+ E coli (resis tant to 1st and 2nd generation cephalosporins, ampicillin, Augmentin), 2+ Morganella morganii (resistant to ampicillin, intermediate to amp/sulbactam, susceptible to 3rd and 4th generation cephalosporins), 2+ Enterococcus faecalis, and 2+ MRSA (suscpetible to Bactrim, vancomycin, daptomycin). Vancomycin is ordered, as is Zosyn. Impression/Recommendations soft tissue infection, polymicrobial, involving the L lower leg, s/p I&D - Duration of antimicrobial therapy is variable, depending upon clinical progress, but generally in the range of a few days to 2 weeks if slow to respond. - When she is ready for discharge from the hospital, it may be possible for her to continue IV vancomycin and IV Fortaz with hemodialysis if she needs to continue treatment to avoid line placement. Alan Bermeo MD [facility] Infectious Diseases pager [phone]
--- NOTE | 2019-06-15 18:32 | PDOC PROGRESS REPORT ---
Subjective Progress Note for:: 06/15/19 Subjective:: The patient is a 43-year-old female with a past medical history of CHF, CAD, hypertension, hyperlipidemia, PVD, ES RD on dialysis, DM 2, GERD, arthritis, depression, morbid obesity who was admitted 06/11/2019 for diabetic ulcer of the right calf. Patient was seen on morning rounds. She was found sitting up in the recliner, comfortably on supplemental oxygen 3 L/min; this is her baseline oxygen requirement. She reports that she is feeling well today. Fatigued; just received pain medication for her leg. She reports that she is interested in discharging to home with home health nursing; declines SNF for wound care. Awaiting wound VAC for discharge to home. She denies fever, chills, chest pain, palpitations, dyspnea, orthopnea, abdominal pain, nausea vomiting diarrhea. Next and she has no questions or concerns at this time. No concerns per nursing. Reason For Visit: DIABETIC ULCER RIGHT LOWER EXTREMITY Physical Exam Vital Signs: Temp Pulse Resp BP Pulse Ox 98.1 F 78 17 139/67 H 100 06/15/19 16:07 06/15/19 16:07 06/15/19 16:07 06/15/19 16:07 06/15/19 16:07 Intake & Output 06/14/19 06/15/19 06/16/19 06:59 06:59 06:59 Intake Total 50 100 1150 Output Total 0 3100 Balance 50 -3000 1150 Weight 120.2 kg 115.5 kg General appearance: PRESENT: no acute distress, cooperative, morbidly obese, w ell-developed, well-nourished Head exam: PRESENT: atraumatic, normocephalic Eye exam: PRESENT: conjunctiva pink, EOMI, PERRLA. ABSENT: scleral icterus Ear exam: PRESENT: normal external ear exam Mouth exam: PRESENT: moist, tongue midline Neck exam: ABSENT: carotid bruit, JVD, lymphadenopathy, thyromegaly Respiratory exam: PRESENT: clear to auscultation alaina, symmetrical, unlabored, other - Baseline oxygen requirement.. ABSENT: rales, rhonchi, wheezes Cardiovascular exam: PRESENT: RRR, +S1, +S2. ABSENT: diastolic murmur, rubs, systolic murmur Pulses: PRESENT: +1 pedal pulses bilateral Vascular exam: PRESENT: normal capillary refill GI/Abdominal exam: PRESENT: normal bowel sounds, soft. ABSENT: distended, guarding, mass, organolmegaly, rebound, tenderness Rectal exam: PRESENT: deferred Extremities exam: PRESENT: full ROM, pedal edema - +1 bilaterally. ABSENT: calf tenderness, clubbing Neurological exam: PRESENT: alert, awake, oriented to person, oriented to place, oriented to time, oriented to situation, CN II-XII grossly intact, other - Fatigue related to pain medication. ABSENT: motor sensory deficit Psychiatric exam: PRESENT: appropriate affect, normal mood. ABSENT: homicidal ideation, suicidal ideation Skin exam: PRESENT: dry, warm, other - Wound VAC to right calf. Chronic venous stasis changes to BLE. Remote right toe amputations 3-5.. ABSENT: cyanosis, intact, rash Results Laboratory Results: 06/14/19 04:34 06/13/19 21:00 06/12/19 12:57 Leg - Diabetic Ulcer Gram Stain - Final 06/12/19 12:57 Leg - Diabetic Ulcer Wound Culture - Final Escherichia Coli Morganella Morganii Enterococcus Faecalis(Group D) Mrsa (Meth Resis Staph Aureus) 06/12/19 13:58 CK-MB (CK-2) 0.65 Troponin I 0.040 Impressions: Tibia/Fibula X-Ray 06/11/19 00:00 IMPRESSION: VAGUE LOW-DENSITY AREA IN THE SOFT TISSUES, POSSIBLY ULCERATION. NO RADIOPAQUE FOREIGN BODY. NO BONY FINDINGS. Assessment and Plan - Diagnosis (1) Diabetic ulcer of right calf Is this a current diagnosis for this admission?: Yes Plan: Wound cultures demonstrate polymicrobial; E. coli, Morganella, enterococcus faecalis, and MRSA. Blood cultures negative at 4 days. Continue IV Zosyn. Resume IV vancomycin; discussed with pharmacy for renal dosing. Infectious disease was consulted; may discontinue antibiotics when clinically improved. We will continue until discharge. Surgery is consulted; plans to discharge with wound VAC. Discussed with discharge planning today; wound VAC paperwork needs to be completed. Patient can be discharged to home with home health nursing prior to wound VAC delivery, however, this would not be feasible until paperwork has been submitted/accepted to ensure that wound VAC can be delivered in timely manner. (2) Cellulitis Qualifiers: Site of cellulitis: extremity Site of cellulitis of extremity: lower extremity Laterality: right Qualified Code(s): L03.115 - Cellulitis of right lower limb Is this a current diagnosis for this admission?: Yes Plan: Significantly improved; no surrounding erythema, edema, or tenderness on exam today. Continue vancomycin and Zosyn until discharge. Wound care as above. (3) End stage renal disease Is this a current diagnosis for this admission?: Yes Plan: Nephrology is consulted; dialysis per their expertise. Dialysis diet. Continue home dose PhosLo (4) Seizure disorder Is this a current diagnosis for this admission?: Yes Plan: Continue home dose Dilantin. (5) Acute encephalopathy Is this a current diagnosis for this admission?: Yes Plan: Resolved. Acute metabolic encephalopathy secondary to cellulitis/diabetic leg wound. (6) IDDM (insulin dependent diabetes mellitus) Is this a current diagnosis for this admission?: Yes Plan: Continue Lantus 15 units nightly. Accu-Cheks before meals and at bedtime with sliding scale coverage. Hypoglycemia protocol. Consistent carb diet. (7) Morbid obesity with BMI of 45.0-49.9, adult Is this a current diagnosis for this admission?: Yes Plan: BMI 46.6. Consistent carb/dialysis diet. Dietary discretion and lifestyle modification are encouraged. PT consultation obtained. Discharge planning consulted. (8) Bradycardia Is this a current diagnosis for this admission?: Yes Plan: Resolved. - Time Time Spent with patient: 35 or more minutes Medications reviewed and adjusted accordingly: Yes Anticipated discharge: Home with Homehealth Within: within 24 hours - Once Wound VAC has been arranged.
[2019-06-15] MEDS ORDERED: EPOETIN ALFA-EPBX 10,000 UNIT in SYRINGE, DISPOSABLE, 1 EACH IV PRN (20:18)
[2019-06-15] MEDS ORDERED: EPOETIN ALFA-EPBX 10,000 UNIT/ML VIAL (RENAL) IV PRN ×2 (20:46→20:50)
[2019-06-15] MEDS: ATORVASTATIN CALCIUM 80 MG TABLET PO SCH (21:50)
[2019-06-15] MEDS: PHENYTOIN SODIUM EXTENDED 100 MG CAPSULE PO SCH (21:50)
[2019-06-15] MEDS: INSULIN GLARGINE,HUM.REC.ANLOG 1,000 UNIT/10 ML VIAL SUBCUT SCH (21:50)
[2019-06-16] MEDS: MELATONIN 5 MG TABLET PO PRN (02:00)
[2019-06-16] MEDS ORDERED: NORMAL SALINE 1000 ML 1,000 ML IV PRN (05:00)
[2019-06-16 05:02] LABS: HEMATOCRIT 29.6 % (36.0-47.0); HEMOGLOBIN 9.6 g/dL (12.0-15.5); MEAN CORPUSCULAR HEMOGLOBIN 31.3 pg (27.0-33.4); MEAN CORPUSCULAR HGB CONC 32.4 g/dL (32.0-36.0); MEAN CORPUSCULAR VOLUME 97 fl (80-97); PLATELET COUNT 273 10^3/uL (150-450); RED BLOOD COUNT 3.06 10^6/uL (3.72-5.28); RED CELL DISTRIBUTION WIDTH 15.1 % (11.5-14.0); WHITE BLOOD COUNT 8.1 10^3/uL (4.0-10.5)
[2019-06-16 05:25] LABS: ANION GAP 14 (5-19); BLOOD UREA NITROGEN 42 mg/dL (7-20); CARBON DIOXIDE 28 mmol/L (22-30); CHLORIDE 94 mmol/L (98-107); GLUCOSE 103 mg/dL (75-110); POTASSIUM 4.9 mmol/L (3.6-5.0)
[2019-06-16] MEDS: PIPERACILLIN SODIUM/TAZOBACTAM 2.25 GM in NORMAL SALINE 50 ML IV SCH ×3 (06:57→22:48)
[2019-06-16] MEDS: PANTOPRAZOLE SODIUM 40 MG TABLET.DR PO SCH (06:57)
[2019-06-16] MEDS: HEPARIN SOD (PORCINE) 5,000 UNIT/ML 1 ML VIAL SUBCUT SCH ×3 (06:58→22:49)
[2019-06-16] MEDS: CALCIUM ACETATE 667 MG CAPSULE PO SCH ×3 (07:39→17:12)
[2019-06-16] MEDS: INSULIN LISPRO 100 UNIT/ML 3 ML VIAL SUBCUT SCH ×4 (08:02→22:52)
[2019-06-16] MEDS: PREGABALIN 75 MG CAPSULE PO SCH (09:41)
[2019-06-16] MEDS: OXYCODONE-ACETAMINOPHEN 5-325 MG TABLET PO PRN ×3 (09:41→22:49)
[2019-06-16] MEDS: CLOPIDOGREL BISULFATE 75 MG TABLET PO SCH (09:41)
[2019-06-16] MEDS: VITAMIN B COMPLEX TABLET PO SCH (09:41)
--- NOTE | 2019-06-16 10:00 | PDOC PROGRESS REPORT ---
Subjective Progress Note for:: 06/16/19 Subjective:: I am seeing the patient during dialysis this morning. She is tolerating dialysis and is stable and comfortable without any issues. She refused to be placed to fdc facility and the plan is for her to go home with a wound VAC. Unfortunately the wound VAC will not be arranged until Friday according to her hospitalist, HUI Mc. Awaiting surg radha recommendation if she can be discharged home in for home health arranged a wound VAC until Friday. Reason For Visit: DIABETIC ULCER RIGHT LOWER EXTREMITY Physical Exam Vital Signs: Temp Pulse Resp BP Pulse Ox 97.4 F 101 H 20 120/82 94 06/16/19 04:22 06/16/19 07:15 06/16/19 04:22 06/16/19 07:15 06/16/19 04:22 Intake & Output 06/15/19 06/16/19 06/17/19 06:59 06:59 06:59 Intake Total 100 1150 50 Output Total 3100 Balance -3000 1150 50 Weight 115.5 kg 119 kg Vitals during dialysis: Blood pressure 168/66, heart rate of 93, blood flow rate of 450 mL/min and dialysate flow rate of 800 mL/min. Exam: General appearance: PRESENT: no acute distress, cooperative, well-developed, well-nourished Head exam: PRESENT: atraumatic, normocephalic Eye exam: PRESENT: conjunctiva pink, PERRLA. Patient is legally blind ABSENT: scleral icterus Neck exam: ABSENT: JVD Respiratory exam: PRESENT: Diminished breath sounds. ABSENT: crackles, rales, rhonchi, unlabored, wheezes Cardiovascular exam: PRESENT: Regular rate rhythm -+S1, +S2. ABSENT: diastolic murmur, systolic murmur GI/Abdominal exam: PRESENT: normal bowel sounds, soft. ABSENT: guarding, mass, tenderness Extremities exam: Bilateral trace edema, right leg with the posterior diabetic ulcer and wound VAC in place, left leg has chronic skin lesions Neurological exam: PRESENT: alert, awake, oriented to person, place and time. Skin exam: PRESENT: dry, warm, Cardiovascular exam: PRESENT: +S1, +S2 GI/Abdominal exam: PRESENT: normal bowel sounds, soft. ABSENT: organomegaly, tenderness Results Laboratory Results: 06/16/19 04:15 06/16/19 04:15 06/16/19 06/16/19 04:15 04:15 WBC 8.1 RBC 3.06 L Hgb 9.6 L Hct 29.6 L MCV 97 MCH 31.3 MCHC 32.4 RDW 15.1 H Plt Count 273 Sodium 135.6 L Potassium 4.9 Chloride 94 L Carbon Dioxide 28 Anion Gap 14 BUN 42 H Creatinine 8.79 H Est GFR ( Amer) 6 L Glucose 103 Calcium 9.0 06/12/19 12:57 Leg - Diabetic Ulcer Gram Stain - Final 06/12/19 12:57 Leg - Diabetic Ulcer Wound Culture - Final Escherichia Coli Morganella Morganii Enterococcus Faecalis(Group D) Mrsa (Meth Resis Staph Aureus) 06/12/19 13:58 CK-MB (CK-2) 0.65 Troponin I 0.040 Impressions: Tibia/Fibula X-Ray 06/11/19 00:00 IMPRESSION: VAGUE LOW-DENSITY AREA IN THE SOFT TISSUES, POSSIBLY ULCERATION. NO RADIOPAQUE FOREIGN BODY. NO BONY FINDINGS. Assessment & Plan - Diagnosis (1) End-stage renal disease on hemodialysis Is this a current diagnosis for this admission?: Yes Plan: We will do dialysis today for 3 hours, using the patient's right AV fistula, with 2 potassium bath, blood flow rate of 450 mL per minute, dialysate flow rate of 800 mL per minute, ultrafiltration 2 to 3 L as tolerated, no heparin and Procrit with 10,000 units during dialysis intravenously. Patient will be monito red throughout dialysis treatment. From nephrology standpoint I think she can be discharged home if okay with surgery. Her next dialysis, if discharge will be at [facility] on Friday. (2) Diabetic ulcer of right calf Is this a current diagnosis for this admission?: Yes Plan: Status post surgical debridement. Awaiting wound VAC for home. Defer to hospitalist service. (3) Anemia in chronic kidney disease Is this a current diagnosis for this admission?: Yes Plan: We will give Procrit during dialysis treatment. (4) Diabetes mellitus type 2 in obese Is this a current diagnosis for this admission?: Yes (5) Hypertension Qualifiers: Hypertension type: essential hypertension Qualified Code(s): I10 - Essential (primary) hypertension Is this a current diagnosis for this admission?: Yes - Time Time with patient: 15-25 minutes
[2019-06-16] MEDS: DOCUSATE SODIUM 100 MG/10 ML UDC PO SCH ×2 (12:47→17:12)
[2019-06-16] MEDS: CLONIDINE HCL 0.2 MG TABLET PO SCH ×2 (12:47→22:50)
[2019-06-16] MEDS ORDERED: VANCOMYCIN HCL 750 MG in DEXTROSE 5%-WATER 250 ML IV SCH (18:00)
[2019-06-16] MEDS: PHENYTOIN SODIUM EXTENDED 100 MG CAPSULE PO SCH (22:49)
[2019-06-16] MEDS: INSULIN GLARGINE,HUM.REC.ANLOG 1,000 UNIT/10 ML VIAL SUBCUT SCH (22:51)
[2019-06-16] MEDS: ATORVASTATIN CALCIUM 80 MG TABLET PO SCH (22:52)
[2019-06-17] MEDS: PIPERACILLIN SODIUM/TAZOBACTAM 2.25 GM in NORMAL SALINE 50 ML IV SCH ×2 (05:13→13:33)
[2019-06-17] MEDS: PANTOPRAZOLE SODIUM 40 MG TABLET.DR PO SCH (05:13)
[2019-06-17] MEDS: HEPARIN SOD (PORCINE) 5,000 UNIT/ML 1 ML VIAL SUBCUT SCH ×2 (05:14→13:33)
[2019-06-17] MEDS: INSULIN LISPRO 100 UNIT/ML 3 ML VIAL SUBCUT SCH ×2 (09:13→13:40)
[2019-06-17] MEDS: CLONIDINE HCL 0.2 MG TABLET PO SCH (09:23)
[2019-06-17] MEDS: VITAMIN B COMPLEX TABLET PO SCH (09:23)
[2019-06-17] MEDS: CALCIUM ACETATE 667 MG CAPSULE PO SCH ×2 (09:23→13:37)
[2019-06-17] MEDS: CLOPIDOGREL BISULFATE 75 MG TABLET PO SCH (09:23)
[2019-06-17] MEDS: DOCUSATE SODIUM 100 MG/10 ML UDC PO SCH (09:24)
[2019-06-17] MEDS: PREGABALIN 75 MG CAPSULE PO SCH (09:25)
[2019-06-17 14:44] VITALS: BP 101/47
--- NOTE | 2019-06-18 13:17 | PDOC DISCHARGE SUMMARY ---
Impression - Admit/DC Date/PCP Admission Date/Primary Care Provider: 06/11/19 15:15 WESLEY ALBERTS MD Discharge Date: 06/16/19 - Discharge Diagnosis (1) Diabetic ulcer of right calf Is this a current diagnosis for this admission?: Yes (2) Cellulitis Is this a current diagnosis for this admission?: Yes (3) End stage renal disease Is this a current diagnosis for this admission?: Yes (4) Seizure disorder Is this a current diagnosis for this admission?: Yes (5) Acute encephalopathy Is this a current diagnosis for this admission?: Yes (6) IDDM (insulin dependent diabetes mellitus) Is this a current diagnosis for this admission?: Yes (7) Morbid obesity with BMI of 45.0-49.9, adult Is this a current diagnosis for this admission?: Yes (8) Bradycardia Is this a current diagnosis for this admission?: Yes - Additional Information Resuscitation Status: Full Code Discharge Diet: Other (Comments) Discharge Activity: Activity As Tolerated, Balance Activity w/Rest Referrals: WOUND CARE [Outside] - 06/29/19 10:00 am ELIZABETH PACHECO FNP-C [NO LOCAL MD] - 06/29/19 3:30 pm Prescriptions: Fluconazole [Diflucan 100 Mg Tablet] 100 mg PO Q72HP PRN #3 tablet PRN Reason: yeast infection Home Medications: Atorvastatin Calcium [Lipitor 80 mg Tablet] 80 mg PO QHS 06/11/19 B Complex W-C No.20/Folic Acid [Virt-Caps Softgel] 1 mg PO DAILY 06/11/19 Calcium Acetate [Phoslo 667 mg Capsule] 1,334 mg PO .WITH SNACKS 06/11/19 Calcium Acetate [Phoslo 667 mg Capsule] 2,001 mg PO MEALS 06/11/19 Clonidine HCl [Catapres 0.2 mg Tablet] 0.2 mg PO Q12 06/11/19 Clopidogrel Bisulfate [Plavix 75 mg Tablet] 75 mg PO DAILY 06/11/19 Hydroxyzine HCl [Atarax 10 mg Tablet] 10 mg PO Q8HP PRN 06/11/19 Insulin Aspart [Novolog Flexpen] 0 unit SQ .SLIDING SCALE 06/11/19 Insulin Aspart [Novolog Flexpen] 5 units SQ MEALS 06/11/19 Insulin Glargine,Hum.rec.anlog [Lantus Insulin 100 Unit/1 ml 10 ml] 50 units SQ QHS 06/11/19 Omeprazole 40 mg PO QHS 06/11/19 Oxycodone HCl [Oxy-Ir 5 mg Tablet] 5 mg PO Q8HP PRN 06/11/19 Phenytoin Sodium Extended [Dilantin 100 mg Capsule.er] 300 mg PO QHS 06/11/19 Pregabalin [Lyrica 75 mg Capsule] 75 mg PO SUTUTHSA@1000 06/11/19 Pregabalin [Lyrica 75 mg Capsule] 150 mg PO MOWEFR@1000 06/11/19 Fluconazole [Diflucan 100 Mg Tablet] 100 mg PO Q72HP PRN #3 tablet 06/17/19 History of Present Illiness History of Present Illness: DIAN SLAUGHTER is a 43 year old female with DM 2, multiple complications including blindness, CAD, hypertension, end-stage renal disease on dialysis who developed a nonhealing ulcer to the lateral aspect of her right leg requiring surgical debridement. During the procedure she had 2 episodes of bradycardia which necessitated transfer to the ICU. Hospital Course Hospital Course: (1) Diabetic ulcer of right calf Wound cultures demonstrate polymicrobial; E. coli, Morganella, enterococcus faecalis, and MRSA. Blood cultures negative The patient was empirically placed on vancomycin and Zosyn which were continued until the day of discharge. Require antibiotic treatment at home. Infectious disease was consulted; may discontinue antibiotics when clinically improved. We will continue until discharge. Surgery was consulted; patient is to discharge home with wound VAC. Home health nursing services for wound management have been arranged. Patient is to follow-up with the advanced wound care clinic for continued care. (2) Cellulitis Significantly improved; no surrounding erythema, edema, or tenderness on exam today. Vancomycin and Zosyn were continued until day of discharge. Wound care as above. (3) End stage renal disease Nephrology was consulted; dialysis per their expertise. Dialysis diet. Continue home dose PhosLo (4) Seizure disorder Continue home dose Dilantin; no seizure activity throughout admission. (5) Acute encephalopathy Resolved. Acute metabolic encephalopathy secondary to cellulitis/diabetic leg wound. (6) IDDM (insulin dependent diabetes mellitus) The patient's diabetes mellitus was managed with her home dose Lantus and sliding scale insulin. (7) Morbid obesity with BMI of 45.0-49.9, adult BMI 46.6. Consistent carb/dialysis diet. Dietary discretion and lifestyle modification are encouraged. (8) Bradycardia Is this a current diagnosis for this admission?: Yes Plan: Resolved. Physical Exam Vital Signs: Temp Pulse Resp BP Pulse Ox 97.5 F 82 16 101/47 L 95 06/17/19 14:42 06/17/19 14:42 06/17/19 14:42 06/17/19 14:42 06/17/19 14:42 Intake & Output 06/17/19 06/18/19 06/19/19 06:59 06:59 06:59 Intake Total 580 50 Output Total 3300 Balance -2720 50 Weight 116.6 kg General appearance: PRESENT: no acute distress, cooperative, morbidly obese, well-developed, well-nourished Head exam: PRESENT: atraumatic, normocephalic Eye exam: PRESENT: conjunctiva pink, EOMI, PERRLA. ABSENT: scleral icterus Ear exam: PRESENT: normal external ear exam Mouth exam: PRESENT: moist, tongue midline Neck exam: ABSENT: carotid bruit, JVD, lymphadenopathy, thyromegaly Respiratory exam: PRESENT: clear to auscultation alaina, symmetrical, unlabored. ABSENT: rales, rhonchi, wheezes Cardiovascular exam: PRESENT: RRR, +S1, +S2. ABSENT: diastolic murmur, rubs, systolic murmur Vascular exam: PRESENT: normal capillary refill GI/Abdominal exam: PRESENT: normal bowel sounds, soft. ABSENT: distended, guarding, mass, organolmegaly, rebound, tenderness Rectal exam: PRESENT: deferred Extremities exam: PRESENT: full ROM. ABSENT: calf tenderness, clubbing, pedal edema Musculoskeletal exam: PRESENT: ambulatory Neurological exam: PRESENT: alert, awake, oriented to person, oriented to place, oriented to time, oriented to situation, CN II-XII grossly intact. ABSENT: motor sensory deficit Psychiatric exam: PRESENT: appropriate affect, normal mood. ABSENT: homicidal ideation, suicidal ideation Skin exam: PRESENT: dry, warm, other - Wound VAC to right lateral lower extremity, chronic venous stasis changes bilateral lower extremities. ABSENT: cyanosis, rash Results Laboratory Results: WBC 8.1 10^3/uL (4.0-10.5) 06/16/19 04:15 RBC 3.06 10^6/uL (3.72-5.28) L 06/16/19 04:15 Hgb 9.6 g/dL (12.0-15.5) L 06/16/19 04:15 Hct 29.6 % (36.0-47.0) L 06/16/19 04:15 MCV 97 fl (80-97) 06/16/19 04:15 MCH 31.3 pg (27.0-33.4) 06/16/19 04:15 MCHC 32.4 g/dL (32.0-36.0) 06/16/19 04:15 RDW 15.1 % (11.5-14.0) H 06/16/19 04:15 Plt Count 273 10^3/uL (150-450) 06/16/19 04:15 Lymph % (Auto) Not Reportable 06/12/19 13:58 Tucker % (Auto) Not Reportable 06/12/19 13:58 Eos % (Auto) Not Reportable 06/12/19 13:58 Baso % (Auto) Not Reportable 06/12/19 13:58 Absolute Neuts (auto) Not Reportable 06/12/19 13:58 Absolute Lymphs (auto) Not Reportable 06/12/19 13:58 Absolute Monos (auto) Not Reportable 06/12/19 13:58 Absolute Eos (auto) Not Reportable 06/12/19 13:58 Absolute Basos (auto) Not Reportable 06/12/19 13:58 Total Counted 100 06/12/19 13:58 Seg Neutrophils % Not Reportable 06/12/19 13:58 Seg Neuts % (Manual) 63 % (42-78) 06/12/19 13:58 Lymphocytes % (Manual) 27 % (13-45) 06/12/19 13:58 Monocytes % (Manual) 8 % (3-13) 06/12/19 13:58 Eosinophils % (Manual) 0 % (0-6) 06/12/19 13:58 Basophils % (Manual) 1 % (0-2) 06/12/19 13:58 Metamyelocytes % 1 % (0) H 06/12/19 13:58 Abs Neuts (Manual) 3.6 10^3/uL (1.7-8.2) 06/12/19 13:58 Abs Lymphs (Manual) 1.5 10^3/uL (0.5-4.7) 06/12/19 13:58 Abs Monocytes (Manual) 0.5 10^3/uL (0.1-1.4) 06/12/19 13:58 Absolute Eos (Manual) 0.0 10^3/uL (0.0-0.6) 06/12/19 13:58 Abs Basophils (Manual) 0.1 10^3/uL (0.0-0.2) 06/12/19 13:58 Large Platelets PRESENT 06/12/19 13:58 Giant Platelets PRESENT 06/12/19 13:58 Platelet Comment ADEQUATE 06/12/19 13:58 Anisocytosis SLIGHT 06/12/19 13:58 Sodium 135.6 mmol/L (137-145) L 06/16/19 04:15 Potassium 4.9 mmol/L (3.6-5.0) 06/16/19 04:15 Chloride 94 mmol/L (98-107) L 06/16/19 04:15 Carbon Dioxide 28 mmol/L (22-30) 06/16/19 04:15 Anion Gap 14 (5-19) 06/16/19 04:15 BUN 42 mg/dL (7-20) H 06/16/19 04:15 Creatinine 8.79 mg/dL (0.52-1.25) H 06/16/19 04:15 Est GFR ( Amer) 6 (>60) L 06/16/19 04:15 Est GFR (MDRD) Non-Af 5 (>60) L 06/16/19 04:15 Glucose 103 mg/dL (75-110) 06/16/19 04:15 POC Glucose 143 mg/dL (70-110) H 06/17/19 13:37 Calcium 9.0 mg/dL (8.4-10.2) 06/16/19 04:15 Phosphorus 3.5 mg/dL (2.5-4.5) 06/12/19 04:04 Magnesium 1.7 mg/dL (1.6-2.3) 06/12/19 04:04 Total Bilirubin 0.5 mg/dL (0.2-1.3) 06/11/19 14:21 Direct Bilirubin 0.4 mg/dL (0.0-0.4) 06/11/19 14:21 Neonat Total Bilirubin Not Reportable 06/11/19 14:21 Neonat Direct Bilirubin Not Reportable 06/11/19 14:21 Neonat Indirect Bili Not Reportable 06/11/19 14:21 AST 22 U/L (14-36) 06/11/19 14:21 ALT 17 U/L (<35) 06/11/19 14:21 Alkaline Phosphatase 184 U/L (38-126) H 06/11/19 14:21 CK-MB (CK-2) 0.65 ng/mL (<4.55) 06/12/19 13:58 Troponin I 0.040 ng/mL 06/12/19 13:58 Total Protein 10.3 g/dL (6.3-8.2) H 06/11/19 14:21 Albumin 4.3 g/dL (3.5-5.0) 06/11/19 14:21 Serum HCG, Qual NEGATIVE (NEGATIVE) 06/12/19 04:04 Phenytoin 4.8 ug/mL (10.0-20.0) L 06/14/19 11:14 06/12/19 13:58 CK-MB (CK-2) 0.65 Troponin I 0.040 Impressions: Tibia/Fibula X-Ray 06/11/19 00:00 IMPRESSION: VAGUE LOW-DENSITY AREA IN THE SOFT TISSUES, POSSIBLY ULCERATION. NO RADIOPAQUE FOREIGN BODY. NO BONY FINDINGS. Plan Plan of Treatment: Discharge to home with home health services. She is instructed to follow-up with her primary care provider within 1 week, with the wound care clinic within 2 weeks, and to keep her dialysis schedule. She is instructed to continue a carb/dialysis diet. Take medications as prescribed. Return to the emergency department as needed for any concerning symptoms Stroke Is this a Stroke Patient?: No Acute Heart Failure - Is this a Heart Failure Patient?: No
== END 2019-06-17 17:05 | disposition home health service (06) | DRG 623 ==
LOC: ER 11:47 → EH 15:15 → 4S 21:06 → ICU 06-12 13:31 → 3N 06-14 20:17
PROVIDERS: ADMIT Internal Medicine; ATTEND Internal Medicine Critical Care Medicine
PROC: 0JBN0ZZ Excision of Right Lower Leg Subcutaneous Tissue and Fascia, Open Approach (ICD-10-PCS; principal; 2019-06-12 11:00)
PROC: 5A1D70Z Performance of Urinary Filtration, Intermittent, Less than 6 Hours Per Day (ICD-10-PCS; 2019-06-14)
PROC: 5A1D70Z Performance of Urinary Filtration, Intermittent, Less than 6 Hours Per Day (ICD-10-PCS; 2019-06-16)
DX: E11.622 Type 2 diabetes mellitus with other skin ulcer (principal); L97.218 Non-pressure chronic ulcer of right calf with other specified severity; Z68.42 Body mass index [BMI] 45.0-49.9, adult; L03.115 Cellulitis of right lower limb; I13.2 Hypertensive heart and chronic kidney disease with heart failure and with stage 5 chronic kidney disease, or end stage renal disease; Z16.19 Resistance to other specified beta lactam antibiotics; Z16.11 Resistance to penicillins; E11.22 Type 2 diabetes mellitus with diabetic chronic kidney disease; N18.6 End stage renal disease; Z99.2 Dependence on renal dialysis; I25.10 Atherosclerotic heart disease of native coronary artery without angina pectoris; R00.1 Bradycardia, unspecified; G40.909 Epilepsy, unspecified, not intractable, without status epilepticus; Z86.73 Personal history of transient ischemic attack (TIA), and cerebral infarction without residual deficits; H54.8 Legal blindness, as defined in USA; E66.01 Morbid (severe) obesity due to excess calories; Z90.49 Acquired absence of other specified parts of digestive tract; D63.1 Anemia in chronic kidney disease; F32.9 Major depressive disorder, single episode, unspecified; M19.90 Unspecified osteoarthritis, unspecified site; K21.9 Gastro-esophageal reflux disease without esophagitis; Z79.4 Long term (current) use of insulin; B96.20 Unspecified Escherichia coli [E. coli] as the cause of diseases classified elsewhere; B95.2 Enterococcus as the cause of diseases classified elsewhere; B96.4 Proteus (mirabilis) (morganii) as the cause of diseases classified elsewhere; E11.628 Type 2 diabetes mellitus with other skin complications; B95.62 Methicillin resistant Staphylococcus aureus infection as the cause of diseases classified elsewhere; I50.9 Heart failure, unspecified; E87.5 Hyperkalemia; Z88.2 Allergy status to sulfonamides; Z88.1 Allergy status to other antibiotic agents; Z79.899 Other long term (current) drug therapy; Z88.8 Allergy status to other drugs, medicaments and biological substances; Z87.891 Personal history of nicotine dependence
CPT/HCPCS: 01470; 36415; 80048; 80053; 80185; 82553; 82962; 83735; 84100; 84484; 84703; 85025; 85027; 87040; 87070; 87075; 87077; 87186; 87205; 93005; 93010; 94660; 99284; J1165; J1644; J1815; J2250; J2310; J2370; J2405; J2543; J2704; J3010; J3370; J3490; J7060

== ENCOUNTER → 2019-08-10 | Outpatient (CLI) | payer MEDICAID | LOC: SP 15:03 | PROVIDERS: ATTEND Nurse Practitioner Family | DX: L97.812 Non-pressure chronic ulcer of other part of right lower leg with fat layer exposed (principal) | CPT/HCPCS: 93925 ==

== ENCOUNTER 2019-10-12 20:15 | Emergency (ER) | payer MEDICAID ==
[2019-10-12 22:17] LABS: ABSOLUTE BASOPHILS # (AUTO) 0.1 10^3/uL (0.0-0.2); ABSOLUTE LYMPHOCYTES (AUTO) 0.8 10^3/uL (0.5-4.7); ABSOLUTE MONOCYTES (AUTO) 0.7 10^3/uL (0.1-1.4); ABSOLUTE NEUT (AUTO) 6.5 10^3/uL (1.7-8.2); BASOPHILS % (AUTO) 0.9 % (0-2); HEMATOCRIT 34.4 % (36.0-47.0); HEMOGLOBIN 11.4 g/dL (12.0-15.5); LYMPHOCYTES % (AUTO) 9.4 % (13-45); MEAN CORPUSCULAR HEMOGLOBIN 32.6 pg (27.0-33.4); MEAN CORPUSCULAR HGB CONC 33.1 g/dL (32.0-36.0); MEAN CORPUSCULAR VOLUME 99 fl (80-97); MONOCYTES % (AUTO) 8.2 % (3-13); PLATELET COUNT 216 10^3/uL (150-450); RED CELL DISTRIBUTION WIDTH 16.3 % (11.5-14.0); SEGMENTED NEUTROPHILS % (AUTO) 81.5 % (42-78); TOTAL CELLS COUNTED % (AUTO) 100 %
[2019-10-12 22:43] LABS: ALBUMIN 3.9 g/dL (3.5-5.0); ALKALINE PHOSPHATASE 139 U/L (38-126); ANION GAP 14 (5-19); ASPARTATE AMINO TRANSFERASE 24 U/L (14-36); BILIRUBIN,DIRECT 0.5 mg/dL (0.0-0.4); BILIRUBIN,TOTAL 0.5 mg/dL (0.2-1.3); BLOOD UREA NITROGEN 34 mg/dL (7-20); CALCIUM 9.3 mg/dL (8.4-10.2); CARBON DIOXIDE 30 mmol/L (22-30); CHLORIDE 92 mmol/L (98-107); GLUCOSE 85 mg/dL (75-110); POTASSIUM 4.8 mmol/L (3.6-5.0); TOTAL PROTEIN 9.1 g/dL (6.3-8.2)
[2019-10-12] MEDS ORDERED: ONDANSETRON 4 MG TAB.RAPDIS PO ONE (23:10)
--- NOTE | 2019-10-12 23:13 | ER Document Report ---
ED Medical Screen (RME) - General Chief Complaint: Abdominal Pain Stated Complaint: ABDOMINAL PAIN WEAKNESS Time Seen by Provider: 10/12/19 22:48 Primary Care Provider: ELIZABETH PACHECO FNP-C [Primary Care Provider] - Follow up as needed Notes: Patient is a 44-year-old female who presents the emergency department with a chief complaint of abdominal pain and nausea. Patient states that her symptoms started 3 days ago. Patient admits to vomiting once today. Exam: Soft, nontender abdomen. Exam limited due to the patient in a wheelchair. I have greeted and performed a rapid initial assessment of this patient. A comprehensive ED assessment and evaluation of the patient, analysis of test results and completion of medical decision making process will be conducted by an additional ED providers. TRAVEL OUTSIDE OF THE [place] IN LAST 30 DAYS: No - Related Data Allergies/Adverse Reactions: hydromorphone [Hydromorphone] Allergy (Intermediate, Verified 12/28/18 12:14) ABDOMINAL CRAMPS azithromycin [Azithromycin] Allergy (Unknown, Verified 12/28/18 12:14) Darbepoetin [place] in [place] * [From Aranesp] Allergy (Unknown, Verified 12/28/18 12:14) ITCHING epoetin milan [From Procrit] Allergy (Verified 12/28/18 12:14) Sulfa (Sulfonamide Antibiotics) Allergy (Verified 12/28/18 12:14) Unsure BBQ SAUCE Allergy (Mild, Uncoded 12/28/18 12:14) Hives Home Medications: Plavix, clonadine, Past Medical History - Social History Chew tobacco use (# tins/day): No Frequency of alcohol use: Rare Drug Abuse: None - Past Medical History Cardiac Medical History: Reports: Hx Congestive Heart Failure, Hx Coronary Artery Disease, Hx Hypercholesterolemia, Hx Hypertension, Hx Peripheral Vascular Disease Denies: Hx Heart Attack Pulmonary Medical History: Denies: Hx Asthma, Hx Bronchitis, Hx COPD, Hx Pneumonia, Hx Tuberculosis Neurological Medical History: Reports: Hx Cerebrovascular Accident - 2004, Hx Seizures. Denies: Hx Parkinson's Disease Endocrine Medical History: Reports: Hx Diabetes Mellitus Type 2. Denies: Hx Diabetes Mellitus Type 1 Renal/ Medical History: Reports: Hx End Stage Renal Disease, Hx Hemodialysis - Friday, Friday, and Friday. Denies: Hx Kidney Stones, Hx Peritoneal Dialysis GI Medical History: Reports: Hx Gastroesophageal Reflux Disease. Denies: Hx Cirrhosis, Hx Ulcer Musculoskeltal Medical History: Reports Hx Arthritis, Denies Hx Multiple Sclerosis Skin Medical History: Reports Hx Cellulitis Psychiatric Medical History: Reports: Hx Depression Denies: Hx Bipolar Disorder, Hx Schizophrenia Traumatic Medical History: Reports: Hx Fractures - Rt. Hip Infectious Medical History: Past Surgical History: Reports: Hx Abdominal Surgery - abd hernia repair, Hx Cholecystectomy, Hx Herniorrhaphy, Hx Orthopedic Surgery - rt hip, Hx Vascular Surgery - Right arm AV fistula. Denies: Hx Pacemaker - Immunizations Immunizations up to date: Yes Hx Diphtheria, Pertussis, Tetanus Vaccination: Yes Physical Exam - Vital signs Vitals: Temp Pulse Resp BP Pulse Ox 98.2 F 83 20 182/73 H 97 10/12/19 20:41 10/12/19 20:41 10/12/19 20:41 10/12/19 20:41 10/12/19 20:41 Course - Vital Signs Vital signs: Temp Pulse Resp BP Pulse Ox 98.2 F 83 20 182/73 H 97 10/12/19 20:41 10/12/19 20:41 10/12/19 20:41 10/12/19 20:41 10/12/19 20:41 - Laboratory Result Diagrams: 10/12/19 22:00 10/12/19 22:00 Laboratory results interpreted by me: 10/12/19 10/12/19 22:00 22:00 RBC 3.50 L Hgb 11.4 L Hct 34.4 L MCV 99 H RDW 16.3 H Lymph % (Auto) 9.4 L Seg Neutrophils % 81.5 H Sodium 135.7 L Chloride 92 L BUN 34 H Creatinine 6.49 H Est GFR ( Amer) 8 L Est GFR (MDRD) Non-Af 7 L Direct Bilirubin 0.5 H Alkaline Phosphatase 139 H Total Protein 9.1 H Doctor's Discharge - Discharge Referrals: ELIZABETH PACHECO FNP-C [Primary Care Provider] - Follow up as needed
--- NOTE | 2019-10-13 00:05 | RADIOLOGY REPORT (SQ) ---
EXAM DESCRIPTION: XR ABDOMEN 1 VIEW (KUB) COMPLETED DATE/TME: 10/12/2019 23:12 CLINICAL HISTORY: 44 years, Female, abd pain COMPARISON: None. NUMBER OF VIEWS: 2 TECHNIQUE: AP abdomen LIMITATIONS: None. FINDINGS: Evaluation for free air limited on a supine view. Large amount of stool and bowel gas in the colon. Surgical clips in the right upper quadrant. Vascular calcifications. Osteopenia. The bowel gas pattern is nonspecific IMPRESSION: Abundant gas and stool in the colon copyright 2010 [employer]- All Rights Reserved
[2019-10-13] MEDS ORDERED: LACTULOSE SYRUP 20 GM/30 ML UDCUP PR ONE (02:09)
[2019-10-13] MEDS ORDERED: METOCLOPRAMIDE HCL INJ/PF 10 MG/2 ML SDV IV ONE (02:09)
--- NOTE | 2019-10-13 02:34 | ER Document Report ---
ED General - General Chief Complaint: Abdominal Pain Stated Complaint: ABDOMINAL PAIN WEAKNESS Time Seen by Provider: 10/12/19 22:48 Primary Care Provider: ELIZABETH PACHECO FNP-C [Primary Care Provider] - Follow up as needed Notes: 44-year-old female presents emergency department complaining of vomiting, abdominal pain and altered mental status. Patient has end-stage renal disease, states that she drank a few shots of alcohol this , vomited once on Friday, went to dialysis on Friday and had some nausea which they treated with Zofran but it did not change her nausea, patient states she tried to eat an egg today but it made her vomit and caused upper abdominal pain. Patient states that she has not actually had any food to eat since Friday, states that her attempts at drinking water have failed since Friday. Patient has not had a bowel movement since Friday. Is still passing gas. Patient also states that yearly for the past 3 years she has been having spells where she feels off for several days. States that she has previously been told that these are mini strokes. Patient states that she felt like she was may be having some difficulty finding the right words on Friday or Friday, states she really does not remember anything on Friday and states she is feeling somewhat better this evening but still does not feel completely normal. Son states that she was not speaking as much as usual and slept more than usual on Friday, had some small improvement with dialysis on Friday and improved significantly on Friday and is now normal. TRAVEL OUTSIDE OF THE [place] IN LAST 30 DAYS: No - Related Data Allergies/Adverse Reactions: hydromorphone [Hydromorphone] Allergy (Intermediate, Verified 12/28/18 12:14) ABDOMINAL CRAMPS azithromycin [Azithromycin] Allergy (Unknown, Verified 12/28/18 12:14) Darbepoetin Chandrika in [place] * [From Aranesp] Allergy (Unknown, Verified 12/28/18 12:14) ITCHING epoetin chandrika [From Procrit] Allergy (Verified 12/28/18 12:14) Sulfa (Sulfonamide Antibiotics) Allergy (Verified 12/28/18 12:14) Unsure BBQ SAUCE Allergy (Mild, Uncoded 12/28/18 12:14) Hives Home Medications: Plavix, clonadine, Past Medical History - General Information source: Patient - Social History Smoking Status: Current Some Day Smoker Chew tobacco use (# tins/day): No Frequency of alcohol use: Rare Drug Abuse: None Family History: Reviewed & Not Pertinent Patient has suicidal ideation: No Patient has homicidal ideation: No - Past Medical History Cardiac Medical History: Reports: Hx Congestive Heart Failure, Hx Coronary Artery Disease, Hx Hypercholesterolemia, Hx Hypertension, Hx Peripheral Vascular Disease Denies: Hx Heart Attack Pulmonary Medical History: Denies: Hx Asthma, Hx Bronchitis, Hx COPD, Hx Pneumonia, Hx Tuberculosis Neurological Medical History: Reports: Hx Cerebrovascular Accident - 2004, Hx Seizures. Denies: Hx Parkinson's Disease Endocrine Medical History: Reports: Hx Diabetes Mellitus Type 2. Denies: Hx Diabetes Mellitus Type 1 Renal/ Medical History: Reports: Hx End Stage Renal Disease, Hx Hemodialysis - Friday, Friday, and Friday. Denies: Hx Kidney Stones, Hx Peritoneal Dialysis GI Medical History: Reports: Hx Gastroesophageal Reflux Disease. Denies: Hx Cirrhosis, Hx Ulcer Musculoskeletal Medical History: Reports Hx Arthritis, Denies Hx Multiple Sclerosis Skin Medical History: Reports Hx Cellulitis Psychiatric Medical History: Reports: Hx Depression Denies: Hx Bipolar Disorder, Hx Schizophrenia Traumatic Medical History: Reports: Hx Fractures - Rt. Hip Infectious Medical History: Past Surgical History: Reports: Hx Abdominal Surgery - abd hernia repair, Hx Cholecystectomy, Hx Herniorrhaphy, Hx Orthopedic Surgery - rt hip, Hx Vascular Surgery - Right arm AV fistula. Denies: Hx Pacemaker - Immunizations Immunizations up to date: Yes Hx Diphtheria, Pertussis, Tetanus Vaccination: Yes Hx Pneumococcal Vaccination: 08/25/12 Review of Systems - Review of Systems Constitutional: See HPI - Feels generally unlike herself. EENT: Other - Legally blind in both eyes, no change from baseline. Cardiovascular: No symptoms reported Respiratory: No symptoms reported Gastrointestinal: See HPI, Abdominal pain, Nausea, Vomiting, Constipation. denies: Diarrhea Genitourinary: Other - Does not make urine. Neurological/Psychological: See HPI, Confusion, Other - Difficulty with word finding. -: Yes All other systems reviewed and negative Physical Exam - Vital signs Vitals: Temp Pulse Resp BP Pulse Ox 98.2 F 83 20 182/73 H 97 10/12/19 20:41 10/12/19 20:41 10/12/19 20:41 10/12/19 20:41 02/18/20 20:41 Interpretation: Hypertensive - Notes Notes: GENERAL: Laying the bed, eyes closed, responds immediately when spoken to, no acute distress. Obese. HEAD: Normocephalic, atraumatic ENT: Oral mucosa moist, tongue midline. NECK: Full range of motion, supple, trachea midline. LUNGS: Clear to auscultation bilaterally, no wheezes, rales or rhonchi, no respiratory distress. HEART: Regular rate and rhythm, no murmurs, gallops, rubs. ABDOMEN: Soft, nontender, nondistended, bowel sounds present in all 4 quadrants. EXTREMITIES: Moves all 4 extremities spontaneously, no edema, radial and dorsalis pedis pulses 2/4 bilaterally. No cyanosis. NEUROLOGICAL: Alert and oriented x3, normal speech, no facial droop, tongue is midline. No difficulty with word finding, no confusion apparent on examination, interacts well. PSYCH: Normal mood, normal affect. SKIN: Warm, Dry, normal turgor, old fistula with no further thrill noted in the left arm, dialysis fistula with thrill noted in the right upper extremity. Course - Re-evaluation Re-evalutation: 10/13/19 02:37 CBC shows anemia without leukocytosis, consistent with renal disease, CMP shows elevated BUN/creatinine consistent with end-stage renal disease on dialysis, potassium is normal, lipase normal otherwise unremarkable. KUB shows abundant stool and gas but no signs of obstruction. At present I am going to try to control the patient's nausea and vomiting with Reglan, I think some of her nausea and vomiting is coming from the large amount of stool that she does have throughout her abdomen, patient will be given enema using lactulose prior to trying to give her anything to drink. I do not find any focal deficits on the patient's neurologic exam. Son states that the ashly ent is at her baseline. I will continue to monitor. 10/13/19 06:40 Patient's enema order was changed to soap suds and mineral oil. 10/13/19 07:06 Patient has had a bowel movement. Patient is currently drinking grape juice. Patient states that she feels worse and more confused than before she had a bowel movement. Patient is currently sitting up on the side of the bed, talking to me without difficulty. No slurred speech, no difficulty with word finding, repeats to me that she knows it is Friday, states that is the 18th which is inaccurate it is now the 19th, I have not exceptionally concerned by the fact that she thinks it is the 18th instead of the 19th because she has been here pa st midnight. Patient is able to recount to me the entire course of her illness. I see no signs of stroke or acute neurologic defect at this time. Patient tells me that her largest concern is this is similar to how she felt back in December when she was diagnosed with a stroke. I did look back through the records and see that I saw her back in December, in December there is very clear documentation that the patient was having a great deal of difficulty with word finding that was obvious on examination and was quite hesitant to speak. This is very different than the complete sentences and fluid speech that she is exhibiting at this time. Discussed with patient that there is no way that I can 100% rule in or out a stroke without doing an MRI however without any symptoms of a stroke she cannot simply be admitted for MRI and inpatient dialysis while she undergoes further work-up. Discussed with patient that despite no symptoms of stroke given the fact that she had multiple acute infarcts throughout the left MCA distribution if she is very concerned that she is having a stroke I would be happy to keep her in the emergency department and do an MRI to completely rule in or out a stroke. I also discussed that she could be discharged instead as she is neurologically intact, go to dialysis as scheduled, see how she feels after dialysis and after taking lactulose by mouth after dialysis and if she has any worsening of her symptoms or is still feeling unwell she can return to the emergency department we can consider an MRI at that time. Patient states that she would prefer to go to dialysis since we cannot dialyze her in the emergency department and she will return if she feels worse. - Vital Signs Vital signs: Temp Pulse Resp BP Pulse Ox 98.4 F 80 16 169/88 H 94 10/13/19 03:52 10/13/19 03:52 10/13/19 03:52 10/13/19 03:52 10/13/19 03:52 - Laboratory Result Diagrams: 10/12/19 22:00 10/12/19 22:00 Laboratory results interpreted by me: 10/12/19 10/12/19 22:00 22:00 RBC 3.50 L Hgb 11.4 L Hct 34.4 L MCV 99 H RDW 16.3 H Lymph % (Auto) 9.4 L Seg Neutrophils % 81.5 H Sodium 135.7 L Chloride 92 L BUN 34 H Creatinine 6.49 H Est GFR ( Amer) 8 L Est GFR (MDRD) Non-Af 7 L Direct Bilirubin 0.5 H Alkaline Phosphatase 139 H Total Protein 9.1 H Discharge - Discharge Clinical Impression: Legally blind, End stage renal disease, History of CVA (cerebrovascular accident) without residual deficits, patient concern regarding speech Vomiting Qualifiers: Vomiting type: unspecified Vomiting Intractability: non-intractable Nausea presence: with nausea Qualified Code(s): R11.2 - Nausea with vomiting, unspecified Constipation Qualifiers: Constipation type: unspecified constipation type Qualified Code(s): K59.00 - Constipation, unspecified Condition: Stable Disposition: HOME, SELF-CARE Additional Instructions: Please go to dialysis. Please drink small sips of fluid and eat food that is gentle on your stomach. Avoid greasy foods and spicy foods. After dialysis please take the lactulose. This should prompt more bowel movements. It may cause some cramping in your stomach but the pain should not be excruciating. You may use the Zofran to help with any nausea however be aware that Zofran can cause constipation. Please dissolve 1 scoop of MiraLAX in a glass of water once a day to treat constipation. You may increase to twice a day if needed to create soft bowel movements and you may decrease to every other day if you develop diarrhea. If you develop difficulty speaking or if you still have concerns of feeling u nwell after dialysis please return to the emergency department. We had an extensive discussion today regarding your concerns that you are not speaking well but that on physical examination I do not find any problems with your speech and that you do not have any signs of a stroke today. We also discussed that we could keep you in the emergency department for an MRI to show for certain whether or not you are having a stroke but it could cause you to miss your dialysis session. At present you have decided to go to your dialysis session. Prescriptions: Ondansetron [Zofran Odt 4 mg Tablet] 1 - 2 tab PO Q4H PRN #15 tab.rapdis PRN Reason: For Nausea/Vomiting Referrals: ELIZABETH PACHECO, CONTRACT PREPARER-C [Primary Care Provider] - Follow up as needed
[2019-10-13] MEDS ORDERED: LACTULOSE SYRUP 20 GM/30 ML UDCUP ONE (03:40)
[2019-10-13] MEDS ORDERED: MINERAL OIL 30 ML UDCUP PR ONE ×2 (05:28→05:33)
[2019-10-13] MEDS ORDERED: METOCLOPRAMIDE HCL INJ/PF 10 MG/2 ML SDV IM ONE (05:58)
[2019-10-13] MEDS ORDERED: LACTULOSE SYRUP 20 GM/30 ML UDCUP PO ONE (07:04)
[2019-10-13 08:20] VITALS: BP 164/78
== END 2019-10-13 07:25 | disposition home or self-care (01) ==
LOC: ER 20:15
DX: E11.22 Type 2 diabetes mellitus with diabetic chronic kidney disease (principal); I13.2 Hypertensive heart and chronic kidney disease with heart failure and with stage 5 chronic kidney disease, or end stage renal disease; H54.8 Legal blindness, as defined in USA; R41.82 Altered mental status, unspecified; R53.1 Weakness; R10.9 Unspecified abdominal pain; R11.2 Nausea with vomiting, unspecified; K59.00 Constipation, unspecified; I50.9 Heart failure, unspecified; N18.6 End stage renal disease; Z86.73 Personal history of transient ischemic attack (TIA), and cerebral infarction without residual deficits; Z99.2 Dependence on renal dialysis; I25.10 Atherosclerotic heart disease of native coronary artery without angina pectoris; E78.00 Pure hypercholesterolemia, unspecified; Z90.49 Acquired absence of other specified parts of digestive tract
CPT/HCPCS: 36415; 82962; 83690; 85025; 80053; 74018; S0119; J3490 ×2; J2765; 96372; 99284

== ENCOUNTER 2019-12-16 17:04 | Emergency (ER) | payer MEDICAID ==
--- NOTE | 2019-12-16 17:39 | ER Document Report ---
ED General - General Stated Complaint: WEAKNESS/LEG PAIN Time Seen by Provider: 12/16/19 17:32 Primary Care Provider: ELIZABETH PACHECO FNP-C [NURSE PRACTITIONER] - Follow up as needed Mode of Arrival: Medic Information source: Patient Notes: 44-year-old black female with history of end-stage renal disease on dialysis who had dialysis yesterday and also IDDM hypertension blindness seizures on Dilantin.. She advises that at 930 this morning she was unable to walk or use pressure with her right leg. She has a history of neuropathy left foot greater than right foot but this feels different to her. Also her right arm was weaker than the left subjectively. Cafeteria Attendant were strong on the right greater than left on my initial exam. Patient lives with her 21-year-old daughter and 24-year-old so n who are reliable according the patient. 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 Serrato ophthalmology and also left eye because of high pressure. Patient wears sunglasses. This vision was evaluated by EMS prior to arrival however patient has severe cataracts and pupils were not responsive on my exam. Patient is allergic to sulfa and Dilaudid and has a history also of pannus skin lesions under her breast. Patient takes metoprolol Dilantin hydralazine losartan clonidine Lantus insulin TRAVEL OUTSIDE OF THE [place] IN LAST 30 DAYS: No - HPI Onset: This morning - 0930 Onset/Duration: Sudden, Persistent Quality of pain: No pain, Other - Weakness and numbness of right leg Severity: Mild Pain Level: 1 Associated symptoms: Weakness Exacerbated by: Movement, Walking Relieved by: Denies Similar symptoms previously: No Recently seen / treated by doctor: No - Related Data Allergies/Adverse Reactions: hydromorphone [Hydromorphone] Allergy (Intermediate, Verified 12/28/18 12:14) ABDOMINAL CRAMPS azithromycin [Azithromycin] Allergy (Unknown, Verified 12/28/18 12:14) Darbepoetin Chandrika in [place] * [From Aranesp] Allergy (Unknown, Verified 12/28/18 12:14) ITCHING epoetin chandrika [From Procrit] Allergy (Verified 12/28/18 12:14) Sulfa (Sulfonamide Antibiotics) Allergy (Verified 12/28/18 12:14) Unsure BBQ SAUCE Allergy (Mild, Uncoded 12/28/18 12:14) Hives Past Medical History - General Information source: Patient - Social History Smoking Status: Never Smoker Cigarette use (# per day): No Chew tobacco use (# tins/day): No Smoking Education Provided: No Frequency of alcohol use: None Drug Abuse: None Lives with: Family Family History: Reviewed & Not Pertinent Patient has suicidal ideation: No Patient has homicidal ideation: No - Past Medical History Cardiac Medical History: Reports: Hx Congestive Heart Failure, Hx Coronary Artery Disease, Hx Hypercholesterolemia, Hx Hypertension, Hx Peripheral Vascular Disease Denies: Hx Heart Attack Pulmonary Medical History: Denies: Hx Asthma, Hx Bronchitis, Hx COPD, Hx Pneumonia, Hx Tuberculosis Neurological Medical History: Reports: Hx Cerebrovascular Accident - 2003, Hx Seizures. Denies: Hx Parkinson's Disease Endocrine Medical History: Reports: Hx Diabetes Mellitus Type 2. Denies: Hx Diabetes Mellitus Type 1 Renal/ Medical History: Reports: Hx End Stage Renal Disease, Hx Hemodialysis - Friday, Friday, and Friday. Denies: Hx Kidney Stones, Hx Peritoneal Dialysis GI Medical History: Reports: Hx Gastroesophageal Reflux Disease. Denies: Hx Cirrhosis, Hx Ulcer Musculoskeletal Medical History: Reports Hx Arthritis, Denies Hx Multiple Sclerosis Skin Medical History: Reports Hx Cellulitis Psychiatric Medical History: Reports: Hx Depression Denies: Hx Bipolar Disorder, Hx Schizophrenia Traumatic Medical History: Reports: Hx Fractures - Rt. Hip Infectious Medical History: Past Surgical History: Reports: Hx Abdominal Surgery - abd hernia repair, Hx Cholecystectomy, Hx Herniorrhaphy, Hx Orthopedic Surgery - rt hip, Hx Vascular Surgery - Right arm AV fistula. Denies: Hx Pacemaker - Immunizations Immunizations up to date: Yes Hx Diphtheria, Pertussis, Tetanus Vaccination: Yes Hx Pneumococcal Vaccination: 08/25/12 Review of Systems - Review of Systems Constitutional: See HPI, Weakness EENT: No symptoms reported Cardiovascular: No symptoms reported Respiratory: No symptoms reported Gastrointestinal: No symptoms reported Genitourinary: No symptoms reported Female Genitourinary: No symptoms reported Musculoskeletal: No symptoms reported, Other - Right arm with dialysis graft and left arms with multiple scarring in bilateral feet with neuropathy numbness Skin: No symptoms reported Hematologic/Lymphatic: No symptoms reported Neurological/Psychological: No symptoms reported, Weakness, Gait changes, Other - blind both eyes Physical Exam - Vital signs Vitals: Resp 23 H 12/16/19 17:23 Interpretation: Hypertensive - General General appearance: Alert - HEENT Head: Normocephalic, Atraumatic Eyes: Other - Bilateral cataracts with blindness Conjunctiva: Normal Extraocular movements intact: Yes Eyelashes: Normal Pupils: Fixed Ears: Normal Tympanic membrane: Normal Sinus: Normal Mouth/Lips: Normal Mucous membranes: Normal Pharynx: Normal Neck: Normal - Respiratory Respiratory status: No respiratory distress Chest status: Nontender Breath sounds: Normal Chest palpation: Normal - Cardiovascular Rhythm: Regular Heart sounds: Normal auscultation Murmur: No - Abdominal Inspection: Obese Distension: No distension Bowel sounds: Normal Tenderness: Nontender - Genitourinary External exam: Normal - Extremities General upper extremity: Other - Right arm with dialysis shunt left arm with multiple well-healed scarring General lower extremity: Other - Unable to lift right leg against pressure. Patient has decreased dorsiflexion on the right left dorsiflexion is normal. Sensation bilaterally numb to touch to the ankle. Patient reports numbness is typical for her because of neuropathy diabetes induced - Neurological Neuro grossly intact: Yes Cognition: Normal Orientation: AAOx4 [place] Coma Scale Eye Opening: Spontaneous [place] Coma Scale Verbal: Oriented [place] Coma Scale Motor: Obeys Commands [place] Coma Scale Total: 15 Speech: Normal Cranial nerves: Normal Cerebellar coordination: Normal Motor strength normal: LUE, RUE, LLE Additional motor exam normals: Equal lead rider Sensory: Other - Bilateral feet with numbness to touch and pinprick. - Psychological Associated symptoms: Normal affect - Skin Skin Temperature: Warm Skin Moisture: Dry Course - Vital Signs Vital signs: Temp Pulse Resp BP Pulse Ox 98.3 F 78 20 175/92 H 100 12/16/19 17:39 12/17/19 00:00 12/17/19 02:01 12/17/19 02:01 12/17/19 01:31 - Laboratory Result Diagrams: 12/16/19 17:30 12/16/19 17:30 Laboratory results interpreted by me: 12/16/19 12/16/19 12/16/19 17:30 17:30 17:30 RBC 2.93 L Hgb 10.1 L Hct 29.4 L MCV 100 H MCH 34.6 H RDW 14.3 H Lymph % (Auto) 12.5 L APTT 38.5 H Sodium 136.7 L Chloride 95 L BUN 42 H Creatinine 6.30 H Est GFR ( Amer) 9 L Est GFR (MDRD) Non-Af 7 L Glucose 183 H Alkaline Phosphatase 181 H Creatine Kinase 28 L Total Protein 9.2 H Phenytoin 12/17/19 00:31 RBC Hgb Hct MCV MCH RDW Lymph % (Auto) APTT Sodium Chloride BUN Creatinine Est GFR ( Amer) Est GFR (MDRD) Non-Af Glucose Alkaline Phosphatase Creatine Kinase Total Protein Phenytoin < 3.0 L Critical Care Note - Critical Care Note Total time excluding time spent on procedures (mins): 90 Comments: I called transfer center at [place] for neurology consult and spoke with Ana at 1914 and she will arrange for this. GINGER Robert called back via Ana at 1920 and I spoke with him and he advised MRI of brain. If MRI of brain is negative she can stay here. If MRI is positive then he will be glad to discuss the case after the results are done. MRI was positive for left-sided abisai acute stroke. I spoke with Jer Younger patient does not meet any exclusion criteria for TPA at this time. I have reviewed the risks and benefits of administration of TPA with the family at the bedside. We have reviewed the risks of intracranial bleed and the possible benefits of increased functional independence at 90 days with the use of TPA. And he advises Dr. Carrero will be accepting doctor. This was through the transfer center. Discharge - Discharge Clinical Impression: Right leg weakness CVA (cerebral vascular accident) Qualifiers: CVA mechanism: unspecified Qualified Code(s): I63.9 - Cerebral infarction, unspecified Condition: Good Disposition: [facility] Referrals: ELIZABETH PACHECO FNP-C [NURSE PRACTITIONER] - Follow up as needed
--- NOTE | 2019-12-16 17:42 | RADIOLOGY REPORT (SQ) ---
EXAM DESCRIPTION: CT HEAD WITHOUT IMAGES COMPLETED DATE/TIME: 12/16/2019 5:27 pm REASON FOR STUDY: right sided weakness COMPARISON: CT BRAIN 12/28/2018, 07/29/2018, 09/04/2017, 12/22/2010 TECHNIQUE: Axial images acquired through the brain without intravenous contrast. Images reviewed wi th bone, brain and subdural windows. Additional sagittal and coronal reconstructions were generated. Images stored on PACS. All CT scanners at this facility use dose modulation, iterative reconstruction, and/or weight based d osing when appropriate to reduce radiation dose to as low as reasonably achievable (ALARA). [facility]: Dose Right [facility]: CareDose [facility]: Dose Right [facility]: Teradose 4D [facility]: Biomoti RADIATION DOSE: CT Rad equipment meets quality standard of care and radiation dose reduction techniq ues were employed. CTDIvol: 53.2 mGy. DLP: 964 mGy-cm. mGy. LIMITATIONS: None. FINDINGS: VENTRICLES: Normal size and contour. CEREBRUM: No masses. No hemorrhage. No midline shift. No evidence for acute infarction. Normal gra y/white matter differentiation. No areas of low density in the white matter. CEREBELLUM: No masses. No hemorrhage. No alteration of density. No evidence for acute infarction. EXTRAAXIAL SPACES: No fluid collections. No masses. ORBITS AND GLOBE: Globes are small bilaterally with calcifications CALVARIUM: No fracture. PARANASAL SINUSES: No fluid or mucosal thickening. SOFT TISSUES: No mass or hematoma. OTHER: No other significant finding. IMPRESSION: No acute intracranial findings. EVIDENCE OF ACUTE STROKE: NO. COMMENT: Quality ID # [id number]: Final reports with documentation of one or more dose reduction techniques (e.g., Automated exposure control, adjustment of the mA and/or kV according to patient size, use of iterative reconstruction technique) TECHNICAL DOCUMENTATION: JOB ID: [id number] 2010 [employer]- All Rights Reserved Reading location - IP/workstation name: [id number]
--- NOTE | 2019-12-16 17:44 | RADIOLOGY REPORT (SQ) ---
EXAM DESCRIPTION: CHEST SINGLE VIEW IMAGES COMPLETED DATE/TIME: 12/16/2019 5:36 pm REASON FOR STUDY: right sided weakness COMPARISON: AP chest 08/01/2018 EXAM PARAMETERS: NUMBER OF VIEWS: One view. TECHNIQUE: Single frontal radiographic view of the chest acquired. RADIATION DOSE: NA LIMITATIONS: AP portable technique, obese patient FINDINGS: LUNGS AND PLEURA: No opacities, masses or pneumothorax. No pleural effusion. MEDIASTINUM AND HILAR STRUCTURES: No masses. Contour normal. HEART AND VASCULAR STRUCTURES: Mild cardiomegaly, stable BONES: No acute findings. HARDWARE: Right subclavian vascular stent unchanged OTHER: No other significant finding. IMPRESSION: No acute findings TECHNICAL DOCUMENTATION: JOB ID: [id number] 2010 [employer]- All Rights Reserved Reading location - IP/workstation name: [id number]
[2019-12-16 17:49] LABS: ABSOLUTE BASOPHILS # (AUTO) 0.1 10^3/uL (0.0-0.2); ABSOLUTE LYMPHOCYTES (AUTO) 0.8 10^3/uL (0.5-4.7); ABSOLUTE MONOCYTES (AUTO) 0.7 10^3/uL (0.1-1.4); ABSOLUTE NEUT (AUTO) 5.1 10^3/uL (1.7-8.2); BASOPHILS % (AUTO) 1.4 % (0-2); HEMATOCRIT 29.4 % (36.0-47.0); HEMOGLOBIN 10.1 g/dL (12.0-15.5); LYMPHOCYTES % (AUTO) 12.5 % (13-45); MEAN CORPUSCULAR HEMOGLOBIN 34.6 pg (27.0-33.4); MEAN CORPUSCULAR HGB CONC 34.6 g/dL (32.0-36.0); MEAN CORPUSCULAR VOLUME 100 fl (80-97); MONOCYTES % (AUTO) 10.5 % (3-13); PLATELET COUNT 223 10^3/uL (150-450); RED BLOOD COUNT 2.93 10^6/uL (3.72-5.28); RED CELL DISTRIBUTION WIDTH 14.3 % (11.5-14.0); SEGMENTED NEUTROPHILS % (AUTO) 75.6 % (42-78); TOTAL CELLS COUNTED % (AUTO) 100 %; WHITE BLOOD COUNT 6.7 10^3/uL (4.0-10.5)
[2019-12-16 17:57] LABS: INTERNATIONAL RATION (INR) 1.21
[2019-12-16 17:58] LABS: PARTIAL THROMBOPLASTIN TIME 38.5 SEC (23.5-35.8)
[2019-12-16 18:04] LABS: PROTHROMBIN TIME 15.4 SEC (11.4-15.4)
[2019-12-16 18:13] LABS: ALKALINE PHOSPHATASE 181 U/L (38-126); ANION GAP 13 (5-19); ASPARTATE AMINO TRANSFERASE 21 U/L (14-36); BILIRUBIN,DIRECT 0.1 mg/dL (0.0-0.4); BILIRUBIN,TOTAL 0.4 mg/dL (0.2-1.3); BLOOD UREA NITROGEN 42 mg/dL (7-20); CALCIUM 9.4 mg/dL (8.4-10.2); CARBON DIOXIDE 29 mmol/L (22-30); CHLORIDE 95 mmol/L (98-107); CREATINE KINASE 28 U/L (30-135); GLUCOSE 183 mg/dL (75-110); POTASSIUM 4.6 mmol/L (3.6-5.0); TOTAL PROTEIN 9.2 g/dL (6.3-8.2)
[2019-12-16 18:25] LABS: CREATINE KINASE MB 0.26 ng/mL (<4.55)
[2019-12-16 18:29] LABS: TROPONIN I < 0.012 ng/mL
--- NOTE | 2019-12-16 22:02 | RADIOLOGY REPORT (SQ) ---
MR BRAIN WITHOUT IV CONTRAST EXAM DATE: 12/16/2019 7:27 PM CDT HISTORY: Right leg and arm weakness and tingling. COMPARISON: CT scan from earlier the same day. TECHNIQUE: Multisequence, multiplanar MR imaging of the brain was performed without the administration of intravenous gadolinium. FINDINGS: There is an area of restricted diffusion in the left hemipelvis consistent with acute infarction. Scattered areas of T2/FLAIR hyperintense foci are seen in the supratentorial white matter, likely representing chronic microvascular ischemia. There is no intracranial hemorrhage, extra-axial fluid collection, or mass. The orbits are unremarkable. The calvarium and skull base appear unremarkable. The paranasal sinuses are clear. IMPRESSION: 1. Acute infarct in the left hemipons. 2. Chronic microvascular ischemic disease.
[2019-12-16] MEDS ORDERED: ASPIRIN 81 MG TABLET, CHEWABLE PO ONE (22:45)
[2019-12-16] MEDS ORDERED: METOPROLOL TARTRATE PF/INJ 5 MG/5 ML SDV IV ONE (22:46)
--- NOTE | 2019-12-16 23:58 | EKG REPORT ---
SEVERITY:- BORDERLINE ECG - SINUS RHYTHM BORDERLINE R WAVE PROGRESSION, ANTERIOR LEADS : Confirmed by: Janell Mo 16-Dec-2019 23:57:30
[2019-12-17 02:06] VITALS: BP 175/92
== END 2019-12-17 02:31 | disposition short-term general hospital (02) ==
LOC: ER 17:04
DX: I63.9 Cerebral infarction, unspecified (principal); G83.11 Monoplegia of lower limb affecting right dominant side; I12.0 Hypertensive chronic kidney disease with stage 5 chronic kidney disease or end stage renal disease; E11.22 Type 2 diabetes mellitus with diabetic chronic kidney disease; N18.6 End stage renal disease; Z99.2 Dependence on renal dialysis; E11.40 Type 2 diabetes mellitus with diabetic neuropathy, unspecified; E11.51 Type 2 diabetes mellitus with diabetic peripheral angiopathy without gangrene; I25.10 Atherosclerotic heart disease of native coronary artery without angina pectoris; H26.9 Unspecified cataract; R56.9 Unspecified convulsions; Z79.899 Other long term (current) drug therapy; Z79.4 Long term (current) use of insulin; Z88.2 Allergy status to sulfonamides; Z88.6 Allergy status to analgesic agent; Z88.5 Allergy status to narcotic agent; Z88.1 Allergy status to other antibiotic agents; Z91.018 Allergy to other foods; Z88.8 Allergy status to other drugs, medicaments and biological substances
CPT/HCPCS: 93005; 99291; 99292; 96374; 36415; 82553; 82550; 80185; 85025; 85610; 85730; 80053; 84484; 70551; 71045; 70450; 93010; J3490

== ENCOUNTER 2020-01-17 09:04 | Inpatient (IN) | payer MEDICAID ==
--- NOTE | 2020-01-17 09:53 | RADIOLOGY REPORT (SQ) ---
EXAM DESCRIPTION: CT HEAD WITHOUT IMAGES COMPLETED DATE/TIME: 01/17/2020 9:37 am REASON FOR STUDY: bed 8 altered mental status per dr fragoso COMPARISON: 12/16/2019. TECHNIQUE: Axial images acquired through the brain without intravenous contrast. Images reviewed wi th bone, brain and subdural windows. Additional sagittal and coronal reconstructions were generated. Images stored on PACS. All CT scanners at this facility use dose modulation, iterative reconstruction, and/or weight based d osing when appropriate to reduce radiation dose to as low as reasonably achievable (ALARA). [facility]: Dose Right [facility]: CareDose [facility]: Dose Right [facility]: Teradose 4D [facility]: Smart [facility] Management RADIATION DOSE: CT Rad equipment meets quality standard of care and radiation dose reduction techniq ues were employed. CTDIvol: 53.2 mGy. DLP: 937 mGy-cm. mGy. LIMITATIONS: None. FINDINGS: VENTRICLES: Prominent. CEREBRUM: No masses. No hemorrhage. No midline shift. Areas of low density in the white matter mos t likely due to chronic micro-vascular ischemic change. No evidence for acute infarction. CEREBELLUM: No masses. No hemorrhage. No alteration of density. No evidence for acute infarction. EXTRAAXIAL SPACES: Mild age-related involutional change. No fluid collections. No masses. ORBITS AND GLOBE: Chronic deformity of the globes. No intra- or extraconal masses. Normal contour o f globe without masses. CALVARIUM: No fracture. PARANASAL SINUSES: No fluid or mucosal thickening. SOFT TISSUES: No mass or hematoma. OTHER: No other significant finding. IMPRESSION: MILD CHRONIC CHANGES OF ATROPHY AND MICROVASCULAR ISCHEMIA. NO ACUTE PROCESS. EVIDENCE OF ACUTE STROKE: NO. TECHNICAL DOCUMENTATION: JOB ID: [id number] Quality ID # [id number]: Final reports with documentation of one or more dose reduction techniques (e.g., Au tomated exposure control, adjustment of the mA and/or kV according to patient size, use of iterative reconstruction technique) 2010 [employer]- All Rights Reserved Reading location - IP/workstation name: [email or web address]
[2020-01-17] MEDS ORDERED: CEFEPIME 2 GM/D5W RTU 2 GM/50 ML RTUPB IV ONE (10:19)
[2020-01-17] MEDS ORDERED: VANCOMYCIN HCL INJ 1000 MG VIAL IV ONE (10:20)
[2020-01-17 10:23] LABS: ABSOLUTE BASOPHILS # (AUTO) 0.1 10^3/uL (0.0-0.2); ABSOLUTE NEUT (AUTO) 8.1 10^3/uL (1.7-8.2); BASOPHILS % (AUTO) 1.3 % (0-2); EOSINOPHILS % (AUTO) 0.1 % (0-6); HEMATOCRIT 28.2 % (36.0-47.0); HEMOGLOBIN 9.8 g/dL (12.0-15.5); LYMPHOCYTES % (AUTO) 9.7 % (13-45); MEAN CORPUSCULAR HGB CONC 34.9 g/dL (32.0-36.0); MEAN CORPUSCULAR VOLUME 97 fl (80-97); MONOCYTES % (AUTO) 10.2 % (3-13); PLATELET COUNT 272 10^3/uL (150-450); RED BLOOD COUNT 2.89 10^6/uL (3.72-5.28); RED CELL DISTRIBUTION WIDTH 12.8 % (11.5-14.0); SEGMENTED NEUTROPHILS % (AUTO) 78.7 % (42-78); TOTAL CELLS COUNTED % (AUTO) 100 %; WHITE BLOOD COUNT 10.3 10^3/uL (4.0-10.5)
[2020-01-17 10:34] LABS: INTERNATIONAL RATION (INR) 1.28; PARTIAL THROMBOPLASTIN TIME 29.1 SEC (23.5-35.8); PROTHROMBIN TIME 16.1 SEC (11.4-15.4)
[2020-01-17 10:50] LABS: ALBUMIN 3.7 g/dL (3.5-5.0); ALKALINE PHOSPHATASE 101 U/L (38-126); ANION GAP 8 (5-19); ASPARTATE AMINO TRANSFERASE 28 U/L (14-36); BILIRUBIN,DIRECT 0.2 mg/dL (0.0-0.4); BILIRUBIN,TOTAL 0.5 mg/dL (0.2-1.3); BLOOD UREA NITROGEN 68 mg/dL (7-20); CARBON DIOXIDE 29 mmol/L (22-30); CHLORIDE 98 mmol/L (98-107); GLUCOSE 99 mg/dL (75-110); POTASSIUM 5.9 mmol/L (3.6-5.0); TOTAL PROTEIN 8.8 g/dL (6.3-8.2)
--- NOTE | 2020-01-17 10:52 | RADIOLOGY REPORT (SQ) ---
EXAM DESCRIPTION: CHEST SINGLE VIEW IMAGES COMPLETED DATE/TIME: 01/17/2020 10:42 am REASON FOR STUDY: Sob COMPARISON: 12/16/2019. NUMBER OF VIEWS: One view. TECHNIQUE: Single frontal radiographic view of the chest acquired. LIMITATIONS: None. FINDINGS: LUNGS AND PLEURA: No opacities, masses or pneumothorax. No pleural effusion. MEDIASTINUM AND HILAR STRUCTURES: No masses. Contour normal. HEART AND VASCULAR STRUCTURES: Heart enlarged without failure. Normal vasculature. BONES: No acute findings. HARDWARE: None in the chest. OTHER: No other significant finding. IMPRESSION: STABLE CARDIOMEGALY. NO ACUTE SIGNIFICANT RADIOGRAPHIC FINDING IN THE CHEST. TECHNICAL DOCUMENTATION: JOB ID: [id number] 2010 [email or web address]- All Rights Reserved Reading location - IP/workstation name: [email or web address]
[2020-01-17 10:56] LABS: NT PRO BNP 6310 pg/mL (<125); TROPONIN I < 0.012 ng/mL
[2020-01-17 11:01] LABS: CALCIUM 13.2 mg/dL (8.4-10.2)
[2020-01-17] MEDS ORDERED: NORMAL SALINE 1000 ML 1,000 ML IV PRN (12:17)
[2020-01-17] MEDS ORDERED: EPOETIN ALFA-EPBX 2,000 UNIT, EPOETIN ALFA-EPBX 3,000 UNIT in SYRINGE, DISPOSABLE, 1 EACH IV PRN (12:17)
[2020-01-17] MEDS ORDERED: NORMAL SALINE 1000 ML 1,000 ML IV ONE (12:30)
[2020-01-17] MEDS ORDERED: CALCITONIN,SALMON,SYNTHETIC 400 UNIT/2 ML VIAL IM ONE (12:45)
--- NOTE | 2020-01-17 12:52 | ER Document Report ---
Entered by ALLYN CHU SCRIBE 01/17/20 0959 Acting as scribe for:SILVERIO FLORES MD ED General - General Chief Complaint: Altered Mental Status Stated Complaint: ALTERED MENTAL STATUS Primary Care Provider: KELLEY CABRERA NP [Primary Care Provider] - Follow up as needed Notes: This 44-year-old female with an extensive medical history presents from [facility] to the emergency department with an altered mental status. Patient's full HPI is unobtainable due to her altered mental status. [facility] did report that patient's rectal temperature was 99 this morning which they gave a Tylenol shortly after. [place] states that patient has an abcess on her mons pubic that is draining. [place] also reports that patient is on 3L nasal cannula all the time. Patient is a dialysis patient with last appointment on Friday. Patient did not go to her dialysis appointment today due to her altered mental status. TRAVEL OUTSIDE OF THE [place] IN LAST 30 DAYS: No - Related Data Allergies/Adverse Reactions: hydromorphone [Hydromorphone] Allergy (Intermediate, Verified 12/28/18 12:14) ABDOMINAL CRAMPS azithromycin [Azithromycin] Allergy (Unknown, Verified 12/28/18 12:14) Darbepoetin Chandrika in [place] * [From Aranesp] Allergy (Unknown, Verified 12/28/18 12:14) ITCHING epoetin chandrika [From Procrit] Allergy (Verified 12/28/18 12:14) Sulfa (Sulfonamide Antibiotics) Allergy (Verified 12/28/18 12:14) Unsure BBQ SAUCE Allergy (Mild, Uncoded 12/28/18 12:14) Hives Past Medical History - General Information source: Patient - Social History Smoking Status: Unknown if Ever Smoked Lives with: Retirement Family History: Reviewed & Not Pertinent Patient has homicidal ideation: No - Past Medical History Cardiac Medical History: Reports: Hx Congestive Heart Failure, Hx Coronary Artery Disease, Hx Hypercholesterolemia, Hx Hypertension, Hx Peripheral Vascular Disease Neurological Medical History: Reports: Hx Cerebrovascular Accident - 2004, Hx Seizures Endocrine Medical History: Reports: Hx Diabetes Mellitus Type 2 Renal/ Medical History: Reports: Hx End Stage Renal Disease, Hx Hemodialysis - Friday, Friday, and Friday GI Medical History: Reports: Hx Gastroesophageal Reflux Disease Musculoskeletal Medical History: Reports Hx Arthritis Skin Medical History: Reports Hx Cellulitis Psychiatric Medical History: Reports: Hx Depression Traumatic Medical History: Reports: Hx Fractures - Rt. Hip Infectious Medical History: Past Surgical History: Reports: Hx Abdominal Surgery - abd hernia repair, Hx Cholecystectomy, Hx Herniorrhaphy, Hx Orthopedic Surgery - rt hip, Hx Vascular Surgery - Right arm AV fistula - Immunizations Immunizations up to date: Yes Hx Diphtheria, Pertussis, Tetanus Vaccination: Yes Hx Pneumococcal Vaccination: 08/25/12 Review of Systems - Review of Systems -: Yes ROS unobtainable due to patient's medical condition Physical Exam - Vital signs Vitals: Resp 15 01/17/20 09:09 - Notes Notes: Physical Exam: General: Alert and opens eyes. Non-verbal and moans. Appears older than her stated age. Severe distress. HEENT: Normocephalic. Atraumatic. Pupils are clouded and patient is blind bilaterally. Oropharynx clear. Mucous membrane is dry. Neck: Supple. Non-tender. Respiratory: No respiratory distress. Diminished breath sounds posteriorly. Patient is shallow breathing. Cardiovascular: Regular rate and rhythm. Grade 2/6 systolic murmur. Abdominal: Normal Inspection. Non-tender. Distended. Normal Bowel Sounds. Genitourinary: Abscess on the mons pubis that is leaking white creamy pus out of sinus tract. Warm to touch. 2 mm of pus. Back: No gross abnormalities. Extremities: Purposeful movements of the left upper extremity noted. Upper extremities: Normal inspection. Normal ROM. Lower extremities: Left lower extremity has three digits; 1st, 2nd and 3rd. 4th and 5th have been removed. No open wounds on the foot. Diminished pulses in LLE. Right lower extremity has five toes and has diminished pulses. No decubitus ulcers noted. No edema. Normal ROM. Neurological: Alert. Non-verbal. Skin: Warm. Dry. Normal color. Scarring over the skin including the torso, lower extremities and upper extremities. Course - Re-evaluation Re-evalutation: 01/17/20 12:42 Patient resting comfortable. 01/17/20 12:[address] Cisse the on-call prop maker the day. She has agreed the patient should be admitted to the hospital and dialyzed in the hospital provided patient is admitted before 2:00 and dialyze before 3. Case discussed with who is in the department and has evaluated patient at this time. He recommends patient be admitted to the [facility] bed status. - Vital Signs Vital signs: Temp Pulse Resp BP Pulse Ox 98.8 F 80 16 161/81 H 95 01/17/20 09:25 01/17/20 09:25 01/17/20 11:01 01/17/20 11:00 01/17/20 11:01 01/17/20 12:43 Vital signs stable pulse ox 95% on 3 L nasal O2 pulse 80 afebrile respiratory rate 16 - Laboratory Result Diagrams: 01/17/20 10:01 01/17/20 10:01 Laboratory results interpreted by me: 01/17/20 01/17/20 01/17/20 10:01 10:01 10:01 RBC 2.89 L Hgb 9.8 L Hct 28.2 L MCH 34.0 H Lymph % (Auto) 9.7 L Seg Neutrophils % 78.7 H PT 16.1 H Sodium 134.6 L Potassium 5.9 H BUN 68 H Creatinine 9.20 H Est GFR ( Amer) 6 L Est GFR (MDRD) Non-Af 5 L Calcium 13.2 H* Ammonia NT-Pro-B Natriuret Pep Total Protein 8.8 H 01/17/20 01/17/20 10:01 10:01 RBC Hgb Hct MCH Lymph % (Auto) Seg Neutrophils % PT Sodium Potassium BUN Creatinine Est GFR ( Amer) Est GFR (MDRD) Non-Af Calcium Ammonia < 8.7 L NT-Pro-B Natriuret Pep 6310 H Total Protein Laboratory results consistent with chronic renal failure disease. Patient has elevated BNP elevated BUN/creatinine. Elevated potassium of 5.9. Elevated calcium at 13.2. - Diagnostic Test Radiology reviewed: Image reviewed, Reports reviewed Radiology results interpreted by me: 01/17/20 12:45 Chest x-ray shows cardiomegaly no acute infiltrate noted. CT scan of head shows no acute process no evidence for any new stroke. Noted chronic micro-ischemic changes and atrophy. 01/17/20 12:46 Critical Care Note - Critical Care Note Total time excluding time spent on procedures (mins): 49 - Managing altered mental status, abscess infection, chronic renal failure with metabolic syndrome. Coordinate discussion with specialists prop maker and hospitalist team. Discharge - Discharge Clinical Impression: Altered mental status, End stage renal disease, Diabetes mellitus type 2 in obese, Anemia in chronic kidney disease, Hyperkalemia, Legally blind, Morbid obesity with BMI of 45.0-49.9, adult, Congestive heart failure, Hypercalcemia associated with chronic dialysis, Hidradenitis suppurativa Condition: Critical Disposition: ADMITTED INPATIENT Admitting Provider: Dante (Hospitalist) Unit Admitted: IMCU Referrals: KELLEY CABRERA [facility] [Primary Care Provider] - Follow up as needed I personally performed the services described in the documentation, reviewed and edited the documentation which was dictated to the scribe in my presence, and it accurately records my words and actions.
[2020-01-17] MEDS ORDERED: POLYETHYLENE GLYCOL 3350 POWDER 17 GM/1 PACKET PO PRN (13:06)
--- NOTE | 2020-01-17 13:15 | EKG REPORT ---
SEVERITY:- OTHERWISE NORMAL ECG - SINUS RHYTHM LOW VOLTAGE IN FRONTAL LEADS : Confirmed by: Ananth Davis MD 17-Jan-2020 13:15:34
[2020-01-17] MEDS ORDERED: NALOXONE HCL INJ/PF 0.4 MG/1 ML SDV ONE (13:16)
[2020-01-17] MEDS ORDERED: HYDRALAZINE HCL INJ/PF 20 MG/1 ML SDV IV PRN (13:42)
--- NOTE | 2020-01-17 13:42 | PDOC H&P ---
History of Present Illness Admission Date/PCP: KELLEY CABRERA NP History of Present Illness: DIAN SLAUGHTER is a 44 year old female with an extensive list of medical comorbidities, including ESRD, prior strokes, hidradenitis suppurativa, seizures, multiple skin wounds,, type 2 diabetes, hypertension, hyperlipidemia, coronary artery disease. She is most recently in the hospital at [facility] for nearly a month after suffering he had another stroke. It had left her with diminished strength on her dominant right side. It also left her with trouble swallowing and she has been on a modified diet. She apparently got dialysis on Friday. She had been at [place] for approximately 5 days. She apparently is on chronic narcotics for chronic pain as well. She had recurrent multiple small episodes of aspiration at the hospital. She had multiple wounds incised and drained, including one her left breast and one in her right upper arm medially that still has packing in it. She was noted to have a draining lesion on her mons pubis that was draining at the time she was discharged from [facility] in it was not felt that she needed further intervention at that time. She was sent to [place] for rehab afterwards. Patient is unable to provide me any history and so this is all obtained from some documentation that we were able to obtain in the ER. Apparently they were going to send her for dialysis this morning but they could not wake her up and so they decided to send her to the hospital. She is afebrile. She does not have a leukocytosis. Her chest x-ray and her head CT showed nothing new. The patient is currently minimally responsive but does open her eyes transiently to moderate stimuli. Her BUN and creatinine were obviously elevated, and her potassium was 5.9, and her calcium was substantially elevated at 13.2. She got vancomycin and cefepime in the ER, ostensibly for the draining lesion on her mons pubis. Past Medical History Cardiac Medical History: Reports: Congestive Heart Failure, Coronary Artery Disease, Hyperlipidema, Hypertension, Peripheral Vascular Disease Denies: Myocardial Infarction Pulmonary Medical History: Denies: Asthma, Bronchitis, Chronic Obstructive Pulmonary Disease (COPD), Pneumonia, Tuberculosis Neurological Medical History: Reports: Seizures Endocrine Medical History: Reports: Diabetes Mellitus Type 2 Denies: Diabetes Mellitus Type 1 Renal/ Medical History: Reports: End Stage Renal Disease GI Medical History: Reports: Gastroesophageal Reflux Disease Denies: Cirrhosis Musculoskeltal Medical History: Reports: Arthritis Psychiatric Medical History: Reports: Depression Denies: Bipolar Disorder Hematology: Reports: Anemia Denies: Bleeding Tendencies Past Surgical History Past Surgical History: Reports: Cholecystectomy, Herniorrhaphy, Orthopedic Surgery - rt hip, Vascular Surgery - Right arm AV fistula Denies: Pacemaker Social History Lives with: Senior Living Smoking Status: Unknown if Ever Smoked Frequency of Alcohol Use: None Hx Recreational Drug Use: No Drugs: None Hx Prescription Drug Abuse: No Family History Family History: Reviewed & Not Pertinent Parental Family History Reviewed: No - Unable to obtain Children Family History Reviewed: No - Unable to obtain Sibling(s) Family History Reviewed.: No - Unable to obtain Medication/Allergy Home Medications: Atorvastatin Calcium [Lipitor 80 mg Tablet] 80 mg PO QHS 06/11/19 Calcium Acetate [Phoslo 667 mg Capsule] 2,001 mg PO AC 06/11/19 Clonidine HCl [Catapres 0.2 mg Tablet] 0.2 mg PO Q12 06/11/19 Hydroxyzine HCl [Atarax 10 mg Tablet] 10 mg PO Q8HP PRN 06/11/19 Oxycodone HCl [Oxy-Ir 5 mg Tablet] 5 mg PO Q8HP PRN 06/11/19 Phenytoin Sodium Extended [Dilantin 100 mg Capsule.er] 100 mg PO Q8 06/11/19 Pregabalin [Lyrica 75 mg Capsule] 75 mg PO MOWEFR@1000 06/11/19 Pregabalin [Lyrica 75 mg Capsule] 75 mg PO QHS 06/11/19 Aspirin [Aspirin 81 mg Chewable Tablet] 81 mg PO QAM 01/17/20 Escitalopram Oxalate [Lexapro 10 mg Tablet] 10 mg PO DAILY 01/17/20 Lorazepam [Ativan 0.5 mg Tablet] 0.5 mg PO Q8HP PRN 01/17/20 Melatonin [Melatonin 3 mg Tablet] 3 mg PO QHS 01/17/20 Metoprolol Tartrate [Lopressor 100 mg Tablet] 100 mg PO Q12 01/17/20 Pantoprazole Sodium [Protonix [address] Tablet] 40 mg PO Q6AM 01/17/20 Polyethylene Glycol 3350 [Miralax Powder 17 gm/Packet] 1 packet PO DAILYP PRN 01/17/20 Sennosides [Senokot] 8.6 mg PO BID 01/17/20 Allergies/Adverse Reactions: hydromorphone [Hydromorphone] Allergy (Intermediate, Verified 12/28/18 12:14) ABDOMINAL CRAMPS azithromycin [Azithromycin] Allergy (Unknown, Verified 12/28/18 12:14) Darbepoetin Chandrika in [place] * [From Aranesp] Allergy (Unknown, Verified 12/28/18 12:14) ITCHING epoetin chandrika [From Procrit] Allergy (Verified 12/28/18 12:14) Sulfa (Sulfonamide Antibiotics) Allergy (Verified 12/28/18 12:14) Unsure BBQ SAUCE Allergy (Mild, Uncoded 12/28/18 12:14) Hives Review of Systems ROS unobtainable: Due to mental status Physical Exam Vital Signs: Temp Pulse Resp BP Pulse Ox 98.8 F 80 16 161/81 H 95 01/17/20 09:25 01/17/20 09:25 01/17/20 11:01 01/17/20 11:00 01/17/20 11:01 Intake & Output 01/16/20 01/17/20 01/18/20 06:59 06:59 06:59 Intake Total 50 Balance 50 Weight 101.151 kg General appearance: PRESENT: disheveled, morbidly obese, other - Moderate distress, guarding her airway with stable vital signs with exception of a blood pressure with a systolic in the 180s, encephalopathic Head exam: PRESENT: atraumatic, normocephalic Eye exam: PRESENT: EOMI, PERRLA - Sluggish. ABSENT: conjunctival injection, nystagmus, scleral icterus Ear exam: PRESENT: normal external ear exam Mouth exam: PRESENT: dry mucosa, neck supple Teeth exam: PRESENT: poor dentation Throat exam: ABSENT: post pharyngeal erythema Neck exam: PRESENT: full ROM. ABSENT: carotid bruit, JVD, lymphadenopathy, meningismus, tenderness, thyromegaly Respiratory exam: PRESENT: clear to auscultation alaina, symmetrical, unlabored. ABSENT: accessory muscle use, chest wall tenderness, crackles, prolonged expiratory phas, rhonchi, tachypnea, wheezes Cardiovascular exam: PRESENT: RRR, +S1, +S2 Pulses: PRESENT: normal carotid pulses Vascular exam: PRESENT: normal capillary refill Breast: PRESENT: Lesion - She had an area under the left breast laterally that had been drained but is now healing over and does not currently appear infected GI/Abdominal exam: PRESENT: normal bowel sounds, soft. ABSENT: distended, guarding, rebound, tenderness Gentrourinary exam: PRESENT: lesions - She had a draining lesion on her mons pubis with a grayish-stubbs exudate, there was not any substantial surrounding erythema Extremities exam: ABSENT: clubbing, pedal edema Musculoskeletal exam: PRESENT: normal inspection. ABSENT: deformity Neurological exam: PRESENT: altered, other - Encephalopathic, obtunded but guarding her airway Skin exam: PRESENT: other - Her skin shows multiple anomalies. She has multiple diffuse darkened areas that appear to be old scabs that have healed over all over her upper and lower extremities. She has an area on the medial aspect of the right calf that appears to be a large wound that has healed into a scar. She has a lesion that appears to be an abnormally large and thickened scab on the medial aspect of her left calf. She has a small draining area over her mons pubis that is draining a thin grayish-stubbs liquid without any substantial surrounding erythema or tenderness. She has previously noted lesion under the left breast that appears to be healing over and is no longer draining. She has a large area on the medial aspect of the right upper arm that has wound packing with no surrounding erythema. Results Laboratory Results: 01/17/20 10:01 01/17/20 10:01 01/17/20 01/17/20 01/17/20 10:01 10:01 10:01 WBC 10.3 RBC 2.89 L Hgb 9.8 L Hct 28.2 L MCV 97 MCH 34.0 H MCHC 34.9 RDW 12.8 Plt Count 272 Seg Neutrophils % 78.7 H Sodium 134.6 L Potassium 5.9 H Chloride 98 Carbon Dioxide 29 Anion Gap 8 BUN 68 H Creatinine 9.20 H Est GFR ( Amer) 6 L Glucose 99 Lactic Acid 0.7 Calcium 13.2 H* Total Bilirubin 0.5 AST 28 Alkaline Phosphatase 101 Ammonia Total Protein 8.8 H Albumin 3.7 Lipase 79.1 01/17/20 10:01 WBC RBC Hgb Hct MCV MCH MCHC RDW Plt Count Seg Neutrophils % Sodium Potassium Chloride Carbon Dioxide Anion Gap BUN Creatinine Est GFR ( Amer) Glucose Lactic Acid Calcium Total Bilirubin AST Alkaline Phosphatase Ammonia < 8.7 L Total Protein Albumin Lipase 01/17/20 10:01 Troponin I < 0.012 NT-Pro-B Natriuret Pep 6310 H Impressions: Head CT 01/17/20 00:00 IMPRESSION: MILD CHRONIC CHANGES OF ATROPHY AND MICROVASCULAR ISCHEMIA. NO ACUTE PROCESS. EVIDENCE OF ACUTE STROKE: NO. Chest X-Ray 01/17/20 10:14 IMPRESSION: STABLE CARDIOMEGALY. NO ACUTE SIGNIFICANT RADIOGRAPHIC FINDING IN THE CHEST. Assessment and Plan - Diagnosis (1) Metabolic encephalopathy Is this a current diagnosis for this admission?: Yes Plan: I think this is mostly from her hypercalcemia. Ordered a 1 L normal saline bolus and some calcitonin. She is also on chronic narcotics so have ordered a single dose of Narcan to see what effect it will have. Dr. Cisse was consulted and has said that she can dialyze her today. She was given some antibiotics, but I do not think she is got an infection. She has no fever, no white blood cell count, normal lactate, and she has this chronic hidradenitis s uppurativa that has been draining since she left [facility]. (2) Anemia in chronic kidney disease Qualifiers: Chronic kidney disease stage: on chronic dialysis Qualified Code(s): N18.6 - End stage renal disease; D63.1 - Anemia in chronic kidney disease; Z99.2 - Dependence on renal dialysis Is this a current diagnosis for this admission?: Yes Plan: We will monitor and defer management to nephrology recommendations, it says here that she is allergic to EPO, I am not sure what the reaction is (3) Diabetes mellitus type 2 in obese Is this a current diagnosis for this admission?: Yes Plan: N.p.o. for now, we will monitor her blood sugar every 6 hours until she can wake up enough to eat (4) Hidradenitis suppurativa Is this a current diagnosis for this admission?: Yes Plan: She has a few chronic wounds, 1 of which is packed, 1 of which is healed, and 1 of which is currently draining without evidence of surrounding erythema ind icating acute cellulitis (5) Hypercalcemia associated with chronic dialysis Is this a current diagnosis for this admission?: Yes Plan: IV fluids and a single dose of calcitonin plus hemodialysis, will repeat a metabolic panel later on this evening and will monitor her mental status closely (6) Hyperkalemia Is this a current diagnosis for this admission?: Yes (7) Blind Qualifiers: Right eye visual impairment category: right - unspecified blindness Left eye visual impairment category: left - unspecified blindness Qualified Code(s): H54.3 - Unqualified visual loss, both eyes Is this a current diagnosis for this admission?: Yes Plan: She is legally blind (8) Coronary artery disease Qualifiers: Coronary Disease-Associated Artery/Lesion type: [place] artery [place] vs. transplanted heart: [place] heart Associated angina: without angina Qualified Code(s): I25.10 - Atherosclerotic heart disease of [place] coronary artery without angina pectoris Is this a current diagnosis for this admission?: Yes Plan: We will continue her home medications when she is able to take them by mouth (9) End-stage renal disease on hemodialysis Is this a current diagnosis for this admission?: Yes Plan: Nephrology consulted for dialysis and other recommendations regarding electrolyte management (10) Hyperlipidemia Qualifiers: Hyperlipidemia type: unspecified Qualified Code(s): E78.5 - Hyperlipidemia, unspecified Is this a current diagnosis for this admission?: Yes Plan: We will continue her statin when she is able to take things by mouth (11) Obesity hypoventilation syndrome Is this a current diagnosis for this admission?: Yes Plan: Am not sure if she is on CPAP at [facility], but when she was here in a previous hospitalization she said that she slept better with the CPAP mask on. We will try to find out what her settings are if she has any (12) Peripheral arterial disease Is this a current diagnosis for this admission?: Yes Plan: We will monitor for signs of limb ischemia and will continue her home medications when she can take things by mouth (13) Seizure disorder Is this a current diagnosis for this admission?: Yes Plan: We will continue phenytoin. We will check a phenytoin level. If she cannot take this by mouth, we should be able to convert this to IV fairly easily until she can take things by mouth (14) Hypertensive urgency Is this a current diagnosis for this admission?: Yes Plan: Hopefully dialysis will help remove some excess fluid help bring her blood pressure down, we will continue her home medications when she can take things by mouth, and will have some PRN hydralazine available. If she is persistently encephalopathic once her metabolic abnormalities are corrected, will consider repeat imaging of the brain. - Time Time Spent with patient: 35 or more minutes - Inpatient Certification Based on my medical assessment, after consideration of the patient's comorbidities, presenting symptoms, or acuity I expect that the services needed warrant INPATIENT care.: Yes I certify that my determination is in accordance with my understanding of Medicare's requirements for reasonable and necessary INPATIENT services [42 CFR 412.3e].: Yes Medical Necessity: Significant Comorbidiites Make Outpatient Treatment Too Risky, Need Close Monitoring Due to Risk of Patient Decompensation, Need For IV Fluids, Need For Continuous Telemetry Monitoring, Need for Neurological Checks, Risk of Complication if Not Cared For in Hospital
[2020-01-17] MEDS ORDERED: DEXTROSE 40% GEL 15 GM TUBE PO PRN ×2 (13:43)
[2020-01-17] MEDS ORDERED: DEXTROSE 50%-WATER 25 GM/50 ML DISP.SYRIN IV PRN ×2 (13:43)
[2020-01-17] MEDS ORDERED: GLUCAGON,HUMAN RECOMB 1 MG INJ IM PRN (13:43)
[2020-01-17] MEDS ORDERED: NALOXONE HCL INJ/PF 0.4 MG/1 ML SDV IV ONE (14:00)
--- NOTE | 2020-01-17 16:36 | PDOC CONSULTATION ---
Consultation Consult Date: 01/17/20 Provider Consulted: MARTHA ALONZO Consult reason:: ESRD with electrolyte abnormalities and AMS. History of Present Illness Admission Date/PCP: 01/17/20 13:09 KELLEY CABRERA NP History of Present Illness: DIAN SLAUGHTER is a 44 year old -Stateless lady known to me with history of ESRD on maintenance hemodialysis on MWF, legally blind, hypertension, diabetes mellitus type 2, coronary artery disease, seizure, hyperlipidemia, who was recently admitted at [facility] from December 16 to Jan 11 2020 for acute pontine stroke presenting with right-sided weakness, dysphagia, suspected intermittent aspiration and atelectasis with intermittent fever and hypoxia and lethargy. Patient also was found to have left breast and pubic superficial abscesses/furuncle during that hospitalization. She was [facility]. Patient was brought to the emergency room today because of note of altered mental status associated with low-grade temperature of 99 degrees. She was supposed to go to her dialysis at [facility] but due to altered mental status she was brought to the emergency room instead. No further history can be obtained from patient due to her mentation. Initial evaluation showed elevated blood pressure to as high as 201/94, elevated potassium of 5.9, high calcium of 13.2 which is new, low sodium of 134.9 and multiple skin lesions consistent with hidradenitis suppurativa most significantly a draining lesion on the mons pubis which was cultured. Her head CT was negative for any acute process. Her chest x-ray showed cardiomegaly but no other acute cardiopulmonary findings as well. In the emergency room she was given a liter of IV fluids, given a dose of calcitonin IV, given a dose of Narcan and was given a dose dose of IV cefepime and vancomycin. I was called to evaluate the patient for dialysis with electrolyte abnormalities. I then arrange dialysis treatment. So currently I am seeing the patient during dialysis treatment. She is still lethargic and does not respond to verbal stimuli. She would move a little bit with noxious painful stimuli but barely opens her eyes. She had a difficult c annulation of her AV fistula today. Fortunately we are able to make it work and currently she is on dialysis and seems to be tolerating procedure without any issues so far. Past Medical History Cardiac Medical History: Reports: CHF-Diastolic, Coronary Artery Disease, Hyperlipidemia, Hypertension-primary, Peripheral Vascular Disease EENT Medical History: Reports: Other - 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, glaucoma Neurological Medical History: Reports: Seizures, Other - Acute pontine stroke with right leg weakness and dysphagia on 12/16/2018 Endocrine Medical History: Reports: Diabetes Mellitus Type 2 Complications of Diabetes: Reports: Retinopathy Renal/ Medical History: Reports: End Stage Renal Disease GI Medical History: Reports: Gastroesophageal Reflux Disease Musculoskeltal Medical History: Reports: Arthritis Psychiatric Medical History: Reports: Depression Hematology Medical History: Reports Anemia of Chronic Kidney Disease Past Surgical History Past Surgical History: Reports: Cholecystectomy, Dialysis Access Surgery AVF, Herniorrhaphy, Orthopedic Surgery - rt hip, Vascular Surgery - Right arm AV fistula Social History Information Source: [facility] Records Lives with: [facility] Smoking Status: Unknown if Ever Smoked Frequency of Alcohol Use: None Hx Recreational Drug Use: No Drugs: None Hx Prescription Drug Abuse: No Family History Family History: Unable to obtain due to the patient's mental status. Parental Family History Reviewed: No Children Family History Reviewed: Unknown Sibling(s) Family History Reviewed.: Unknown Medication/Allergy Home Medications: Atorvastatin Calcium [Lipitor 80 mg Tablet] 80 mg PO QHS 06/11/19 Calcium Acetate [Phoslo 667 mg Capsule] 2,001 mg PO AC 06/11/19 Clonidine HCl [Catapres 0.2 mg Tablet] 0.2 mg PO Q12 06/11/19 Hydroxyzine HCl [Atarax 10 mg Tablet] 10 mg PO Q8HP PRN 06/11/19 Oxycodone HCl [Oxy-Ir 5 mg Tablet] 5 mg PO Q8HP PRN 06/11/19 Phenytoin Sodium Extended [Dilantin 100 mg Capsule.er] 100 mg PO Q8 06/11/19 Pregabalin [Lyrica 75 mg Capsule] 75 mg PO MOWEFR@1000 06/11/19 Pregabalin [Lyrica 75 mg Capsule] 75 mg PO QHS 06/11/19 Aspirin [Aspirin 81 mg Chewable Tablet] 81 mg PO QAM 01/17/20 Escitalopram Oxalate [Lexapro 10 mg Tablet] 10 mg PO DAILY 01/17/20 Lorazepam [Ativan 0.5 mg Tablet] 0.5 mg PO Q8HP PRN 01/17/20 Melatonin [Melatonin 3 mg Tablet] 3 mg PO QHS 01/17/20 Metoprolol Tartrate [Lopressor 100 mg Tablet] 100 mg PO Q12 01/17/20 Pantoprazole Sodium [Protonix [address] Tablet] 40 mg PO Q6AM 01/17/20 Polyethylene Glycol 3350 [Miralax Powder 17 gm/Packet] 1 packet PO DAILYP PRN 01/17/20 Sennosides [Senokot] 8.6 mg PO BID 01/17/20 Allergies/Adverse Reactions: hydromorphone [Hydromorphone] Allergy (Intermediate, Verified 12/28/18 12:14) ABDOMINAL CRAMPS azithromycin [Azithromycin] Allergy (Unknown, Verified 12/28/18 12:14) Darbepoetin Chandrika in [place] * [From Aranesp] Allergy (Unknown, Verified 12/28/18 12:14) ITCHING epoetin chandrika [From Procrit] Allergy (Verified 12/28/18 12:14) Sulfa (Sulfonamide Antibiotics) Allergy (Verified 12/28/18 12:14) Unsure BBQ SAUCE Allergy (Mild, Uncoded 12/28/18 12:14) Hives Review of Systems ROS unobtainable: Due to mental status Physical Exam Vital Signs: Temp Pulse Resp BP Pulse Ox 98.8 F 80 20 201/91 H 93 01/17/20 09:25 01/17/20 09:25 01/17/20 14:01 01/17/20 14:01 01/17/20 14:01 Intake & Output 01/16/20 01/17/20 01/18/20 06:59 06:59 06:59 Intake Total 1050 Balance 1050 Weight 101.151 kg Vitals during dialysis: Blood pressure 173/81, heart rate of 73, blood flow rate of 450 mL/min and dialysate flow rate of 800 mL/min. Exam: General appearance: No acute distress, very lethargic with response to noxious painful and stimuli only, well-developed, well-nourished Head exam: PRESENT: atraumatic, normocephalic Eye exam: PRESENT: Eyes are closed but she has baseline bilateral blindness Mouth exam: PRESENT: moist, neck supple, tongue midline Neck exam: PRESENT: full ROM. ABSENT: carotid bruit, JVD, lymphadenopathy, thyromegaly Respiratory exam: PRESENT: Diminished to auscultation bilaterally. ABSENT: rales, rhonchi, stridor, wheezes Cardiovascular exam: PRESENT: RRR, +S1, +S2. ABSENT: systolic murmur Pulses: PRESENT: normal radial pulses, normal dorsalis pedis pulses GI/Abdominal exam: PRESENT: normal bowel sounds, soft. ABSENT: guarding, mass, tenderness Rectal exam: Deferred Extremities exam: PRESENT: ROM cannot be assessed at this time ABSENT: calf tenderness, pedal edema Musculoskeletal: ABSENT: deformity Neurological exam: PRESENT: Lethargic Psychiatric exam: PRESENT: Cannot be assessed at this time Skin exam: PRESENT: intact, dry, warm. ABSENT: rash Results Laboratory Results: 01/17/20 10:01 01/17/20 10:01 01/17/20 01/17/20 01/17/20 10:01 10:01 10:01 WBC 10.3 RBC 2.89 L Hgb 9.8 L Hct 28.2 L MCV 97 MCH 34.0 H MCHC 34.9 RDW 12.8 Plt Count 272 Seg Neutrophils % 78.7 H Sodium 134.6 L Potassium 5.9 H Chloride 98 Carbon Dioxide 29 Anion Gap 8 BUN 68 H Creatinine 9.20 H Est GFR ( Amer) 6 L Glucose 99 Lactic Acid 0.7 Calcium 13.2 H* Total Bilirubin 0.5 AST 28 Alkaline Phosphatase 101 Ammonia Total Protein 8.8 H Albumin 3.7 Lipase 79.1 01/17/20 10:01 WBC RBC Hgb Hct MCV MCH MCHC RDW Plt Count Seg Neutrophils % Sodium Potassium Chloride Carbon Dioxide Anion Gap BUN Creatinine Est GFR ( Amer) Glucose Lactic Acid Calcium Total Bilirubin AST Alkaline Phosphatase Ammonia < 8.7 L Total Protein Albumin Lipase 01/17/20 01/17/20 10:01 14:28 Troponin I < 0.012 < 0.012 NT-Pro-B Natriuret Pep 6310 H Impressions: Head CT 01/17/20 00:00 IMPRESSION: MILD CHRONIC CHANGES OF ATROPHY AND MICROVASCULAR ISCHEMIA. NO ACUTE PROCESS. EVIDENCE OF ACUTE STROKE: NO. Chest X-Ray 01/17/20 10:14 IMPRESSION: STABLE CARDIOMEGALY. NO ACUTE SIGNIFICANT RADIOGRAPHIC FINDING IN THE CHEST. Assessment & Plan - Diagnosis (1) End-stage renal disease on hemodialysis Is this a current diagnosis for this admission?: Yes Plan: We will do dialysis today for 3 hours, using the patient's right upper arm AV fistula, with 2 potassium bath, blood flow rate of 450 mL per minute, dialysate flow rate of 8 1 mL per minute, ultrafiltration at least 3 L as tolerated, no heparin but if she starts clotting may give low-dose heparin and Procrit with 5000 units during dialysis intravenously. Patient is currently being monitored closely throughout dialysis treatment. Treatment can be adjusted accordingly. (2) Acute encephalopathy Is this a current diagnosis for this admission?: Yes Plan: Possibly due to metabolic encephalopathy with all the electrolyte abnormalities. Hopefully dialysis would help improve her mental state. (3) Hyperkalemia Is this a current diagnosis for this admission?: Yes Plan: Dialysis today with low potassium bath. (4) Hypercalcemia Is this a current diagnosis for this admission?: Yes Plan: This is new finding. We have to get records from [facility] and see if this is been insidiously developing recently or if it is really any new which needed to be worked up. Will recheck level after dialysis. Will use low calcium bath during dialysis. (5) Hyponatremia Is this a current diagnosis for this admission?: Yes Plan: Mild which could be secondary to ESRD. Monitor levels. (6) Abscess of pubic region Is this a current diagnosis for this admission?: Yes Plan: It looks like the patient had this pubic lesion when she was hospitalized at [facility] in [place] recently. Cultures were obtained. She was given a dose of IV cefepime and IV vancomycin in the emergency room. Defer to hospitalist. (7) Anemia in chronic kidney disease Qualifiers: Chronic kidney disease stage: on chronic dialysis Qualified Code(s): N18.6 - End stage renal disease; D63.1 - Anemia in chronic kidney disease; Z99.2 - Dependence on renal dialysis Is this a current diagnosis for this admission?: Yes Plan: Retacrit during dialysis is needed. (8) Hypertension Qualifiers: Hypertension type: essential hypertension Qualified Code(s): I10 - Essential (primary) hypertension Is this a current diagnosis for this admission?: Yes Plan: Try to resume home blood pressure medications but if the patient is unable to swallow, she may need to be given IV blood pressure medications. (9) Diabetes mellitus type 2 in obese Is this a current diagnosis for this admission?: Yes (10) Hidradenitis suppurativa Is this a current diagnosis for this admission?: Yes (11) Legally blind Is this a current diagnosis for this admission?: Yes - Notes Notes: Thank you very much for this consultation. - Time Time Spent: 50 to 70 Minutes
[2020-01-17] MEDS ORDERED: SENNOSIDES 8.6 MG PO SCH (18:00)
[2020-01-17] MEDS: INSULIN LISPRO 100 UNIT/ML 3 ML VIAL SUBCUT SCH (18:41)
[2020-01-17] MEDS: PHENYTOIN SODIUM EXTENDED 100 MG CAPSULE PO SCH (18:41)
[2020-01-17] MEDS: CALCIUM ACETATE 667 MG CAPSULE PO SCH (18:42)
[2020-01-17] MEDS: HEPARIN SOD (PORCINE) 5,000 UNIT/ML 1 ML VIAL SUBCUT SCH ×2 (18:42→22:00)
[2020-01-17] MEDS: DEXTROSE 5%-1/2 NORMAL SALINE 1,000 ML IV PRN (20:02)
[2020-01-17 20:05] LABS: ANION GAP 14 (5-19); CALCIUM 10.3 mg/dL (8.4-10.2); CARBON DIOXIDE 26 mmol/L (22-30); CHLORIDE 95 mmol/L (98-107); GLUCOSE 181 mg/dL (75-110)
[2020-01-17 20:12] LABS: POTASSIUM 4.4 mmol/L (3.6-5.0)
[2020-01-17 20:13] LABS: BLOOD UREA NITROGEN 38 mg/dL (7-20)
[2020-01-17] MEDS ORDERED: PHENYTOIN SODIUM INJ/PF 250 MG/5 ML SDV IV ONE (21:58)
[2020-01-17] MEDS ORDERED: CLONIDINE HCL 0.2 MG TABLET PO SCH (22:00)
[2020-01-17] MEDS ORDERED: PHENYTOIN SODIUM INJ/PF 250 MG/5 ML SDV IV PRN (22:08)
[2020-01-17] MEDS ORDERED: PHENYTOIN SODIUM 1,000 MG in NORMAL SALINE 250 ML IV ONE (22:15)
[2020-01-17] MEDS ORDERED: CLONIDINE 0.3 MG/24 HR PATCH.TDWK TD ONE (23:45)
[2020-01-18] MEDS: METOPROLOL TARTRATE 100 MG TABLET PO SCH ×3 (00:19→22:03)
[2020-01-18] MEDS: PHENYTOIN SODIUM EXTENDED 100 MG CAPSULE PO SCH ×3 (00:19→13:10)
[2020-01-18] MEDS: ATORVASTATIN CALCIUM 80 MG TABLET PO SCH ×2 (00:19→22:03)
[2020-01-18] MEDS: MELATONIN 3 MG TABLET PO SCH ×2 (00:20→22:03)
[2020-01-18] MEDS: INSULIN LISPRO 100 UNIT/ML 3 ML VIAL SUBCUT SCH ×4 (00:21→18:07)
[2020-01-18] MEDS: PANTOPRAZOLE SODIUM 40 MG TABLET.DR PO SCH (05:58)
[2020-01-18] MEDS: HEPARIN SOD (PORCINE) 5,000 UNIT/ML 1 ML VIAL SUBCUT SCH ×3 (06:07→22:03)
[2020-01-18 06:39] LABS: HEMATOCRIT 28.9 % (36.0-47.0); MEAN CORPUSCULAR HEMOGLOBIN 33.5 pg (27.0-33.4); MEAN CORPUSCULAR HGB CONC 34.6 g/dL (32.0-36.0); MEAN CORPUSCULAR VOLUME 97 fl (80-97); RED BLOOD COUNT 2.99 10^6/uL (3.72-5.28); RED CELL DISTRIBUTION WIDTH 12.7 % (11.5-14.0); WHITE BLOOD COUNT 13.2 10^3/uL (4.0-10.5)
[2020-01-18 06:52] LABS: PLATELET COUNT 246 10^3/uL (150-450)
[2020-01-18] MEDS: CALCIUM ACETATE 667 MG CAPSULE PO SCH ×3 (07:43→15:48)
[2020-01-18] MEDS: ASPIRIN 81 MG TABLET, CHEWABLE PO SCH (07:43)
[2020-01-18] MEDS: ESCITALOPRAM OXALATE 10 MG TABLET PO SCH (09:05)
[2020-01-18 11:16] LABS: ANION GAP 10 (5-19); BLOOD UREA NITROGEN 47 mg/dL (7-20); CALCIUM 10.5 mg/dL (8.4-10.2); CARBON DIOXIDE 31 mmol/L (22-30); CHLORIDE 94 mmol/L (98-107); GLUCOSE 170 mg/dL (75-110); PHOSPHORUS 3.2 mg/dL (2.5-4.5); POTASSIUM 4.7 mmol/L (3.6-5.0)
--- NOTE | 2020-01-18 12:31 | RADIOLOGY REPORT (SQ) ---
EXAM DESCRIPTION: MRI HEAD WITHOUT IMAGES COMPLETED DATE/TIME: 01/18/2020 11:53 am REASON FOR STUDY: encephalopathy COMPARISON: MRI of the brain without contrast from 12/16/2019. TECHNIQUE: Multiplanar imaging includes non-contrasted T1, T2, FLAIR, and diffusion with ADC map seq uences. Images stored on PACS. LIMITATIONS: Evaluation is limited due to motion artifact. FINDINGS: There is a focus of restricted diffusion in the right putamen (in the territory of the lat eral lenticulostriate arteries/M1 segment of the MCA) that demonstrates increased signal on the FLAIR . There is a subacute infarct in the left paramedian abisai. The confluent areas of high T2/FLAIR signal throughout the supratentorial periventricular and subcortical white matter are unchanged and could r epresent the sequela of chronic microvascular ischemia. There is no acute intracranial hemorrhage, extra-axial fluid collection, mass, mass effect or midline shift. The roberts-white matter differentiation is preserved. There is no effacement of the basal sub arachnoid cisterns. The caliber of the ventricles is concordant with the degree of sulcation. There is no susceptibility artifact on the gradient sequence. The sella turcica, corpus callosum, and craniocervical junction are normal in appearance. The foci of high T1 signal in the calvarium are unchanged. IMPRESSION: Acute infarct in the right putamen (in the territory of the lateral lenticulostriate art eries/M1 segment of the MCA). EVIDENCE OF ACUTE STROKE: YES. RIGHT MCA TECHNICAL DOCUMENTATION: JOB ID: [id number] 2010 [employer]- All Rights Reserved Reading location - IP/workstation name: [email or web address]
[2020-01-18] MEDS: DEXTROSE 5%-1/2 NORMAL SALINE 1,000 ML IV PRN (13:18)
--- NOTE | 2020-01-18 18:02 | PDOC PROGRESS REPORT ---
Subjective Progress Note for:: 01/18/20 Subjective:: Patient is a little bit more interactive today but not by much. Vital signs have been stable, with her blood pressure remaining somewhat elevated because she is not been able to wake up and take her medications by mouth reliably. Calcium has come down. She had dialysis yesterday. MRI was positive for a right MCA stroke in the putamen. Reason For Visit: METABOLIC ENCEPHALOPATHY,HYPERCALCEMIA,ESRD Physical Exam Vital Signs: Temp Pulse Resp BP Pulse Ox 98.0 F 84 16 183/76 H 94 01/18/20 09:13 01/18/20 14:00 01/18/20 09:13 01/18/20 09:13 01/18/20 09:13 Intake & Output 01/17/20 01/18/20 01/19/20 06:59 06:59 06:59 Intake Total 1050 863 Output Total 3300 Balance -2250 863 Weight 101.15 kg General appearance: PRESENT: disheveled, morbidly obese, other -responds to verbal command Eye exam: PRESENT: EOMI, bilateral cataracts Respiratory exam: PRESENT: clear to auscultation alaina, symmetrical, unlabored. ABSENT: accessory muscle use, chest wall tenderness, crackles, prolonged expiratory phas, rhonchi, tachypnea, wheezes Cardiovascular exam: PRESENT: RRR, +S1, +S2 Pulses: PRESENT: normal carotid pulses Vascular exam: PRESENT: normal capillary refill GI/Abdominal exam: PRESENT: normal bowel sounds, soft. ABSENT: distended, guarding, rebound, tenderness Extremities exam: ABSENT: clubbing, pedal edema Musculoskeletal exam: PRESENT: normal inspection. ABSENT: deformity Neurological exam: PRESENT: altered, other - Encephalopathic, opens eyes to verbal command and grunts responses Skin exam: PRESENT: other - Her skin shows multiple anomalies. She has multiple diffuse darkened areas that appear to be old scabs that have healed over all o ruth her upper and lower extremities. She has an area on the medial aspect of the right calf that appears to be a large wound that has healed into a scar. She has a lesion that appears to be an abnormally large and thickened scab on the medial aspect of her left calf. She has a small draining area over her mons pubis that is draining a thin grayish-stubbs liquid without any substantial surrounding erythema or tenderness. She has previously noted lesion under the left breast that appears to be healing over and is no longer draining. She has a large area on the medial aspect of the right upper arm that has wound packing with no surrounding erythema. Results Laboratory Results: 01/18/20 04:56 01/18/20 10:12 01/17/20 01/18/20 01/18/20 18:56 04:56 04:56 WBC 13.2 H RBC 2.99 L Hgb 10.0 L Hct 28.9 L MCV 97 MCH 33.5 H MCHC 34.6 RDW 12.7 Plt Count 246 Sodium 135.0 L Cancelled Potassium 4.4 D Cancelled Chloride 95 L Cancelled Carbon Dioxide 26 Cancelled Anion Gap 14 Cancelled BUN 38 H D Cancelled Creatinine 5.53 H Cancelled Est GFR ( Amer) 10 L Cancelled Est GFR (Non-Af Amer) Cancelled Glucose 181 H Cancelled Calcium 10.3 H Cancelled Phosphorus Cancelled Magnesium Cancelled 01/18/20 10:12 WBC RBC Hgb Hct MCV MCH MCHC RDW Plt Count Sodium 135.1 L Potassium 4.7 Chloride 94 L Carbon Dioxide 31 H Anion Gap 10 BUN 47 H Creatinine 7.33 H Est GFR ( Amer) 7 L Est GFR (Non-Af Amer) Glucose 170 H Calcium 10.5 H Phosphorus 3.2 Magnesium 2.8 H 01/17/20 01/17/20 10:01 14:28 Troponin I < 0.012 < 0.012 NT-Pro-B Natriuret Pep 6310 H Impressions: Head CT 01/17/20 00:00 IMPRESSION: MILD CHRONIC CHANGES OF ATROPHY AND MICROVASCULAR ISCHEMIA. NO ACUTE PROCESS. EVIDENCE OF ACUTE STROKE: NO. Chest X-Ray 01/17/20 10:14 IMPRESSION: STABLE CARDIOMEGALY. NO ACUTE SIGNIFICANT RADIOGRAPHIC FINDING IN THE CHEST. Head MRI 01/18/20 00:00 IMPRESSION: Acute infarct in the right putamen (in the territory of the lateral lenticulostriate arteries/M1 segment of the MCA). EVIDENCE OF ACUTE STROKE: YES. RIGHT MCA Assessment and Plan - Diagnosis (1) Metabolic encephalopathy Is this a current diagnosis for this admission?: Yes Plan: Her electrolyte disturbances for have for the most part been corrected. Based on her MRI, her encephalopathy now is most likely due to her acute stroke. (2) Anemia in chronic kidney disease Qualifiers: Chronic kidney disease stage: on chronic dialysis Qualified Code(s): N18.6 - End stage renal disease; D63.1 - Anemia in chronic kidney disease; Z99.2 - Dependence on renal dialysis Is this a current diagnosis for this admission?: Yes Plan: We will monitor and defer management to nephrology recommendations, it says here that she is allergic to EPO, I am not sure what the reaction is (3) Diabetes mellitus type 2 in obese Is this a current diagnosis for this admission?: Yes Plan: N.p.o. for now, we will monitor her blood sugar every 6 hours until she can wake up enough to eat (4) Hidradenitis suppurativa Is this a current diagnosis for this admission?: Yes Plan: She has a few chronic wounds, 1 of which is packed, 1 of which is healed, and 1 of which is currently draining without evidence of surrounding erythema indicating acute cellulitis (5) Hypercalcemia associated with chronic dialysis Is this a current diagnosis for this admission?: Yes Plan: Improved after interventions yesterday including dialysis will continue to monitor (6) Hyperkalemia Is this a current diagnosis for this admission?: Yes Plan: Resolved (7) Blind Qualifiers: Right eye visual impairment category: right - unspecified blindness Left eye visual impairment category: left - unspecified blindness Qualified Code(s): H54.3 - Unqualified visual loss, both eyes Is this a current diagnosis for this admission?: Yes Plan: She is legally blind (8) Coronary artery disease Qualifiers: Coronary Disease-Associated Artery/Lesion type: [place] artery [place] vs. transplanted heart: [place] heart Associated angina: without angina Qualified Code(s): I25.10 - Atherosclerotic heart disease of [place] coronary artery withou t angina pectoris Is this a current diagnosis for this admission?: Yes Plan: We will continue her home medications when she is able to take them by mouth (9) End-stage renal disease on hemodialysis Is this a current diagnosis for this admission?: Yes Plan: Nephrology consulted for dialysis and other recommendations regarding electrolyte management (10) Hyperlipidemia Qualifiers: Hyperlipidemia type: unspecified Qualified Code(s): E78.5 - Hyperlipidemia, unspecified Is this a current diagnosis for this admission?: Yes Plan: We will continue her statin when she is able to take things by mouth (11) Obesity hypoventilation syndrome Is this a current diagnosis for this admission?: Yes Plan: Am not sure if she is on CPAP at [place], but when she was here in a previous hospitalization she said that she slept better with the CPAP mask on. We will try to find out what her settings are if she has any (12) Peripheral arterial disease Is this a current diagnosis for this admission?: Yes Plan: We will monitor for signs of limb ischemia and will continue her home medications when she can take things by mouth (13) Seizure disorder Is this a current diagnosis for this admission?: Yes Plan: Dilantin level pending, have switched her to IV Dilantin (14) Hypertensive urgency Is this a current diagnosis for this admission?: Yes Plan: We have PRN hydralazine available. She is not able to take any of her usual medications by mouth, so I will put a clonidine patch on her today and will consider Nitropaste. (15) Acute right arterial ischemic stroke, MCA (middle cerebral artery) Is this a current diagnosis for this admission?: Yes Plan: She has an area of ischemia which is acute in the right putamen. She was already on the appropriate medications, so we will continue them when she is able to take them. Will order aspirin suppository for the time being. - Time Time Spent with patient: 25-34 minutes
[2020-01-18] MEDS: CLONIDINE 0.2 MG/24 HR PATCH.TDWK TD SCH (18:19)
[2020-01-18] MEDS ORDERED: ASPIRIN 300 MG SUPP, RECTAL PR ONE (18:45)
[2020-01-18] MEDS: MORPHINE SULFATE 10 MG/ML INJ IV PRN (22:01)
[2020-01-18] MEDS: PHENYTOIN SODIUM INJ/PF 100 MG/2 ML SDV IV SCH (22:03)
[2020-01-19] MEDS: INSULIN LISPRO 100 UNIT/ML 3 ML VIAL SUBCUT SCH ×4 (00:01→17:22)
[2020-01-19] MEDS: PANTOPRAZOLE SODIUM 40 MG TABLET.DR PO SCH (05:38)
[2020-01-19 05:42] LABS: HEMATOCRIT 28.3 % (36.0-47.0); HEMOGLOBIN 9.6 g/dL (12.0-15.5); MEAN CORPUSCULAR HEMOGLOBIN 33.3 pg (27.0-33.4); MEAN CORPUSCULAR HGB CONC 33.9 g/dL (32.0-36.0); MEAN CORPUSCULAR VOLUME 98 fl (80-97); PLATELET COUNT 239 10^3/uL (150-450); RED BLOOD COUNT 2.89 10^6/uL (3.72-5.28); RED CELL DISTRIBUTION WIDTH 13.1 % (11.5-14.0); WHITE BLOOD COUNT 10.2 10^3/uL (4.0-10.5)
[2020-01-19] MEDS: PHENYTOIN SODIUM INJ/PF 100 MG/2 ML SDV IV SCH ×3 (05:45→21:43)
[2020-01-19] MEDS: HEPARIN SOD (PORCINE) 5,000 UNIT/ML 1 ML VIAL SUBCUT SCH ×3 (05:45→21:42)
[2020-01-19] MEDS: MORPHINE SULFATE 10 MG/ML INJ IV PRN ×4 (05:48→21:41)
[2020-01-19 06:08] LABS: ANION GAP 9 (5-19); BLOOD UREA NITROGEN 55 mg/dL (7-20); CALCIUM 10.5 mg/dL (8.4-10.2); CARBON DIOXIDE 30 mmol/L (22-30); CHLORIDE 95 mmol/L (98-107); GLUCOSE 150 mg/dL (75-110); PHOSPHORUS 3.2 mg/dL (2.5-4.5); POTASSIUM 4.6 mmol/L (3.6-5.0)
[2020-01-19] MEDS: ASPIRIN 81 MG TABLET, CHEWABLE PO SCH (08:19)
[2020-01-19] MEDS: CALCIUM ACETATE 667 MG CAPSULE PO SCH (08:19)
[2020-01-19] MEDS: ASPIRIN 300 MG SUPP, RECTAL PR SCH (09:06)
[2020-01-19] MEDS: ESCITALOPRAM OXALATE 10 MG TABLET PO SCH (09:06)
[2020-01-19] MEDS: METOPROLOL TARTRATE 100 MG TABLET PO SCH (09:06)
[2020-01-19] MEDS: CLONIDINE 0.2 MG/24 HR PATCH.TDWK TD SCH (10:43)
--- NOTE | 2020-01-19 10:55 | PDOC PROGRESS REPORT ---
Subjective Progress Note for:: 01/19/20 Reason For Visit: Lexii Delcid Who is well-known to me as an ESRD patient on dialysis was seen today on dialysis. She has had a recent right putamen stroke and is unable to talk as she is aphasic. She has her eyes deviated to the right side.She also has a history of seizures and is now on IV Dilantin.She is a lady with multiple comorbidities and is quite critically ill at this point. She is legally blind and her comorbidities includes hypertension, diabetes mellitus type 2, coronary artery disease, seizure, hyperlipidemia, who was recently admitted at [facility] from December 16 to Jan 11 2020 for acute pontine stroke presenting with right-sided weakness, dysphagia, suspected intermittent aspiration and atelectasis with intermittent fever and hypoxia and lethargy. Patient also was found to have left breast and pubic superficial abscesses/furuncle during that hospitalization. She was discharged to [facility]. Evaluations on current admission also revealed that she had elevated blood pressure to as high as 201/94, elevated potassium of 5.9, high calcium of 13.2 which is new, low sodium of 134.9 and multiple skin lesions consistent with hidradenitis suppurativa most significantly a draining lesion on the mons pubis which was cultured. She was initially treated with fluid fluids and 1 dose of IV calcitonin. Her mons pubis wound has grown polymicrobial infection and is being managed by hospitalist. She is currently undergoing dialysis which is being supervised. Labs and medications were reviewed and discussions were done with the treating nurse. Physical Exam Vital Signs: Temp Pulse Resp BP Pulse Ox 98.2 F 76 20 175/74 H 98 01/19/20 03:26 01/19/20 07:00 01/19/20 03:26 01/19/20 03:26 01/19/20 03:26 Intake & Output 01/18/20 01/19/20 01/20/20 06:59 06:59 06:59 Intake Total 1050 863 Output Total 3300 550 Balance -2250 313 Weight 101.15 kg 102.4 kg General appearance: PRESENT: disheveled, mild distress Exam: She has open eyes with fixed right gaze.She is unresponsive to any oral or physical commands. Respiratory exam: PRESENT: clear to auscultation alaina, decreased breath sounds. ABSENT: crackles Cardiovascular exam: PRESENT: +S1, +S2. ABSENT: rubs GI/Abdominal exam: PRESENT: normal bowel sounds, soft. ABSENT: organomegaly, tenderness Extremities exam: PRESENT: pedal edema - Both her legs are wrapped up Neurological exam: PRESENT: altered Results Laboratory Results: 01/19/20 04:56 01/19/20 04:56 01/18/20 01/19/20 01/19/20 10:12 04:56 04:56 WBC 10.2 RBC 2.89 L Hgb 9.6 L Hct 28.3 L MCV 98 H MCH 33.3 MCHC 33.9 RDW 13.1 Plt Count 239 Sodium 135.1 L 134.0 L Potassium 4.7 4.6 Chloride 94 L 95 L Carbon Dioxide 31 H 30 Anion Gap 10 9 BUN 47 H 55 H Creatinine 7.33 H 8.25 H Est GFR ( Amer) 7 L 6 L Glucose 170 H 150 H Calcium 10.5 H 10.5 H Phosphorus 3.2 3.2 Magnesium 2.8 H 3.0 H 01/17/20 01/17/20 10:01 14:28 Troponin I < 0.012 < 0.012 NT-Pro-B Natriuret Pep 6310 H Impressions: Head CT 01/17/20 00:00 IMPRESSION: MILD CHRONIC CHANGES OF ATROPHY AND MICROVASCULAR ISCHEMIA. NO ACUTE PROCESS. EVIDENCE OF ACUTE STROKE: NO. Chest X-Ray 01/17/20 10:14 IMPRESSION: STABLE CARDIOMEGALY. NO ACUTE SIGNIFICANT RADIOGRAPHIC FINDING IN THE CHEST. Head MRI 01/18/20 00:00 IMPRESSION: Acute infarct in the right putamen (in the territory of the lateral lenticulostriate arteries/M1 segment of the MCA). EVIDENCE OF ACUTE STROKE: YES. RIGHT MCA Assessment & Plan - Diagnosis (1) Acute right arterial ischemic stroke, MCA (middle cerebral artery) Is this a current diagnosis for this admission?: Yes Plan: She is got acute right putamen stroke with residual deficits. She is aphasic and rather unresponsive to any oral commands.She is also on IV Dilantin for apparent seizure activities. (2) End-stage renal disease on hemodialysis Is this a current diagnosis for this admission?: Yes Plan: Currently undergoing dialysis. Dialysis being supervised to ensure safe and smooth procedure. Vital signs shows blood pressure is high. Plan to remove b etween 2-3 L of fluid as tolerated. Dialysis orders were reviewed with the treating dialysis nurse. (3) Altered mental status Plan: In the face of acute CVA and possible seizures. (4) Hypercalcemia Is this a current diagnosis for this admission?: Yes Plan: Much improved. Will hold off on any vitamin D analogs/ calcium binders. Monitor. (5) Anemia in chronic kidney disease Qualifiers: Chronic kidney disease stage: on chronic dialysis Qualified Code(s): N18.6 - End stage renal disease; D63.1 - Anemia in chronic kidney disease; Z99.2 - Dependence on renal dialysis Is this a current diagnosis for this admission?: Yes Plan: Monitor. She has had diffuse skin reaction to erythropoietin which is therefore been on hold because of apparent worsening here of the hiradenitis. (6) Diabetes mellitus type 2 in obese Is this a current diagnosis for this admission?: Yes Plan: As per hospitalist. (7) Hypertensive urgency Is this a current diagnosis for this admission?: Yes Plan: In the face of acute stroke. It is also compounded by the fact that she is unable to take any p.o. medications. Her blood pressure will need to be monitored closely and brought down very slowly to prevent any further compromise of brain ischemia in the background of recent stroke. (8) Acute encephalopathy Is this a current diagnosis for this admission?: Yes Plan: Secondary to recent stroke and seizure activities. (9) Abscess of pubic region Is this a current diagnosis for this admission?: Yes Plan: Being managed by hospitalist. (10) Hidradenitis suppurativa Is this a current diagnosis for this admission?: Yes Plan: Status quo and chronic. (11) Morbid obesity with BMI of 45.0-49.9, adult Plan: With possibility of sleep apnea as well.
[2020-01-19] MEDS: DEXTROSE 5%-1/2 NORMAL SALINE 1,000 ML IV PRN (11:18)
[2020-01-19] MEDS: HYDRALAZINE HCL INJ/PF 20 MG/1 ML SDV IV PRN (13:56)
--- NOTE | 2020-01-19 15:01 | PDOC PROGRESS REPORT ---
Subjective Progress Note for:: 01/19/20 Subjective:: No adverse events overnight. Patient remains clinically unchanged. Blood pressures remain somewhat elevated. Blood sugars are reasonably well controlled. She had hemodialysis today. Spoke with her daughter and brother at length. Reason For Visit: METABOLIC ENCEPHALOPATHY,HYPERCALCEMIA,ESRD Physical Exam Vital Signs: Temp Pulse Resp BP Pulse Ox 97.4 F 88 18 172/88 H 98 01/19/20 12:01 01/19/20 12:01 01/19/20 12:01 01/19/20 12:01 01/19/20 12:01 Intake & Output 01/18/20 01/19/20 01/20/20 06:59 06:59 06:59 Intake Total 1494 529 8874 Output Total 3300 550 3100 Balance -2250 313 -2100 Weight 101.15 kg 102.4 kg General appearance: PRESENT: disheveled, morbidly obese, other -responds to verbal command Eye exam: PRESENT: EOMI, bilateral cataracts Respiratory exam: PRESENT: clear to auscultation alaina, symmetrical, unlabored. ABSENT: accessory muscle use, chest wall tenderness, crackles, prolonged expiratory phas, rhonchi, tachypnea, wheezes Cardiovascular exam: PRESENT: RRR, +S1, +S2 Pulses: PRESENT: normal carotid pulses Vascular exam: PRESENT: normal capillary refill GI/Abdominal exam: PRESENT: normal bowel sounds, soft. ABSENT: distended, g uarding, rebound, tenderness Extremities exam: ABSENT: clubbing, pedal edema Musculoskeletal exam: PRESENT: normal inspection. ABSENT: deformity Neurological exam: PRESENT: altered, other - Encephalopathic, opens eyes to ruth bal command and grunts responses Skin exam: PRESENT: other - Her skin shows multiple anomalies. She has multiple diffuse darkened areas that appear to be old scabs that have healed over all over her upper and lower extremities. She has an area on the medial aspect of the right calf that appears to be a large wound that has healed into a scar. She has a lesion that appears to be an abnormally large and thickened scab on the medial aspect of her left calf. She has a small draining area over her mons pubis that is draining a thin grayish-stubbs liquid without any substantial surrounding erythema or tenderness. She has previously noted lesion under the left breast that appears to be healing over and is no longer draining. She has a large area on the medial aspect of the right upper arm that has wound packing with no surrounding erythema. Results Laboratory Results: 01/19/20 04:56 01/19/20 04:56 01/19/20 01/19/20 04:56 04:56 WBC 10.2 RBC 2.89 L Hgb 9.6 L Hct 28.3 L MCV 98 H MCH 33.3 MCHC 33.9 RDW 13.1 Plt Count 239 Sodium 134.0 L Potassium 4.6 Chloride 95 L Carbon Dioxide 30 Anion Gap 9 BUN 55 H Creatinine 8.25 H Est GFR ( Amer) 6 L Glucose 150 H Calcium 10.5 H Phosphorus 3.2 Magnesium 3.0 H 01/17/20 01/17/20 10:01 14:28 Troponin I < 0.012 < 0.012 NT-Pro-B Natriuret Pep 6310 H Impressions: Head CT 01/17/20 00:00 IMPRESSION: MILD CHRONIC CHANGES OF ATROPHY AND MICROVASCULAR ISCHEMIA. NO ACUTE PROCESS. EVIDENCE OF ACUTE STROKE: NO. Chest X-Ray 01/17/20 10:14 IMPRESSION: STABLE CARDIOMEGALY. NO ACUTE SIGNIFICANT RADIOGRAPHIC FINDING IN THE CHEST. Head MRI 01/18/20 00:00 IMPRESSION: Acute infarct in the right putamen (in the territory of the lateral lenticulostriate arteries/M1 segment of the MCA). EVIDENCE OF ACUTE STROKE: YES. RIGHT MCA Assessment and Plan - Diagnosis (1) Metabolic encephalopathy Is this a current diagnosis for this admission?: Yes Plan: Her electrolyte disturbances for have for the most part been corrected. Based on her MRI, her encephalopathy now is most likely due to her acute stroke. (2) Anemia in chronic kidney disease Qualifiers: Chronic kidney disease stage: on chronic dialysis Qualified Code(s): N18.6 - End stage renal disease; D63.1 - Anemia in chronic kidney disease; Z99.2 - Dependence on renal dialysis Is this a current diagnosis for this admission?: Yes Plan: We will monitor and defer management to nephrology recommendations, it says here that she is allergic to EPO, I am not sure what the reaction is (3) Diabetes mellitus type 2 in obese Is this a current diagnosis for this admission?: Yes Plan: N.p.o. for now, we will monitor her blood sugar every 6 hours until she can wake up enough to eat. We have her on a dextrose solution at a low rate just to make sure her blood sugar does not drop. (4) Hidradenitis suppurativa Is this a current diagnosis for this admission?: Yes Plan: She has a few chronic wounds, 1 of which is packed, 1 of which is healed, and 1 of which is currently draining without evidence of surrounding erythema indicating acute cellulitis. Cultures came back showing a Proteus and E. coli + gram-positive. There is no sensitivities on the third organism, but the Proteus and E. coli are sensitive to Ancef so I empirically started her on that. (5) Hypercalcemia associated with chronic dialysis Is this a current diagnosis for this admission?: Yes Plan: Improved after interventions including dialysis will continue to monitor (6) Hyperkalemia Is this a current diagnosis for this admission?: Yes Plan: Resolved (7) Blind Qualifiers: Right eye visual impairment category: right - unspecified blindness Left eye visual impairment category: left - unspecified blindness Qualified Code(s): H54.3 - Unqualified visual loss, both eyes Is this a current diagnosis for this admission?: Yes Plan: She is legally blind (8) Coronary artery disease Qualifiers: Coronary Disease-Associated Artery/Lesion type: [place] artery [place] vs. transplanted heart: [place] heart Associated angina: without angina Qualified Code(s): I25.10 - Atherosclerotic heart disease of [place] coronary artery without angina pectoris Is this a current diagnosis for this admission?: Yes Plan: We will continue her home medications when she is able to take them by mouth (9) End-stage renal disease on hemodialysis Is this a current diagnosis for this admission?: Yes Plan: Nephrology consulted for dialysis and other recommendations regarding electrolyte management (10) Hyperlipidemia Qualifiers: Hyperlipidemia type: unspecified Qualified Code(s): E78.5 - Hyperlipidemia, unspecified Is this a current diagnosis for this admission?: Yes Plan: We will continue her statin when she is able to take things by mouth (11) Obesity hypoventilation syndrome Is this a current diagnosis for this admission?: Yes Plan: Am not sure if she is on CPAP at [facility], but when she was here in a previous hospitalization she said that she slept better with the CPAP mask on. We will try to find out what her settings are if she has any (12) Peripheral arterial disease Is this a current diagnosis for this admission?: Yes Plan: We will monitor for signs of limb ischemia and will continue her home medications when she can take things by mouth (13) Seizure disorder Is this a current diagnosis for this admission?: Yes Plan: Dilantin level pending, have switched her to IV Dilantin (14) Hypertensive urgency Is this a current diagnosis for this admission?: Yes Plan: We have PRN hydralazine available. She is not able to take any of her usual medications by mouth, so we have started a clonidine patch and have added Nitropaste. (15) Acute right arterial ischemic stroke, MCA (middle cerebral artery) Is this a current diagnosis for this admission?: Yes Plan: She has an area of ischemia which is acute in the right putamen. She was already on the appropriate medications, so we will continue them when she is able to take them. We will continue aspirin suppository. Were trying to improve her blood pressure control and will keeping her blood sugar under good control. We are trying to avoid giving her any sort of sedating medication. Her family wants to wait to see if she is going to wake up so that we can get a better assessment. Will consider getting an EEG if she does not arouse. - Time Time Spent with patient: 25-34 minutes
[2020-01-19] MEDS: NITROGLYCERIN 2% OINTMENT 1 GM PACKET TP SCH ×2 (16:33→17:20)
[2020-01-19] MEDS: CEFAZOLIN 1 GM/D5W RTU 1 GM/50 ML RTUPB IV SCH (16:34)
[2020-01-20] MEDS: INSULIN LISPRO 100 UNIT/ML 3 ML VIAL SUBCUT SCH ×5 (02:16→23:25)
[2020-01-20] MEDS: NITROGLYCERIN 2% OINTMENT 1 GM PACKET TP SCH ×5 (02:23→23:26)
[2020-01-20 05:34] LABS: HEMOGLOBIN 10.1 g/dL (12.0-15.5); MEAN CORPUSCULAR HEMOGLOBIN 33.9 pg (27.0-33.4); MEAN CORPUSCULAR HGB CONC 34.7 g/dL (32.0-36.0); MEAN CORPUSCULAR VOLUME 98 fl (80-97); PLATELET COUNT 228 10^3/uL (150-450); RED BLOOD COUNT 2.97 10^6/uL (3.72-5.28); RED CELL DISTRIBUTION WIDTH 13.2 % (11.5-14.0); WHITE BLOOD COUNT 11.5 10^3/uL (4.0-10.5)
[2020-01-20 05:49] LABS: ANION GAP 11 (5-19); BLOOD UREA NITROGEN 38 mg/dL (7-20); CALCIUM 10.6 mg/dL (8.4-10.2); CARBON DIOXIDE 29 mmol/L (22-30); CHLORIDE 95 mmol/L (98-107); GLUCOSE 141 mg/dL (75-110); PHOSPHORUS 3.1 mg/dL (2.5-4.5)
[2020-01-20] MEDS: PHENYTOIN SODIUM INJ/PF 100 MG/2 ML SDV IV SCH ×3 (05:53→21:32)
[2020-01-20] MEDS: HEPARIN SOD (PORCINE) 5,000 UNIT/ML 1 ML VIAL SUBCUT SCH ×2 (05:55→13:34)
[2020-01-20] MEDS: DEXTROSE 5%-1/2 NORMAL SALINE 1,000 ML IV PRN ×2 (06:00→23:42)
[2020-01-20 08:11] LABS: PHENYTOIN TOTAL SERUM 1.7 ug/mL (10.0-20.0)
[2020-01-20] MEDS: CEFAZOLIN 1 GM/D5W RTU 1 GM/50 ML RTUPB IV SCH (09:43)
[2020-01-20] MEDS: ASPIRIN 300 MG SUPP, RECTAL PR SCH (09:44)
[2020-01-20] MEDS: HYDRALAZINE HCL INJ/PF 20 MG/1 ML SDV IV PRN ×2 (09:44→13:34)
[2020-01-20] MEDS: PANTOPRAZOLE SODIUM 40 MG VIAL IV SCH (09:44)
[2020-01-20 11:42] LABS: CHOLESTEROL 103.57 mg/dL (0-200); TRIGLYCERIDES 139 mg/dL (<150)
[2020-01-20 11:52] LABS: DIRECT LDL 43 mg/dL (<100)
[2020-01-20] MEDS ORDERED: LABETALOL HCL INJ 20 MG/4 ML DISP.SYRIN IV PRN (16:53)
[2020-01-20] MEDS ORDERED: HYDRALAZINE HCL INJ/PF 20 MG/1 ML SDV IV PRN (16:54)
--- NOTE | 2020-01-20 17:08 | PDOC PROGRESS REPORT ---
Subjective Progress Note for:: 01/20/20 Subjective:: No adverse events overnight. Blood pressures remain elevated. She is more awake today. Her daughter came in to see her. All she could talk about was pain but she could not say where it was. She does not answer questions reliably. Reason For Visit: METABOLIC ENCEPHALOPATHY,HYPERCALCEMIA,ESRD Physical Exam Vital Signs: Temp Pulse Resp BP Pulse Ox 97.6 F 104 H 18 184/62 H 95 01/20/20 13:25 01/20/20 14:00 01/20/20 13:25 01/20/20 13:25 01/20/20 13:25 Intake & Output 01/19/20 01/20/20 01/21/20 06:59 06:59 06:59 Intake Total 863 1985 50 Output Total 550 3100 Balance 313 -1115 50 Weight 102.4 kg 102.4 kg General appearance: PRESENT: disheveled, morbidly obese, other -is talking some but not answering questions specifically still not following commands Eye exam: PRESENT: EOMI, bilateral cataracts Respiratory exam: PRESENT: clear to auscultation alaina, symmetrical, unlabored. ABSENT: accessory muscle use, chest wall tenderness, crackles, prolonged expiratory phas, rhonchi, tachypnea, wheezes Cardiovascular exam: PRESENT: RRR, +S1, +S2 Pulses: PRESENT: normal carotid pulses Vascular exam: PRESENT: normal capillary refill GI/Abdominal exam: PRESENT: normal bowel sounds, soft. ABSENT: distended, guarding, rebound, tenderness Extremities exam: ABSENT: clubbing, pedal edema Musculoskeletal exam: PRESENT: normal inspection. ABSENT: deformity Neurological exam: PRESENT: altered, other - Encephalopathic, opens eyes to verbal command and speaks but does not follow commands Skin exam: PRESENT: other - Her skin shows multiple anomalies. She has multiple diffuse darkened areas that appear to be old scabs that have healed over all over her upper and lower extremities. She has an area on the medial aspect of the right calf that appears to be a large wound that has healed into a scar. She has a lesion that appears to be an abnormally large and thickened scab on the medial aspect of her left calf. She has a small draining area over her mons pubis that is draining a thin grayish-stubbs liquid without any substantial surrounding erythema or tenderness. She has previously noted lesion under the left breast that appears to be healing over and is no longer draining. She has a large area on the medial aspect of the right upper arm that has wound packing with no surrounding erythema. Results Laboratory Results: 01/20/20 05:00 01/20/20 05:00 01/20/20 01/20/20 01/20/20 05:00 05:00 05:00 WBC 11.5 H RBC 2.97 L Hgb 10.1 L Hct 29.0 L MCV 98 H MCH 33.9 H MCHC 34.7 RDW 13.2 Plt Count 228 Sodium 135.4 L Potassium 4.0 Chloride 95 L Carbon Dioxide 29 Anion Gap 11 BUN 38 H Creatinine 5.43 H Est GFR ( Amer) 10 L Glucose 141 H Calcium 10.6 H Phosphorus 3.1 Magnesium 2.6 H Triglycerides 139 Cholesterol 103.57 LDL Cholesterol Direct 43 VLDL Cholesterol 28.0 HDL Cholesterol 27 L 01/17/20 10:01 Suprapubic Wound Gram Stain - Final 01/17/20 10:01 Suprapubic Wound Wound Culture - Final Escherichia Coli Proteus Mirabilis Enterococcus Faecalis(Group D) 01/17/20 01/17/20 10:01 14:28 Troponin I < 0.012 < 0.012 NT-Pro-B Natriuret Pep 6310 H Impressions: Head CT 01/17/20 00:00 IMPRESSION: MILD CHRONIC CHANGES OF ATROPHY AND MICROVASCULAR ISCHEMIA. NO ACUTE PROCESS. EVIDENCE OF ACUTE STROKE: NO. Chest X-Ray 01/17/20 10:14 IMPRESSION: STABLE CARDIOMEGALY. NO ACUTE SIGNIFICANT RADIOGRAPHIC FINDING IN THE CHEST. Head MRI 01/18/20 00:00 IMPRESSION: Acute infarct in the right putamen (in the territory of the lateral lenticulostriate arteries/M1 segment of the MCA). EVIDENCE OF ACUTE STROKE: YES. RIGHT MCA Assessment and Plan - Diagnosis (1) Metabolic encephalopathy Is this a current diagnosis for this admission?: Yes Plan: Her electrolyte disturbances for have for the most part been corrected. Based on her MRI, her encephalopathy now is most likely due to her acute stroke. Her daughter still wants her to be a full code. (2) Anemia in chronic kidney disease Qualifiers: Chronic kidney disease stage: on chronic dialysis Qualified Code(s): N18.6 - End stage renal disease; D63.1 - Anemia in chronic kidney disease; Z99.2 - Dependence on renal dialysis Is this a current diagnosis for this admission?: Yes Plan: We will monitor and defer management to nephrology recommendations, it says here that she is allergic to EPO, I am not sure what the reaction is (3) Diabetes mellitus type 2 in obese Is this a current diagnosis for this admission?: Yes Plan: N.p.o. for now, we will monitor her blood sugar every 6 hours until she can wake up enough to eat. We have her on a dextrose solution at a low rate just to make sure her blood sugar does not drop. (4) Hidradenitis suppurativa Is this a current diagnosis for this admission?: Yes Plan: She has a few chronic wounds, 1 of which is packed, 1 of which is healed, and 1 of which is currently draining without evidence of surrounding erythema indicating acute cellulitis. Cultures came back showing a Proteus and E. coli, and now a pansensitive Enterococcus faecalis. All 3 are sensitive to ampicillin so I switch her to that. (5) Hypercalcemia associated with chronic dialysis Is this a current diagnosis for this admission?: Yes Plan: Improved after interventions including dialysis will continue to monitor (6) Hyperkalemia Is this a current diagnosis for this admission?: Yes Plan: Resolved (7) Blind Qualifiers: Right eye visual impairment category: right - unspecified blindness Left eye visual impairment category: left - unspecified blindness Qualified Code(s): H54.3 - Unqualified visual loss, both eyes Is this a current diagnosis for this admission?: Yes Plan: She is legally blind (8) Coronary artery disease Qualifiers: Coronary Disease-Associated Artery/Lesion type: [place] artery [place] vs. transplanted heart: [place] heart Associated angina: without angina Qualified Code(s): I25.10 - Atherosclerotic heart disease of [place] coronary artery without angina pectoris Is this a current diagnosis for this admission?: Yes Plan: We will continue her home medications when she is able to take them by mouth (9) End-stage renal disease on hemodialysis Is this a current diagnosis for this admission?: Yes Plan: Nephrology consulted for dialysis and other recommendations regarding electrolyte management (10) Hyperlipidemia Qualifiers: Hyperlipidemia type: unspecified Qualified Code(s): E78.5 - Hyperlipidemia, unspecified Is this a current diagnosis for this admission?: Yes Plan: We will continue her statin when she is able to take things by mouth (11) Obesity hypoventilation syndrome Is this a current diagnosis for this admission?: Yes Plan: Am not sure if she is on CPAP at [facility], but when she was here in a previous hospitalization she said that she slept better with the CPAP mask on. We will try to find out what her settings are if she has any (12) Peripheral arterial disease Is this a current diagnosis for this admission?: Yes Plan: We will monitor for signs of limb ischemia and will continue her home medications when she can take things by mouth (13) Seizure disorder Is this a current diagnosis for this admission?: Yes Plan: Dilantin level was a bit low, have switched her to IV Dilantin until she can take p.o. (14) Hypertensive urgency Is this a current diagnosis for this admission?: Yes Plan: We have PRN hydralazine available. She is not able to take any of her usual medications by mouth, so we have started a clonidine patch and have added Nitropaste. IV labetalol PRN has been added. (15) Acute right arterial ischemic stroke, MCA (middle cerebral artery) Is this a current diagnosis for this admission?: Yes Plan: She has an area of ischemia which is acute in the right putamen. She was already on the appropriate medications, so we will continue them when she is able to take them. We will continue aspirin suppository. Were trying to improve her blood pressure control and will keeping her blood sugar under good control. We are trying to avoid giving her any sort of sedating medication. Her family wants to wait to see if she is going to wake up so that we can get a better assessment. She is more awake now, but still not able to follow commands or answer questions. - Time Time Spent with patient: 25-34 minutes
[2020-01-20] MEDS: AMPICILLIN SODIUM 2 GM in NORMAL SALINE 100 ML IV SCH (21:32)
[2020-01-21] MEDS: PHENYTOIN SODIUM INJ/PF 100 MG/2 ML SDV IV SCH ×3 (05:37→21:23)
[2020-01-21] MEDS: NITROGLYCERIN 2% OINTMENT 1 GM PACKET TP SCH ×3 (05:37→17:59)
[2020-01-21 05:40] LABS: ABSOLUTE BASOPHILS # (AUTO) 0.1 10^3/uL (0.0-0.2); ABSOLUTE MONOCYTES (AUTO) 1.1 10^3/uL (0.1-1.4); BASOPHILS % (AUTO) 1.2 % (0-2); HEMATOCRIT 26.7 % (36.0-47.0); HEMOGLOBIN 9.2 g/dL (12.0-15.5); LYMPHOCYTES % (AUTO) 9.9 % (13-45); MEAN CORPUSCULAR HGB CONC 34.5 g/dL (32.0-36.0); MEAN CORPUSCULAR VOLUME 99 fl (80-97); MONOCYTES % (AUTO) 10.7 % (3-13); PLATELET COUNT 232 10^3/uL (150-450); RED BLOOD COUNT 2.71 10^6/uL (3.72-5.28); RED CELL DISTRIBUTION WIDTH 13.4 % (11.5-14.0); SEGMENTED NEUTROPHILS % (AUTO) 78.2 % (42-78); TOTAL CELLS COUNTED % (AUTO) 100 %; WHITE BLOOD COUNT 10.3 10^3/uL (4.0-10.5)
[2020-01-21 05:57] LABS: ANION GAP 10 (5-19); BLOOD UREA NITROGEN 46 mg/dL (7-20); CALCIUM 10.9 mg/dL (8.4-10.2); CARBON DIOXIDE 29 mmol/L (22-30); CHLORIDE 96 mmol/L (98-107); GLUCOSE 123 mg/dL (75-110); POTASSIUM 3.8 mmol/L (3.6-5.0)
[2020-01-21] MEDS: INSULIN LISPRO 100 UNIT/ML 3 ML VIAL SUBCUT SCH ×3 (05:58→17:51)
[2020-01-21] MEDS: AMPICILLIN SODIUM 2 GM in NORMAL SALINE 100 ML IV SCH ×2 (12:01→21:23)
[2020-01-21] MEDS: ASPIRIN 300 MG SUPP, RECTAL PR SCH (12:01)
[2020-01-21] MEDS: PANTOPRAZOLE SODIUM 40 MG VIAL IV SCH (12:02)
--- NOTE | 2020-01-21 12:49 | PDOC PROGRESS REPORT ---
Subjective Progress Note for:: 01/21/20 Reason For Visit: Patient seen today on dialysis. She is undergoing dialysis without any issues. She is more awake and more responsive to questions unlike when I saw her a couple of days ago. She is briefly communicative but seems rather garbled. Does not look to be in any distress. Vital signs are stable. Labs and medications were reviewed. Note that she has been begun on antibiotics. Physical Exam Vital Signs: Temp Pulse Resp BP Pulse Ox 98.4 F 88 16 131/68 H 93 01/21/20 03:42 01/21/20 07:00 01/21/20 03:42 01/21/20 03:42 01/21/20 11:59 Intake & Output 01/20/20 01/21/20 01/22/20 06:59 06:59 06:59 Intake Total 1985 1011 Output Total 3100 0 Balance -1115 1011 Weight 102.4 kg 101 kg General appearance: PRESENT: no acute distress Respiratory exam: PRESENT: clear to auscultation alaina, decreased breath sounds. ABSENT: crackles Cardiovascular exam: PRESENT: +S1, +S2. ABSENT: rubs GI/Abdominal exam: PRESENT: normal bowel sounds, soft. ABSENT: organomegaly, tenderness Extremities exam: PRESENT: pedal edema Neurological exam: PRESENT: altered Results Laboratory Results: 01/21/20 05:01 01/21/20 05:01 01/21/20 01/21/20 05:01 05:01 WBC 10.3 RBC 2.71 L Hgb 9.2 L Hct 26.7 L MCV 99 H MCH 34.0 H MCHC 34.5 RDW 13.4 Plt Count 232 Seg Neutrophils % 78.2 H Sodium 135.1 L Potassium 3.8 Chloride 96 L Carbon Dioxide 29 Anion Gap 10 BUN 46 H Creatinine 7.26 H Est GFR ( Amer) 7 L Glucose 123 H Calcium 10.9 H 01/17/20 10:01 Suprapubic Wound Gram Stain - Final 01/17/20 10:01 Suprapubic Wound Wound Culture - Final Escherichia Coli Proteus Mirabilis Enterococcus Faecalis(Group D) 01/17/20 01/17/20 10:01 14:28 Troponin I < 0.012 < 0.012 NT-Pro-B Natriuret Pep 6310 H Impressions: Head CT 01/17/20 00:00 IMPRESSION: MILD CHRONIC CHANGES OF ATROPHY AND MICROVASCULAR ISCHEMIA. NO ACUTE PROCESS. EVIDENCE OF ACUTE STROKE: NO. Chest X-Ray 01/17/20 10:14 IMPRESSION: STABLE CARDIOMEGALY. NO ACUTE SIGNIFICANT RADIOGRAPHIC FINDING IN THE CHEST. Head MRI 01/18/20 00:00 IMPRESSION: Acute infarct in the right putamen (in the territory of the lateral lenticulostriate arteries/M1 segment of the MCA). EVIDENCE OF ACUTE STROKE: YES. RIGHT MCA Assessment & Plan - Diagnosis (1) Acute right arterial ischemic stroke, MCA (middle cerebral artery) Is this a current diagnosis for this admission?: Yes Plan: She is got acute right putamen stroke with residual deficits. Patient is more awake and more responsive unlike earlier. (2) End-stage renal disease on hemodialysis Is this a current diagnosis for this admission?: Yes Plan: Currently undergoing dialysis. Dialysis being supervised to ensure safe and smooth procedure. Vital signs shows are stable Plan to remove between 2-3 L of fluid as tolerated. Dialysis orders were reviewed with the treating dialysis nurse. (3) Altered mental status Plan: In the face of acute CVA and possible seizures.Currently improving. (4) Hypercalcemia Is this a current diagnosis for this admission?: Yes Plan: Had improved from 13 on admission to 10+ but seems to be slowly rising. Initiate work-up. Monitor. (5) Anemia in chronic kidney disease Qualifiers: Chronic kidney disease stage: on chronic dialysis Qualified Code(s): N18.6 - End stage renal disease; D63.1 - Anemia in chronic kidney disease; Z99.2 - Dependence on renal dialysis Is this a current diagnosis for this admission?: Yes Plan: Monitor. She has had diffuse skin reaction to erythropoietin which is therefore been on hold because of apparent worsening here of the hiradenitis.However will go and check her iron studies and see if she would benefit from IV iron replacements. (6) Diabetes mellitus type 2 in obese Is this a current diagnosis for this admission?: Yes Plan: As per hospitalist. (7) Hypertensive urgency Is this a current diagnosis for this admission?: Yes Plan: Currently resolved (8) Acute encephalopathy Is this a current diagnosis for this admission?: Yes Plan: Improving in the face of acute CVA. (9) Abscess of pubic region Is this a current diagnosis for this admission?: Yes Plan: Being managed by hospitalist. (10) Hidradenitis suppurativa Is this a current diagnosis for this admission?: Yes Plan: Status quo and chronic. (11) Morbid obesity with BMI of 45.0-49.9, adult Plan: With possibility of sleep apnea as well.
--- NOTE | 2020-01-21 15:46 | PDOC PROGRESS REPORT ---
Subjective Progress Note for:: 01/21/20 Subjective:: No adverse events overnight. Blood pressures have improved. She was not able to swallow anything for speech therapy. She is a little bit more alert today. She was able to tell me that she is in the hospital. This is a definite improvement. I talked to her about getting an NG tube for feeding and for medication administration and she said she did not want it. She told me she did not want any of her treatments. I asked her if she knew what would happen if s he stopped all of her treatments and she did not answer me. Reason For Visit: METABOLIC ENCEPHALOPATHY,HYPERCALCEMIA,ESRD Physical Exam Vital Signs: Temp Pulse Resp BP Pulse Ox 98.6 F 103 H 18 146/84 H 93 01/21/20 11:28 01/21/20 14:00 01/21/20 11:28 01/21/20 11:28 01/21/20 11:59 Intake & Output 01/20/20 01/21/20 01/22/20 06:59 06:59 06:59 Intake Total 1985 1011 0 Output Total 3100 0 1700 Balance -1115 1011 -1700 Weight 102.4 kg 101 kg General appearance: PRESENT: disheveled, morbidly obese, other -more conversational than previous Eye exam: PRESENT: EOMI, bilateral cataracts Respiratory exam: PRESENT: clear to auscultation alaina, symmetrical, unlabored. ABSENT: accessory muscle use, chest wall tenderness, crackles, prolonged expiratory phas, rhonchi, tachypnea, wheezes Cardiovascular exam: PRESENT: RRR, +S1, +S2 Pulses: PRESENT: normal carotid pulses Vascular exam: PRESENT: normal capillary refill GI/Abdominal exam: PRESENT: normal bowel sounds, soft. ABSENT: distended, guard ing, rebound, tenderness Extremities exam: ABSENT: clubbing, pedal edema Musculoskeletal exam: PRESENT: normal inspection. ABSENT: deformity Neurological exam: PRESENT: Awake, answering questions, still not entirely certain how much she is comprehending Skin exam: PRESENT: other - Her skin shows multiple anomalies. She has multiple diffuse darkened areas that appear to be old scabs that have healed over all over her upper and lower extremities. She has an area on the medial aspect of the right calf that appears to be a large wound that has healed into a scar. She has a lesion that appears to be an abnormally large and thickened scab on the medial aspect of her left calf. She has a small draining area over her mons pubis that is draining a thin grayish-stubbs liquid without any substantial surrounding erythema or tenderness. She has previously noted lesion under the left breast that appears to be healing over and is no longer draining. She has a large area on the medial aspect of the right upper arm that has wound packing with no surrounding erythema. Results Laboratory Results: 01/21/20 05:01 01/21/20 05:01 01/21/20 01/21/20 05:01 05:01 WBC 10.3 RBC 2.71 L Hgb 9.2 L Hct 26.7 L MCV 99 H MCH 34.0 H MCHC 34.5 RDW 13.4 Plt Count 232 Seg Neutrophils % 78.2 H Sodium 135.1 L Potassium 3.8 Chloride 96 L Carbon Dioxide 29 Anion Gap 10 BUN 46 H Creatinine 7.26 H Est GFR ( Amer) 7 L Glucose 123 H Calcium 10.9 H 01/17/20 01/17/20 10:01 14:28 Troponin I < 0.012 < 0.012 NT-Pro-B Natriuret Pep 6310 H Impressions: Head CT 01/17/20 00:00 IMPRESSION: MILD CHRONIC CHANGES OF ATROPHY AND MICROVASCULAR ISCHEMIA. NO ACUTE PROCESS. EVIDENCE OF ACUTE STROKE: NO. Chest X-Ray 01/17/20 10:14 IMPRESSION: STABLE CARDIOMEGALY. NO ACUTE SIGNIFICANT RADIOGRAPHIC FINDING IN THE CHEST. Head MRI 01/18/20 00:00 IMPRESSION: Acute infarct in the right putamen (in the territory of the lateral lenticulostriate arteries/M1 segment of the MCA). EVIDENCE OF ACUTE STROKE: YES. RIGHT MCA Assessment and Plan - Diagnosis (1) Metabolic encephalopathy Is this a current diagnosis for this admission?: Yes Plan: She shows continued improvement. More conversational today. Was refusing NG tube but was noncommittal about stopping dialysis. We will continue to reassess. She does need some nutrition at some point if she is going to continue with her care. (2) Anemia in chronic kidney disease Qualifiers: Chronic kidney disease stage: on chronic dialysis Qualified Code(s): N18.6 - End stage renal disease; D63.1 - Anemia in chronic kidney disease; Z99.2 - Dependence on renal dialysis Is this a current diagnosis for this admission?: Yes Plan: We will monitor and defer management to nephrology recommendations, it says here that she is allergic to EPO, I am not sure what the reaction is (3) Diabetes mellitus type 2 in obese Is this a current diagnosis for this admission?: Yes Plan: N.p.o. for now, we will monitor her blood sugar every 6 hours until she can wake up enough to eat. We have her on a dextrose solution at a low rate just to make sure her blood sugar does not drop. (4) Hidradenitis suppurativa Is this a current diagnosis for this admission?: Yes Plan: She has a few chronic wounds, 1 of which is packed, 1 of which is healed, and 1 of which is currently draining without evidence of surrounding erythema indicating acute cellulitis. Cultures came back showing a Proteus and E. coli, and now a pansensitive Enterococcus faecalis. All 3 are sensitive to ampicillin so I switch her to that. (5) Hypercalcemia associated with chronic dialysis Is this a current diagnosis for this admission?: Yes Plan: Improved after interventions including dialysis will continue to monitor (6) Hyperkalemia Is this a current diagnosis for this admission?: Yes Plan: Resolved (7) Blind Qualifiers: Right eye visual impairment category: right - unspecified blindness Left eye visual impairment category: left - unspecified blindness Qualified Code(s): H54.3 - Unqualified visual loss, both eyes Is this a current diagnosis for this admission?: Yes Plan: She is legally blind (8) Coronary artery disease Qualifiers: Coronary Disease-Associated Artery/Lesion type: [place] artery [place] vs. transplanted heart: [place] heart Associated angina: without angina Qualified Code(s): I25.10 - Atherosclerotic heart disease of [place] coronary artery without angina pectoris Is this a current diagnosis for this admission?: Yes Plan: We will continue her home medications when she is able to take them by mouth (9) End-stage renal disease on hemodialysis Is this a current diagnosis for this admission?: Yes Plan: Nephrology consulted for dialysis and other recommendations regarding electrolyte management (10) Hyperlipidemia Qualifiers: Hyperlipidemia type: unspecified Qualified Code(s): E78.5 - Hyperlipidemia, unspecified Is this a current diagnosis for this admission?: Yes Plan: We will continue her statin when she is able to take things by mouth (11) Obesity hypoventilation syndrome Is this a current diagnosis for this admission?: Yes Plan: Am not sure if she is on CPAP at [place], but when she was here in a previous hospitalization she said that she slept better with the CPAP mask on. We will try to find out what her settings are if she has any (12) Peripheral arterial disease Is this a current diagnosis for this admission?: Yes Plan: We will monitor for signs of limb ischemia and will continue her home medications when she can take things by mouth (13) Seizure disorder Is this a current diagnosis for this admission?: Yes Plan: Dilantin level was a bit low, have switched her to IV Dilantin until she can take p.o. (14) Hypertensive urgency Is this a current diagnosis for this admission?: Yes Plan: We have PRN hydralazine available. She is not able to take any of her usual medications by mouth, so we have started a clonidine patch and have added Nitropaste. IV labetalol PRN has been added. (15) Acute right arterial ischemic stroke, MCA (middle cerebral artery) Is this a current diagnosis for this admission?: Yes Plan: She has an area of ischemia which is acute in the right putamen. She was already on the appropriate medications, so we will continue them when she is able to take them. We will continue aspirin suppository. Were trying to improve her blood pressure control and will keeping her blood sugar under good control. We are trying to avoid giving her any sort of sedating medication. Her family wants to wait to see if she is going to wake up so that we can get a better assessment. She is more awake now, more able to interact but I am still not certain just how much of what we are discussing that she is able to comprehend. - Time Time Spent with patient: 25-34 minutes
[2020-01-22] MEDS: NITROGLYCERIN 2% OINTMENT 1 GM PACKET TP SCH ×4 (00:25→18:48)
[2020-01-22] MEDS: INSULIN LISPRO 100 UNIT/ML 3 ML VIAL SUBCUT SCH ×4 (00:50→18:54)
[2020-01-22] MEDS: PHENYTOIN SODIUM INJ/PF 100 MG/2 ML SDV IV SCH ×3 (05:42→22:05)
[2020-01-22 06:11] LABS: ABSOLUTE RETICS # 0.104 10^6/uL (0.028-0.122); RETICULOCYTE COUNT (AUTO) 4.17 % (0.66-2.85)
[2020-01-22 06:36] LABS: ANION GAP 11 (5-19); BLOOD UREA NITROGEN 35 mg/dL (7-20); CALCIUM 10.2 mg/dL (8.4-10.2); CARBON DIOXIDE 30 mmol/L (22-30); CHLORIDE 96 mmol/L (98-107); GLUCOSE 142 mg/dL (75-110); IRON(TIBC) 95.1 ug/dL (37-170); POTASSIUM 3.5 mmol/L (3.6-5.0)
[2020-01-22] MEDS ORDERED: PHARMACY COMMUNICATION ORDER MC NR (09:00)
[2020-01-22] MEDS: PANTOPRAZOLE SODIUM 40 MG VIAL IV SCH (11:45)
[2020-01-22] MEDS: ASPIRIN 300 MG SUPP, RECTAL PR SCH (11:45)
[2020-01-22] MEDS: AMPICILLIN SODIUM 2 GM in NORMAL SALINE 100 ML IV SCH ×2 (13:00→22:05)
[2020-01-22] MEDS: DEXTROSE 5%-1/2 NORMAL SALINE 1,000 ML IV PRN (13:35)
--- NOTE | 2020-01-22 13:45 | RADIOLOGY REPORT (SQ) ---
EXAM DESCRIPTION: KUB/ABDOMEN (SINGLE VIEW) IMAGES COMPLETED DATE/TIME: 01/22/2020 11:44 am REASON FOR STUDY: Check Placement of NG Tube COMPARISON: KUB, 10/12/2019. NUMBER OF VIEWS: One view. TECHNIQUE: Supine radiographic image of the abdomen acquired. LIMITATIONS: None. FINDINGS: BOWEL GAS PATTERN: Enteric contrast is seen in the colon. No dilated loops of bowel. CALCIFICATIONS: No suspicious calcifications. SOFT TISSUES: No gross mass or suggestion of organomegaly. HARDWARE: An esophagogastric tube has been placed with tip and side hole below the diaphragm within t he stomach. BONES: No acute fracture. No worrisome bone lesions. OTHER: No other significant finding. IMPRESSION: Esophagogastric tube tip and side-hole are below the diaphragm. TECHNICAL DOCUMENTATION: JOB ID: [id number] [employer]- All Rights Reserved Reading location - IP/workstation name: [email or web address]
--- NOTE | 2020-01-22 14:00 | PDOC PROGRESS REPORT ---
Subjective Progress Note for:: 01/22/20 Subjective:: No adverse events overnight. No new complaints. She is a little bit more conversational today. Blood pressure control has improved somewhat. She has agreed to doing an NG tube and an attempt to get some nutrition so that she can get her strength up and perhaps perform better on a swallowing evaluation. Reason For Visit: METABOLIC ENCEPHALOPATHY,HYPERCALCEMIA,ESRD Physical Exam Vital Signs: Temp Pulse Resp BP Pulse Ox 97.9 F 84 19 129/48 H 100 01/22/20 11:32 01/22/20 11:32 01/22/20 11:32 01/22/20 11:32 01/22/20 11:32 Intake & Output 01/21/20 01/22/20 01/23/20 06:59 06:59 06:59 Intake Total 1011 765 Output Total 0 1700 Balance 1011 -935 Weight 101 kg 98.9 kg 98.9 kg General appearance: PRESENT: disheveled, morbidly obese, other -more conversational than previous Eye exam: PRESENT: EOMI, bilateral cataracts Respiratory exam: PRESENT: clear to auscultation alaina, symmetrical, unlabored. ABSENT: accessory muscle use, chest wall tenderness, crackles, prolonged expiratory phas, rhonchi, tachypnea, wheezes Cardiovascular exam: PRESENT: RRR, +S1, +S2 Pulses: PRESENT: normal carotid pulses Vascular exam: PRESENT: normal capillary refill GI/Abdominal exam: PRESENT: normal bowel sounds, soft. ABSENT: distended, guarding, rebound, tenderness Extremities exam: ABSENT: clubbing, pedal edema Musculoskeletal exam: PRESENT: normal inspection. ABSENT: deformity Neurological exam: PRESENT: Awake, answering questions, still not entirely certain how much she is comprehending Skin exam: PRESENT: other - Her skin shows multiple anomalies. She has multiple diffuse darkened areas that appear to be old scabs that have healed over all over her upper and lower extremities. She has an area on the medial aspect of the right calf that appears to be a large wound that has healed into a scar. She has a lesion that appears to be an abnormally large and thickened scab on the medial aspect of her left calf. She has a small draining area over her mons pubis that is draining a thin grayish-stubbs liquid without any substantial surrounding erythema or tenderness. She has previously noted lesion under the left breast that appears to be healing over and is no longer draining. She has a large area on the medial aspect of the right upper arm that has wound packing with no surrounding erythema. Results Laboratory Results: 01/21/20 05:01 01/22/20 05:33 01/22/20 01/22/20 01/22/20 05:33 05:33 05:33 Retic Count (auto) 4.17 H Sodium Potassium Chloride Carbon Dioxide Anion Gap BUN Creatinine Est GFR ( Amer) Glucose Calcium Iron TIBC % Saturation Transferrin Ferritin Vitamin B12 Folate TSH 0.70 PTH Intact 123.5 H 01/22/20 01/22/20 05:33 05:33 Retic Count (auto) Sodium 137.4 Potassium 3.5 L Chloride 96 L Carbon Dioxide 30 Anion Gap 11 BUN 35 H Creatinine 5.19 H Est GFR ( Amer) 11 L Glucose 142 H Calcium 10.2 Iron 95.1 TIBC 167 L % Saturation 57 Transferrin 93.94 L Ferritin 1080.00 H Vitamin B12 999.0 H Folate 12.80 TSH PTH Intact 01/17/20 10:01 Blood Blood Culture - Final NO GROWTH IN 5 DAYS 01/17/20 01/17/20 10:01 14:28 Troponin I < 0.012 < 0.012 NT-Pro-B Natriuret Pep 6310 H Impressions: Head CT 01/17/20 00:00 IMPRESSION: MILD CHRONIC CHANGES OF ATROPHY AND MICROVASCULAR ISCHEMIA. NO ACUTE PROCESS. EVIDENCE OF ACUTE STROKE: NO. Chest X-Ray 01/17/20 10:14 IMPRESSION: STABLE CARDIOMEGALY. NO ACUTE SIGNIFICANT RADIOGRAPHIC FINDING IN THE CHEST. Head MRI 01/18/20 00:00 IMPRESSION: Acute infarct in the right putamen (in the territory of the lateral lenticulostriate arteries/M1 segment of the MCA). EVIDENCE OF ACUTE STROKE: YES. RIGHT MCA KUB X-Ray 01/22/20 08:51 IMPRESSION: Esophagogastric tube tip and side-hole are below the diaphragm. Assessment and Plan - Diagnosis (1) Metabolic encephalopathy Is this a current diagnosis for this admission?: Yes Plan: She shows continued improvement. More conversational today. She agreed to doing the NG tube today. Hopefully with some nutrition her mental status will continue to improve. (2) Anemia in chronic kidney disease Qualifiers: Chronic kidney disease stage: on chronic dialysis Qualified Code(s): N18.6 - End stage renal disease; D63.1 - Anemia in chronic kidney disease; Z99.2 - Dependence on renal dialysis Is this a current diagnosis for this admission?: Yes Plan: We will monitor and defer management to nephrology recommendations (3) Diabetes mellitus type 2 in obese Is this a current diagnosis for this admission?: Yes Plan: N.p.o. for now, we will monitor her blood sugar every 6 hours until she can display sufficient swallowing ability to eat. We have her on a dextrose solution at a low rate just to make sure her blood sugar does not drop. (4) Hidradenitis suppurativa Is this a current diagnosis for this admission?: Yes Plan: She has a few chronic wounds, 1 of which is packed, 1 of which is healed, and 1 of which is currently draining without evidence of surrounding erythema indicating acute cellulitis. Cultures came back showing a Proteus and E. coli, and now a pansensitive Enterococcus faecalis. All 3 are sensitive to ampicillin so I switch her to that. (5) Hypercalcemia associated with chronic dialysis Is this a current diagnosis for this admission?: Yes Plan: Improved after interventions including dialysis will continue to monitor (6) Hyperkalemia Is this a current diagnosis for this admission?: Yes Plan: Resolved (7) Blind Qualifiers: Right eye visual impairment category: right - unspecified blindness Left eye visual impairment category: left - unspecified blindness Qualified Code(s): H54.3 - Unqualified visual loss, both eyes Is this a current diagnosis for this admission?: Yes Plan: She is legally blind (8) Coronary artery disease Qualifiers: Coronary Disease-Associated Artery/Lesion type: [place] artery [place] vs. transplanted heart: [place] heart Associated angina: without angina Qualified Code(s): I25.10 - Atherosclerotic heart disease of [place] coronary artery without angina pectoris Is this a current diagnosis for this admission?: Yes Plan: We will continue her home medications when she is able to take them by mouth (9) End-stage renal disease on hemodialysis Is this a current diagnosis for this admission?: Yes Plan: Nephrology consulted for dialysis and other recommendations regarding electrolyte management (10) Hyperlipidemia Qualifiers: Hyperlipidemia type: unspecified Qualified Code(s): E78.5 - Hyperlipidemia, unspecified Is this a current diagnosis for this admission?: Yes Plan: We will continue her statin when she is able to take things by mouth (11) Obesity hypoventilation syndrome Is this a current diagnosis for this admission?: Yes Plan: Am not sure if she is on CPAP at [place], but when she was here in a previous hospitalization she said that she slept better with the CPAP mask on. We will try to find out what her settings are if she has any (12) Peripheral arterial disease Is this a current diagnosis for this admission?: Yes Plan: We will monitor for signs of limb ischemia and will continue her home medications when she can take things by mouth (13) Seizure disorder Is this a current diagnosis for this admission?: Yes Plan: Dilantin level was a bit low, have switched her to IV Dilantin until she can take p.o. (14) Hypertensive urgency Is this a current diagnosis for this admission?: Yes Plan: We have PRN hydralazine available. She is not able to take any of her usual medications by mouth, so we have started a clonidine patch and have added Nitropaste. IV labetalol PRN has been added. (15) Acute right arterial ischemic stroke, MCA (middle cerebral artery) Is this a current diagnosis for this admission?: Yes Plan: She has an area of ischemia which is acute in the right putamen. She was already on the appropriate medications, so we will continue them when she is able to take them. We will continue aspirin suppository. Were trying to improve her blood pressure control and will keeping her blood sugar under good control. We are trying to avoid giving her any sort of sedating medication. Her family wants to wait to see if she is going to wake up so that we can get a better assessment. She is more awake now, more able to interact, and agreed to a NG tube for tube feeds. - Time Time Spent with patient: 25-34 minutes
[2020-01-22] MEDS ORDERED: LINEZOLID IV ONE (19:08)
[2020-01-22] MEDS ORDERED: RINGERS SOLUTION,LACTATED 1,000 ML IV ONE (23:30)
[2020-01-23] MEDS: INSULIN LISPRO 100 UNIT/ML 3 ML VIAL SUBCUT SCH ×4 (00:29→18:45)
[2020-01-23] MEDS: NITROGLYCERIN 2% OINTMENT 1 GM PACKET TP SCH ×2 (00:30→06:24)
[2020-01-23] MEDS: RINGERS SOLUTION,LACTATED 1,000 ML IV PRN ×2 (00:41→06:32)
[2020-01-23 00:57] LABS: ABSOLUTE BASOPHILS # (AUTO) 0.2 10^3/uL (0.0-0.2); ABSOLUTE LYMPHOCYTES (AUTO) 1.2 10^3/uL (0.5-4.7); ABSOLUTE MONOCYTES (AUTO) 1.5 10^3/uL (0.1-1.4); ABSOLUTE NEUT (AUTO) 12.8 10^3/uL (1.7-8.2); BASOPHILS % (AUTO) 1.2 % (0-2); LYMPHOCYTES % (AUTO) 7.4 % (13-45); MEAN CORPUSCULAR HEMOGLOBIN 32.6 pg (27.0-33.4); MEAN CORPUSCULAR VOLUME 99 fl (80-97); MONOCYTES % (AUTO) 9.8 % (3-13); PLATELET COUNT 258 10^3/uL (150-450); RED BLOOD COUNT 2.32 10^6/uL (3.72-5.28); RED CELL DISTRIBUTION WIDTH 13.4 % (11.5-14.0); SEGMENTED NEUTROPHILS % (AUTO) 81.6 % (42-78); TOTAL CELLS COUNTED % (AUTO) 100 %; WHITE BLOOD COUNT 15.6 10^3/uL (4.0-10.5)
[2020-01-23 00:58] LABS: HEMOGLOBIN 7.6 g/dL (12.0-15.5)
[2020-01-23 06:13] LABS: HEMATOCRIT 21.7 % (36.0-47.0); MEAN CORPUSCULAR HEMOGLOBIN 33.3 pg (27.0-33.4); MEAN CORPUSCULAR HGB CONC 33.3 g/dL (32.0-36.0); MEAN CORPUSCULAR VOLUME 100 fl (80-97); PLATELET COUNT 242 10^3/uL (150-450); RED BLOOD COUNT 2.17 10^6/uL (3.72-5.28); RED CELL DISTRIBUTION WIDTH 13.6 % (11.5-14.0); WHITE BLOOD COUNT 16.7 10^3/uL (4.0-10.5)
[2020-01-23 06:14] LABS: HEMOGLOBIN 7.2 g/dL (12.0-15.5)
[2020-01-23] MEDS: PHENYTOIN SODIUM INJ/PF 100 MG/2 ML SDV IV SCH ×3 (06:24→23:25)
[2020-01-23 06:34] LABS: ANION GAP 10 (5-19); BLOOD UREA NITROGEN 47 mg/dL (7-20); CALCIUM 10.2 mg/dL (8.4-10.2); CARBON DIOXIDE 28 mmol/L (22-30); CHLORIDE 98 mmol/L (98-107); GLUCOSE 174 mg/dL (75-110); POTASSIUM 3.9 mmol/L (3.6-5.0)
--- NOTE | 2020-01-23 09:42 | RADIOLOGY REPORT (SQ) ---
EXAM DESCRIPTION: CHEST SINGLE VIEW IMAGES COMPLETED DATE/TIME: 01/23/2020 9:25 am REASON FOR STUDY: leukocytosis, hypotension COMPARISON: AP chest 01/17/2020, 12/16/2019 EXAM PARAMETERS: NUMBER OF VIEWS: One view. TECHNIQUE: Single frontal radiographic view of the chest acquired. RADIATION DOSE: NA LIMITATIONS: Obese patient, portable technique FINDINGS: LUNGS AND PLEURA: No opacities, masses or pneumothorax. No pleural effusion. MEDIASTINUM AND HILAR STRUCTURES: No masses. Contour normal. HEART AND VASCULAR STRUCTURES: Stable marked cardiomegaly. BONES: No acute findings. HARDWARE: Nasogastric tube tip and side port stomach. Radiodense material in the splenic flexure col on unchanged from KUB 01/22/2020. Old right axilla subclavian vein stents OTHER: No other significant finding. IMPRESSION: Stable cardiomegaly. Nasogastric tube in good positioning TECHNICAL DOCUMENTATION: JOB ID: [id number] 2010 [employer]- All Rights Reserved Reading location - IP/workstation name: [email or web address]
[2020-01-23] MEDS: PANTOPRAZOLE SODIUM 40 MG VIAL IV SCH (10:54)
[2020-01-23] MEDS: ASPIRIN 300 MG SUPP, RECTAL PR SCH (10:54)
[2020-01-23] MEDS: AMPICILLIN SODIUM 2 GM in NORMAL SALINE 100 ML IV SCH (10:54)
[2020-01-23] MEDS ORDERED: CLONIDINE 0.1 MG/24 HR PATCH.TDWK TD SCH (11:00)
[2020-01-23] MEDS ORDERED: ASPIRIN 81 MG TABLET, CHEWABLE NG SCH (11:30)
--- NOTE | 2020-01-23 11:35 | PDOC CONSULTATION ---
Consultation Consult Date: 01/23/20 Attending physician:: TWIN VELASQUEZ Provider Consulted: TANI GARCIA Consult reason:: Heavy vaginal bleeding History of Present Illness Admission Date/PCP: 01/17/20 13:09 KELLEY CABRERA NP History of Present Illness: DIAN SLAUGHTER is a 44 year old female with heavy vaginal bleeding noted overnight. She reports still having cycles that are coming approximately monthly. She is not the best historian and when asked about heaviness of flow normally she states usually normal --"Plavix". She reports once starting Plavix cycles are heavier but not like today. 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 Staff reports small hemorrhoid noted . Patient has no comments on Hemorrhoids 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, glaucoma Neurological Medical History: Reports: Seizures, Other - Acute pontine stroke with right leg weakness and dysphagia on 12/16/2018 Endocrine Medical History: Reports: Diabetes Mellitus Type 2 Denies: Diabetes Mellitus Type 1 Renal/ Medical History: Reports: End Stage Renal Disease GI Medical History: Reports: Gastroesophageal Reflux Disease Denies: Cirrhosis Musculoskeltal Medical History: Reports: Arthritis Psychiatric Medical History: Reports: Depression Denies: Bipolar Disorder Social History Lives with: Assisted Smoking Status: Unknown if Ever Smoked Frequency of Alcohol Use: None Hx Recreational Drug Use: No Drugs: None Hx Prescription Drug Abuse: No Family History Family History: Reviewed & Not Pertinent Parental Family History Reviewed: Yes Children Family History Reviewed: Yes Sibling(s) Family History Reviewed.: Yes Medication/Allergy Home Medications: Atorvastatin Calcium [Lipitor 80 mg Tablet] 80 mg PO QHS 06/11/19 Calcium Acetate [Phoslo 667 mg Capsule] 2,001 mg PO AC 06/11/19 Clonidine HCl [Catapres 0.2 mg Tablet] 0.2 mg PO Q12 06/11/19 Hydroxyzine HCl [Atarax 10 mg Tablet] 10 mg PO Q8HP PRN 06/11/19 Oxycodone HCl [Oxy-Ir 5 mg Tablet] 5 mg PO Q8HP PRN 06/11/19 Phenytoin Sodium Extended [Dilantin 100 mg Capsule.er] 100 mg PO Q8 06/11/19 Pregabalin [Lyrica 75 mg Capsule] 75 mg PO MOWEFR@1000 06/11/19 Pregabalin [Lyrica 75 mg Capsule] 75 mg PO QHS 06/11/19 Aspirin [Aspirin 81 mg Chewable Tablet] 81 mg PO QAM 01/17/20 Escitalopram Oxalate [Lexapro 10 mg Tablet] 10 mg PO DAILY 01/17/20 Lorazepam [Ativan 0.5 mg Tablet] 0.5 mg PO Q8HP PRN 01/17/20 Melatonin [Melatonin 3 mg Tablet] 3 mg PO QHS 01/17/20 Metoprolol Tartrate [Lopressor 100 mg Tablet] 100 mg PO Q12 01/17/20 Pantoprazole Sodium [Protonix [address] Tablet] 40 mg PO Q6AM 01/17/20 Polyethylene Glycol 3350 [Miralax Powder 17 gm/Packet] 1 packet PO DAILYP PRN 01/17/20 Sennosides [Senokot] 8.6 mg PO BID 01/17/20 Allergies/Adverse Reactions: hydromorphone [Hydromorphone] Allergy (Intermediate, Verified 12/28/18 12:14) ABDOMINAL CRAMPS azithromycin [Azithromycin] Allergy (Unknown, Verified 12/28/18 12:14) Darbepoetin Chandrika in [place] * [From Aranesp] Allergy (Unknown, Verified 12/28/18 12:14) ITCHING epoetin chandrika [From Procrit] Allergy (Verified 12/28/18 12:14) Sulfa (Sulfonamide Antibiotics) Allergy (Verified 12/28/18 12:14) Unsure BBQ SAUCE Allergy (Mild, Uncoded 12/28/18 12:14) Hives Review of Systems Constitutional: ABSENT: chills, fever(s), headache(s), weight gain, weight loss Cardiovascular: ABSENT: chest pain, dyspnea on exertion, edema, orthropnea, palpitations Respiratory: ABSENT: cough, hemoptysis Gastrointestinal: ABSENT: abdominal pain, constipation, diarrhea, hematemesis, hematochezia, nausea, vomiting Endocrine: ABSENT: cold intolerance, heat intolerance, polydipsia, polyuria Physical Exam - Physical Exam Vital Signs: Temp Pulse Resp BP Pulse Ox 99.0 F 95 22 H 107/51 L 95 01/23/20 07:36 01/23/20 07:36 01/23/20 07:36 01/23/20 07:36 01/23/20 07:36 Intake & Output 01/22/20 01/23/20 01/24/20 06:59 06:59 06:59 Intake Total 765 2876 Output Total 1700 0 Balance -935 2876 Weight 98.9 kg 101.2 kg General appearance: PRESENT: no acute distress, cooperative Respiratory exam: PRESENT: clear to auscultation alaina Cardiovascular exam: PRESENT: RRR, +S1, +S2 GI/Abdominal exam: PRESENT: soft - NO tenderness on palpation - Gynecological Exam Labia: normal Urethra: normal Vagina: normal - small amount of light stubbs vaginal discharge ( one proctoswab) Cervix: other - No lesions, no active bleeding Uterus: normal Adhexa: normal Rectal: normal Result Laboratory Results: 01/23/20 05:54 01/23/20 05:54 01/23/20 01/23/20 01/23/20 00:38 00:38 05:54 WBC 15.6 H RBC 2.32 L Hgb 7.6 L Hct 23.0 L MCV 99 H MCH 32.6 MCHC 33.0 RDW 13.4 Plt Count 258 Seg Neutrophils % 81.6 H Sodium 135.9 L Potassium 3.9 Chloride 98 Carbon Dioxide 28 Anion Gap 10 BUN 47 H Creatinine 6.17 H Est GFR ( Amer) 9 L Glucose 174 H Calcium 10.2 Blood Type O POSITIVE Antibody Screen NEGATIVE 01/23/20 05:54 WBC 16.7 H RBC 2.17 L Hgb 7.2 L Hct 21.7 L MCV 100 H MCH 33.3 MCHC 33.3 RDW 13.6 Plt Count 242 Seg Neutrophils % Sodium Potassium Chloride Carbon Dioxide Anion Gap BUN Creatinine Est GFR ( Amer) Glucose Calcium Blood Type Antibody Screen 01/17/20 14:28 Blood Blood Culture - Final NO GROWTH IN 5 DAYS 01/17/20 10:01 Blood Blood Culture - Final NO GROWTH IN 5 DAYS 01/17/20 01/17/20 10:01 14:28 Troponin I < 0.012 < 0.012 NT-Pro-B Natriuret Pep 6310 H Impressions: Head CT 01/17/20 00:00 IMPRESSION: MILD CHRONIC CHANGES OF ATROPHY AND MICROVASCULAR ISCHEMIA. NO ACUTE PROCESS. EVIDENCE OF ACUTE STROKE: NO. Head MRI 01/18/20 00:00 IMPRESSION: Acute infarct in the right putamen (in the territory of the lateral lenticulostriate arteries/M1 segment of the MCA). EVIDENCE OF ACUTE STROKE: YES. RIGHT MCA KUB X-Ray 01/22/20 08:51 IMPRESSION: Esophagogastric tube tip and side-hole are below the diaphragm. Chest X-Ray 01/23/20 00:00 IMPRESSION: Stable cardiomegaly. Nasogastric tube in good positioning Assessment & Plan - Diagnosis (1) Menorrhagia with regular cycle Is this a current diagnosis for this admission?: Yes - Time Critical Time spent with patient: 15-24 minutes Medications reviewed and adjusted accordingly: Yes - Plan Summary Plan Summary: 44 yo with heavy vaginal bleeding -VSS -Exam negative this am. No active or old bleeding -Hgb 9.6--> 7.2 since admission -Recommend TVUS to assess Endometrial stripe. If > 5mm would recommend an endometrial biopsy. -Abnormal uterine bleeding often seen in setting of anticoagulation therapy. In this case, not actively bleeding so no medical intervention at present. -Will follow
--- NOTE | 2020-01-23 13:08 | PDOC PROGRESS REPORT ---
Subjective Progress Note for:: 01/23/20 Subjective:: No adverse events overnight. Patient was somnolent today and did not want talk to me very much. She denies any discomfort. Vital signs been stable. She passed a large vaginal clot last night. Hemoglobin has dropped a little bit over the last couple of days. Reason For Visit: METABOLIC ENCEPHALOPATHY,HYPERCALCEMIA,ESRD Physical Exam Vital Signs: Temp Pulse Resp BP Pulse Ox 98.4 F 92 22 H 97/43 L 100 01/23/20 11:16 01/23/20 11:16 01/23/20 11:16 01/23/20 11:16 01/23/20 11:16 Intake & Output 01/22/20 01/23/20 01/24/20 06:59 06:59 06:59 Intake Total 765 2876 100 Output Total 1700 0 Balance -935 2876 100 Weight 98.9 kg 101.2 kg General appearance: PRESENT: disheveled, morbidly obese, somnolent Eye exam: PRESENT: EOMI, bilateral cataracts Respiratory exam: PRESENT: clear to auscultation alaina, symmetrical, unlabored. ABSENT: accessory muscle use, chest wall tenderness, crackles, prolonged expiratory phas, rhonchi, tachypnea, wheezes Cardiovascular exam: PRESENT: RRR, +S1, +S2 Pulses: PRESENT: normal carotid pulses Vascular exam: PRESENT: normal capillary refill GI/Abdominal exam: PRESENT: normal bowel sounds, soft. ABSENT: distended, guarding, rebound, tenderness Extremities exam: ABSENT: clubbing, pedal edema Musculoskeletal exam: PRESENT: normal inspection. ABSENT: deformity Neurological exam: PRESENT: Drowsy but arousable, answering some questions, still not entirely certain how much she is comprehending Skin exam: PRESENT: other - Her skin shows multiple anomalies. She has multiple diffuse darkened areas that appear to be old scabs that have healed over all over her upper and lower extremities. She has an area on the medial aspect of the right calf that appears to be a large wound that has healed into a scar. She has a lesion that appears to be an abnormally large and thickened scab on the medial aspect of her left calf. She has a small draining area over her mons pubis that is draining a thin grayish-stubbs liquid without any substantial surrounding erythema or tenderness. She has previously noted lesion under the left breast that appears to be healing over and is no longer draining. She has a large area on the medial aspect of the right upper arm that has wound packing with no surrounding erythema. Results Laboratory Results: 01/23/20 05:54 01/23/20 05:54 01/23/20 01/23/20 01/23/20 00:38 00:38 05:54 WBC 15.6 H RBC 2.32 L Hgb 7.6 L Hct 23.0 L MCV 99 H MCH 32.6 MCHC 33.0 RDW 13.4 Plt Count 258 Seg Neutrophils % 81.6 H Sodium 135.9 L Potassium 3.9 Chloride 98 Carbon Dioxide 28 Anion Gap 10 BUN 47 H Creatinine 6.17 H Est GFR ( Amer) 9 L Glucose 174 H Calcium 10.2 Blood Type O POSITIVE Antibody Screen NEGATIVE 01/23/20 05:54 WBC 16.7 H RBC 2.17 L Hgb 7.2 L Hct 21.7 L MCV 100 H MCH 33.3 MCHC 33.3 RDW 13.6 Plt Count 242 Seg Neutrophils % Sodium Potassium Chloride Carbon Dioxide Anion Gap BUN Creatinine Est GFR ( Amer) Glucose Calcium Blood Type Antibody Screen 01/17/20 14:28 Blood Blood Culture - Final NO GROWTH IN 5 DAYS 01/17/20 10:01 Blood Blood Culture - Final NO GROWTH IN 5 DAYS 01/17/20 01/17/20 10:01 14:28 Troponin I < 0.012 < 0.012 NT-Pro-B Natriuret Pep 6310 H Impressions: Head CT 01/17/20 00:00 IMPRESSION: MILD CHRONIC CHANGES OF ATROPHY AND MICROVASCULAR ISCHEMIA. NO ACUTE PROCESS. EVIDENCE OF ACUTE STROKE: NO. Head MRI 01/18/20 00:00 IMPRESSION: Acute infarct in the right putamen (in the territory of the lateral lenticulostriate arteries/M1 segment of the MCA). EVIDENCE OF ACUTE STROKE: YES. RIGHT MCA KUB X-Ray 01/22/20 08:51 IMPRESSION: Esophagogastric tube tip and side-hole are below the diaphragm. Chest X-Ray 01/23/20 00:00 IMPRESSION: Stable cardiomegaly. Nasogastric tube in good positioning Assessment and Plan - Diagnosis (1) Metabolic encephalopathy Is this a current diagnosis for this admission?: Yes Plan: She is stable compared to yesterday. NG tube in place with tube feeds running. Hopefully with some nutrition her mental status will continue to improve. (2) Anemia in chronic kidney disease Qualifiers: Chronic kidney disease stage: on chronic dialysis Qualified Code(s): N18.6 - End stage renal disease; D63.1 - Anemia in chronic kidney disease; Z99.2 - Dependence on renal dialysis Is this a current diagnosis for this admission?: Yes Plan: We will monitor and defer management to nephrology recommendations (3) Diabetes mellitus type 2 in obese Is this a current diagnosis for this admission?: Yes Plan: N.p.o. for now, she is on tube feeding diet. We have stopped her fluids and are relying on enteral nutrition and hydration. Accu-Cheks every 6 hours with sl iding scale coverage. (4) Hidradenitis suppurativa Is this a current diagnosis for this admission?: Yes Plan: She has a few chronic wounds, 1 of which is packed, 1 of which is healed, and 1 of which is currently draining without evidence of surrounding erythema indicating acute cellulitis. Cultures came back showing a Proteus and E. coli, and now a pansensitive Enterococcus faecalis. All 3 are sensitive to ampicillin. (5) Hypercalcemia associated with chronic dialysis Is this a current diagnosis for this admission?: Yes Plan: Improved after interventions including dialysis will continue to monitor (6) Hyperkalemia Is this a current diagnosis for this admission?: Yes Plan: Resolved (7) Blind Qualifiers: Right eye visual impairment category: right - unspecified blindness Left eye visual impairment category: left - unspecified blindness Qualified Code(s): H54.3 - Unqualified visual loss, both eyes Is this a current diagnosis for this admission?: Yes Plan: She is legally blind (8) Coronary artery disease Qualifiers: Coronary Disease-Associated Artery/Lesion type: [place] artery [place] vs. transplanted heart: [place] heart Associated angina: without angina Qualified Code(s): I25.10 - Atherosclerotic heart disease of [place] coronary artery without angina pectoris Is this a current diagnosis for this admission?: Yes Plan: We will continue her home medications via NG tube (9) End-stage renal disease on hemodialysis Is this a current diagnosis for this admission?: Yes Plan: Nephrology consulted for dialysis and other recommendations regarding electrolyte management (10) Hyperlipidemia Qualifiers: Hyperlipidemia type: unspecified Qualified Code(s): E78.5 - Hyperlipidemia, unspecified Is this a current diagnosis for this admission?: Yes Plan: We will continue her statin down her NG tube (11) Obesity hypoventilation syndrome Is this a current diagnosis for this admission?: Yes Plan: Am not sure if she is on CPAP at [facility], but when she was here in a previous hospitalization she said that she slept better with the CPAP mask on. (12) Peripheral arterial disease Is this a current diagnosis for this admission?: Yes Plan: We will monitor for signs of limb ischemia and will continue her home medicat ions via NG tube (13) Seizure disorder Is this a current diagnosis for this admission?: Yes Plan: Dilantin level was a bit low, have switched her to IV Dilantin, will find out if she can get this through her NG tube and if so we will switch it (14) Hypertensive urgency Is this a current diagnosis for this admission?: Yes Plan: Now resolved (15) Acute right arterial ischemic stroke, MCA (middle cerebral artery) Is this a current diagnosis for this admission?: Yes Plan: She has an area of ischemia which is acute in the right putamen. She was already on the appropriate medications, so we will continue them via NG tube. We will continue aspirin. Were trying to improve her blood pressure control and will keeping her blood sugar under good control. We are trying to avoid giving her any sort of sedating medication. Her family wants to wait to see if she is going to wake up so that we can get a better assessment. Hoping that her mental status will improve since starting NG tube feedings. She has not declined today, but her progress has been very slow, and she seems to be about the same as she was yesterday. (16) Hypotension Qualifiers: Hypotension type: idiopathic hypotension Qualified Code(s): I95.0 - I diopathic hypotension Is this a current diagnosis for this admission?: Yes Plan: We stop the nitroglycerin paste and have decreased her clonidine patch. Her white blood cell count is back up but she shows no other signs of systemic infection. She has been on ampicillin for her skin infection. Chest x-ray is clear this morning. Monitoring blood pressures for now, they have been stable. No fever. - Time Time Spent with patient: 25-34 minutes
--- NOTE | 2020-01-23 13:49 | RADIOLOGY REPORT (SQ) ---
EXAM DESCRIPTION: U/S NON-OB PELVIS W/O DOP IMAGES COMPLETED DATE/TIME: 01/23/2020 1:29 pm REASON FOR STUDY: menorrhagia COMPARISON: None. TECHNIQUE: Dynamic and static grayscale images acquired of the pelvis via transabdominal approach an d recorded on PACS. Additional selected color Doppler and spectral images recorded. LIMITATIONS: Transabdominal technique. Poor beam penetration. FINDINGS: UTERUS: Contour normal. No mass. ENDOMETRIAL STRIPE: Poorly visualized. CERVIX: No nabothian cysts. RIGHT OVARY AND DOPPLER: Ovary not visualized. LEFT OVARY AND DOPPLER: Ovary not visualized. FREE FLUID: None noted. OTHER: No other significant finding. MEASUREMENTS: UTERUS: 7.4 by 3.5 x 3.5 cm ENDOMETRIAL STRIPE: 4 mm RIGHT OVARY: Not visualized. LEFT OVARY: Not visualized. IMPRESSION: Nonvisualized ovaries.Unremarkable uterus for Transabdominal technique with Poor sonogra phic beam penetration. TECHNICAL DOCUMENTATION: JOB ID: [id number] 2010 [employer]- All Rights Reserved Rev-01/09 Reading location - IP/workstation name: [email or web address]
[2020-01-23] MEDS: ASPIRIN 325 MG TABLET NG SCH (14:18)
--- NOTE | 2020-01-23 14:28 | RADIOLOGY REPORT (SQ) ---
EXAM DESCRIPTION: U/S NON-OB PELVIS TV W/O DOP IMAGES COMPLETED DATE/TIME: 01/23/2020 2:11 pm REASON FOR STUDY: MENORRHAGIA COMPARISON: None. TECHNIQUE: Dynamic and static grayscale images acquired of the pelvis via transvaginal approach and recorded on PACS. Additional selected color Doppler and spectral images recorded. LIMITATIONS: Body habitus -poor beam penetration FINDINGS: UTERUS: Contour normal. No mass identified. ENDOMETRIAL STRIPE: Poorly visualized. CERVIX: No nabothian cysts. RIGHT OVARY AND DOPPLER: Ovary not visualized. LEFT OVARY AND DOPPLER: Ovary not visualized. FREE FLUID: None noted. OTHER: No other significant finding. MEASUREMENTS: UTERUS: 6.9 x 3.7 x 3.3 cm ENDOMETRIAL STRIPE: 6 mm RIGHT OVARY: Not visualized. LEFT OVARY: Not visualized. IMPRESSION: Nonvisualized ovaries. Poorly visualized endometrium. TECHNICAL DOCUMENTATION: JOB ID: [id number] [id number] 2010 [facility]- All Rights Reserved Rev-01/09 Reading location - IP/workstation name: [email or web address]
[2020-01-23 19:53] LABS: ABSOLUTE BASOPHILS # (AUTO) 0.2 10^3/uL (0.0-0.2); ABSOLUTE LYMPHOCYTES (AUTO) 1.3 10^3/uL (0.5-4.7); ABSOLUTE MONOCYTES (AUTO) 1.3 10^3/uL (0.1-1.4); ABSOLUTE NEUT (AUTO) 12.3 10^3/uL (1.7-8.2); HEMATOCRIT 19.6 % (36.0-47.0); LYMPHOCYTES % (AUTO) 8.7 % (13-45); MEAN CORPUSCULAR HEMOGLOBIN 33.4 pg (27.0-33.4); MEAN CORPUSCULAR HGB CONC 32.9 g/dL (32.0-36.0); MEAN CORPUSCULAR VOLUME 101 fl (80-97); MONOCYTES % (AUTO) 8.8 % (3-13); PLATELET COUNT 246 10^3/uL (150-450); RED BLOOD COUNT 1.93 10^6/uL (3.72-5.28); RED CELL DISTRIBUTION WIDTH 14.4 % (11.5-14.0); SEGMENTED NEUTROPHILS % (AUTO) 81.5 % (42-78); TOTAL CELLS COUNTED % (AUTO) 100 %; WHITE BLOOD COUNT 15.1 10^3/uL (4.0-10.5)
[2020-01-23 19:54] LABS: HEMOGLOBIN 6.5 g/dL (12.0-15.5)
[2020-01-24] MEDS: INSULIN LISPRO 100 UNIT/ML 3 ML VIAL SUBCUT SCH ×5 (00:15→23:13)
--- NOTE | 2020-01-24 03:28 | Operative Report ---
Nonrecallable Operative Report DATE OF SURGERY: 01/24/20 PREOPERATIVE DIAGNOSIS: phlebosclerosis POSTOPERATIVE DIAGNOSIS: same as above OPERATION: 1. ultrasound guided central venous puncture. 2. left IJ central line placement SURGEON: NIRMAL GONZALEZ ANESTHESIA: Local TISSUE REMOVED OR ALTERED: none COMPLICATIONS: none apparent ESTIMATED BLOOD LOSS: minimal PROCEDURE: implants: left IJ central line at 15 cm [id number]: After informed consent was obtained from the pt's family, she was laid in the trendelenburg position in the hospital room. The area of the left neck was prepped and draped in sterile fashion. An ultrasound was used to identify the left internal jugular vein. It was small in caliber, but was compressible with normal flow. Under direct ultrasound guidance the left IJ was cannulated using the supplied access needle. Dark venous blood returned in the syringe. The wire was then inserted into the vein easily. The ultrasound was used to capture picture documentation of the wire within the vein. The catheter was then slid over the wire using a modified Seldinger technique. The catheter was aspirated and flushed x3. This was performed without difficulty. The catheter was sutured to the skin. A dressing was placed and the procedure was concluded. All sponge, instrument, and needle counts were correct. The pt tolerated the procedure well.
[2020-01-24] MEDS: AMPICILLIN SODIUM 2 GM in NORMAL SALINE 100 ML IV SCH ×3 (03:30→21:52)
--- NOTE | 2020-01-24 03:58 | RADIOLOGY REPORT (SQ) ---
EXAM DESCRIPTION: XR CHEST 1 VIEW COMPLETED DATE/TME: 01/24/2020 03:14 CLINICAL HISTORY: 44 years, Female, Central line placement verification COMPARISON: 01/23/2020 chest NUMBER OF VIEWS: 1 TECHNIQUE: Portable chest LIMITATIONS: None. FINDINGS: Central venous catheter with the tip in the SVC. Stable cardiomegaly. Endovascular stent graft and enteric tube in place. Subsegmental atelectasis right lung base. Lungs otherwise clear. No pneumothorax IMPRESSION: Tip of the central line in the SVC. No pneumothorax copyright 2010 [employer]- All Rights Reserved
[2020-01-24] MEDS: MORPHINE SULFATE 10 MG/ML INJ IV PRN ×2 (06:38→12:54)
[2020-01-24] MEDS: PHENYTOIN SODIUM INJ/PF 100 MG/2 ML SDV IV SCH ×3 (07:34→21:53)
[2020-01-24 07:53] LABS: ANION GAP 9 (5-19); BLOOD UREA NITROGEN 54 mg/dL (7-20); CALCIUM 10.3 mg/dL (8.4-10.2); CARBON DIOXIDE 30 mmol/L (22-30); CHLORIDE 98 mmol/L (98-107); GLUCOSE 159 mg/dL (75-110); POTASSIUM 3.8 mmol/L (3.6-5.0)
[2020-01-24 09:16] LABS: ABSOLUTE BASOPHILS # (AUTO) 0.2 10^3/uL (0.0-0.2); ABSOLUTE LYMPHOCYTES (AUTO) 1.3 10^3/uL (0.5-4.7); ABSOLUTE MONOCYTES (AUTO) 1.4 10^3/uL (0.1-1.4); ABSOLUTE NEUT (AUTO) 12.8 10^3/uL (1.7-8.2); BASOPHILS % (AUTO) 1.1 % (0-2); MEAN CORPUSCULAR HEMOGLOBIN 31.8 pg (27.0-33.4); PLATELET COUNT 235 10^3/uL (150-450); RED BLOOD COUNT 2.29 10^6/uL (3.72-5.28); SEGMENTED NEUTROPHILS % (AUTO) 81.9 % (42-78); TOTAL CELLS COUNTED % (AUTO) 100 %; WHITE BLOOD COUNT 15.7 10^3/uL (4.0-10.5)
[2020-01-24 09:27] LABS: MEAN CORPUSCULAR VOLUME 96 fl (80-97)
[2020-01-24 09:29] LABS: HEMOGLOBIN 7.3 g/dL (12.0-15.5)
[2020-01-24] MEDS ORDERED: CLONIDINE 0.3 MG/24 HR PATCH.TDWK TD SCH (10:00)
--- NOTE | 2020-01-24 11:29 | PDOC PROGRESS REPORT ---
Subjective Progress Note for:: 01/24/20 Subjective:: I am seeing the patient during dialysis this morning. She is a sleeping but arousable and answering questions which is much improved from when I saw her initially upon admission. Her blood pressure is slightly on the low side. We are adjusting ultrafiltration accordingly depending on her blood pressure. She was reportedly having some bleeding thought initially to be from the vaginal area but according to Dr. Howell the nurse told him it might be from the rect um. She had received 1 unit of packed RBC this morning prior to dialysis. Reason For Visit: METABOLIC ENCEPHALOPATHY,HYPERCALCEMIA,ESRD Physical Exam Vital Signs: Temp Pulse Resp BP Pulse Ox 98.0 F 84 20 126/56 H 98 01/24/20 06:55 01/24/20 07:00 01/24/20 06:55 01/24/20 06:55 01/24/20 06:55 Intake & Output 01/23/20 01/24/20 01/25/20 06:59 06:59 06:59 Intake Total 2876 2164 Output Total 0 0 Balance 2876 2164 Weight 101.2 kg 101.7 kg Vitals during dialysis: Blood pressure 100/52, heart rate of 79, blood flow rate of 400 mL/min and dialysate flow rate of 800 mL/min. Exam: General appearance: PRESENT: no acute distress, cooperative, well-developed, well-nourished Head exam: PRESENT: atraumatic, normocephalic Eye exam: PRESENT: conjunctiva pale, she is legally blind ABSENT: scleral icterus Neck exam: ABSENT: JVD Respiratory exam: PRESENT: Normal breath sounds. ABSENT: crackles, rales, rhonchi, unlabored, wheezes Cardiovascular exam: PRESENT: Regular rate rhythm -+S1, +S2. ABSENT: diastolic murmur, systolic murmur GI/Abdominal exam: PRESENT: normal bowel sounds, soft. ABSENT: guarding, mass, tenderness Extremities exam: ABSENT: No edema Neurological exam: PRESENT: Asleep but arousable, oriented to person, place and time. Skin exam: PRESENT: dry, warm, Cardiovascular exam: PRESENT: +S1, +S2. ABSENT: rubs GI/Abdominal exam: PRESENT: normal bowel sounds, soft. ABSENT: organomegaly, tenderness Results Laboratory Results: 01/24/20 06:58 01/23/20 01/23/2020 00:38 19:35 06:58 WBC 15.1 H RBC 1.93 L Hgb 6.5 L Hct 19.6 L MCV 101 H MCH 33.4 MCHC 32.9 RDW 14.4 H Plt Count 246 Seg Neutrophils % 81.5 H Sodium 137.4 Potassium 3.8 Chloride 98 Carbon Dioxide 30 Anion Gap 9 BUN 54 H Creatinine 7.70 H Est GFR ( Amer) 7 L Glucose 159 H Calcium 10.3 H Blood Type O POSITIVE Antibody Screen NEGATIVE 01/17/20 01/17/20 10:01 14:28 Troponin I < 0.012 < 0.012 NT-Pro-B Natriuret Pep 6310 H Impressions: Head CT 01/17/20 00:00 IMPRESSION: MILD CHRONIC CHANGES OF ATROPHY AND MICROVASCULAR ISCHEMIA. NO ACUTE PROCESS. EVIDENCE OF ACUTE STROKE: NO. Head MRI 01/18/20 00:00 IMPRESSION: Acute infarct in the right putamen (in the territory of the lateral lenticulostriate arteries/M1 segment of the MCA). EVIDENCE OF ACUTE STROKE: YES. RIGHT MCA KUB X-Ray 01/22/20 08:51 IMPRESSION: Esophagogastric tube tip and side-hole are below the diaphragm. Pelvis Ultrasound 01/23/20 00:00 IMPRESSION: Nonvisualized ovaries.Unremarkable uterus for Transabdominal technique with Poor sonographic beam penetration. Transvaginal US 01/23/20 00:00 IMPRESSION: Nonvisualized ovaries. Poorly visualized endometrium. Chest X-Ray 01/24/20 03:14 IMPRESSION: Tip of the central line in the SVC. No pneumothorax copyright 2011 [employer]- All Rights Reserved Assessment & Plan - Diagnosis (1) End-stage renal disease on hemodialysis Is this a current diagnosis for this admission?: Yes Plan: We will do dialysis today for 3 hours, using the patient's right upper arm AV fistula, with 3 potassium/2 calcium bath, blood flow rate of 400 mL per minute, dialysate flow rate of 800 mL per minute, ultrafiltration 500 to 1000 mL as tolerated, no heparin and patient allergic to Procrit causing skin reactions. Ultrafiltration will be attempted if patient tolerates it. Discussed plan with our dialysis nurse. (2) Acute right arterial ischemic stroke, MCA (middle cerebral artery) Is this a current diagnosis for this admission?: Yes Plan: Patient has acute right putamen infarct during this admission likely could have caused her acute encephalopathy on admission. She also has a recent pontine stroke for which she was hospitalized at [facility] about couple weeks ago. (3) Acute encephalopathy Is this a current diagnosis for this admission?: Yes Plan: Secondary to new ischemic stroke, metabolic and seizure disorder. Currently improved mentation. (4) Hypercalcemia Is this a current diagnosis for this admission?: Yes Plan: Improved with adjusting calcium bath on dialysis. Serum protein electrophoresis pending. Phosphorus was normal at 3.1 and magnesium at 2.6 on 01/20/2020. PTH is only 123.5. (5) Anemia in chronic kidney disease Qualifiers: Chronic kidney disease stage: on chronic dialysis Qualified Code(s): N18.6 - End stage renal disease; D63.1 - Anemia in chronic kidney disease; Z99.2 - Dep endence on renal dialysis Is this a current diagnosis for this admission?: Yes Plan: Patient is allergic to Procrit. She received 1 unit of packed RBC today. She may need another blood transfusion if her hemoglobin continues to be in the low side. Patient is also currently having some bleeding either from the rectum or vaginal area. Hospitalist service is looking into it. (6) Abscess of pubic region Is this a current diagnosis for this admission?: Yes Plan: Defer to hospitalist. (7) Hypertension Qualifiers: Hypertension type: essential hypertension Qualified Code(s): I10 - Essential (primary) hypertension Is this a current diagnosis for this admission?: Yes Plan: Currently on the low side. (8) Diabetes mellitus type 2 in obese Is this a current diagnosis for this admission?: Yes Plan: Controlled. (9) Seizure disorder Is this a current diagnosis for this admission?: Yes (10) Hidradenitis suppurativa Is this a current diagnosis for this admission?: Yes (11) Legally blind Is this a current diagnosis for this admission?: Yes - Notes Notes: Discussed with Dr. Howell. - Time Time with patient: 15-25 minutes
[2020-01-24] MEDS: ASPIRIN 325 MG TABLET NG SCH (12:41)
[2020-01-24] MEDS: PANTOPRAZOLE SODIUM 40 MG VIAL IV SCH (12:41)
[2020-01-24 14:36] LABS: A/G RATIO 0.7 (0.7-1.7); ALBUMIN 2 3.1 g/dL (2.9-4.4); ALPHA-2-GLOBULIN 2 0.7 g/dL (0.4-1.0); BETA GLOBULINS 0.6 g/dL (0.7-1.3); GAMMA GLOBULIN 3.1 g/dL (0.4-1.8); GLOBULIN TOTAL 4.6 g/dL (2.2-3.9); MONOCLONAL SPIKE Not Observed g/dL (Not Observ); PROTEIN TOTAL SERUM 7.7 g/dL (6.0-8.5)
[2020-01-24 14:43] LABS: ABSOLUTE BASOPHILS # (AUTO) 0.1 10^3/uL (0.0-0.2); ABSOLUTE LYMPHOCYTES (AUTO) 1.1 10^3/uL (0.5-4.7); ABSOLUTE MONOCYTES (AUTO) 1.3 10^3/uL (0.1-1.4); ABSOLUTE NEUT (AUTO) 12.4 10^3/uL (1.7-8.2); BASOPHILS % (AUTO) 0.5 % (0-2); HEMATOCRIT 25.6 % (36.0-47.0); HEMOGLOBIN 8.7 g/dL (12.0-15.5); LYMPHOCYTES % (AUTO) 7.2 % (13-45); MEAN CORPUSCULAR HEMOGLOBIN 31.9 pg (27.0-33.4); MEAN CORPUSCULAR HGB CONC 34.1 g/dL (32.0-36.0); MEAN CORPUSCULAR VOLUME 94 fl (80-97); MONOCYTES % (AUTO) 8.8 % (3-13); PLATELET COUNT 199 10^3/uL (150-450); RED BLOOD COUNT 2.73 10^6/uL (3.72-5.28); RED CELL DISTRIBUTION WIDTH 18.7 % (11.5-14.0); SEGMENTED NEUTROPHILS % (AUTO) 83.5 % (42-78); TOTAL CELLS COUNTED % (AUTO) 100 %; WHITE BLOOD COUNT 14.9 10^3/uL (4.0-10.5)
--- NOTE | 2020-01-24 15:19 | PDOC PROGRESS REPORT ---
Subjective Progress Note for:: 01/24/20 Subjective:: Her hemoglobin dropped overnight and we did not have good enough IV access to give her blood so Dr. Martinez was consulted and he put in a central line. She is received 2 units today. The blood loss is believed to be coming from her GI tract. Her nurse witnessed her passing clots from her rectum late yesterday evening. Reason For Visit: METABOLIC ENCEPHALOPATHY,HYPERCALCEMIA,ESRD Physical Exam Vital Signs: Temp Pulse Resp BP Pulse Ox 97.6 F 80 16 118/55 L 95 01/24/20 10:55 01/24/20 10:55 01/24/20 10:55 01/24/20 10:55 01/24/20 10:55 Intake & Output 01/23/20 01/24/20 01/25/20 06:59 06:59 06:59 Intake Total 2876 2164 300 Output Total 0 0 0 Balance 2876 2164 300 Weight 101.2 kg 101.7 kg General appearance: PRESENT: disheveled, morbidly obese, somnolent Eye exam: PRESENT: EOMI, bilateral cataracts Respiratory exam: PRESENT: clear to auscultation alaina, symmetrical, unlabored. ABSENT: accessory muscle use, chest wall tenderness, crackles, prolonged expiratory phas, rhonchi, tachypnea, wheezes Cardiovascular exam: PRESENT: RRR, +S1, +S2 Pulses: PRESENT: normal carotid pulses Vascular exam: PRESENT: normal capillary refill GI/Abdominal exam: PRESENT: normal bowel sounds, soft. ABSENT: distended, guarding, rebound, tenderness Extremities exam: ABSENT: clubbing, pedal edema Musculoskeletal exam: PRESENT: normal inspection. ABSENT: deformity Neurological exam: PRESENT: Drowsy but arousable, answering some questions, still not entirely certain how much she is comprehending Skin exam: PRESENT: other - Her skin shows multiple anomalies. She has multiple diffuse darkened areas that appear to be old scabs that have healed over all over her upper and lower extremities. She has an area on the medial aspect of the right calf that appears to be a large wound that has healed into a scar. She has a lesion that appears to be an abnormally large and thickened scab on the medial aspect of her left calf. She has a small draining area over her mons pubis that is draining a thin grayish-stubbs liquid without any substantial surrounding erythema or tenderness. She has previously noted lesion under the left breast that appears to be healing over and is no longer draining. She has a large area on the medial aspect of the right upper arm that has wound packing with no surrounding erythema. Results Laboratory Results: 01/24/20 14:29 01/24/20 06:58 01/23/20 01/23/20 01/24/20 00:38 19:35 06:58 WBC 15.1 H RBC 1.93 L Hgb 6.5 L Hct 19.6 L MCV 101 H MCH 33.4 MCHC 32.9 RDW 14.4 H Plt Count 246 Seg Neutrophils % 81.5 H Sodium 137.4 Potassium 3.8 Chloride 98 Carbon Dioxide 30 Anion Gap 9 BUN 54 H Creatinine 7.70 H Est GFR ( Amer) 7 L Glucose 159 H Calcium 10.3 H Blood Type O POSITIVE Antibody Screen NEGATIVE 01/24/20 01/24/20 08:00 14:29 WBC 15.7 H 14.9 H RBC 2.29 L 2.73 L Hgb 7.3 L 8.7 L Hct 22.0 L 25.6 L MCV 96 D 94 MCH 31.8 31.9 MCHC 33.0 34.1 RDW 19.0 H 18.7 H Plt Count 235 199 Seg Neutrophils % 81.9 H 83.5 H Sodium Potassium Chloride Carbon Dioxide Anion Gap BUN Creatinine Est GFR ( Amer) Glucose Calcium Blood Type Antibody Screen 01/17/20 01/17/20 10:01 14:28 Troponin I < 0.012 < 0.012 NT-Pro-B Natriuret Pep 6310 H Impressions: Head CT 01/17/20 00:00 IMPRESSION: MILD CHRONIC CHANGES OF ATROPHY AND MICROVASCULAR ISCHEMIA. NO ACUTE PROCESS. EVIDENCE OF ACUTE STROKE: NO. Head MRI 01/18/20 00:00 IMPRESSION: Acute infarct in the right putamen (in the territory of the lateral lenticulostriate arteries/M1 segment of the MCA). EVIDENCE OF ACUTE STROKE: YES. RIGHT MCA KUB X-Ray 01/22/20 08:51 IMPRESSION: Esophagogastric tube tip and side-hole are below the diaphragm. Pelvis Ultrasound 01/23/20 00:00 IMPRESSION: Nonvisualized ovaries.Unremarkable uterus for Transabdominal technique with Poor sonographic beam penetration. Transvaginal US 01/23/20 00:00 IMPRESSION: Nonvisualized ovaries. Poorly visualized endometrium. Chest X-Ray 01/24/20 03:14 IMPRESSION: Tip of the central line in the SVC. No pneumothorax copyright 2011 [employer]- All Rights Reserved Assessment and Plan - Diagnosis (1) Metabolic encephalopathy Is this a current diagnosis for this admission?: Yes Plan: She is stable compared to the past couple of days. NG tube in place with tube feeds running. Hopefully with some nutrition her mental status will continue to improve. (2) Anemia in chronic kidney disease Qualifiers: Chronic kidney disease stage: on chronic dialysis Qualified Code(s): N18.6 - End stage renal disease; D63.1 - Anemia in chronic kidney disease; Z99.2 - Dependence on renal dialysis Is this a current diagnosis for this admission?: Yes Plan: We will monitor and defer management to nephrology recommendations. Because of this potential reaction to EPO, Dr. Cisse believes that this patient will likely need periodic red cell transfusions. (3) Diabetes mellitus type 2 in obese Is this a current diagnosis for this admission?: Yes Plan: N.p.o. for now, she is on tube feeding diet. We have stopped her fluids and are relying on enteral nutrition and hydration. Accu-Cheks every 6 hours with sliding scale coverage. (4) Hidradenitis suppurativa Is this a current diagnosis for this admission?: Yes Plan: She has a few chronic wounds, 1 of which is packed, 1 of which is healed, and 1 of which is currently draining without evidence of surrounding erythema indicating acute cellulitis. Cultures came back showing a Proteus and E. coli, and now a pansensitive Enterococcus faecalis. All 3 are sensitive to ampicillin. (5) Hypercalcemia associated with chronic dialysis Is this a current diagnosis for this admission?: Yes Plan: Improved after interventions including dialysis will continue to monitor (6) Hyperkalemia Is this a current diagnosis for this admission?: Yes Plan: Resolved (7) Blind Qualifiers: Right eye visual impairment category: right - unspecified blindness Left eye visual impairment category: left - unspecified blindness Qualified Code(s): H54.3 - Unqualified visual loss, both eyes Is this a current diagnosis for this admission?: Yes Plan: She is legally blind (8) Coronary artery disease Qualifiers: Coronary Disease-Associated Artery/Lesion type: [place] artery [place] vs. transplanted heart: [place] heart Associated angina: without angina Qualified Code(s): I25.10 - Atherosclerotic heart disease of [place] coronary artery without angina pectoris Is this a current diagnosis for this admission?: Yes Plan: We will continue her home medications via NG tube (9) End-stage renal disease on hemodialysis Is this a current diagnosis for this admission?: Yes Plan: Nephrology consulted for dialysis and other recommendations regarding electrolyte management (10) Hyperlipidemia Qualifiers: Hyperlipidemia type: unspecified Qualified Code(s): E78.5 - Hyperlipidemia, unspecified Is this a current diagnosis for this admission?: Yes Plan: We will continue her statin down her NG tube (11) Obesity hypoventilation syndrome Is this a current diagnosis for this admission?: Yes Plan: Am not sure if she is on CPAP at [facility], but when she was here in a previous hospitalization she said that she slept better with the CPAP mask on. (12) Peripheral arterial disease Is this a current diagnosis for this admission?: Yes Plan: We will monitor for signs of limb ischemia and will continue her home medications via NG tube (13) Seizure disorder Is this a current diagnosis for this admission?: Yes Plan: Dilantin level was a bit low, have switched her to IV Dilantin, will find out if she can get this through her NG tube and if so we will switch it (14) Hypertensive urgency Is this a current diagnosis for this admission?: Yes Plan: Now resolved (15) Acute right arterial ischemic stroke, MCA (middle cerebral artery) Is this a current diagnosis for this admission?: Yes Plan: She has an area of ischemia which is acute in the right putamen. She was already on the appropriate medications, so we will continue them via NG tube. We will continue aspirin. Were trying to improve her blood pressure control and will keeping her blood sugar under good control. We are trying to avoid giving her any sort of sedating medication. Her family wants to wait to see if she is going to wake up so that we can get a better assessment. Hoping that her mental status will improve since starting NG tube feedings. She has not declined today, but her progress has been very slow, and she seems to be about the same as she was yesterday. (16) Hypotension Qualifiers: Hypotension type: idiopathic hypotension Qualified Code(s): I95.0 - Idiop athic hypotension Is this a current diagnosis for this admission?: Yes Plan: We stop the nitroglycerin paste and have decreased her clonidine patch. Her white blood cell count is back up but she shows no other signs of systemic infection. She has been on ampicillin for her skin infection. Chest x-ray is clear this morning. If she is bleeding internally, some of this we saw could have been from volume loss. No fever. (17) Acute blood loss anemia Is this a current diagnosis for this admission?: Yes Plan: She is gotten 2 units of packed red blood cells. The nurses believe this to be coming from her rectum because yesterday 1 of the nurses witnessed a blood clot coming from her rectum. We will ensure hemodynamic stability. Once she is a little more stable we will need to consult surgery for consideration of endoscopic evaluation. Heparin has been held. - Time Time Spent with patient: 25-34 minutes
[2020-01-24 19:58] LABS: ABSOLUTE BASOPHILS # (AUTO) 0.1 10^3/uL (0.0-0.2); ABSOLUTE LYMPHOCYTES (AUTO) 1.8 10^3/uL (0.5-4.7); ABSOLUTE MONOCYTES (AUTO) 1.5 10^3/uL (0.1-1.4); ABSOLUTE NEUT (AUTO) 15.1 10^3/uL (1.7-8.2); BASOPHILS % (AUTO) 0.5 % (0-2); HEMATOCRIT 22.2 % (36.0-47.0); LYMPHOCYTES % (AUTO) 9.5 % (13-45); MEAN CORPUSCULAR HEMOGLOBIN 31.5 pg (27.0-33.4); MEAN CORPUSCULAR HGB CONC 33.3 g/dL (32.0-36.0); MEAN CORPUSCULAR VOLUME 95 fl (80-97); MONOCYTES % (AUTO) 8.1 % (3-13); PLATELET COUNT 245 10^3/uL (150-450); RED BLOOD COUNT 2.35 10^6/uL (3.72-5.28); RED CELL DISTRIBUTION WIDTH 18.8 % (11.5-14.0); SEGMENTED NEUTROPHILS % (AUTO) 81.9 % (42-78); TOTAL CELLS COUNTED % (AUTO) 100 %; WHITE BLOOD COUNT 18.4 10^3/uL (4.0-10.5)
[2020-01-24 20:03] LABS: HEMOGLOBIN 7.4 g/dL (12.0-15.5)
[2020-01-24] MEDS ORDERED: NORMAL SALINE 250 ML IV PRN ×2 (20:51)
[2020-01-24] MEDS ORDERED: DIPHENHYDRAMINE HCL 25 MG CAPSULE PO PRN (20:51)
--- NOTE | 2020-01-24 21:04 | Progress Note ---
Provider Note Provider Note: Critical CARE note: 01/24/2020 Critical care start time: 2005 Critical care issue: Rectal hemorrhage Patient was seen in response to the nurses call regarding an acute rectal hemorrhage. The patient passed approximately 500 mL of clotted blood per rectum at 1900 and then again passed approximately the same amount of blood at 2000. Patient's blood pressure dropped to 82 systolic and she became less responsive. Patient was seen and found to be lethargic. Lungs were clear to auscultation with the exception of minimal bibasilar rales. Patient is noted to be a dialysis patient and had dialysis today. She also received aspirin 325 mg p.o. today as post stroke prophylaxis. Patient had a previous rectal hemorrhage 2 days ago of about the same amount of blood. Patient is noted to be blind. She was treated with normal saline 1 L IV stat and 2 units of packed red blood cells with steroid administration. A stat surgical consultation was obtained with Dr. Danny Brantley and a stat ICU consultation was obtained. Patient did become more responsive after receiving 1 L of normal saline and her blood transfusion was initiated. Because of the high likelihood of fluid overload with transfusion of blood patient will be taken to the ICU for further treatment. Aspirin was discontinued. Critical care end time: 2102 Total critical care time: 26 minutes
[2020-01-24] MEDS ORDERED: NORMAL SALINE 1000 ML 1,000 ML IV ONE (23:15)
--- NOTE | 2020-01-25 00:34 | CRITICAL CARE ADMISSION REPORT ---
<MARY LU - Last Filed: 01/24/20 23:40> [facility] Date:: 01/24/20 Time:: 21:00 Reason for ICU Reason:: Hypotension, acute GI bleed HPI: 44-year-old female with an extensive medical history which includes multiple strokes, DM 2, HTN, HLD, CAD and hydradenitis Suppurativa with multiple skin wounds. Patient also has a history of aspiration pneumonia. She was admitted on 01/16 initially with altered mental status which improved with her scheduled HD. On 01/17 she was found to have a new right MCA stroke. On 01/20, she had passed approximately 1 L of melanotic stool. Her hemoglobin dropped at that time from 9.2-6.5. She received 2 units of PRBCs and had an appropriate response. Unfortunately however, this evening (01/24/2020), she again had an approximate 1 L of melanotic stool, this time with associated hypotension. Both surgery and critical care were consulted. Patient was transferred to the intensive care unit for volume resuscitation with packed red blood cells. Given the patient's ESRD, she is at risk for volume overload and was admitted for both treatment of her hypotension and respiratory monitoring. History obtained from:: Medical record - Diagnosis/Plan (1) Acute blood loss anemia Is this a current diagnosis for this admission?: Yes Plan: Currently transfusing 2 units PRBCs. Monitor H/H and transfuse as needed. Follow respiratory status closely. Patient is at risk of volume overload given her end-stage renal disease. She has agreed to intubation in the event of respiratory failure. We will treat hypotension with IV fluids and blood products as needed. (2) Congestive heart failure Qualifiers: Heart failure type: unspecified Heart failure chronicity: chronic Qualified Code(s): I50.9 - Heart failure, unspecified Is this a current diagnosis for this admission?: Yes Plan: No acute issues at this time, however given her history of CHF, she is at risk of volume overload with additional blood transfusions in the setting of ESRD. Monitor proBNP (3) Diabetes mellitus type 2 in obese Is this a current diagnosis for this admission?: Yes Plan: Regular insulin sliding scale At risk for hypoglycemia given multiple skin infections associated with Hydradentis Suppurativa. (4) End-stage renal disease on hemodialysis Is this a current diagnosis for this admission?: Yes Plan: We will resume HD on Friday unless needed more acutely for volume overload. 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, glaucoma Neurological Medical History: Reports: Seizures, Other - Acute pontine stroke with right leg weakness and dysphagia on 12/16/2018 Endocrine Medical History: Reports: Diabetes Mellitus Type 2 Denies: Diabetes Mellitus Type 1 Renal/ Medical History: Reports: End Stage Renal Disease GI Medical History: Reports: Gastroesophageal Reflux Disease Denies: Cirrhosis Musculoskeltal Medical History: Reports: Arthritis Psychiatric Medical History: Reports: Depression Denies: Bipolar Disorder Hematology: Reports: Anemia, Other - 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, glaucoma Denies: Bleeding Tendencies Past Surgical History Past Surgical History: Reports: Cholecystectomy, Herniorrhaphy, Orthopedic Surgery - rt hip, Vascular Surgery - Right arm AV fistula Denies: Pacemaker Social/Family History - Social History Lives with: [facility] Smoking Status: Unknown if Ever Smoked Frequency of Alcohol Use: None Hx Recreational Drug Use: No Drugs: None Hx Prescription Drug Abuse: No - Medication/Allergies Home Medications: Atorvastatin Calcium [Lipitor 80 mg Tablet] 80 mg PO QHS 06/11/19 Calcium Acetate [Phoslo 667 mg Capsule] 2,001 mg PO AC 06/11/19 Clonidine HCl [Catapres 0.2 mg Tablet] 0.2 mg PO Q12 06/11/19 Hydroxyzine HCl [Atarax 10 mg Tablet] 10 mg PO Q8HP PRN 06/11/19 Oxycodone HCl [Oxy-Ir 5 mg Tablet] 5 mg PO Q8HP PRN 06/11/19 Phenytoin Sodium Extended [Dilantin 100 mg Capsule.er] 100 mg PO Q8 06/11/19 Pregabalin [Lyrica 75 mg Capsule] 75 mg PO MOWEFR@1000 06/11/19 Pregabalin [Lyrica 75 mg Capsule] 75 mg PO QHS 06/11/19 Aspirin [Aspirin 81 mg Chewable Tablet] 81 mg PO QAM 01/17/20 Escitalopram Oxalate [Lexapro 10 mg Tablet] 10 mg PO DAILY 05/25/20 Lorazepam [Ativan 0.5 mg Tablet] 0.5 mg PO Q8HP PRN 01/17/20 Melatonin [Melatonin 3 mg Tablet] 3 mg PO QHS 01/17/20 Metoprolol Tartrate [Lopressor 100 mg Tablet] 100 mg PO Q12 01/17/20 Pantoprazole Sodium [Protonix [address] Tablet] 40 mg PO Q6AM 01/17/20 Polyethylene Glycol 3350 [Miralax Powder 17 gm/Packet] 1 packet PO DAILYP PRN 01/17/20 Sennosides [Senokot] 8.6 mg PO BID 01/17/20 Allergies/Adverse Reactions: hydromorphone [Hydromorphone] Allergy (Intermediate, Verified 12/28/18 12:14) ABDOMINAL CRAMPS azithromycin [Azithromycin] Allergy (Unknown, Verified 12/28/18 12:14) Darbepoetin Chandrika in [place] * [From Aranesp] Allergy (Unknown, Verified 12/28/18 12:14) ITCHING epoetin chandrika [From Procrit] Allergy (Verified 12/28/18 12:14) Sulfa (Sulfonamide Antibiotics) Allergy (Verified 12/28/18 12:14) Unsure BBQ SAUCE Allergy (Mild, Uncoded 12/28/18 12:14) Hives Review of Systems ROS unobtainable: Other - Minimal verbal communication with patient. She was able to state that her legs were uncomfortable, but was unable to specify. Constitutional: PRESENT: weakness Physical Exam Vital Signs: Temp Pulse Resp BP Pulse Ox 98.4 F 82 16 110/61 100 01/24/20 22:59 01/24/20 22:59 01/24/20 22:59 01/24/20 22:59 01/24/20 22:59 Intake & Output 01/23/20 01/24/20 01/25/20 06:59 06:59 06:59 Intake Total 0176 2164 1770 Output Total 0 0 0 Balance 2876 2164 1776 Weight 101.2 kg 101.7 kg 101.7 kg Weight/Height Weight 101.7 kg Height 5 ft 7 in General appearance: PRESENT: morbidly obese Head exam: PRESENT: atraumatic Eye exam: PRESENT: PERRLA, other - History of blindness. Ear exam: PRESENT: normal external ear exam Mouth exam: PRESENT: neck supple Neck exam: PRESENT: full ROM, other - Left IJ TLC.. ABSENT: JVD Respiratory exam: PRESENT: clear to auscultation alaina, symmetrical. ABSENT: accessory muscle use, rales, rhonchi, wheezes Cardiovascular exam: PRESENT: RRR Pulses: PRESENT: normal carotid pulses, normal radial pulses GI/Abdominal exam: PRESENT: hyperactive bowel sounds, soft. ABSENT: tenderness Rectal exam: PRESENT: bloody stool Extremities exam: PRESENT: pedal edema. ABSENT: calf tenderness Neurological exam: PRESENT: awake, CN II-XII grossly intact. ABSENT: alert Skin exam: PRESENT: other - Multiple papular herr. Various stages of abscess healing. Tubes/Lines: PRESENT: Central Line - Left IJ TLC. Laboratory/Radiographs Laboratory Results: 01/24/20 19:35 01/24/20 06:58 01/23/20 01/24/20 01/24/20 00:38 06:58 08:00 WBC 15.7 H RBC 2.29 L Hgb 7.3 L Hct 22.0 L MCV 96 D MCH 31.8 MCHC 33.0 RDW 19.0 H Plt Count 235 Seg Neutrophils % 81.9 H Sodium 137.4 Potassium 3.8 Chloride 98 Carbon Dioxide 30 Anion Gap 9 BUN 54 H Creatinine 7.70 H Est GFR ( Amer) 7 L Glucose 159 H Calcium 10.3 H Blood Type O POSITIVE Antibody Screen NEGATIVE 01/24/20 01/24/20 14:29 19:35 WBC 14.9 H 18.4 H RBC 2.73 L 2.35 L Hgb 8.7 L 7.4 L Hct 25.6 L 22.2 L MCV 94 95 MCH 31.9 31.5 MCHC 34.1 33.3 RDW 18.7 H 18.8 H Plt Count 199 245 Seg Neutrophils % 83.5 H 81.9 H Sodium Potassium Chloride Carbon Dioxide Anion Gap BUN Creatinine Est GFR ( Amer) Glucose Calcium Blood Type Antibody Screen 01/17/20 01/17/20 10:01 14:28 Troponin I < 0.012 < 0.012 NT-Pro-B Natriuret Pep 6310 H Impressions: Head CT 01/17/20 00:00 IMPRESSION: MILD CHRONIC CHANGES OF ATROPHY AND MICROVASCULAR ISCHEMIA. NO ACUTE PROCESS. EVIDENCE OF ACUTE STROKE: NO. Head MRI 01/18/20 00:00 IMPRESSION: Acute infarct in the right putamen (in the territory of the lateral lenticulostriate arteries/M1 segment of the MCA). EVIDENCE OF ACUTE STROKE: YES. RIGHT MCA KUB X-Ray 01/22/20 08:51 IMPRESSION: Esophagogastric tube tip and side-hole are below the diaphragm. Pelvis Ultrasound 01/23/20 00:00 IMPRESSION: Nonvisualized ovaries.Unremarkable uterus for Transabdominal technique with Poor sonographic beam penetration. Transvaginal US 01/23/20 00:00 IMPRESSION: Nonvisualized ovaries. Poorly visualized endometrium. Chest X-Ray 01/24/20 03:14 IMPRESSION: Tip of the central line in the SVC. No pneumothorax copyright 2011 [employer]- All Rights Reserved All labs, radiographs, diagnostic studies and EKGs were personally reviewed: Yes In addition, reports of radiographic and diagnostic studies were read: Yes Critical Time Critical Time (minutes): 60 -: The care of a critically ill patient is dynamic. This note represents a static moment in the admission process. Orders and treatments may be given simultaneously and urgently, and time is not sales and marketing representative of the treatment process. This patient requires Critical Care secondary to life threatening organ or limb dysfunction. Without Critical Care services, the patient is at risk for increased mortality and morbidity. <RHETTRASHARD NI - Last Filed: 01/27/20 14:53> HPI Date:: 01/24/20 - Diagnosis/Plan (1) Hemorrhagic shock Is this a current diagnosis for this admission?: Yes (2) Acute blood loss anemia Is this a current diagnosis for this admission?: Yes (4) GI bleeding Qualifiers: GI bleed type/associated pathology: melena Qualified Code(s): K92.1 - Melena Is this a current diagnosis for this admission?: Yes (5) Congestive heart failure Qualifiers: Heart failure type: unspecified Heart failure chronicity: chronic Qu alified Code(s): I50.9 - Heart failure, unspecified Is this a current diagnosis for this admission?: Yes (6) Diabetes mellitus type 2 in obese Is this a current diagnosis for this admission?: Yes (7) End-stage renal disease on hemodialysis Is this a current diagnosis for this admission?: Yes Physical Exam Vital Signs: Temp Pulse Resp BP Pulse Ox 97.5 F 86 14 115/66 96 01/26/20 19:00 01/26/20 19:00 01/26/20 19:00 01/26/20 19:00 01/26/20 19:00 Intake & Output 01/26/20 01/27/20 01/28/20 06:59 06:59 06:59 Intake Total 200 1534 Output Total 50 2500 Balance 150 -966 Weight 100.4 kg Weight/Height Weight 100.4 kg Height 1.7 m Laboratory/Radiographs Laboratory Results: 01/26/20 16:10 01/26/20 06:04 01/26/20 01/26/20 16:10 16:32 WBC 15.8 H RBC 2.22 L Hgb 6.8 L Hct 20.2 L MCV 91 MCH 30.5 MCHC 33.6 RDW 21.6 H Plt Count 194 Blood Type O POSITIVE Antibody Screen NEGATIVE 01/17/20 01/17/20 10:01 14:28 Troponin I < 0.012 < 0.012 NT-Pro-B Natriuret Pep 6310 H Impressions: Head CT 01/17/20 00:00 IMPRESSION: MILD CHRONIC CHANGES OF ATROPHY AND MICROVASCULAR ISCHEMIA. NO ACUTE PROCESS. EVIDENCE OF ACUTE STROKE: NO. Head MRI 01/18/20 00:00 IMPRESSION: Acute infarct in the right putamen (in the territory of the lateral lenticulostriate arteries/M1 segment of the MCA). EVIDENCE OF ACUTE STROKE: YES. RIGHT MCA KUB X-Ray 01/22/20 08:51 IMPRESSION: Esophagogastric tube tip and side-hole are below the diaphragm. Pelvis Ultrasound 01/23/20 00:00 IMPRESSION: Nonvisualized ovaries.Unremarkable uterus for Transabdominal technique with Poor sonographic beam penetration. Transvaginal US 01/23/20 00:00 IMPRESSION: Nonvisualized ovaries. Poorly visualized endometrium. Chest X-Ray 01/25/20 04:00 IMPRESSION: STABLE CARDIOMEGALY. NO ACUTE FINDINGS. Critical Time -: The care of a critically ill patient is dynamic. This note represents a static moment in the admission process. Orders and treatments may be given simultaneously and urgently, and time is not sales and marketing representative of the treatment process. This patient requires Critical Care secondary to life threatening organ or limb dysfunction. Without Critical Care services, the patient is at risk for increased mortality and morbidity.
[2020-01-25] MEDS: MORPHINE SULFATE 10 MG/ML INJ IV PRN ×5 (01:59→21:25)
[2020-01-25 03:19] LABS: ABSOLUTE BASOPHILS # (AUTO) 0.1 10^3/uL (0.0-0.2); ABSOLUTE LYMPHOCYTES (AUTO) 1.2 10^3/uL (0.5-4.7); ABSOLUTE MONOCYTES (AUTO) 1.4 10^3/uL (0.1-1.4); ABSOLUTE NEUT (AUTO) 13.1 10^3/uL (1.7-8.2); BASOPHILS % (AUTO) 0.6 % (0-2); HEMATOCRIT 27.8 % (36.0-47.0); LYMPHOCYTES % (AUTO) 7.8 % (13-45); MEAN CORPUSCULAR HEMOGLOBIN 30.3 pg (27.0-33.4); MEAN CORPUSCULAR HGB CONC 34.5 g/dL (32.0-36.0); MONOCYTES % (AUTO) 8.6 % (3-13); PLATELET COUNT 167 10^3/uL (150-450); RED BLOOD COUNT 3.16 10^6/uL (3.72-5.28); RED CELL DISTRIBUTION WIDTH 21.8 % (11.5-14.0); TOTAL CELLS COUNTED % (AUTO) 100 %; WHITE BLOOD COUNT 15.8 10^3/uL (4.0-10.5)
[2020-01-25 03:20] LABS: HEMOGLOBIN 9.6 g/dL (12.0-15.5)
[2020-01-25 03:21] LABS: MEAN CORPUSCULAR VOLUME 88 fl (80-97)
[2020-01-25] MEDS: PHENYTOIN SODIUM INJ/PF 100 MG/2 ML SDV IV SCH ×3 (05:32→21:25)
[2020-01-25] MEDS: INSULIN LISPRO 100 UNIT/ML 3 ML VIAL SUBCUT SCH ×3 (05:37→17:25)
[2020-01-25 06:02] LABS: ANION GAP 7 (5-19); CALCIUM 9.4 mg/dL (8.4-10.2); CARBON DIOXIDE 31 mmol/L (22-30); CHLORIDE 100 mmol/L (98-107); GLUCOSE 119 mg/dL (75-110); POTASSIUM 3.8 mmol/L (3.6-5.0)
[2020-01-25 06:06] LABS: BLOOD UREA NITROGEN 34 mg/dL (7-20)
--- NOTE | 2020-01-25 08:19 | RADIOLOGY REPORT (SQ) ---
EXAM DESCRIPTION: CHEST SINGLE VIEW IMAGES COMPLETED DATE/TIME: 01/25/2020 5:54 am REASON FOR STUDY: concern for fluid overload COMPARISON: 01/24/2020. NUMBER OF VIEWS: One view. TECHNIQUE: Single frontal radiographic view of the chest acquired. LIMITATIONS: None. FINDINGS: LUNGS AND PLEURA: No opacities, masses or pneumothorax. No pleural effusion. MEDIASTINUM AND HILAR STRUCTURES: No masses. Contour normal. HEART AND VASCULAR STRUCTURES: Heart enlarged without failure. Normal vasculature. BONES: No acute findings. HARDWARE: Stable nasogastric tube and central line. Right subclavian stent. OTHER: No other significant finding. IMPRESSION: STABLE CARDIOMEGALY. NO ACUTE FINDINGS. TECHNICAL DOCUMENTATION: JOB ID: [id number] 2010 [employer]- All Rights Reserved Reading location - IP/workstation name: [email or web address]
[2020-01-25] MEDS: PANTOPRAZOLE SODIUM 40 MG VIAL IV SCH (09:27)
[2020-01-25] MEDS: AMPICILLIN SODIUM 2 GM in NORMAL SALINE 100 ML IV SCH ×2 (09:27→21:24)
--- NOTE | 2020-01-25 13:36 | PDOC CONSULTATION ---
Consultation Consult Date: 01/25/20 Provider Consulted: DIDIER DUBON Consult reason:: GI bleed with hypotension History of Present Illness Admission Date/PCP: 01/17/20 13:09 KELLEY CABRERA NP History of Present Illness: DIAN SLAUGHTER is a 44 year old female with end-stage renal disease on he modialysis, multiple strokes, diabetes mellitus x2, seizure disorder, was called in last night for blood clots passing per rectum at least 500 cc with blood pressure going down to about 83. Patient however remained quite awake and denies any abdominal pains. She just had hemodialysis in the morning. He did apparently have another episode on 01/21/2020 for lower GI bleed and responded to blood transfusion. No apparent history of colonoscopy in the past. Patient transferred to ICU last night after blood transfusion with blood pressure trending in trending in the 90s. 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, glaucoma Neurological Medical History: Reports: Seizures, Other - Acute pontine stroke with right leg weakness and dysphagia on 12/16/2018 Endocrine Medical History: Reports: Diabetes Mellitus Type 2 Denies: Diabetes Mellitus Type 1 Renal/ Medical History: Reports: End Stage Renal Disease GI Medical History: Reports: Gastroesophageal Reflux Disease Denies: Cirrhosis Musculoskeltal Medical History: Reports: Arthritis Psychiatric Medical History: Reports: Depression Denies: Bipolar Disorder Hematology: Reports: Anemia, Other - 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, glaucoma Denies: Bleeding Tendencies Past Surgical History Past Surgical History: Reports: Cholecystectomy, Herniorrhaphy, Orthopedic Surgery - rt hip, Vascular Surgery - Right arm AV fistula Denies: Pacemaker Social History Lives with: Group Home Smoking Status: Unknown if Ever Smoked Frequency of Alcohol Use: None Hx Recreational Drug Use: No Drugs: None Hx Prescription Drug Abuse: No Family History Family History: Reviewed & Not Pertinent Parental Family History Reviewed: Yes Children Family History Reviewed: No Sibling(s) Family History Reviewed.: No Medication/Allergy Home Medications: Atorvastatin Calcium [Lipitor 80 mg Tablet] 80 mg PO QHS 06/11/19 Calcium Acetate [Phoslo 667 mg Capsule] 2,001 mg PO AC 06/11/19 Clonidine HCl [Catapres 0.2 mg Tablet] 0.2 mg PO Q12 06/11/19 Hydroxyzine HCl [Atarax 10 mg Tablet] 10 mg PO Q8HP PRN 06/11/19 Oxycodone HCl [Oxy-Ir 5 mg Tablet] 5 mg PO Q8HP PRN 06/11/19 Phenytoin Sodium Extended [Dilantin 100 mg Capsule.er] 100 mg PO Q8 06/11/19 Pregabalin [Lyrica 75 mg Capsule] 75 mg PO MOWEFR@1000 06/11/19 Pregabalin [Lyrica 75 mg Capsule] 75 mg PO QHS 06/11/19 Aspirin [Aspirin 81 mg Chewable Tablet] 81 mg PO QAM 01/17/20 Escitalopram Oxalate [Lexapro 10 mg Tablet] 10 mg PO DAILY 01/17/20 Lorazepam [Ativan 0.5 mg Tablet] 0.5 mg PO Q8HP PRN 01/17/20 Melatonin [Melatonin 3 mg Tablet] 3 mg PO QHS 01/17/20 Metoprolol Tartrate [Lopressor 100 mg Tablet] 100 mg PO Q12 01/17/20 Pantoprazole Sodium [Protonix [address] Tablet] 40 mg PO Q6AM 01/17/20 Polyethylene Glycol 3350 [Miralax Powder 17 gm/Packet] 1 packet PO DAILYP PRN 01/17/20 Sennosides [Senokot] 8.6 mg PO BID 01/17/20 Allergies/Adverse Reactions: hydromorphone [Hydromorphone] Allergy (Intermediate, Verified 12/28/18 12:14) ABDOMINAL CRAMPS azithromycin [Azithromycin] Allergy (Unknown, Verified 12/28/18 12:14) Darbepoetin Chandrika in [place] * [From Aranesp] Allergy (Unknown, Verified 12/28/18 12:14) ITCHING epoetin chandrika [From Procrit] Allergy (Verified 12/28/18 12:14) Sulfa (Sulfonamide Antibiotics) Allergy (Verified 12/28/18 12:14) Unsure BBQ SAUCE Allergy (Mild, Uncoded 12/28/18 12:14) Hives Review of Systems ROS unobtainable: Due to mental status Physical Exam Vital Signs: Temp Pulse Resp BP Pulse Ox 99.3 F 83 16 130/70 H 100 01/25/20 03:52 01/25/20 10:00 01/25/20 00:59 01/25/20 00:59 01/25/20 01:42 Intake & Output 01/24/20 01/25/20 01/26/20 06:59 06:59 06:59 Intake Total 2164 2127 Output Total 0 0 50 Balance 2164 2127 -50 Weight 101.7 kg 102.2 kg General appearance: PRESENT: morbidly obese Cardiovascular exam: PRESENT: RRR Pulses: PRESENT: normal radial pulses Vascular exam: PRESENT: normal capillary refill GI/Abdominal exam: PRESENT: soft - Nontender Rectal exam: PRESENT: bloody stool Neurological exam: PRESENT: altered - Decreased sensorium Results Laboratory Results: 01/25/20 03:02 01/25/20 05:43 01/22/20 01/23/20 01/24/20 05:33 00:38 14:29 WBC 14.9 H RBC 2.73 L Hgb 8.7 L Hct 25.6 L MCV 94 MCH 31.9 MCHC 34.1 RDW 18.7 H Plt Count 199 Seg Neutrophils % 83.5 H Sodium Potassium Chloride Carbon Dioxide Anion Gap BUN Creatinine Est GFR ( Amer) Glucose Calcium Total Protein 7.7 Albumin 3.1 Blood Type O POSITIVE Antibody Screen NEGATIVE 01/24/20 01/25/20 01/25/20 19:35 03:02 05:43 WBC 18.4 H 15.8 H RBC 2.35 L 3.16 L Hgb 7.4 L 9.6 L D Hct 22.2 L 27.8 L MCV 95 88 D MCH 31.5 30.3 MCHC 33.3 34.5 RDW 18.8 H 21.8 H Plt Count 245 167 Seg Neutrophils % 81.9 H 83.0 H Sodium 137.5 Potassium 3.8 Chloride 100 Carbon Dioxide 31 H Anion Gap 7 BUN 34 H D Creatinine 4.87 H Est GFR ( Amer) 12 L Glucose 119 H Calcium 9.4 Total Protein Albumin Blood Type Antibody Screen 01/17/20 01/17/20 10:01 14:28 Troponin I < 0.012 < 0.012 NT-Pro-B Natriuret Pep 6310 H Impressions: Head CT 01/17/20 00:00 IMPRESSION: MILD CHRONIC CHANGES OF ATROPHY AND MICROVASCULAR ISCHEMIA. NO ACUTE PROCESS. EVIDENCE OF ACUTE STROKE: NO. Head MRI 01/18/20 00:00 IMPRESSION: Acute infarct in the right putamen (in the territory of the lateral lenticulostriate arteries/M1 segment of the MCA). EVIDENCE OF ACUTE STROKE: YES. RIGHT MCA KUB X-Ray 01/22/20 08:51 IMPRESSION: Esophagogastric tube tip and side-hole are below the diaphragm. Pelvis Ultrasound 01/23/20 00:00 IMPRESSION: Nonvisualized ovaries.Unremarkable uterus for Transabdominal technique with Poor sonographic beam penetration. Transvaginal US 01/23/20 00:00 IMPRESSION: Nonvisualized ovaries. Poorly visualized endometrium. Chest X-Ray 01/25/20 04:00 IMPRESSION: STABLE CARDIOMEGALY. NO ACUTE FINDINGS. Assessment & Plan - Diagnosis (1) Acute blood loss anemia Is this a current diagnosis for this admission?: Yes (2) Acute right arterial ischemic stroke, MCA (middle cerebral artery) Is this a current diagnosis for this admission?: Yes (3) Altered mental status Is this a current diagnosis for this admission?: Yes (4) Anemia in chronic kidney disease Qualifiers: Chronic kidney disease stage: on chronic dialysis Qualified Code(s): N18.6 - End stage renal disease; D63.1 - Anemia in chronic kidney disease; Z99.2 - Dependence on renal dialysis Is this a current diagnosis for this admission?: Yes (5) Diabetes mellitus type 2 in obese Is this a current diagnosis for this admission?: Yes (6) End stage renal disease Is this a current diagnosis for this admission?: Yes - Time Time Spent: 30 to 50 Minutes - Plan Summary Plan Summary: 44-year-old female on with end-stage renal disease on hemodialysis, diabetes mellitus type 2, multiple strokes, seizure disorder, noted to have second episode of GI bleed last night with hypotension responding to blood transfusion and now in the ICU. She had a previous episode of GI bleed on 01/21/2020 but responded to blood transfusion. She has an NG tube with no bloody drainage. Patient just had hemodialysis yesterday morning and have some heparin given. Recommendations: Continue to stabilized in the ICU Arrange possible colonoscopy tomorrow with Dr Damon
[2020-01-25] MEDS ORDERED: PEG 3350/NA SULF,BICARB,CL/KCL 4000 ML NG ONE (17:30)
[2020-01-25 18:53] LABS: HEMATOCRIT 25.4 % (36.0-47.0); HEMOGLOBIN 8.5 g/dL (12.0-15.5); MEAN CORPUSCULAR HEMOGLOBIN 30.4 pg (27.0-33.4); MEAN CORPUSCULAR HGB CONC 33.7 g/dL (32.0-36.0); MEAN CORPUSCULAR VOLUME 90 fl (80-97); PLATELET COUNT 175 10^3/uL (150-450); RED BLOOD COUNT 2.81 10^6/uL (3.72-5.28); RED CELL DISTRIBUTION WIDTH 22.1 % (11.5-14.0); WHITE BLOOD COUNT 15.9 10^3/uL (4.0-10.5)
--- NOTE | 2020-01-25 21:01 | PDOC CONSULTATION ---
Consultation Consult Date: 01/25/20 Provider Consulted: ISHA BOB Consult reason:: GI bleeding History of Present Illness Admission Date/PCP: 01/17/20 13:09 KELLEY CABRERA NP History of Present Illness: DIAN SLAUGHTER is a 44 year old female I am asked to see this patient by Dr Brantley from surgery who was initially consulted on this patient but is not able to perform GI procedures patient admitted and transferred to ICU painless large volume bleeding needs colonoscopy patient will be prepped over night no previous reported colonoscopy patient remains alert and VSS clot noted without any abdominal pain ? 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, glaucoma Neurological Medical History: Reports: Seizures, Other - Acute pontine stroke with right leg weakness and dysphagia on 12/16/2018 Endocrine Medical History: Reports: Diabetes Mellitus Type 2 Denies: Diabetes Mellitus Type 1 Renal/ Medical History: Reports: End Stage Renal Disease GI Medical History: Reports: Gastroesophageal Reflux Disease Denies: Cirrhosis Musculoskeltal Medical History: Reports: Arthritis Psychiatric Medical History: Reports: Depression Denies: Bipolar Disorder Hematology: Reports: Anemia, Other - 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, glaucoma Denies: Bleeding Tendencies Past Surgical History Past Surgical History: Reports: Cholecystectomy, Herniorrhaphy, Orthopedic Surgery - rt hip, Vascular Surgery - Right arm AV fistula Denies: Pacemaker Social History Lives with: [facility] Smoking Status: Unknown if Ever Smoked Frequency of Alcohol Use: None Hx Recreational Drug Use: No Drugs: None Hx Prescription Drug Abuse: No Family History Family History: Reviewed & Not Pertinent Parental Family History Reviewed: Yes Children Family History Reviewed: Unknown Sibling(s) Family History Reviewed.: Unknown Medication/Allergy Home Medications: Atorvastatin Calcium [Lipitor 80 mg Tablet] 80 mg PO QHS 06/11/19 Calcium Acetate [Phoslo 667 mg Capsule] 2,001 mg PO AC 06/11/19 Clonidine HCl [Catapres 0.2 mg Tablet] 0.2 mg PO Q12 06/11/19 Hydroxyzine HCl [Atarax 10 mg Tablet] 10 mg PO Q8HP PRN 06/11/19 Oxycodone HCl [Oxy-Ir 5 mg Tablet] 5 mg PO Q8HP PRN 06/11/19 Phenytoin Sodium Extended [Dilantin 100 mg Capsule.er] 100 mg PO Q8 06/11/19 Pregabalin [Lyrica 75 mg Capsule] 75 mg PO MOWEFR@1000 06/11/19 Pregabalin [Lyrica 75 mg Capsule] 75 mg PO QHS 06/11/19 Aspirin [Aspirin 81 mg Chewable Tablet] 81 mg PO QAM 01/17/20 Escitalopram Oxalate [Lexapro 10 mg Tablet] 10 mg PO DAILY 01/17/20 Lorazepam [Ativan 0.5 mg Tablet] 0.5 mg PO Q8HP PRN 01/17/20 Melatonin [Melatonin 3 mg Tablet] 3 mg PO QHS 01/17/20 Metoprolol Tartrate [Lopressor 100 mg Tablet] 100 mg PO Q12 01/17/20 Pantoprazole Sodium [Protonix [address] Tablet] 40 mg PO Q6AM 01/17/20 Polyethylene Glycol 3350 [Miralax Powder 17 gm/Packet] 1 packet PO DAILYP PRN 01/17/20 Sennosides [Senokot] 8.6 mg PO BID 01/17/20 Allergies/Adverse Reactions: hydromorphone [Hydromorphone] Allergy (Intermediate, Verified 12/28/18 12:14) ABDOMINAL CRAMPS azithromycin [Azithromycin] Allergy (Unknown, Verified 12/28/18 12:14) Darbepoetin Chandrika in [place] * [From Aranesp] Allergy (Unknown, Verified 12/28/18 12:14) ITCHING epoetin chandrika [From Procrit] Allergy (Verified 12/28/18 12:14) Sulfa (Sulfonamide Antibiotics) Allergy (Verified 12/28/18 12:14) Unsure BBQ SAUCE Allergy (Mild, Uncoded 12/28/18 12:14) Hives Review of Systems Constitutional: ABSENT: fever(s), headache(s), night sweats, weakness Eyes: ABSENT: visual disturbances Ears: ABSENT: hearing changes Nose, Mouth, and Throat: ABSENT: mouth pain, sore throat Cardiovascular: ABSENT: orthropnea, palpitations Respiratory: ABSENT: dyspnea, hemoptysis Gastrointestinal: PRESENT: hematochezia. ABSENT: abdominal pain, coffee ground emesis Genitourinary: ABSENT: dysuria, hematuria Musculoskeletal: ABSENT: deformity, joint swelling Integumentary: ABSENT: pruritus Neurological: ABSENT: syncope, tingling Endocrine: ABSENT: polydipsia, polyuria Hematologic/Lymphatic: ABSENT: easy bruising, lymphadenopathy Physical Exam Vital Signs: Temp Pulse Resp BP Pulse Ox 97.9 F 83 12 126/71 H 100 01/25/20 19:54 01/25/20 10:00 01/25/20 17:43 01/25/20 17:43 01/25/20 18:00 Intake & Output 01/24/20 01/25/20 01/26/20 06:59 06:59 06:59 Intake Total 2164 7 100 Output Total 0 0 50 Balance 4 2126 50 Weight 101.7 kg 102.2 kg General appearance: PRESENT: no acute distress, well-developed, well-nourished Head exam: PRESENT: atraumatic, normocephalic Eye exam: PRESENT: EOMI, PERRLA. ABSENT: nystagmus, periorbital swelling, scleral icterus Mouth exam: PRESENT: moist, neck supple Throat exam: ABSENT: tonsillar exudate, tonsillogmegaly Neck exam: ABSENT: meningismus, tenderness, thyromegaly Respiratory exam: PRESENT: symmetrical, unlabored. ABSENT: tachypnea, wheezes Cardiovascular exam: PRESENT: RRR, +S1, +S2 GI/Abdominal exam: PRESENT: soft. ABSENT: Phipps's sign, rebound, rigid, tenderness Extremities exam: ABSENT: joint swelling Musculoskeletal exam: PRESENT: full ROM Neurological exam: PRESENT: awake, oriented to time, CN II-XII grossly intact Focused psych exam: ABSENT: restlessness Skin exam: PRESENT: normal color. ABSENT: mottled, pallor, urticaria, vesicles Results Laboratory Results: 01/25/20 18:36 01/25/20 05:43 01/22/20 01/23/20 01/25/20 05:33 00:38 03:02 WBC 15.8 H RBC 3.16 L Hgb 9.6 L D Hct 27.8 L MCV 88 D MCH 30.3 MCHC 34.5 RDW 21.8 H Plt Count 167 Seg Neutrophils % 83.0 H Sodium Potassium Chloride Carbon Dioxide Anion Gap BUN Creatinine Est GFR ( Amer) Glucose Calcium Total Protein 7.7 Albumin 3.1 Blood Type O POSITIVE Antibody Screen NEGATIVE 01/25/20 01/25/20 05:43 18:36 WBC 15.9 H RBC 2.81 L Hgb 8.5 L Hct 25.4 L MCV 90 MCH 30.4 MCHC 33.7 RDW 22.1 H Plt Count 175 Seg Neutrophils % Sodium 137.5 Potassium 3.8 Chloride 100 Carbon Dioxide 31 H Anion Gap 7 BUN 34 H D Creatinine 4.87 H Est GFR ( Amer) 12 L Glucose 119 H Calcium 9.4 Total Protein Albumin Blood Type Antibody Screen 01/17/20 01/17/20 10:01 14:28 Troponin I < 0.012 < 0.012 NT-Pro-B Natriuret Pep 6310 H Impressions: Head CT 01/17/20 00:00 IMPRESSION: MILD CHRONIC CHANGES OF ATROPHY AND MICROVASCULAR ISCHEMIA. NO ACUTE PROCESS. EVIDENCE OF ACUTE STROKE: NO. Head MRI 01/18/20 00:00 IMPRESSION: Acute infarct in the right putamen (in the territory of the lateral lenticulostriate arteries/M1 segment of the MCA). EVIDENCE OF ACUTE STROKE: YES. RIGHT MCA KUB X-Ray 01/22/20 08:51 IMPRESSION: Esophagogastric tube tip and side-hole are below the diaphragm. Pelvis Ultrasound 01/23/20 00:00 IMPRESSION: Nonvisualized ovaries.Unremarkable uterus for Transabdominal techn ique with Poor sonographic beam penetration. Transvaginal US 01/23/20 00:00 IMPRESSION: Nonvisualized ovaries. Poorly visualized endometrium. Chest X-Ray 01/25/20 04:00 IMPRESSION: STABLE CARDIOMEGALY. NO ACUTE FINDINGS. Assessment & Plan - Diagnosis (1) GI bleeding Plan: likely having a diverticular bleed transfuse as needed will need colonoscopy after her prep Risks, benefits and alternatives are discussed with the patient in detail further recommendations to follow - Time Time Spent: 50 to 70 Minutes
[2020-01-26] MEDS: INSULIN LISPRO 100 UNIT/ML 3 ML VIAL SUBCUT SCH ×4 (00:05→18:44)
[2020-01-26 00:52] LABS: HEMATOCRIT 25.2 % (36.0-47.0); HEMOGLOBIN 8.6 g/dL (12.0-15.5); MEAN CORPUSCULAR HEMOGLOBIN 30.8 pg (27.0-33.4); MEAN CORPUSCULAR HGB CONC 34.2 g/dL (32.0-36.0); MEAN CORPUSCULAR VOLUME 90 fl (80-97); PLATELET COUNT 167 10^3/uL (150-450); RED CELL DISTRIBUTION WIDTH 22.3 % (11.5-14.0); WHITE BLOOD COUNT 15.1 10^3/uL (4.0-10.5)
[2020-01-26] MEDS ORDERED: NORMAL SALINE 1000 ML 1,000 ML IV PRN (05:00)
[2020-01-26] MEDS: PHENYTOIN SODIUM INJ/PF 100 MG/2 ML SDV IV SCH ×2 (05:39→14:48)
[2020-01-26 06:16] LABS: ABSOLUTE BASOPHILS # (AUTO) 0.2 10^3/uL (0.0-0.2); ABSOLUTE LYMPHOCYTES (AUTO) 1.1 10^3/uL (0.5-4.7); ABSOLUTE MONOCYTES (AUTO) 1.2 10^3/uL (0.1-1.4); ABSOLUTE NEUT (AUTO) 11.5 10^3/uL (1.7-8.2); BASOPHILS % (AUTO) 1.1 % (0-2); HEMATOCRIT 25.2 % (36.0-47.0); HEMOGLOBIN 8.6 g/dL (12.0-15.5); LYMPHOCYTES % (AUTO) 8.2 % (13-45); MEAN CORPUSCULAR HEMOGLOBIN 30.7 pg (27.0-33.4); MEAN CORPUSCULAR VOLUME 90 fl (80-97); MONOCYTES % (AUTO) 8.4 % (3-13); PLATELET COUNT 183 10^3/uL (150-450); RED CELL DISTRIBUTION WIDTH 21.7 % (11.5-14.0); SEGMENTED NEUTROPHILS % (AUTO) 82.3 % (42-78); TOTAL CELLS COUNTED % (AUTO) 100 %; WHITE BLOOD COUNT 13.9 10^3/uL (4.0-10.5)
[2020-01-26 06:35] LABS: ANION GAP 11 (5-19); BLOOD UREA NITROGEN 44 mg/dL (7-20); CALCIUM 9.5 mg/dL (8.4-10.2); CARBON DIOXIDE 28 mmol/L (22-30); CHLORIDE 99 mmol/L (98-107); GLUCOSE 107 mg/dL (75-110); POTASSIUM 4.1 mmol/L (3.6-5.0)
[2020-01-26] MEDS ORDERED: PROPOFOL INJ 200 MG/20 ML VIAL IV ONE (07:26)
[2020-01-26] MEDS ORDERED: DIPHENHYDRAMINE HCL 50 MG/ML VIAL ONE (09:38)
[2020-01-26] MEDS ORDERED: NALOXONE HCL INJ/PF 0.4 MG/1 ML SDV ONE (09:38)
[2020-01-26] MEDS ORDERED: FENTANYL CITRATE INJ/PF 100 MCG/2 ML AMPUL ONE (09:38)
[2020-01-26] MEDS ORDERED: ONDANSETRON HCL INJ/PF 4 MG/2 ML SDV ONE (09:38)
[2020-01-26] MEDS ORDERED: EPINEPHRINE INJ 1 MG/10 ML DISP.SYRIN ONE (09:39)
[2020-01-26] MEDS ORDERED: MIDAZOLAM 2 MG/2 ML INJ ONE (09:39)
[2020-01-26] MEDS ORDERED: GLUCAGON,HUMAN RECOMB 1 MG INJ ONE (09:39)
[2020-01-26] MEDS ORDERED: FLUMAZENIL INJ 0.5 MG/5 ML VIAL ONE (09:39)
[2020-01-26] MEDS: AMPICILLIN SODIUM 2 GM in NORMAL SALINE 100 ML IV SCH (09:41)
[2020-01-26] MEDS ORDERED: PANTOPRAZOLE SODIUM 40 MG VIAL IV SCH (11:00)
--- NOTE | 2020-01-26 11:55 | PDOC CRITICAL CARE PROG REPORT ---
General Date:: 01/26/20 ICU Day:: 2 Hospital Day:: 10 Resuscitation Status: Full Code Events in the past 12 to 24 Hours:: 01/23: This 44-year-old -Romanian female was seen in consultation at the request of Dr. Howell for recommendations on further evaluation and management of hypotension, associated with melanotic stools. She was originally admitted on 01/16 with altered mental status. She did have improvement in her mental status after hemodialysis; however, she is also been found to have had a right MCA stroke. She transferred to the ICU on 01/23 for volume resuscitation and blood transfusion. 01/24: Case discussed with Dr. Brantley. GI consultation pending. Bowel prep with GoLYTELY was performed. 01/25: Patient underwent colonoscopy this morning. Case was discussed with Dr. Kurtz. The patient was sedated for colonoscopy. Review of systems relevant to events:: Neurologic: Right MCA stroke Gastrointestinal: Melanotic stools neurologic: Acute blood loss anemia Cardiovascular: Congestive heart failure Renal: Hemodialysis Endocrine: Type 2 diabetes Reason for ICU Addmission:: Hypotension, acute GI bleed - Medications: Medications reviewed and adjusted accordingly: Yes Physical Exam Vital Signs: Temp Pulse Resp BP Pulse Ox 98.5 F 82 10 L 138/72 H 98 01/26/20 10:00 01/26/20 10:00 01/26/20 10:00 01/26/20 10:00 01/26/20 10:00 Intake & Output 01/25/20 01/26/20 01/27/20 06:59 06:59 06:59 Intake Total 2127 200 300 Output Total 0 50 1000 Balance 2127 150 -700 Weight 102.2 kg 100.4 kg Weight/Height Weight 100.4 kg Height 1.7 m General appearance: PRESENT: no acute distress, well-developed, well-nourished Head exam: PRESENT: atraumatic, normocephalic Eye exam: PRESENT: conjunctiva pink, EOMI, other - Dense bilateral cataracts. ABSENT: PERRLA, scleral icterus Neck exam: ABSENT: carotid bruit, JVD, lymphadenopathy, thyromegaly Respiratory exam: PRESENT: clear to auscultation alaina. ABSENT: rales, rhonchi, wheezes Cardiovascular exam: PRESENT: RRR. ABSENT: diastolic murmur, rubs, systolic murmur GI/Abdominal exam: PRESENT: normal bowel sounds, soft. ABSENT: distended, guarding, mass, organolmegaly, rebound, tenderness Rectal exam: PRESENT: heme (+) stool Extremities exam: PRESENT: full ROM. ABSENT: calf tenderness, clubbing, pedal edema Musculoskeletal exam: PRESENT: normal inspection. ABSENT: deformity Neurological exam: PRESENT: alert, awake, CN II-XII grossly intact. ABSENT: motor sensory deficit Skin exam: PRESENT: dry, intact, warm. ABSENT: cyanosis, rash Tubes/Lines: PRESENT: Central Line Laboratory/Radiographs Laboratory Results: 01/26/20 06:04 01/26/20 06:04 01/25/20 01/26/20 01/26/20 18:36 00:42 06:04 WBC 15.9 H 15.1 H 13.9 H RBC 2.81 L 2.80 L 2.80 L Hgb 8.5 L 8.6 L 8.6 L Hct 25.4 L 25.2 L 25.2 L MCV 90 90 90 MCH 30.4 30.8 30.7 MCHC 33.7 34.2 34.0 RDW 22.1 H 22.3 H 21.7 H Plt Count 175 167 183 Seg Neutrophils % 82.3 H Sodium Potassium Chloride Carbon Dioxide Anion Gap BUN Creatinine Est GFR ( Amer) Glucose Calcium Phosphorus Magnesium 01/26/20 06:04 WBC RBC Hgb Hct MCV MCH MCHC RDW Plt Count Seg Neutrophils % Sodium 137.7 Potassium 4.1 Chloride 99 Carbon Dioxide 28 Anion Gap 11 BUN 44 H Creatinine 5.91 H Est GFR ( Amer) 9 L Glucose 107 Calcium 9.5 Phosphorus 4.0 Magnesium 2.4 H 01/17/20 01/17/20 10:01 14:28 Troponin I < 0.012 < 0.012 NT-Pro-B Natriuret Pep 6310 H Impressions: Head CT 01/17/20 00:00 IMPRESSION: MILD CHRONIC CHANGES OF ATROPHY AND MICROVASCULAR ISCHEMIA. NO ACUTE PROCESS. EVIDENCE OF ACUTE STROKE: NO. Head MRI 01/18/20 00:00 IMPRESSION: Acute infarct in the right putamen (in the territory of the lateral lenticulostriate arteries/M1 segment of the MCA). EVIDENCE OF ACUTE STROKE: YES. RIGHT MCA KUB X-Ray 01/22/20 08:51 IMPRESSION: Esophagogastric tube tip and side-hole are below the diaphragm. Pelvis Ultrasound 01/23/20 00:00 IMPRESSION: Nonvisualized ovaries.Unremarkable uterus for Transabdominal t echnique with Poor sonographic beam penetration. Transvaginal US 01/23/20 00:00 IMPRESSION: Nonvisualized ovaries. Poorly visualized endometrium. Chest X-Ray 01/25/20 04:00 IMPRESSION: STABLE CARDIOMEGALY. NO ACUTE FINDINGS. All labs, radiographs, diagnostic studies and EKGs were personally reviewed: Yes In addition, reports of radiographic and diagnostic studies were read: Yes Assessment and Plan - Diagnosis (1) Gastric erosion determined by endoscopy Is this a current diagnosis for this admission?: Yes Plan: Case discussed with Dr. Kurtz. We will continue to monitor stool output. Trend hemoglobin. Clinical suspicion for persistent active bleeding may warrant tagged RBC scan. (2) Acute blood loss anemia Is this a current diagnosis for this admission?: Yes Plan: Monitor hemoglobin. Continue to hold heparin. (3) Acute right arterial ischemic stroke, MCA (middle cerebral artery) Is this a current diagnosis for this admission?: Yes Plan: Continue aspirin. Avoid sedative medications. Speech/swallow evaluation tomorrow. (4) Congestive heart failure Qualifiers: Heart failure type: unspecified Heart failure chronicity: chronic Qualified Code(s): I50.9 - Heart failure, unspecified Is this a current diagnosis for this admission?: Yes (5) Diabetes mellitus type 2 in obese Is this a current diagnosis for this admission?: Yes (6) GI bleeding Qualifiers: GI bleed type/associated pathology: melena Qualified Code(s): K92.1 - Melena Is this a current diagnosis for this admission?: Yes (7) End-stage renal disease on hemodialysis Is this a current diagnosis for this admission?: Yes Plan: HD per nephrology Plan Summary: Okay to transfer to the floor from pulmonary standpoint. Critical Time Critical Time (minutes): 60 Level of Care: ICU -: 1. The care of a critical patient is a dynamic process. This note is a financial representative synopsis but static in nature. The timeframe for treatments given in order is not necessarily the actual time these treatments may have been done. 2. This patient requires critical care secondary to ongoing requirements for therapy not offered or safe outside the critical care environment. Transfer to a lower level of care will result in altered life or limb morbidity and mortality. 3. Multidisciplinary rounds completed. 4. ABCDE bundle addressed.
--- NOTE | 2020-01-26 11:59 | PDOC CRITICAL CARE PROG REPORT ---
General Date:: 01/25/20 ICU Day:: 1 Hospital Day:: 9 Resuscitation Status: Full Code Events in the past 12 to 24 Hours:: PLEASE NOTE: late entry 01/23: This 44-year-old -Tongan female was seen in consultation at the request of Dr. Howell for recommendations on further evaluation and management of hypotension, associated with melanotic stools. She was originally admitted on 01/16 with altered mental status. She did have improvement in her mental status after hemodialysis; however, she is also been found to have had a right MCA stroke. She transferred to the ICU on 01/23 for volume resuscitation and blood transfusion. 01/24: Case discussed with Dr. Brantley. GI consultation pending. Review of systems relevant to events:: Neurologic: Right MCA stroke Gastrointestinal: Melanotic stools neurologic: Acute blood loss anemia Cardiovascular: Congestive heart failure Renal: Hemodialysis Endocrine: Type 2 diabetes Reason for ICU Addmission:: Hypotension, acute GI bleed - Medications: Medications reviewed and adjusted accordingly: Yes Physical Exam Vital Signs: Temp Pulse Resp BP Pulse Ox 98.5 F 82 10 L 138/72 H 98 01/26/20 10:00 01/26/20 10:00 01/26/20 10:00 01/26/20 10:00 01/26/20 10:00 Intake & Output 01/25/20 01/26/20 01/27/20 06:59 06:59 06:59 Intake Total 2127 200 300 Output Total 0 50 1000 Balance 2127 150 -700 Weight 102.2 kg 100.4 kg Weight/Height Weight 100.4 kg Height 1.7 m General appearance: PRESENT: no acute distress, well-developed, well-nourished Head exam: PRESENT: atraumatic, normocephalic Eye exam: PRESENT: other - Dense bilateral cataracts Mouth exam: PRESENT: moist, tongue midline Respiratory exam: PRESENT: clear to auscultation alaina. ABSENT: rales, rhonchi, wheezes Cardiovascular exam: PRESENT: RRR. ABSENT: diastolic murmur, rubs, systolic murmur Rectal exam: PRESENT: heme (+) stool Extremities exam: PRESENT: full ROM. ABSENT: calf tenderness, clubbing, pedal edema Musculoskeletal exam: PRESENT: normal inspection. ABSENT: deformity Neurological exam: PRESENT: alert, awake, CN II-XII grossly intact. ABSENT: motor sensory deficit Tubes/Lines: PRESENT: Central Line - Left IJ Assessment and Plan - Diagnosis (1) Acute blood loss anemia Is this a current diagnosis for this admission?: Yes (2) Acute right arterial ischemic stroke, MCA (middle cerebral artery) Is this a current diagnosis for this admission?: Yes (3) Congestive heart failure Qualifiers: Heart failure type: unspecified Heart failure chronicity: chronic Qualified Code(s): I50.9 - Heart failure, unspecified Is this a current diagnosis for this admission?: Yes (4) Diabetes mellitus type 2 in obese Is this a current diagnosis for this admission?: Yes (5) GI bleeding Qualifiers: GI bleed type/associated pathology: melena Qualified Code(s): K92.1 - Melena Is this a current diagnosis for this admission?: Yes (6) End-stage renal disease on hemodialysis Is this a current diagnosis for this admission?: Yes Critical Time Critical Time (minutes): 60 Level of Care: ICU -: 1. The care of a critical patient is a dynamic process. This note is a employee representative synopsis but static in nature. The timeframe for treatments given in order is not necessarily the actual time these treatments may have been done. 2. This patient requires critical care secondary to ongoing requirements for therapy not offered or safe outside the critical care environment. Transfer to a lower level of care will result in altered life or limb morbidity and mortality. 3. Multidisciplinary rounds completed. 4. ABCDE bundle addressed.
--- NOTE | 2020-01-26 13:10 | Operative Report ---
Operative Report DATE OF SURGERY: 01/26/20 Operative Report: The risks, benefits and alternative of the procedure are explained to the patient in detail she is agreeable to proceed with both EGD and colonoscopy informed consent is obtained colonoscopy is performed to the cecum prep is good conscious sedation is performed PREOPERATIVE DIAGNOSIS: gi bleeding, large volume bleeding , no pain POSTOPERATIVE DIAGNOSIS: Internal hemorrhoids. colonoscopy performed to the cecum, no identifiable bleeding site is noted. NG tube trauma. no upper GI bleeding noted OPERATION: colonoscopy diagnostic. EGD with biopsy SURGEON: ISHA BOB ANESTHESIA: Moderate Sedation - 2mg of Versed given for both procedures, stable vitals thoughout TISSUE REMOVED OR ALTERED: gastric specimen to rule out H.Pylori COMPLICATIONS: none ESTIMATED BLOOD LOSS: none INTRAOPERATIVE FINDINGS: as noted above PROCEDURE: patient tolerated the procedure well no post procedure complications if rebleed will need RBC bleeding scan could be small intestinal in nature proceed with dialysis and stoke care transfuse as necessary avoid blood thinners
[2020-01-26] MEDS ORDERED: PHENYLEPHRINE HCL INJ/PF 10 MG/1 ML SDV ONE ×2 (16:06→16:07)
[2020-01-26 16:19] LABS: HEMATOCRIT 20.2 % (36.0-47.0); MEAN CORPUSCULAR HEMOGLOBIN 30.5 pg (27.0-33.4); MEAN CORPUSCULAR HGB CONC 33.6 g/dL (32.0-36.0); MEAN CORPUSCULAR VOLUME 91 fl (80-97); PLATELET COUNT 194 10^3/uL (150-450); RED BLOOD COUNT 2.22 10^6/uL (3.72-5.28); RED CELL DISTRIBUTION WIDTH 21.6 % (11.5-14.0); WHITE BLOOD COUNT 15.8 10^3/uL (4.0-10.5)
[2020-01-26 16:21] LABS: HEMOGLOBIN 6.8 g/dL (12.0-15.5)
[2020-01-26] MEDS ORDERED: NORMAL SALINE 250 ML IV PRN ×6 (16:23→18:38)
--- NOTE | 2020-01-26 16:50 | PDOC CRITICAL CARE PROG REPORT ---
General Date:: 01/26/20 Resuscitation Status: Full Code Events in the past 12 to 24 Hours:: PLEASE NOTE: late entry 01/23: This 44-year-old -Omani female was seen in consultation at the request of Dr. Howell for recommendations on further evaluation and management of hypotension, associated with melanotic stools. She was originally admitted on 01/16 with altered mental status. She did have improvement in her mental status after hemodialysis; however, she is also been found to have had a right MCA stroke. She transferred to the ICU on 01/23 for volume resuscitation and blood transfusion. 01/24: Case discussed with Dr. Brantley. GI consultation pending. Review of systems relevant to events:: Neurologic: Right MCA stroke Gastrointestinal: Melanotic stools neurologic: Acute blood loss anemia Cardiovascular: Congestive heart failure Renal: Hemodialysis Endocrine: Type 2 diabetes Reason for ICU Addmission:: Hypotension, acute GI bleed Physical Exam Vital Signs: Temp Pulse Resp BP Pulse Ox 98.0 F 87 8 L 108/63 99 01/26/20 14:00 01/26/20 14:00 01/26/20 14:00 01/26/20 14:00 01/26/20 14:00 Intake & Output 01/25/20 01/26/20 01/27/20 06:59 06:59 06:59 Intake Total 2127 200 300 Output Total 0 50 2500 Balance 2127 150 -2200 Weight 102.2 kg 100.4 kg Weight/Height Weight 100.4 kg Height 1.7 m Laboratory/Radiographs Laboratory Results: 01/26/20 16:10 01/26/20 06:04 01/25/20 01/26/20 01/26/20 18:36 00:42 06:04 WBC 15.9 H 15.1 H 13.9 H RBC 2.81 L 2.80 L 2.80 L Hgb 8.5 L 8.6 L 8.6 L Hct 25.4 L 25.2 L 25.2 L MCV 90 90 90 MCH 30.4 30.8 30.7 MCHC 33.7 34.2 34.0 RDW 22.1 H 22.3 H 21.7 H Plt Count 175 167 183 Seg Neutrophils % 82.3 H Sodium Potassium Chloride Carbon Dioxide Anion Gap BUN Creatinine Est GFR ( Amer) Glucose Calcium Phosphorus Magnesium 01/26/20 01/26/20 06:04 16:10 WBC 15.8 H RBC 2.22 L Hgb 6.8 L Hct 20.2 L MCV 91 MCH 30.5 MCHC 33.6 RDW 21.6 H Plt Count 194 Seg Neutrophils % Sodium 137.7 Potassium 4.1 Chloride 99 Carbon Dioxide 28 Anion Gap 11 BUN 44 H Creatinine 5.91 H Est GFR ( Amer) 9 L Glucose 107 Calcium 9.5 Phosphorus 4.0 Magnesium 2.4 H 01/17/20 01/17/20 10:01 14:28 Troponin I < 0.012 < 0.012 NT-Pro-B Natriuret Pep 6310 H Impressions: Head CT 01/17/20 00:00 IMPRESSION: MILD CHRONIC CHANGES OF ATROPHY AND MICROVASCULAR ISCHEMIA. NO ACUTE PROCESS. EVIDENCE OF ACUTE STROKE: NO. Head MRI 01/18/20 00:00 IMPRESSION: Acute infarct in the right putamen (in the territory of the lateral lenticulostriate arteries/M1 segment of the MCA). EVIDENCE OF ACUTE STROKE: YES. RIGHT MCA KUB X-Ray 01/22/20 08:51 IMPRESSION: Esophagogastric tube tip and side-hole are below the diaphragm. Pelvis Ultrasound 01/23/20 00:00 IMPRESSION: Nonvisualized ovaries.Unremarkable uterus for Transabdominal technique with Poor sonographic beam penetration. Transvaginal US 01/23/20 00:00 IMPRESSION: Nonvisualized ovaries. Poorly visualized endometrium. Chest X-Ray 01/25/20 04:00 IMPRESSION: STABLE CARDIOMEGALY. NO ACUTE FINDINGS. Assessment and Plan - Diagnosis (1) Acute blood loss anemia Is this a current diagnosis for this admission?: Yes (2) Acute right arterial ischemic stroke, MCA (middle cerebral artery) Is this a current diagnosis for this admission?: Yes (3) Congestive heart failure Qualifiers: Heart failure type: unspecified Heart failure chronicity: chronic Qualified Code(s): I50.9 - Heart failure, unspecified Is this a current diagnosis for this admission?: Yes (4) Diabetes mellitus type 2 in obese Is this a current diagnosis for this admission?: Yes (5) GI bleeding Qualifiers: GI bleed type/associated pathology: melena Qualified Code(s): K92.1 - Melena Is this a current diagnosis for this admission?: Yes Plan: Patient was anticipating transfer to [facility] today. However, around 1600, the patient had a large bout of hematochezia. She also complained of becoming tachycardic and diaphoretic and complained of increased shortness of breath. Repeat H&H revealed hemoglobin 6.8. Transfer was canceled. Start phenylephrine for blood pressure support. 3 units PRBC ordered. If he becomes hemodynamically stable, RBC bleeding scan should be considered. (6) End-stage renal disease on hemodialysis Is this a current diagnosis for this admission?: Yes Critical Time Critical Time (minutes): 30 Level of Care: ICU -: 1. The care of a critical patient is a dynamic process. This note is a mortician supplies sales representative synopsis but static in nature. The timeframe for treatments given in order is not necessarily the actual time these treatments may have been done. 2. This patient requires critical care secondary to ongoing requirements for therapy not offered or safe outside the critical care environment. Transfer to a lower level of care will result in altered life or limb morbidity and mortality. 3. Multidisciplinary rounds completed. 4. ABCDE bundle addressed.
[2020-01-26 16:52] LABS: INTERNATIONAL RATION (INR) 1.53; PROTHROMBIN TIME 18.5 SEC (11.4-15.4)
[2020-01-26 16:53] LABS: PARTIAL THROMBOPLASTIN TIME 35.7 SEC (23.5-35.8)
[2020-01-26] MEDS ORDERED: VASOPRESSIN INJ 20 UNIT/1 ML VIAL ONE (18:09)
[2020-01-26] MEDS ORDERED: DEXTROSE 5%-WATER 250 ML with VASOPRESSIN 100 UNIT IV PRN ×2 (18:18)
[2020-01-26] MEDS ORDERED: NORMAL SALINE 500 ML IV PRN (18:20)
[2020-01-26] MEDS ORDERED: DEXTROSE 5%-WATER 250 ML with PHENYLEPHRINE HCL 40 MG IV PRN ×2 (18:20)
--- NOTE | 2020-01-26 18:36 | PDOC TRANSFER SUMMARY ---
General Admission Date/PCP: 01/17/20 13:09 KELLEY CABRERA NP Resuscitation Status: Full Code - Transfer Diagnosis (1) Hemorrhagic shock Is this a current diagnosis for this admission?: Yes Diagnosis Summary: At the time of discharge, the patient has received 4 units of packed cells. Phenylephrine for blood pressure support. (2) Acute blood loss anemia Is this a current diagnosis for this admission?: Yes Diagnosis Summary: Most recent hemoglobin 6.8. (3) Acute right arterial ischemic stroke, MCA (middle cerebral artery) Is this a current diagnosis for this admission?: Yes Diagnosis Summary: With minimal neurological sequelae. (4) GI bleeding Is this a current diagnosis for this admission?: Yes Diagnosis Summary: EGD was reported to demonstrate gastric erosion. Colonoscopy was suggestive of GI bleeding, in light of red tinge to irrigant during colonoscopy; however, no overt bleeding site was identified during colonoscopy. Suspected small bowel bleeding focus. (5) Congestive heart failure Is this a current diagnosis for this admission?: Yes (6) Diabetes mellitus type 2 in obese Is this a current diagnosis for this admission?: Yes (7) End-stage renal disease on hemodialysis Is this a current diagnosis for this admission?: Yes Diagnosis Summary: On hemodialysis (Friday, Friday, Friday). - Transfer Medications Home Medications: Atorvastatin Calcium [Lipitor 80 mg Tablet] 80 mg PO QHS 06/11/19 Calcium Acetate [Phoslo 667 mg Capsule] 2,001 mg PO AC 06/11/19 Clonidine HCl [Catapres 0.2 mg Tablet] 0.2 mg PO Q12 06/11/19 Hydroxyzine HCl [Atarax 10 mg Tablet] 10 mg PO Q8HP PRN 06/11/19 Oxycodone HCl [Oxy-Ir 5 mg Tablet] 5 mg PO Q8HP PRN 06/11/19 Phenytoin Sodium Extended [Dilantin 100 mg Capsule.er] 100 mg PO Q8 06/11/19 Pregabalin [Lyrica 75 mg Capsule] 75 mg PO MOWEFR@1000 06/11/19 Pregabalin [Lyrica 75 mg Capsule] 75 mg PO QHS 06/11/19 Aspirin [Aspirin 81 mg Chewable Tablet] 81 mg PO QAM 01/17/20 Escitalopram Oxalate [Lexapro 10 mg Tablet] 10 mg PO DAILY 05/25/20 Lorazepam [Ativan 0.5 mg Tablet] 0.5 mg PO Q8HP PRN 01/17/20 Melatonin [Melatonin 3 mg Tablet] 3 mg PO QHS 01/17/20 Metoprolol Tartrate [Lopressor 100 mg Tablet] 100 mg PO Q12 01/17/20 Pantoprazole Sodium [Protonix [address] Tablet] 40 mg PO Q6AM 01/17/20 Polyethylene Glycol 3350 [Miralax Powder 17 gm/Packet] 1 packet PO DAILYP PRN 01/17/20 Sennosides [Senokot] 8.6 mg PO BID 01/17/20 Transfer Medications: Current Medications Dextrose (Dextrose Inj 50% Syringe (25 Gm/50 Ml)) 12.5 gm IV PRN PRN; Protocol PRN Reason: FOR BG 50-69 IN ALERT PATIENT Stop: 02/16/20 13:42 Dextrose (Dextrose Inj 50% Syringe (25 Gm/50 Ml)) 25 gm IV PRN PRN; Protocol PRN Reason: PER PROTOCOL Stop: 02/16/20 13:42 Glucagon (Glucagen Inj 1 Mg Vial) 1 mg IM PRN PRN; Protocol PRN Reason: Evaluate for BG < 70 Stop: 02/16/20 13:42 Glucose (Glutose 40% Gel 15 Gm Tube) 15 gm PO PRN PRN; Protocol PRN Reason: FOR BG 50-69 IN ALERT PATIENT Stop: 02/16/20 13:42 Glucose (Glutose 40% Gel 15 Gm Tube) 30 gm PO PRN PRN; Protocol PRN Reason: FOR BG < 50 IN ALERT PATIENT Stop: 02/16/20 13:42 Ampicillin Sodium 2 gm/ Sodium (Chloride) 100 mls @ 200 mls/hr IV Q12 [facility] Stop: 01/27/20 21:59 Last Infusion: 01/26/20 10:16 Dose: Infused Documented by: Sodium Chloride (Nacl 0.9% 1000 Ml Iv Soln) 1,000 mls @ 0 mls/hr IV .DIALYSIS PRN PRN Reason: THIS MED IS NOT "PRN" Stop: 01/26/20 23:59 Sodium Chloride (Nacl 0.9% 250 Ml Iv Soln) 250 mls @ 30 mls/hr IV .DURING TRANSFUSION PRN PRN Reason: THIS MED IS NOT "PRN" Stop: 01/27/20 16:22 Sodium Chloride (Nacl 0.9% 250 Ml Iv Soln) 250 mls @ 0 mls/hr IV CONTINUOUS PRN PRN Reason: AFTER EACH UNIT Stop: 01/27/20 16:22 Insulin Human Lispro (Humalog Insulin 100 Unit/1 Ml 3 Ml Vial) 0 - 12 unit SUBCUT Q6 [facility]; Protocol Stop: 02/16/20 17:59 Last Admin: 01/26/20 12:36 Dose: Not Given Documented by: Pantoprazole Sodium (Protonix Iv Inj 40 Mg Vial) 40 mg IV DAILY [facility] Stop: 02/02/20 10:59 Last Admin: 01/26/20 10:20 Dose: 40 mg Documented by: Pharmacy Profile Note (Medication Communication Order) 1 each [facility] .NOTICE NR Stop: 02/21/20 08:59 Phenytoin Sodium (Dilantin Inj/Pf 100 Mg/2 Ml Sdv) 100 mg IV Q8 [facility] Stop: 02/17/20 21:59 Last Admin: 01/26/20 14:48 Dose: 100 mg Documented by: - Allergies Allergies/Adverse Reactions: hydromorphone [Hydromorphone] Allergy (Intermediate, Verified 12/28/18 12:14) ABDOMINAL CRAMPS azithromycin [Azithromycin] Allergy (Unknown, Verified 12/28/18 12:14) Darbepoetin Chandrika in [place] * [From Aranesp] Allergy (Unknown, Verified 12/28/18 12:14) ITCHING epoetin chandrika [From Procrit] Allergy (Verified 12/28/18 12:14) Sulfa (Sulfonamide Antibiotics) Allergy (Verified 12/28/18 12:14) Unsure BBQ SAUCE Allergy (Mild, Uncoded 12/28/18 12:14) Hives Hospital Course Hospital Course: This 44-year-old obese -[place] female [facility] with complaints of altered mental status. She is a known end-stage renal disease patient on hemodialysis. She was found to have significant improvement after hemodialysis, leading to suspicion that she may have presented with a uremic encephalopathy. However, on 01/17, the patient was felt to be less interactive again. This raised concern for the possibility of acute stroke. Although initial head CT was interpreted be negative, MRI did report findings compatible with right putaminal ischemia. She was assessed to be clinically improving over the next couple of days with increased mentation an d interaction. However, on 01/20, she was noted to lose a large amount of blood. Initially, there was some confusion about whether this was per rectum or transvaginal. Gynecologic evaluation was unrevealing. Her hemoglobin dropped from 9.2-6.5. Surgery consultation (Dr. Brantley) was sought. EGD and colonoscopy were requested from gastroenterology (Dr. Kurtz). Bowel prep was completed on 01/25. Patient underwent colonoscopy which was suspicious for GI bleeding but failed to reveal any specific location in the colon. EGD showed gastric erosion without overt bleeding to explain the patient's ongoing blood loss. Hence, clinical suspicion was directed toward a small bowel source for the bleeding. The patient has been hemodynamically stable (normotensive without need for blood pressure support) with a normal heart rate throughout the day; however, later this afternoon, the patient resumed having larger amounts of blood per rectum. Stat H&H revealed hemoglobin 6.8. The patient has been bolused with 1 L normal saline, transfused 1 emergency unit PRBC, started on phenylephrine infusion. 2 additional units PRBC are on the way. Transfer request was submitted to [facility]. The case was presented to the radiologist ergonomics engineer with a specific question of availabil ity/capability of interventional radiology, mesenteric angiography and/or clipping. This service is available at [facility]. Critical care service (Dr. Lee) accepted the patient for transfer. Physical Exam Vital Signs: Temp Pulse Resp BP Pulse Ox 97.5 F 119 H 27 H 74/53 L 95 01/26/20 17:05 01/26/20 17:05 01/26/20 17:05 01/26/20 17:05 01/26/20 17:05 Intake & Output 01/25/20 01/26/20 01/27/20 06:59 06:59 06:59 Intake Total 2127 200 300 Output Total 0 50 2500 Balance 2127 150 -2200 Weight 102.2 kg 100.4 kg General appearance: PRESENT: obese, well-developed, well-nourished Head exam: PRESENT: atraumatic, normocephalic Eye exam: PRESENT: conjunctiva pink, EOMI, PERRLA. ABSENT: scleral icterus Mouth exam: PRESENT: moist, tongue midline Neck exam: ABSENT: carotid bruit, JVD, lymphadenopathy, thyromegaly Respiratory exam: PRESENT: clear to auscultation alaina. ABSENT: rales, rhonchi, wheezes Cardiovascular exam: PRESENT: RRR, tachycardia. ABSENT: diastolic murmur, rubs, systolic murmur Pulses: PRESENT: normal carotid pulses, normal femoral pulses GI/Abdominal exam: PRESENT: normal bowel sounds, soft. ABSENT: distended, guarding, mass, organolmegaly, rebound, tenderness Extremities exam: PRESENT: full ROM. ABSENT: calf tenderness, clubbing, pedal edema Neurological exam: PRESENT: alert, awake, oriented to person, oriented to place, oriented to time, oriented to situation, CN II-XII grossly intact. ABSENT: motor sensory deficit Results Laboratory Results: 01/26/20 16:10 01/26/20 06:04 01/25/20 01/26/20 01/26/20 18:36 00:42 06:04 WBC 15.9 H 15.1 H 13.9 H RBC 2.81 L 2.80 L 2.80 L Hgb 8.5 L 8.6 L 8.6 L Hct 25.4 L 25.2 L 25.2 L MCV 90 90 90 MCH 30.4 30.8 30.7 MCHC 33.7 34.2 34.0 RDW 22.1 H 22.3 H 21.7 H Plt Count 175 167 183 Seg Neutrophils % 82.3 H Sodium Potassium Chloride Carbon Dioxide Anion Gap BUN Creatinine Est GFR ( Amer) Glucose Calcium Phosphorus Magnesium Blood Type Antibody Screen 01/26/20 01/26/20 01/26/20 06:04 16:10 16:32 WBC 15.8 H RBC 2.22 L Hgb 6.8 L Hct 20.2 L MCV 91 MCH 30.5 MCHC 33.6 RDW 21.6 H Plt Count 194 Seg Neutrophils % Sodium 137.7 Potassium 4.1 Chloride 99 Carbon Dioxide 28 Anion Gap 11 BUN 44 H Creatinine 5.91 H Est GFR ( Amer) 9 L Glucose 107 Calcium 9.5 Phosphorus 4.0 Magnesium 2.4 H Blood Type O POSITIVE Antibody Screen NEGATIVE 01/17/20 01/17/20 10:01 14:28 Troponin I < 0.012 < 0.012 NT-Pro-B Natriuret Pep 6310 H Impressions: Head CT 01/17/20 00:00 IMPRESSION: MILD CHRONIC CHANGES OF ATROPHY AND MICROVASCULAR ISCHEMIA. NO ACUTE PROCESS. EVIDENCE OF ACUTE STROKE: NO. Head MRI 01/18/20 00:00 IMPRESSION: Acute infarct in the right putamen (in the territory of the lateral lenticulostriate arteries/M1 segment of the MCA). EVIDENCE OF ACUTE STROKE: YES. RIGHT MCA KUB X-Ray 01/22/20 08:51 IMPRESSION: Esophagogastric tube tip and side-hole are below the diaphragm. Pelvis Ultrasound 01/23/20 00:00 IMPRESSION: Nonvisualized ovaries.Unremarkable uterus for Transabdominal technique with Poor sonographic beam penetration. Transvaginal US 01/23/20 00:00 IMPRESSION: Nonvisualized ovaries. Poorly visualized endometrium. Chest X-Ray 01/25/20 04:00 IMPRESSION: STABLE CARDIOMEGALY. NO ACUTE FINDINGS. Plan Discharge Plan: Contacted [facility] transfer center. Spoke with radiologist ergonomics engineer to confirm availability of interventional radiology service with capabilities to perform mesenteric angiography. I was informed they would also be able to perform intervention/clipping, if indicated. Time Spent: Greater than 30 Minutes
[2020-01-26 19:02] VITALS: BP 115/66
--- NOTE | 2020-01-26 21:29 | PDOC PROGRESS REPORT ---
Subjective Progress Note for:: 01/26/20 Subjective:: I am seeing the patient during dialysis this afternoon. Patient underwent EGD and colonoscopy by Dr. Streeter this morning with findings of gastric erosions and possible small bowel bleed. During dialysis the patient is awake and answering questions and she is quite oriented although slightly somnolent. Currently she is a stable receiving dialysis and tolerating it at this point. Reason For Visit: METABOLIC ENCEPHALOPATHY,HYPERCALCEMIA,ESRD Physical Exam Vital Signs: Temp Pulse Resp BP Pulse Ox 98.5 F 82 10 L 138/72 H 98 01/26/20 10:00 01/26/20 10:00 01/26/20 10:00 01/26/20 10:00 01/26/20 10:00 Intake & Output 01/25/20 01/26/20 01/27/20 06:59 06:59 06:59 Intake Total 2127 200 300 Output Total 0 50 1000 Balance 2127 150 -700 Weight 102.2 kg 100.4 kg Vitals during dialysis: Blood pressure 129/67, heart rate of 88, oxygen s aturation 99% blood flow rate of 450 mL/min and dialysate flow rate of 800 mL/min. Exam: General appearance: PRESENT: no acute distress, cooperative, well-developed, well-nourished Head exam: PRESENT: atraumatic, normocephalic Eye exam: PRESENT: conjunctiva pale, PERRLA. ABSENT: scleral icterus Neck exam: ABSENT: JVD Respiratory exam: PRESENT: Diminished breath sounds. ABSENT: crackles, rales, rhonchi, unlabored, wheezes Cardiovascular exam: PRESENT: Regular rate rhythm -+S1, +S2. ABSENT: diastolic murmur, systolic murmur GI/Abdominal exam: PRESENT: normal bowel sounds, soft. ABSENT: guarding, mass, tenderness Extremities exam: ABSENT: No edema Neurological exam: PRESENT: Somnolent but arousable, oriented to person, place and time. Skin exam: PRESENT: dry, warm, Cardiovascular exam: PRESENT: +S1, +S2. ABSENT: rubs GI/Abdominal exam: PRESENT: normal bowel sounds, soft. ABSENT: organomegaly, tenderness Results Laboratory Results: 01/26/20 06:04 01/26/20 06:04 01/25/20 01/26/20 01/26/20 18:36 00:42 06:04 WBC 15.9 H 15.1 H 13.9 H RBC 2.81 L 2.80 L 2.80 L Hgb 8.5 L 8.6 L 8.6 L Hct 25.4 L 25.2 L 25.2 L MCV 90 90 90 MCH 30.4 30.8 30.7 MCHC 33.7 34.2 34.0 RDW 22.1 H 22.3 H 21.7 H Plt Count 175 167 183 Seg Neutrophils % 82.3 H Sodium Potassium Chloride Carbon Dioxide Anion Gap BUN Creatinine Est GFR ( Amer) Glucose Calcium Phosphorus Magnesium 01/26/20 06:04 WBC RBC Hgb Hct MCV MCH MCHC RDW Plt Count Seg Neutrophils % Sodium 137.7 Potassium 4.1 Chloride 99 Carbon Dioxide 28 Anion Gap 11 BUN 44 H Creatinine 5.91 H Est GFR ( Amer) 9 L Glucose 107 Calcium 9.5 Phosphorus 4.0 Magnesium 2.4 H 01/17/20 01/17/20 10:01 14:28 Troponin I < 0.012 < 0.012 NT-Pro-B Natriuret Pep 6310 H Impressions: Head CT 01/17/20 00:00 IMPRESSION: MILD CHRONIC CHANGES OF ATROPHY AND MICROVASCULAR ISCHEMIA. NO ACUTE PROCESS. EVIDENCE OF ACUTE STROKE: NO. Head MRI 01/18/20 00:00 IMPRESSION: Acute infarct in the right putamen (in the territory of the lateral lenticulostriate arteries/M1 segment of the MCA). EVIDENCE OF ACUTE STROKE: YES. RIGHT MCA KUB X-Ray 01/22/20 08:51 IMPRESSION: Esophagogastric tube tip and side-hole are below the diaphragm. Pelvis Ultrasound 01/23/20 00:00 IMPRESSION: Nonvisualized ovaries.Unremarkable uterus for Transabdominal technique with Poor sonographic beam penetration. Transvaginal US 01/23/20 00:00 IMPRESSION: Nonvisualized ovaries. Poorly visualized endometrium. Chest X-Ray 01/25/20 04:00 IMPRESSION: STABLE CARDIOMEGALY. NO ACUTE FINDINGS. Assessment & Plan - Diagnosis (1) End-stage renal disease on hemodialysis Is this a current diagnosis for this admission?: Yes Plan: We will do dialysis today for 3 hours, using the patient's AV fistula, with 3 potassium bath, blood flow rate of 450 mL per minute, dialysate flow rate of 800 mL per minute, ultrafiltration 1 to 2 L as tolerated, no heparin and no Retacrit as the patient is allergic to it. Patient is currently being monitored very closely during the ICU. (2) Acute right arterial ischemic stroke, MCA (middle cerebral artery) Is this a current diagnosis for this admission?: Yes Plan: Patient has acute right putamen infarct during this admission likely could have caused her acute encephalopathy on admission. She also has a recent pontine stroke for which she was hospitalized at [facility] about couple weeks ago. (3) Acute encephalopathy Is this a current diagnosis for this admission?: Yes Plan: Secondary to new ischemic stroke, metabolic and seizure disorder. Currently improved mentation. (4) Hypercalcemia Is this a current diagnosis for this admission?: Yes Plan: Resolved. (5) Anemia in chronic kidney disease Qualifiers: Chronic kidney disease stage: on chronic dialysis Qualified Code(s): N18.6 - End stage renal disease; D63.1 - Anemia in chronic kidney disease; Z99.2 - Dependence on renal dialysis Is this a current diagnosis for this admission?: Yes Plan: Patient is allergic to Procrit. Patient had a GI bleed since Friday night requiring transfer to ICU. She had EGD and colonoscopy as mentioned above. Continue to monitor your hemoglobin closely. (6) Abscess of pubic region Is this a current diagnosis for this admission?: Yes Plan: Defer to primary service. (7) Hypertension Qualifiers: Hypertension type: essential hypertension Qualified Code(s): I10 - Essential (primary) hypertension Is this a current diagnosis for this admission?: Yes Plan: Currently on the low side. (8) Diabetes mellitus type 2 in obese Is this a current diagnosis for this admission?: Yes Plan: Controlled. (9) Seizure disorder Is this a current diagnosis for this admission?: Yes (10) Hidradenitis suppurativa Is this a current diagnosis for this admission?: Yes (11) Legally blind Is this a current diagnosis for this admission?: Yes - Time Time with patient: 15-25 minutes
== END 2020-01-26 19:12 | disposition short-term general hospital (02) | DRG 64 ==
LOC: ER 09:04 → EH 13:09 → 3W 18:31 → ICU 01-24 21:18
PROVIDERS: ADMIT Family Medicine; ATTEND Internal Medicine Critical Care Medicine
PROC: 5A1D70Z Performance of Urinary Filtration, Intermittent, Less than 6 Hours Per Day (ICD-10-PCS; 2020-01-17)
PROC: 5A1D70Z Performance of Urinary Filtration, Intermittent, Less than 6 Hours Per Day (ICD-10-PCS; 2020-01-19)
PROC: 5A1D70Z Performance of Urinary Filtration, Intermittent, Less than 6 Hours Per Day (ICD-10-PCS; 2020-01-21)
PROC: 02HV33Z Insertion of Infusion Device into Superior Vena Cava, Percutaneous Approach (ICD-10-PCS; 2020-01-24)
PROC: B548ZZA Ultrasonography of Superior Vena Cava, Guidance (ICD-10-PCS; 2020-01-24)
PROC: 5A1D70Z Performance of Urinary Filtration, Intermittent, Less than 6 Hours Per Day (ICD-10-PCS; 2020-01-24)
PROC: 30233N1 Transfusion of Nonautologous Red Blood Cells into Peripheral Vein, Percutaneous Approach (ICD-10-PCS; 2020-01-24)
PROC: 5A1D70Z Performance of Urinary Filtration, Intermittent, Less than 6 Hours Per Day (ICD-10-PCS; 2020-01-26)
PROC: 30233N1 Transfusion of Nonautologous Red Blood Cells into Peripheral Vein, Percutaneous Approach (ICD-10-PCS; 2020-01-26)
PROC: 0DJD8ZZ Inspection of Lower Intestinal Tract, Via Natural or Artificial Opening Endoscopic (ICD-10-PCS; principal; 2020-01-26 09:00)
PROC: 0DB78ZX Excision of Stomach, Pylorus, Via Natural or Artificial Opening Endoscopic, Diagnostic (ICD-10-PCS; 2020-01-26 09:00)
DX: I63.511 Cerebral infarction due to unspecified occlusion or stenosis of right middle cerebral artery (principal); G93.41 Metabolic encephalopathy; N18.6 End stage renal disease; K25.4 Chronic or unspecified gastric ulcer with hemorrhage; R57.1 Hypovolemic shock; I13.2 Hypertensive heart and chronic kidney disease with heart failure and with stage 5 chronic kidney disease, or end stage renal disease; D62 Acute posthemorrhagic anemia; E66.2 Morbid (severe) obesity with alveolar hypoventilation; L02.215 Cutaneous abscess of perineum; Z68.42 Body mass index [BMI] 45.0-49.9, adult; I69.351 Hemiplegia and hemiparesis following cerebral infarction affecting right dominant side; E83.52 Hypercalcemia; R47.01 Aphasia; E11.22 Type 2 diabetes mellitus with diabetic chronic kidney disease; I50.9 Heart failure, unspecified; I25.10 Atherosclerotic heart disease of native coronary artery without angina pectoris; E78.5 Hyperlipidemia, unspecified; G89.29 Other chronic pain; I73.9 Peripheral vascular disease, unspecified; K21.9 Gastro-esophageal reflux disease without esophagitis; M19.90 Unspecified osteoarthritis, unspecified site; L73.2 Hidradenitis suppurativa; D63.1 Anemia in chronic kidney disease; E87.5 Hyperkalemia; H54.8 Legal blindness, as defined in USA; G40.909 Epilepsy, unspecified, not intractable, without status epilepticus; I16.0 Hypertensive urgency; K64.8 Other hemorrhoids; I87.8 Other specified disorders of veins; B96.20 Unspecified Escherichia coli [E. coli] as the cause of diseases classified elsewhere; B96.4 Proteus (mirabilis) (morganii) as the cause of diseases classified elsewhere; Z79.891 Long term (current) use of opiate analgesic; Z99.2 Dependence on renal dialysis; Z90.49 Acquired absence of other specified parts of digestive tract; Z88.2 Allergy status to sulfonamides; Z88.1 Allergy status to other antibiotic agents; I95.0 Idiopathic hypotension; Z20.828 Contact with and (suspected) exposure to other viral communicable diseases; Z89.422 Acquired absence of other left toe(s)
CPT/HCPCS: 36415; 36430; 43239; 45378; 70450; 70551; 71045; 74018; 76830; 76856; 80048; 80053; 80061; 80185; 80186; 82140; 82607; 82728; 82746; 82962; 83036; 83540; 83550; 83605; 83690; 83735; 83880; 83970; 84100; 84165; 84443; 84466; 84484; 84702; 85025; 85027; 85045; 85610; 85730; 86850; 86900; 86901; 86920; 87040; 87070; 87077; 87186; 87205; 87635; 88305; 88342; 93005; 93010; 96365; 96366; 96367; 99238; 99291; C9113; J0171; J0290; J0360; J0630; J0690; J0692; J1165; J1200; J1610; J1642; J1644; J1815; J2250; J2270; J2310; J2370; J2405; J2704; J3010; J3370; J3490; J7030; J7040; J7050; J7060; J7120; P9016; Q5105